=== PATIENT | male | born 1945 | race Hispanic/Latino ===

== ENCOUNTER 2017-05-06 12:00 | Inpatient (IN) | payer MEDICARE, BC ==
[2017-05-06 12:13] VITALS: BMI 29.9
--- NOTE | 2017-05-06 12:15 | ED PDOC ---
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 Patient reports his pain is exacerbated when coughing. Patient denies any fever, chills, nausea, vomiting, diarrhea, abdominal pain, urinary symptoms, hemtouria, hematochezia, chest pain, shortness of breath, cough or any other complaints. Oncologist: Dr. Vargas Time/Duration: Other (3 weeks) Symptom Course: Unchanged Quality: Other Context: Home Past Medical History - Provider Review Nursing Documentation Reviewed: Yes - Infectious Disease Hx of Infectious Diseases: None - Tetanus Immunization Tetanus Immunization: Unknown - Cardiac Hx Hypertension: Yes - Pulmonary Hx Respiratory Disorders: No - Neurological Hx Neurological Disorder: No - HEENT Hx HEENT Disorder: Yes (RX GLASSES) Hx Cataracts: Yes (BILATERAL LENS IMPLANT) - Renal Hx Renal Disorder: No - Endocrine/Metabolic Hx Diabetes Mellitus Type 2: Yes - Hematological/Oncological Hx Blood Transfusions: No Hx Blood Transfusion Reaction: No - Integumentary Hx Dermatological Disorder: No - Musculoskeletal/Rheumatological Hx Falls: No - Gastrointestinal Hx Gastrointestinal Disorders: Yes (colon/stomach ca, reflux) - Genitourinary/Gynecological Hx Reproductive Disorders: No - Psychiatric Hx Emotional Abuse: No Hx Physical Abuse: No Hx Substance Use: No - Surgical History Other/Comment: PORT RIGHT CHEST WALL, PICC IN AND OUT H/O, ASPERA CATH. - Anesthesia Hx Anesthesia Reactions: No Hx Malignant Hyperthermia: No - Suicidal Assessment Feels Threatened In Home Enviroment: No Family/Social History - Physician Review Nursing Documentation Reviewed: Yes Family/Social History: No Known Family HX Smoking Status: Never Smoked Hx Alcohol Use: No Hx Substance Use: No Hx Substance Use Treatment: No Allergies/Home Meds Allergies/Adverse Reactions: Allergies No Known Allergies Allergy (Verified 06/28/15 13:37) Home Medications: Home Meds Medication Instructions Recorded Confirmed Aspirin [Ecotrin] 81 mg PO DAILY 10/10/15 05/06/17 Potassium 20 meq PO DAILY 10/10/15 05/06/17 Ergocalciferol (Vitamin D2) 50,000 units PO MON 11/20/15 05/06/17 [Vitamin D2] Ferrous Gluconate 325 mg PO DAILY 11/20/15 05/06/17 Capecitabine [Capecitabine] 500 mg PO TID 05/06/17 05/06/17 Lisinopril [Zestril] 10 mg PO DAILY 05/06/17 05/06/17 Metformin ER [Glucophage XR] 500 mg PO BID 05/06/17 05/06/17 Spironolactone [Aldactone] 50 mg PO DAILY 05/06/17 05/06/17 Zolpidem [Ambien] 5 mg PO HS 05/06/17 05/06/17 Review of Systems - Physician Review All systems were reviewed & negative as marked: Yes - Review of Systems Constitutional: absent: Fevers, Night Sweats Respiratory: absent: SOB, Cough Cardiovascular: absent: Chest Pain Gastrointestinal: Abdominal Pain (right sided abdominal pain), Other (Abdominal distension). absent: Constipation, Diarrhea, Nausea, Vomiting, Hematochezia Genitourinary Male: absent: Dysuria, Frequency, Hematuria, Urinary Output Changes Physical Exam Vital Signs Reviewed: Yes Vital Signs Temp Pulse Resp BP Pulse Ox 05/06/17 14:58 85 18 171/98 H 98 05/06/17 12:12 98.2 F 77 18 172/101 H 100 Temperature: Afebrile Blood Pressure: Hypertensive Pulse: Regular Respiratory Rate: Normal Appearance: Positive for: Well-Appearing, Non-Toxic, Comfortable Pain Distress: None Mental Status: Positive for: Alert and Oriented X 3 - Systems Exam Head: Present: Atraumatic, Normocephalic Pupils: Present: PERRL Conjunctiva: Present: Normal Mouth: Present: Moist Mucous Membranes Pharnyx: No: ERYTHEMA, EXUDATE, TONSILS ENLARGED Neck: Present: Normal Range of Motion Respiratory/Chest: Present: Clear to Auscultation, Good Air Exchange. No: Respiratory Distress, Accessory Muscle Use Cardiovascular: Present: Regular Rate and Rhythm, Normal S1, S2. No: Murmurs Abdomen: Present: Tenderness (between right upper and lower quadrant), Normal Bowel Sounds, Hernias (reducible ventral hernia), Scars (Old surgical scars noted). No: Distention, Peritoneal Signs, Rebound, Guarding Back: Present: Normal Inspection Upper Extremity: Present: Normal Inspection. No: Cyanosis, Edema Lower Extremity: Present: Normal Inspection. No: Edema Neurological: Present: GCS=15, CN II-XII Intact, Speech Normal Skin: Present: Warm, Dry, Normal Color. No: Rashes Psychiatric: Present: Alert, Oriented x 3, Normal Insight, Normal Concentration Medical Decision Making ED Course and Treatment: 05/06/17 12:14 Impression: A 71 year old male sent in for mild abdominal distension and right sided abdominal pain. Plan: -- Chest, Abdomen and Pelvis CT -- EKG -- Labs -- Urinalysis -- Reassess and disposition Progress Notes: EKG shows NSR at 79 BPM with QTc 463, other intervals normal, normal axis, no ST /T changes. Interpreted by me. 05/06/17 15:54 Patient with noted history of carcinomatosis in the setting of stage IV colon cancer with CT findings as noted below showing worsening malignant ascites and increased size of pulmonary nodules - he will need a peritoneal catheter and further management of his cancer - will need admission to the hospital and interventional involvement. Discussed with Dr. Vargas for admission on his service. CT a/P: FINDINGS: CT CHEST WITH CONTRAST: LUNGS: Multiple lung nodules are seen throughout both lungs. These of increased in size and number since the previous study. MEDIASTINUM: Unremarkable. Normal caliber aorta and pulmonary arterial trunk. No aortic dissection. Normal size heart. LYMPH NODES: Unremarkable. PLEURA: Small bilateral pleural effusions BONES: Unremarkable. OTHER FINDINGS: None. CT ABDOMEN AND PELVIS: LIVER: Unremarkable. No gross lesion or ductal dilatation. GALLBLADDER AND BILE DUCTS: Dense contrast material is seen in the gallbladder consistent with vicarious excretion. PANCREAS: Unremarkable. No gross lesion or ductal dilatation. SPLEEN: Unremarkable. ADRENALS: Unremarkable. No mass. KIDNEYS AND URETERS: There is moderate right-sided hydronephrosis similar to the previous study VASCULATURE: Unremarkable. No aortic aneurysm. BOWEL: There are 2 separate ventral hernias that contain loops of bowel. However there is no associated obstruction. APPENDIX: Normal appendix. PERITONEUM: There is a moderate amount of ascites LYMPH NODES: Unremarkable. No enlarged lymph nodes. BLADDER: Unremarkable. REPRODUCTIVE: Unremarkable. BONES: No acute fracture. OTHER FINDINGS: None. IMPRESSION: Increasing pulmonary nodules. Increasing ascites. No change in right-sided hydronephrosis. No change in appearance of 2 separate ventral hernias. No associated obstruction - Lab Interpretations Lab Results: 05/06/17 12:55 05/06/17 12:55 Lab Results 05/06/17 14:30: Urine Color Yellow, Urine Appearance Sl cloudy, Urine pH 6.0, Ur Specific [place] 1.020, Urine Protein 100 H, Urine Glucose (UA) Negative, Urine Ketones Negative, Urine Blood Trace-lysed H, Urine Nitrate Negative, Urine Bilirubin Small H, Urine Urobilinogen 1.0 H, Ur Leukocyte Esterase Negative, Urine RBC 0 - 2, Urine WBC 0 - 2 05/06/17 14:00: Lactic Acid 1.0 05/06/17 12:55: Sodium 146, Potassium 3.8, Chloride 104, Carbon Dioxide 29, Anion Gap 17, BUN 9, Creatinine 0.9, Est GFR ( Amer) > 60, Est GFR (Non- Af Amer) > 60, Random Glucose 133 H, Calcium 9.4, Total Bilirubin 3.2 H, AST 118 H, ALT 96 H, Alkaline Phosphatase 959 H, Lactate Dehydrogenase 759 H, Total Creatine Kinase 66, Troponin I 0.03 D, Total Protein 7.7, Albumin 3.9, Globulin 3.8, Albumin/Globulin Ratio 1.0 L, Amylase 72, Lipase 65 05/06/17 12:55: PT 13.1 H, INR 1.21 H, APTT 29.9 05/06/17 12:55: WBC 4.8, RBC 4.79, Hgb 15.6, Hct 45.7, MCV 95.4, MCH 32.6, MCHC 34.1, RDW 14.5, Plt Count 217, MPV 11.4 H, Gran % 67.5, Lymph % (Auto) 17.6 L, [place] % (Auto) 11.6 H, Eos % (Auto) 2.5, Baso % (Auto) 0.8, Gran # 3.25, Lymph # 0.9 L, [place] # 0.6, Eos # 0.1, Baso # 0.04 I have reviewed the lab results: Yes - RAD Interpretation Radiology Orders: 05/06/17 12:17 CHEST,ABD,PEL W/IV&PO CONTRAST [CT] Stat - Medication Orders Current Medication Orders: Discontinued Medications Iohexol (Omnipaque 240 (50 Ml)) Confirm Administered Dose 50 ml .ROUTE .STK-MED ONE Stop: 05/06/17 12:31 Last Admin: 05/06/17 12:40 Dose: 50 ml Iohexol (Omnipaque 350 150 Ml) Confirm Administered Dose 150 ml .ROUTE .STK-MED ONE Stop: 05/06/17 14:36 - Scribe Statement The provider has reviewed the documentation as recorded by the Stephan Mukherjee Provider Scribe Attestation: All medical record entries made by the Scribe were at my direction and personally dictated by me. I have reviewed the chart and agree that the record accurately reflects my personal performance of the history, physical exam, medical decision making, and the department course for this patient. I have also personally directed, reviewed, and agree with the discharge instructions and disposition. Disposition/Present on Arrival - Present on Arrival Any Indicators Present on Arrival: No History of DVT/PE: No History of Uncontrolled Diabetes: No Urinary Catheter: No History Surgical Site Infection Following: None - Disposition Have Diagnosis and Disposition been Completed?: Yes Diagnosis: Abdominal pain, Malignant ascites, Peritoneal carcinomatosis Disposition: HOSPITALIZED Disposition Time: 15:50 Patient Plan: Admission Condition: FAIR
[2017-05-06] MEDS ORDERED: Iohexol 240 (50 ml) ONE (12:30)
[2017-05-06 13:16] LABS: BASO # 0.04 K/mm3 (0.0-2.0); BASO % 0.8 % (0.0-3.0); EOS # 0.1 (0.0-0.7); EOS % 2.5 % (1.5-5.0); GRAN # 3.25 (1.4-6.5); GRAN % 67.5 % (50.0-68.0); HEMATOCRIT 45.7 % (42.0-52.0); LYMPH # 0.9 (1.2-3.4); LYMPH % 17.6 % (22.0-35.0); MEAN CELL VOLUME 95.4 fl (80.0-105.0); MEAN CORPUSCULAR HEMOGLOBIN 32.6 pg (25.0-35.0); MEAN CORPUSCULAR HGB CONC 34.1 g/dl (31.0-37.0); MEAN PLATELET VOLUME 11.4 fl (7.0-11.0); MONO # 0.6 (0.1-0.6); MONO % 11.6 % (1.0-6.0); RED CELL DISTRIBUTION WIDTH 14.5 % (11.5-14.5); WHITE BLOOD COUNT 4.8 10^3/ul (4.5-11.0)
[2017-05-06 13:26] LABS: INR 1.21 (0.93-1.08); PARTIAL THROMBOPLASTIN TIME 29.9 Seconds (23.7-30.8)
[2017-05-06 13:29] LABS: ALKALINE PHOSPHATASE 959 U/L (38-133); ALT/SGPT 96 U/L (7-56); AMYLASE 72 U/L (35-125); AST/SGOT 118 U/L (15-59); BILIRUBIN,TOTAL 3.2 mg/dL (0.2-1.3); BLOOD UREA NITROGEN 9 mg/dL (7-21); CALCIUM 9.4 mg/dL (8.4-10.5); CARBON DIOXIDE 29 mmol/L (21-33); CHLORIDE 104 mmol/L (98-107); GFR AFRICAN-AMERICAN > 60; GLUCOSE,RANDOM 133 mg/dL (70-110); LIPASE 65 U/L (23-300); POTASSIUM 3.8 mmol/L (3.6-5.0); SODIUM 146 mmol/L (132-148); TOTAL PROTEIN 7.7 g/dL (5.8-8.3)
[2017-05-06 13:40] LABS: TROPONIN I 0.03 ng/mL
[2017-05-06 14:42] LABS: URINE APPEARANCE SL CLOUDY (CLEAR); URINE BILIRUBIN SMALL (NEGATIVE); URINE BLOOD TRACE-LYSED (NEGATIVE); URINE COLOR YELLOW (YELLOW); URINE GLUCOSE (UA) NEGATIVE (NEGATIVE); URINE KETONE NEGATIVE (NEGATIVE); URINE LEUKOCYTE ESTERASE NEGATIVE Leu/uL (NEGATIVE); URINE PROTEIN 100 mg/dL (<30 mg/dL)
[2017-05-06 14:44] LABS: URINE RBC 0 - 2 /hpf (0-2); URINE WBC 0 - 2 /hpf (0-6)
--- NOTE | 2017-05-06 15:44 | CT ---
PROCEDURE: CT Chest, Abdomen and Pelvis with intravenous contrast HISTORY: metastatic colon ca with abd distention COMPARISON: PET-CT 03/06/2017 TECHNIQUE: IV dose administered: 150 cc of Omni 350 Radiation dose: Total exam DLP = 1186 mGy-cm. This CT exam was performed using one or more of the following dose reduction techniques: Automated exposure control, adjustment of the mA and/or kV according to patient size, and/or use of iterative reconstruction technique. FINDINGS: CT CHEST WITH CONTRAST: LUNGS: Multiple lung nodules are seen throughout both lungs. These of increased in size and number since the previous study. MEDIASTINUM: Unremarkable. Normal caliber aorta and pulmonary arterial trunk. No aortic dissection. Normal size heart. LYMPH NODES: Unremarkable. PLEURA: Small bilateral pleural effusions BONES: Unremarkable. OTHER FINDINGS: None. CT ABDOMEN AND PELVIS: LIVER: Unremarkable. No gross lesion or ductal dilatation. GALLBLADDER AND BILE DUCTS: Dense contrast material is seen in the gallbladder consistent with vicarious excretion. PANCREAS: Unremarkable. No gross lesion or ductal dilatation. SPLEEN: Unremarkable. ADRENALS: Unremarkable. No mass. KIDNEYS AND URETERS: There is moderate right-sided hydronephrosis similar to the previous study VASCULATURE: Unremarkable. No aortic aneurysm. BOWEL: There are 2 separate ventral hernias that contain loops of bowel. However there is no associated obstruction. APPENDIX: Normal appendix. PERITONEUM: There is a moderate amount of ascites LYMPH NODES: Unremarkable. No enlarged lymph nodes. BLADDER: Unremarkable. REPRODUCTIVE: Unremarkable. BONES: No acute fracture. OTHER FINDINGS: None. IMPRESSION: Increasing pulmonary nodules. Increasing ascites. No change in right-sided hydronephrosis. No change in appearance of 2 separate ventral hernias. No associated obstruction
--- NOTE | 2017-05-06 17:38 | CARD ---
APPROVED REPORT EKG Measurement Heart [id number] <Conclusion> Normal sinus rhythm Possible Left atrial enlargement Prolonged QT Abnormal ECG
[2017-05-06] MEDS: Sodium Chloride 0.9% 1,000 ML IV SCH (22:32)
[2017-05-06] MEDS ORDERED: Pneumococcal 23-Valent Vaccine IM ONE (22:41)
[2017-05-06] MEDS ORDERED: Pantoprazole 40 mg EC Tab PO STA (23:45)
--- NOTE | 2017-05-06 23:46 | CP.PCM.PN ---
Subjective - Date & Time of Evaluation Date of Evaluation: 05/06/17 Time of Evaluation: 23:46 - Subjective Subjective: Patient was seen at bed side. This Father , complained of heart burn, mild , not radiating, in epigastric area,no chest pain,no nausea, no palpitation, no sob, no sweating. Also, his BP was 170/100 in right arm and 176/106 in left arm. He had received Zestril 10 mg @ 4:15PM. States that he takes 2, 10 mg Zestril at home daily. He has no other complaints now. ROS:Negative except as mentioned above. This 71 year old white Father was admitted for right sided abdominal pain, abdominal distension. 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 Objective - Vital Signs/Intake and Output Vital Signs (last 24 hours): Temp Pulse Resp BP Pulse Ox 98.2 F 87 18 187/109 H 98 05/06/17 22:22 05/06/17 22:22 05/06/17 22:22 05/06/17 22:22 05/06/17 17:30 - Medications Medications: Current Medications Aspirin (Ecotrin) 81 mg PO DAILY [facility] Ferrous Gluconate (Fergon) 324 mg PO DAILY [facility] Sodium Chloride (Sodium Chloride 0.9%) 1,000 mls @ 60 mls/hr IV .[id number] [facility] Last Admin: 05/06/17 22:32 Dose: 60 mls/hr Lisinopril (Zestril) 10 mg PO DAILY [facility] Magnesium Oxide (Mag-Ox) 400 mg PO DAILY [facility] Metformin HCl (Glucophage) 500 mg PO BID [facility] Pantoprazole Sodium (Protonix Ec Tab) 40 mg PO 0600 [facility] Spironolactone (Aldactone) 50 mg PO DAILY [facility] Zolpidem Tartrate (Ambien) 5 mg PO HS [facility] PRN Reason: Protocol - Labs Labs: PT 13.1 Seconds (9.9-11.8) H 05/06/17 12:55 INR 1.21 (0.93-1.08) H 05/06/17 12:55 APTT 29.9 Seconds (23.7-30.8) 05/06/17 12:55 Most Recent Lab Values WBC 4.8 10^3/ul (4.5-11.0) 05/06/17 12:55 RBC 4.79 10^6/uL (3.5-6.1) 05/06/17 12:55 Hgb 15.6 g/dL (14.0-18.0) 05/06/17 12:55 Hct 45.7 % (42.0-52.0) 05/06/17 12:55 MCV 95.4 fl (80.0-105.0) 05/06/17 12:55 MCH 32.6 pg (25.0-35.0) 05/06/17 12:55 MCHC 34.1 g/dl (31.0-37.0) 05/06/17 12:55 RDW 14.5 % (11.5-14.5) 05/06/17 12:55 Plt Count 217 10^3/uL (120.0-450.0) 05/06/17 12:55 MPV 11.4 fl (7.0-11.0) H 05/06/17 12:55 Gran % 67.5 % (50.0-68.0) 05/06/17 12:55 Lymph % (Auto) 17.6 % (22.0-35.0) L 05/06/17 12:55 [place] % (Auto) 11.6 % (1.0-6.0) H 05/06/17 12:55 Eos % (Auto) 2.5 % (1.5-5.0) 05/06/17 12:55 Baso % (Auto) 0.8 % (0.0-3.0) 05/06/17 12:55 Gran # 3.25 (1.4-6.5) 05/06/17 12:55 Lymph # 0.9 (1.2-3.4) L 05/06/17 12:55 [place] # 0.6 (0.1-0.6) 05/06/17 12:55 Eos # 0.1 (0.0-0.7) 05/06/17 12:55 Baso # 0.04 K/mm3 (0.0-2.0) 05/06/17 12:55 PT 13.1 Seconds (9.9-11.8) H 05/06/17 12:55 INR 1.21 (0.93-1.08) H 05/06/17 12:55 APTT 29.9 Seconds (23.7-30.8) 05/06/17 12:55 Sodium 146 mmol/L (132-148) 05/06/17 12:55 Potassium 3.8 mmol/L (3.6-5.0) 05/06/17 12:55 Chloride 104 mmol/L (98-107) 05/06/17 12:55 Carbon Dioxide 29 mmol/L (21-33) 05/06/17 12:55 Anion Gap 17 (10-20) 05/06/17 12:55 BUN 9 mg/dL (7-21) 05/06/17 12:55 Creatinine 0.9 mg/dL (0.5-1.4) 05/06/17 12:55 Est GFR ( Amer) > 60 05/06/17 12:55 Est GFR (Non-Af Amer) > 60 05/06/17 12:55 Random Glucose 133 mg/dL (70-110) H 05/06/17 12:55 Lactic Acid 1.0 mmol/L (0.7-2.1) 05/06/17 14:00 Calcium 9.4 mg/dL (8.4-10.5) 05/06/17 12:55 Total Bilirubin 3.2 mg/dL (0.2-1.3) H 05/06/17 12:55 AST 118 U/L (15-59) H 05/06/17 12:55 ALT 96 U/L (7-56) H 05/06/17 12:55 Alkaline Phosphatase 959 U/L (38-133) H 05/06/17 12:55 Lactate Dehydrogenase 759 U/L (333-699) H 05/06/17 12:55 Total Creatine Kinase 66 U/L (35-230) 05/06/17 12:55 Troponin I 0.03 ng/mL D 05/06/17 12:55 Total Protein 7.7 g/dL (5.8-8.3) 05/06/17 12:55 Albumin 3.9 g/dL (3.0-4.8) 05/06/17 12:55 Globulin 3.8 gm/dL 05/06/17 12:55 Albumin/Globulin Ratio 1.0 (1.1-1.8) L 05/06/17 12:55 Amylase 72 U/L (35-125) 05/06/17 12:55 Lipase 65 U/L (23-300) 05/06/17 12:55 Urine Color Yellow (YELLOW) 05/06/17 14:30 Urine Appearance Sl cloudy (CLEAR) 05/06/17 14:30 Urine pH 6.0 (4.7-8.0) 05/06/17 14:30 Ur Specific [place] 1.020 (1.005-1.035) 05/06/17 14:30 Urine Protein 100 mg/dL (<30 mg/dL) H 05/06/17 14:30 Urine Glucose (UA) Negative mg/dL (NEGATIVE) 05/06/17 14:30 Urine Ketones Negative mg/dL (NEGATIVE) 05/06/17 14:30 Urine Blood Trace-lysed (NEGATIVE) H 05/06/17 14:30 Urine Nitrate Negative (NEGATIVE) 05/06/17 14:30 Urine Bilirubin Small (NEGATIVE) H 05/06/17 14:30 Urine Urobilinogen 1.0 E.U./dL (<1 E.U./dL) H 05/06/17 14:30 Ur Leukocyte Esterase Negative [place]/uL (NEGATIVE) 05/06/17 14:30 Urine RBC 0 - 2 /hpf (0-2) 05/06/17 14:30 Urine WBC 0 - 2 /hpf (0-6) 05/06/17 14:30 - Constitutional Appears: Well, No Acute Distress - Head Exam Head Exam: ATRAUMATIC, NORMAL INSPECTION, NORMOCEPHALIC - Eye Exam Eye Exam: Normal appearance Pupil Exam: NORMAL ACCOMODATION - ENT Exam ENT Exam: Normal External Ear Exam - Neck Exam Neck Exam: Normal Inspection - Respiratory Exam Respiratory Exam: NORMAL BREATHING PATTERN - Cardiovascular Exam Cardiovascular Exam: absent: JVD - GI/Abdominal Exam GI & Abdominal Exam: absent: Distended - Rectal Exam Rectal Exam: Deferred - Exam Additional comments: Deferred. - Extremities Exam Extremities Exam: Normal Inspection - Back Exam Back Exam: NORMAL INSPECTION - Neurological Exam Neurological Exam: Alert, Awake, Oriented x3 - Psychiatric Exam Psychiatric exam: Normal Affect, Normal Mood - Skin Skin Exam: Normal Color Assessment and Plan - Assessment and Plan (Free Text) Assessment: Heart burn. Elevated blood pressure reading. Abdominal pain. Abdominal distension. HTN. DM II. Obesity. Colon cancer with mets to peritoneum. Plan: Protonix 40 mg PO stat. Zestril 10 mg PO stat. Recheck BP in one hour. Continue present management.
[2017-05-07] MEDS: Pantoprazole 40 mg EC Tab PO SCH (05:52)
[2017-05-07] MEDS ORDERED: FERROUS GLUCONATE 325 MG PO SCH (10:00)
[2017-05-07] MEDS: Magnesium Oxide 400 mg Tab UD PO SCH (10:46)
--- NOTE | 2017-05-07 12:51 | CP.PCM.CON ---
History of Present Illness - History of Present Illness History of Present Illness: Seen and examined at the bedside earlier today. The chart was reviewed. Request for GI consult is for ascites/hernia. HPI: This is a 71-year-old male with a past medical history of stage IV metastatic adenocarcinoma of the colon with carcinomatosis came to the emergency room for complaint of abdominal distention and right-sided abdominal pain for 3 weeks. The patient was sent by his oncologist to the ER for further evaluation. He is currently on chemotherapy and his last treatment was 2 weeks ago. The patient reports that he did have back in 2015 is spare catheter for self drainage of peritoneal fluid. He denies currently any nausea, vomiting, fever, chills. He only experiences abdominal discomfort from his hernia when he coughs. He denies any change in bowel habits, diarrhea or constipation. He moves his bowels regularly and does not notice any melena or bright red blood per rectum. No complaints of any weight loss, or anorexia. On admission he had a CT scan of the chest abdomen and pelvis with oral and IV contrast which revealed increasing lung nodules, right hydronephrosis, 2 ventral hernias that are negative for obstruction, and moderate amount of ascites, with no lymph nodes. Past medical history: Hypertension, diabetes mellitus, stage IV metastatic colon cancer with carcinomatosis, GERD Surgical history: Bilateral cataract surgery, right chest port, previous history of Aspira Catheter Allergies: No known drug allergies Family history: Noncontributory at this time Social history: Denies smoking, EtOH or substance abuse. Medications: Reviewed as per MAR ROS: Systems reviewed with positive findings see HPI Past Patient History - Infectious Disease Hx of Infectious Diseases: None - Tetanus Immunizations Tetanus Immunization: Unknown - Past Social History Smoking Status: Former Smoker - CARDIAC Hx Cardiac Disorders: Yes Hx Hypertension: Yes - PULMONARY Hx Respiratory Disorders: Yes (SMOKED 4 PPD CIGARETTES QUIT 1967) - NEUROLOGICAL Hx Neurological Disorder: No - HEENT Hx HEENT Problems: Yes (RX GLASSES) Hx Cataracts: Yes (BILATERAL LENS IMPLANT) - RENAL Hx Chronic Kidney Disease: No - ENDOCRINE/METABOLIC Hx Endocrine Disorders: Yes Hx Diabetes Mellitus Type 2: Yes - HEMATOLOGICAL/ONCOLOGICAL Hx Blood Disorders: Yes Hx Cancer: Yes (stomach and colon) Hx Chemotherapy: Yes - INTEGUMENTARY Hx Dermatological Problems: Yes (H/O CELLULITIS ABSCESS TO NECK AREA) - MUSCULOSKELETAL/RHEUMATOLOGICAL Hx Musculoskeletal Disorders: No Hx Falls: No - GASTROINTESTINAL Hx Gastrointestinal Disorders: Yes (colon/stomach ca, reflux) Other/Comment: VENTRAL HERNIA X 2 - GENITOURINARY/GYNECOLOGICAL Hx Genitourinary Disorders: No - PSYCHIATRIC Hx Psychophysiologic Disorder: Yes (INSOMNIA) Hx Emotional Abuse: No Hx Physical Abuse: No Hx Substance Use: No Other/Comment: USED TO SMOKE CIGARETTES AND DRANK SOCIALLY.QUIT - SURGICAL HISTORY Hx Surgeries: Yes Other/Comment: PORT RIGHT CHEST WALL, PICC IN AND OUT H/O, ASPERA CATH. - ANESTHESIA Hx Anesthesia Reactions: No Hx Malignant Hyperthermia: No Meds Allergies/Adverse Reactions: Allergies Allergy/AdvReac Type Severity Reaction Status Date / Time No Known Allergies Allergy Verified 05/06/17 20:39 - Medications Medications: Current Medications Aspirin (Ecotrin) 81 mg PO DAILY [facility] Last Admin: 05/07/17 10:46 Dose: Not Given Ferrous Gluconate (Fergon) 324 mg PO DAILY [facility] Last Admin: 05/07/17 10:46 Dose: Not Given Sodium Chloride (Sodium Chloride 0.9%) 1,000 mls @ 60 mls/hr IV .[id number] [facility] Last Admin: 05/06/17 22:32 Dose: 60 mls/hr Lisinopril (Zestril) 20 mg PO DAILY [facility] Magnesium Oxide (Mag-Ox) 400 mg PO DAILY [facility] Last Admin: 05/07/17 10:46 Dose: Not Given Metformin HCl (Glucophage) 500 mg PO BID [facility] Last Admin: 05/07/17 10:46 Dose: Not Given Pantoprazole Sodium (Protonix Ec Tab) 40 mg PO 0600 [facility] Last Admin: 05/07/17 05:52 Dose: 40 mg Spironolactone (Aldactone) 50 mg PO DAILY [facility] Last Admin: 05/07/17 09:02 Dose: 50 mg Zolpidem Tartrate (Ambien) 5 mg PO HS [facility] PRN Reason: Protocol Last Admin: 05/07/17 00:01 Dose: 5 mg Physical Exam - Constitutional Appears: No Acute Distress - Eye Exam Eye Exam: Normal appearance. absent: Scleral icterus (he is) - ENT Exam ENT Exam: Mucous Membranes Moist - Neck Exam Neck exam: Positive for: Normal Inspection - Respiratory Exam Respiratory Exam: Decreased Breath Sounds, NORMAL BREATHING PATTERN. absent: Rales, Wheezes, Respiratory Distress - Cardiovascular Exam Cardiovascular Exam: +S1, +S2 - GI/Abdominal Exam GI & Abdominal Exam: Distended, Hernia (umbilical and ventral, palpable, nontender, very noticeable when patient coughed), Normal Bowel Sounds, Soft. absent: Guarding, Rebound, Tenderness - Extremities Exam Extremities exam: Positive for: pedal pulses present. Negative for: calf tenderness, pedal edema - Neurological Exam Neurological exam: Alert, Oriented x3 - Skin Skin Exam: Dry, Warm Results - Vital Signs Recent Vital Signs: Last Vital Signs Temp 98.2 F 05/07/17 06:00 Pulse 70 05/07/17 11:54 Resp 18 05/07/17 06:00 BP 160/90 H 05/07/17 11:54 Pulse Ox 96 05/07/17 06:00 - Labs Result Diagrams: 05/06/17 12:55 05/06/17 12:55 Assessment & Plan - Assessment and Plan (Free Text) Assessment: Assessment: Stage IV metastatic adenocarcinoma of the colon with carcinomatosis Abdominal ascites likely secondary to the carcinomatosis Elevated liver enzymes, the patient did have recent abdominal ultrasound on 2016, which showed trouble both fatty liver, no mass or biliary dilatation, CBD measured 6 mm, gallbladder wall thickening was noted but was nonspecific and probable gallbladder sludge, no adrián stone Lung nodules with increasing size as seen on CT Right-sided hydronephrosis GERD Hypertension Diabetes mellitus Plan: For paracentesis and severe catheter insertion with IR today Trend LFTs Request hepatitis panel Continue Protonix On Aldactone Continue heart healthy diet as tolerated Monitor electrolytes I&O Urology evaluation as per oncology Thank you for this consult and for allowing us to participate in your patient's care, will make further recommendations based upon clinical course. Seen and discussed with Dr. Georges who is covering for Dr. House
[2017-05-07] MEDS: Insulin Reg-LOW-Coverage SC SCH (21:23)
--- NOTE | 2017-05-08 03:20 | CON ---
DATE: 05/07/2017 CHIEF COMPLAINT: Abdominal distention. HISTORY OF PRESENT ILLNESS: This is a 71-year-old male with a history of stage IV colon carcinoma, who was admitted for normal distension and right-sided abdominal pain for the past few weeks. Patient reports the pain is worsened with coughing, there is nothing specifically that makes the pain better. He reports he is voiding without any difficulties. He denies any dysuria, urinary frequency, urgency, or gross hematuria. He denies any history of stones in the past. He does report a history of malignant ascites, and reports he is scheduled to have some of the fluid removed. He has had recently increasing ascites over the past few weeks. consultation was requested regarding hydronephrosis. PAST MEDICAL HISTORY: Stage IV colon carcinoma with carcinomatosis, ascites. MEDICATIONS: Include Aldactone, Ambien, Ecotrin, Fergon, Glucophage, magnesium oxide, Protonix, sodium chloride IV, and Zestril. ALLERGIES: NO KNOWN DRUG ALLERGIES. FAMILY HISTORY: Noncontributory to his urologic issues. SOCIAL HISTORY: Denies any current smoking or ETOH use. REVIEW OF SYSTEMS: A 12-point review of systems was obtained. Positive for abdominal distension and some right-sided abdominal pain. No chest pain or palpitations. No cough or shortness of breath. No dysuria, urinary frequency, urgency, or gross hematuria. Other systems are reportedly negative. PHYSICAL EXAMINATION: GENERAL: Patient is awake alert, answering questions. He is in no acute distress. He is afebrile. VITAL SIGNS: Temperature of 98.2, pulse of 86, BP 180/108, respirations are 18. NECK: Supple. There is no thyromegaly or adenopathy. CHEST: Reveals normal inspiratory effort. CARDIAC: Positive S1 and S2. ABDOMEN: Soft. There is no tenderness. There is no mass. There is no costovertebral angle tenderness. There does appear to be a positive acidic wave. There is no rebound or guarding. GENITOURINARY: Phallus is normal. Scrotum is normal. Testes bilaterally distended, nontender. No masses. Epididymides are normal. EXTREMITIES: No cyanosis. There was some trace peripheral edema. LABORATORY DATA: Hemoglobin 15.6. GFR greater than 60. Elevated alk phos and LDH. Elevated liver enzymes. On urinalysis, there was small bilirubin, 0-2 rbc's, 0-2 wbc's, and negative nitrates. RADIOLOGY REPORTS: Patient had a CT scan of the chest, abdomen, and pelvis done on admission, which showed multiple lung nodules throughout both lungs, increased in size and number since the previous study. There is small bilateral pleural effusions. Liver was unremarkable. There is moderate right hydronephrosis similar to the previous study. Has positive ascites in the moderate amount, and there are two separate ventral hernias containing loops of bowel. On prior imaging, patient had a bladder ultrasound on April 24, which showed good bladder emptying. He also had an abdominal ultrasound on April 24, which showed no mention of hydronephrosis, but he did have a renal ultrasound in August of 2016, which did show mild hydronephrosis at that time. On 2016 study, there was mild bilateral hydronephrosis. IMPRESSION AND PLAN: This is a 71-year-old male with stage IV metastatic colon cancer. He also has a malignant ascites and increasing lung nodules. Urologically, patient's renal function appears stable with the GFR greater than 60. He has no voiding issues. Prior ultrasound showed no significant postvoid residual. As for the hydronephrosis, no apparent cause was noted on the CT scan. There was no mention of any kidney stones, ureteral stones, or other abnormality. It is possible that hydronephrosis is being caused by direct pressure on the ureter from the ascites; however, this is unlikely. Patient was having some right-sided abdominal pain, possibly there was a stone, which passed. Given patient's significant medical issues, I would wait until the ascites has been drained. We can repeat a renal ultrasound after that and if the hydronephrosis persists, we can consider a cystoscopy retrograde pyelogram, and possible stent placement; however, given patient's progression of colon cancer on chemotherapy, we tried to avoid any invasive procedures, which may not necessarily help him. We can consider a renal scan to rule out any kind of obstruction as the source of his hydronephrosis. On review of prior imaging studies, it appears that the hydronephrosis has coming down in both kidneys. There is unclear what the cause of the hydronephrosis is. I will discuss possible cystoscopy, retrograde, and stent placement with his medical attending, Dr. Waqar Vargas, and make further recommendations after speaking with him. Thank you for allowing me to participate in the care of this patient. We will follow him with you. Faizan Koroma MD
[2017-05-08] MEDS: Pantoprazole 40 mg EC Tab PO SCH (05:28)
[2017-05-08 06:41] LABS: BASO # 0.03 K/mm3 (0.0-2.0); BASO % 0.7 % (0.0-3.0); EOS # 0.2 (0.0-0.7); EOS % 3.6 % (1.5-5.0); GRAN # 2.73 (1.4-6.5); GRAN % 60.6 % (50.0-68.0); HEMATOCRIT 37.6 % (42.0-52.0); LYMPH % 21.8 % (22.0-35.0); MEAN CELL VOLUME 94.5 fl (80.0-105.0); MEAN CORPUSCULAR HEMOGLOBIN 31.2 pg (25.0-35.0); MEAN PLATELET VOLUME 11.2 fl (7.0-11.0); MONO # 0.6 (0.1-0.6); MONO % 13.3 % (1.0-6.0); RED CELL DISTRIBUTION WIDTH 14.4 % (11.5-14.5); WHITE BLOOD COUNT 4.5 10^3/ul (4.5-11.0)
[2017-05-08] MEDS: Sodium Chloride 0.9% 1,000 ML IV SCH (06:53)
[2017-05-08 06:58] LABS: ALB/GLOB RATIO 0.9 (1.1-1.8); ALKALINE PHOSPHATASE 510 U/L (38-133); ALT/SGPT 63 U/L (7-56); AST/SGOT 68 U/L (15-59); BILIRUBIN,TOTAL 2.6 mg/dL (0.2-1.3); BLOOD UREA NITROGEN 10 mg/dL (7-21); CALCIUM 7.8 mg/dL (8.4-10.5); CARBON DIOXIDE 26 mmol/L (21-33); CHLORIDE 107 mmol/L (98-107); GFR AFRICAN-AMERICAN > 60; GLUCOSE,RANDOM 110 mg/dL (70-110); POTASSIUM 3.4 mmol/L (3.6-5.0); SODIUM 140 mmol/L (132-148); TOTAL PROTEIN 5.2 g/dL (5.8-8.3)
[2017-05-08] MEDS: Insulin Reg-LOW-Coverage SC SCH ×4 (07:30→21:24)
--- NOTE | 2017-05-08 08:15 | PN ---
DATE: 05/07/2017 ADDENDUM to Aletha Panda' consult This is an unfortunate 71-year-old male with stage IV colon cancer with multiple lung nodules and recurrent ascites. The patient apparently had large volume paracentesis approximately one year ago. He presents with abdominal distention and recurrent ascites. PLAN: The patient to have large volume paracentesis with Dr. Shawn Merritt as well as placement of a peritoneal catheter. Tutu Georges MD MTDD
[2017-05-08] MEDS: Magnesium Oxide 400 mg Tab UD PO SCH (09:55)
[2017-05-08] MEDS ORDERED: Potassium Chloride 20 mEq ER Tab PO ONE ×2 (10:48→11:23)
--- NOTE | 2017-05-08 10:54 | CP.PCM.PN ---
Subjective - Date & Time of Evaluation Date of Evaluation: 05/08/17 Time of Evaluation: 08:45 - Subjective Subjective: Seen and examined at the bedside this morning, no acute overnight events reported. Patient is tolerating liquid breakfast. Patient is going for severe Today. Denies nausea, vomiting, or abdominal pain. No reports of any overt GI bleed, shortness of breath or chest pain. Objective - Vital Signs/Intake and Output Vital Signs (last 24 hours): Temp Pulse Resp BP Pulse Ox 97.7 F 68 20 150/80 97 05/08/17 08:28 05/08/17 09:55 05/08/17 08:28 05/08/17 09:55 05/08/17 08:28 Intake and Output: 05/08/17 05/08/17 06:59 18:59 Intake Total 2520 Output Total 700 Balance 1820 - Medications Medications: Current Medications Aspirin (Ecotrin) 81 mg PO DAILY [facility] Last Admin: 05/08/17 09:54 Dose: Not Given Clonidine HCl (Catapres) 0.2 mg PO Q6 PRN PRN Reason: Systolic Blood Pressure Ferrous Gluconate (Fergon) 324 mg PO DAILY [facility] Last Admin: 05/08/17 09:54 Dose: 324 mg Sodium Chloride (Sodium Chloride 0.9%) 1,000 mls @ 60 mls/hr IV .[id number] [facility] Last Admin: 05/08/17 06:53 Dose: 60 mls/hr Insulin Human Regular (Humulin R Low) 0 units SC ACHS [facility] PRN Reason: Protocol Last Admin: 05/07/17 21:23 Dose: Not Given Lisinopril (Zestril) 20 mg PO DAILY [facility] Last Admin: 05/08/17 09:55 Dose: 20 mg Magnesium Oxide (Mag-Ox) 400 mg PO DAILY [facility] Last Admin: 05/08/17 09:55 Dose: 400 mg Metformin HCl (Glucophage) 500 mg PO BID [facility] Last Admin: 05/08/17 09:54 Dose: 500 mg Pantoprazole Sodium (Protonix Ec Tab) 40 mg PO 0600 [facility] Last Admin: 05/08/17 05:28 Dose: 40 mg Spironolactone (Aldactone) 50 mg PO DAILY [facility] Last Admin: 05/08/17 09:53 Dose: 50 mg Zolpidem Tartrate (Ambien) 5 mg PO HS [facility] PRN Reason: Protocol Last Admin: 05/07/17 21:22 Dose: 5 mg - Labs Labs: 05/08/17 06:15 05/08/17 06:15 PT 13.1 Seconds (9.9-11.8) H 05/06/17 12:55 INR 1.21 (0.93-1.08) H 05/06/17 12:55 APTT 29.9 Seconds (23.7-30.8) 05/06/17 12:55 - Constitutional Appears: No Acute Distress - Eye Exam Eye Exam: Normal appearance. absent: Scleral icterus - ENT Exam ENT Exam: Mucous Membranes Moist - Respiratory Exam Respiratory Exam: Decreased Breath Sounds, NORMAL BREATHING PATTERN. absent: Respiratory Distress - Cardiovascular Exam Cardiovascular Exam: +S1, +S2 - GI/Abdominal Exam GI & Abdominal Exam: Distended, Soft, Hernia (nontender), Normal Bowel Sounds. absent: Guarding, Tenderness, Rebound - Extremities Exam Extremities Exam: Normal Capillary Refill. absent: Calf Tenderness, Pedal Edema - Neurological Exam Neurological Exam: Alert, Awake, Oriented x3 - Skin Skin Exam: Dry, Warm Assessment and Plan - Assessment and Plan (Free Text) Assessment: Assessment: Stage IV metastatic adenocarcinoma of the colon with carcinomatosis Abdominal ascites likely secondary to the carcinomatosis Elevated liver enzymes, the patient did have recent abdominal ultrasound on 2016, which showed trouble both fatty liver, no mass or biliary dilatation, CBD measured 6 mm, gallbladder wall thickening was noted but was nonspecific and probable gallbladder sludge, no adrián stone Lung nodules with increasing size as seen on CT Right-sided hydronephrosis GERD Hypertension Diabetes mellitus Plan: For paracentesis and aspira catheter insertion with IR today Trend LFTs FU hepatitis panel Continue Protonix Dose of potassium 20 Meq 1 On Aldactone Continue heart healthy diet as tolerated Monitor electrolytes I&O as per oncology Seen and discussed with Dr. Georges who is covering for Dr. House
[2017-05-08] MEDS ORDERED: Lidocaine 2% Inj (20ml) ONE (12:59)
[2017-05-08] MEDS ORDERED: Midazolam 2 MG/2 ML VIAL ONE ×2 (13:55→14:20)
[2017-05-08] MEDS ORDERED: Oxycodone/Acetaminophen 5/325 mg Tab PO PRN (14:51)
[2017-05-08] MEDS ORDERED: Albumin Human 25% (25 gm/100 ml) IV ONE ×2 (20:00→20:15)
--- NOTE | 2017-05-08 20:40 | VASCULAR ---
PROCEDURE: 1. Ultrasound fluoroscopically placed tunneled peritoneal catheter HISTORY: Colon CA. Malignant ascites. Abdominal pain and distension. PHYSICIAN(S): Shawn Merritt MD. TECHNIQUE: The relative risks and indications of the procedure were explained the patient and consent obtained. The patient was placed supine on the arteriography table and preliminary sonography of the abdomen performed. This revealed a moderate amount of ascites. A site for tube placement was selected in the right lower quadrant area prepped and draped in the usual sterile fashion. Conscious sedation monitoring were provided throughout the procedure by a nurse. Under ultrasound guidance, the right peritoneal cavity was punctured and 0.035 glidewire advanced posteriorly and superiorly. Next the peel-away sheath for the peritoneal catheter was placed. Over the guidewire a 15.5 [place] Aspira catheter was advanced posteriorly and superiorly under the diaphragm. The catheter was flushed and secured. A paracentesis was performed. 3500 cc of yellow fluid was aspirated. No labs were sent. FINDINGS: IMPRESSION: 1.Ultrasound fluoroscopically placed tunneled peritoneal catheter. 2. 3500 cc of clear yellow fluid was aspirated.
--- NOTE | 2017-05-09 00:55 | PN ---
DATE OF VISIT: 05/08/2017 Hospital visit on the medical floor for Dr. Vargas. 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 Shawn Merritt with an Aspira catheter left in with the patient denying any pain with recommendations for 1 L of fluid to be removed again on 05/13 with the dressing to be changed every 4 days in the interim as per Dr. Shawn Merritt with the patient possibly to be discharged soon once he is stable. It should be noted that the patient's T-bili today was 2.6, which will be monitored with considerations for further evaluation as per Dr. House once the repeat is known in the morning. It is improved from a 3.2 value 2 days earlier along with elevated LFTs. His potassium was low for which Dr. Mcgowan is monitoring him and also Dr. Young is following him for his right hydronephrosis. 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 OBJECTIVE: PHYSICAL EXAM VITAL SIGNS: Temperature 97.7, pulse 61, respirations 18, blood pressure 144/89, pulse ox 98%. PHYSICAL EXAMINATION: HEENT: Unremarkable. NECK: Supple. HEART: Regular rate. LUNGS: Clear. ABDOMEN: Soft with Aspira catheter noted with dressings dry and intact with his tense ascites significantly improved, he reports. EXTREMITIES: No edema. SKIN: Warm, dry, and clear. NEUROLOGIC: Awake,alert, and oriented x3. LABORATORY DATA: The patient's labs were done. White blood cell count of 4.5, hemoglobin of 12.4 with a hematocrit 37.6, platelet count of 184, 000. Chem metabolic panel shows a potassium of 3.4, calcium of 7.8, T-bili of 2.6, AST of 68, ALT of 63, alk phos of 510, total protein of 5.2. All these values are improved from his admission values except the potassium dropping from 3.8 to 3.4. The patient's albumin is now 2.5, it was 3.9 on admission with the values to be checked again tomorrow in the morning. The patient's hepatitis A, B, C testing, which was negative. His amylase and lipase were within normal range. INR of 1.21. The patient did have a CT scan of the chest, abdomen and pelvis 2 days prior which was read as increasing pulmonary nodules, increasing ascites, no change in right-sided hydronephrosis, no change in appearance of 2 separate ventral hernias, no associated obstruction. ASSESSMENT: For this patient is that of stage IV colon cancer with hernial carcinomatosis with tense ascites, status post Aspira catheter placement with 3.75 L of fluid removed. History of lung nodules, hydronephrosis, diabetes mellitus, and hypertension. The plan for this patient after conversation with Dr. Vargas to continue his present medical regimen, continue consultants' recommendations. We will also add albumin 25 g daily for 3 days to run in over 90 minutes. We will also monitor his total bilirubin with liver enzymes and his electrolytes with his blood sugars also be continued to be monitored with above followup as per Dr. Shawn Merritt's protocol. Prognosis for the patient is guarded. Parminder Julien MD
--- NOTE | 2017-05-09 01:38 | CON ---
DATE: 05/08/2017 The patient admitted by Dr. Parminder Julien. REFERRING MD: Dr. Parminder Julien. REASON FOR CONSULTATION: Evaluation of a patient known to me from followup 2 years ago, who presents with accelerated hypertension. HISTORY OF PRESENT ILLNESS: The patient is a pleasant 71-year-old white male with a history of stage IV colon cancer, metastatic. The patient has malignant ascites. The patient has increasing lung nodules. The patient has a right chest wall port from which he receives chemotherapy on a regular basis by Dr. Vargas and Dr. Julien. The patient was admitted to the hospital for increasing ascites. He is scheduled to have a peritoneal catheter placed, which would allow periodic removal of ascitic fluid. Of note, during the hospitalization, the patient has had sustained elevations of blood pressure with systolics in the 180 to 190 range, diastolics in the 100 to 110 range. For the most part, the patient has been asymptomatic. The patient had been maintained on lisinopril at home. He had received stat doses of clonidine with improvement in his blood pressure control. We are asked to evaluate the patient to help manage his hypertension. The patient is also noted to have a potassium of 3.4. He remains on Aldactone therapy for his ascites. PAST MEDICAL HISTORY: Significant for stage IV metastatic colon cancer with malignant ascites and lung mets. Right hydronephrosis noted on recent CAT scan. This is of uncertain etiology. The patient had been seen by . History of hypertension diagnosed during the last 2 years. The patient is currently being managed on lisinopril with perhaps some added benefit from using Aldactone. History of diabetes mellitus, controlled on oral agents. History of GERD and hyperlipidemia. MEDICATIONS AT HOME: Include that of lisinopril, Lipitor, potassium, capecitabine, Ambien, Aldactone, metformin, mag oxide, vitamin D, Ecotrin, ferrous gluconate and Protonix p.r.n. ALLERGIES: THE PATIENT HAS NO KNOWN ALLERGIES TO MEDICATIONS. CURRENT MEDICATIONS IN HOSPITAL: Include that of Aldactone, Ambien, p.r.n. Catapres, Ecotrin, ferrous gluconate, Glucophage, sliding scale insulin, mag oxide, Protonix, normal saline 60 mL an hour, and lisinopril. SOCIAL HISTORY: The patient was a former smoker, he quit in 1967. The patient uses alcohol occasionally, but none recently. No history of drug use. 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 FAMILY HISTORY: Father of unknown causes. Mother had CHF, colon cancer and aortic abdominal aneurysm. She is . REVIEW OF SYSTEMS: GENERAL: The patient states appetite and weight have been stable. ENT: No hearing or visual problems. PULMONARY: No shortness of breath. No history of COPD, emphysema, bronchitis or asthma. CARDIAC: No history of heart disease. GASTROINTESTINAL: No nausea, no vomiting, no abdominal pain. Positive ascites. No diarrhea, no constipation. GENITOURINARY: No history of chronic kidney disease. Right-sided hydronephrosis as noted above. ENDOCRINE: History of diabetes mellitus, managed with oral agents. MUSCULOSKELETAL: No complaints. NEUROLOGIC: No past history of CVA, TIA, seizures or syncope. HEMATOLOGY AND ONCOLOGY: History of stage IV colon cancer with malignant ascites and lung nodules. PSYCHIATRIC: History is negative. PHYSICAL EXAMINATION: GENERAL: The patient is currently seen on . He is sitting up in bed. He appears to be in no acute distress. VITAL SIGNS: Blood pressure presently 150/80, temperature 97.7, pulse of 68 with a respiratory rate of 20 and oxygen saturation of 97% on room air. HEENT: Shows him to be normocephalic, atraumatic. Conjunctivae are pink. Sclerae nonicteric. Pupils equal, reactive to light and accommodation. Extraocular muscles are intact. Posterior pharynx is normal. NECK: Supple. No neck vein distension. No thyromegaly. No lymphadenopathy. No bruits. CHEST: Clear to auscultation and percussion with slight decreased breath sounds at the bases. He has a port in his right chest wall. CARDIOVASCULAR: Shows a regular rate and rhythm without murmurs, rubs or gallops. ABDOMEN: Soft. Positive ascites. Positive umbilical hernia. No rebound, no guarding, no masses appreciated. No organomegaly appreciated. BACK: No CVAT. No spinal tenderness. EXTREMITIES: Show no cyanosis. No clubbing or edema. Distal lower extremity pulses are 2+ bilaterally. NEUROLOGIC: Shows him to be alert, oriented x3 with no gross focal motor or sensory deficits noted. LABORATORY DATA AND IMAGING: Admitting abdominal, chest and pelvic CT showed increasing pulmonary nodules, increasing ascites. Right-sided hydronephrosis, apparently unchanged from past imaging studies. Admitting EKG showed normal sinus rhythm, possible left atrial enlargement. Labs; CBC, white blood cell count today 4.5, hemoglobin down to 12.4 from 15.6 and platelet count is 184,000. Coags; PT 13.1 with a PTT of 29.9. Chemistries; sodium 140, potassium slightly low at 3.4, chloride 107 with a CO2 of 26, BUN 10 with a creatinine of 0.9. Glucose is 110. Calcium 7.8 with an albumin of 2.5 corrected to normal. Bilirubin is 2.6. AST is 68 with an ALT of 63. Alkaline phosphatase is 510. Amylase and lipase are normal. Urine showed 2+ protein. No white cells, no red blood cells. Microbiology: No specimens were sent. ASSESSMENT: 1. Hypertension, initially uncontrolled during the first 24 hours of admission. The patient had been maintained on lisinopril and apparently increasing doses in an outpatient setting. The patient also uses Aldactone for his ascites. This also helped lower his blood pressure. Agree with the decision to give the patient p.r.n. doses of clonidine. His blood pressure right now is in an acceptable range, systolic blood pressure is 150 with diastolic of 80. We may continue using clonidine on a p.r.n. basis. The patient may continue 20 mg of lisinopril as ordered. If necessary, we could add a low dose of calcium channel jessica therapy, perhaps Norvasc 5 mg a day. We will continue to monitor blood pressure along with you and help make adjustments. 2. Mild hypokalemia. The patient remains on Aldactone. The patient will receive potassium supplements today. He is receiving normal saline, presently potassium free. 3. History of stage IV malignant colon cancer with malignant ascites and pulmonary nodules. The patient is receiving chemotherapy through Dr. Vargas and Dr. Julien. His last chemotherapy was approximately 2 weeks ago. The patient is scheduled for placement of a peritoneal catheter, which would remain in place and allow periodic removal of ascitic fluid. 4. Right hydronephrosis noted. The patient had been seen by Dr. Koroma. At present, no plans for any intervention. His BUN and creatinine remained normal. Dr. Koroma's note reviewed. 5. History of non-insulin dependent diabetes mellitus. Sugar control is acceptable. The patient will remain on oral agents. 6. History of hyperlipidemia. The patient is stable on statin therapy. 7. History of gastroesophageal reflux disease. Currently stable on proton pump inhibition therapy. PLAN: 1. Discussed with the patient and reassured him that his blood pressure control seems to be improving with lisinopril 20 mg a day and perhaps benefit from Aldactone. He is also receiving clonidine on a p.r.n. basis. I will continue this regimen. As noted above, we can add a low dose of a calcium channel jessica. 2. History of NIDDM. The patient will continue on sliding scale insulin. He will continue on metformin. 3. We will continue to monitor accurate I's and O's and daily labs. 4. Continue proton pump inhibition therapy for reflux. 5. Continue magnesium supplements. I will check a magnesium level with the next set of labs. 6. Continue adrenal hypertension followup during hospitalization. Thank you for letting me partake and share in the care of your patient. Thomas Mcgowan MD
--- NOTE | 2017-05-09 02:29 | HP ---
HISTORY OF PRESENT ILLNESS: This is one of the several visits for the 71-year-old male who was seen in the office one week ago and then seen again today before getting admitted to the hospital with progressive abdominal distention and right-sided abdominal pain for the past few weeks. The patient says the pain has worsened with coughing. There is nothing specific that makes the pain better. He is reporting there is voiding without difficulty. Denies any history of dysuria, urinary frequency, urgency, or gross hematuria. He denies any history of urinary stones in the past. The patient has an outpatient CAT scan of the abdomen and pelvis and a recent PET/CT scan all of which were confirmed progressively worsening ascites and also lung nodules bilaterally, which was slightly increased, but not PET avid. The patient was also noted to be getting increasingly jaundiced with a total bilirubin around 2.83 with obviously dark color urine, which was concerning for some sort of obstructive process going on either in the liver or in the common bile duct related to his underlying malignancy. 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 He was then shifted over to maintenance Avastin and Xeloda after he had been on a short stent with Vectibix, which had to be stopped because of exuberant skin reaction and intercurrent skin infection. The patient is also diabetic on metformin and that may have contributed to the skin infection. History of hypertension as well. The patient has been under my care for the last two years with a diagnosis of metastatic carcinoma. Diagnosis is made in 2015. MEDICATIONS: Include Aldactone, Ambien, Ecotrin, Fergon, Glucophage, magnesium oxide, Protonix, and Zestril. ALLERGIES: THE PATIENT HAS NO KNOWN ALLERGIES. SOCIAL HISTORY: The patient has no EtOH abuse and no exposure to drugs or alcohol abuse. REVIEW OF SYSTEMS: A 12 system review of systems was done and this is except for positive abdominal distention and right-sided abdominal pain. The patient denies any other significant issues except of what is mentioned in HPI. No history of cough. No history of shortness of breath, no dysuria, no hematuria, no hematochezia and no melena. PHYSICAL EXAMINATION: GENERAL: The patient is awake, alert, and oriented. He is in no acute distress. VITAL SIGNS: Vital signs are stable. T-max is 98.4, pulse is 86, blood pressure is 180/100, respirations 18 per minute. NECK: Supple. There is no adenopathy. LUNGS: Clear to percussion and auscultation. HEART: Examination of the heart reveals PMI to be in the fifth intercostal space inside the mid clavicular line. S1 and S2 are normal. No gallop or murmur is heard. ABDOMEN: Soft and distended. There is no specific tenderness. No masses are felt, but shifting dullness and fluids waves are elicitable. The patient has ventral hernia related to ascites pushing it further. No rebound, rigidity or guarding is noted. No definite masses are felt. GENITOURINARY: The scrotum and penis are normal. The patient's testes are distended. EXTREMITIES: Reveals no cyanosis, clubbing or edema. RECTAL: Deferred. NEUROLOGIC: Higher functions are normal. No focal deficits are noted. LABORATORY DATA: Lab data reveals hemoglobin of 15.6, GFR greater than 60, alkaline phosphate and LDH are elevated. LFTs are abnormal. Urinalysis small amount of bilirubin with 0-2 RBCs, 0-2 WBCs, and negative nitrites. Total bilirubin is elevated. The patient had a CAT scan of the chest, abdomen, and pelvis, which shows multiple lung nodules throughout both lungs, increase in number and size from the prior study. Small bilateral effusion. Liver is unremarkable. There is moderate right hydronephrosis, has positive ascites with moderate amount, there are two separate ventral hernias containing loops of bowel. The patient's bladder ultrasound on April 24, 2017, shows a good bladder emptying. Also had abdominal ultrasound on April 24, 2017, show no mention of hydronephrosis, but he did have a renal ultrasound in August 2016, showed mild right hydronephrosis at that time. ASSESSMENT NOTES AND PLAN: This is a 71-year-old male with stage IV metastatic colorectal carcinoma on Avastin and Xeloda as an outpatient. He is admitted now with progressive ascites, worsening right upper quadrant pain, and new onset of hyperbilirubinemia probably related to either cholestatic or obstructive causes for the elevation of the bilirubin. ASSESSMENT AND PLAN: The patient is going to be admitted to the hospital, planned to do another paracentesis and may be insertion of a Spiriva catheter so we can tap him as an outpatient. We are going to evaluate the patient for possible urologic evaluation including probable cystoscopy, retrograde pyelogram and possible insertion of a stent and then assess the patient for more chemotherapy may be Vectibix based regimen, may be even a regimen like FOLFIRI, which may be something that we may have to institute at this time. I have discussed in detail my findings with the patient and we are going to proceed accordingly. The patient is going to be started on IV as he is going to be kept on IV n.p.o. through the night for the possible procedure in a.m. Routine post exam instructions have been given to the patient. Consultations with GI and have been obtained. Hung Vargas MD
--- NOTE | 2017-05-09 02:53 | CP.PCM.PN ---
Subjective - Date & Time of Evaluation Date of Evaluation: 05/09/17 Time of Evaluation: 02:53 - Subjective Subjective: Patient was evaluated because nurse told that there is bleeding at site of aspira catheter. She changed dressing, applied pressure , still bleeding. Patient has no acute symptoms now. Is not on any anticoagulant medicine. May have had heparin but not sure from review of record with nurse. Coag profile and platelet count noted. Medical record was reviewed. 71 year old white Father was admitted for right sided abdominal distension , abdominal pain . 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 Objective - Vital Signs/Intake and Output Vital Signs (last 24 hours): Temp Pulse Resp BP Pulse Ox 97.7 F 68 18 146/95 H 98 05/08/17 16:00 05/08/17 21:15 05/08/17 16:00 05/08/17 21:15 05/08/17 16:00 Intake and Output: 05/08/17 05/09/17 18:59 06:59 Intake Total 360 540 Output Total 650 800 Balance -290 -260 - Medications Medications: Current Medications Albumin Human (Albumin Human 25% (25 Gm/100 Ml)) 25 gm IV ONCE ONE Stop: 05/09/20 08:01 Aspirin (Ecotrin) 81 mg PO DAILY [facility] Last Admin: 05/08/17 09:54 Dose: Not Given Clonidine HCl (Catapres) 0.1 mg PO Q4 [facility] Last Admin: 05/08/17 21:15 Dose: 0.1 mg Ferrous Gluconate (Fergon) 324 mg PO DAILY [facility] Last Admin: 05/08/17 09:54 Dose: 324 mg Potassium Chloride 10 meq/ (Sodium Chloride) 1,005 mls @ 60 mls/hr IV .[id number] [facility] Last Admin: 05/08/17 11:30 Dose: 60 mls/hr Insulin Human Regular (Humulin R Low) 0 units SC ACHS [facility] PRN Reason: Protocol Last Admin: 05/08/17 21:24 Dose: Not Given Lisinopril (Zestril) 20 mg PO DAILY [facility] Last Admin: 05/08/17 09:55 Dose: 20 mg Magnesium Oxide (Mag-Ox) 400 mg PO DAILY [facility] Last Admin: 05/08/17 09:55 Dose: 400 mg Metformin HCl (Glucophage) 500 mg PO BID [facility] Last Admin: 05/08/17 17:55 Dose: 500 mg Oxycodone/Acetaminophen (Percocet 5/325 Mg Tab) 1 tab PO Q4H PRN PRN Reason: Pain, moderate (4-7) Stop: 05/11/17 14:52 Pantoprazole Sodium (Protonix Ec Tab) 40 mg PO 0600 [facility] Last Admin: 05/08/17 05:28 Dose: 40 mg Spironolactone (Aldactone) 50 mg PO DAILY [facility] Last Admin: 05/08/17 09:53 Dose: 50 mg Zolpidem Tartrate (Ambien) 5 mg PO HS [facility] PRN Reason: Protocol Last Admin: 05/08/17 21:15 Dose: 5 mg - Labs Labs: 05/08/17 06:15 05/08/17 06:15 PT 13.1 Seconds (9.9-11.8) H 05/06/17 12:55 INR 1.21 (0.93-1.08) H 05/06/17 12:55 APTT 29.9 Seconds (23.7-30.8) 05/06/17 12:55 - Constitutional Appears: Well, No Acute Distress - Head Exam Head Exam: ATRAUMATIC, NORMAL INSPECTION, NORMOCEPHALIC - Eye Exam Eye Exam: Normal appearance - ENT Exam ENT Exam: Normal External Ear Exam - Neck Exam Neck Exam: Normal Inspection - Respiratory Exam Respiratory Exam: NORMAL BREATHING PATTERN - Cardiovascular Exam Cardiovascular Exam: absent: JVD - GI/Abdominal Exam GI & Abdominal Exam: absent: Distended Additional comments: There is collection of blood clot at site of insertion of aspira catheter. Gauzes covering site have been soaked with blood. - Rectal Exam Rectal Exam: Deferred - Exam Additional comments: Deferred. - Extremities Exam Extremities Exam: Normal Inspection - Back Exam Back Exam: NORMAL INSPECTION - Neurological Exam Neurological Exam: Alert, Oriented x3 - Psychiatric Exam Psychiatric exam: Normal Affect, Normal Mood - Skin Skin Exam: Normal Color Assessment and Plan - Assessment and Plan (Free Text) Assessment: Hemorrhage at site of insertion of aspira catheter. Hypertension. CAD. DM II. Hx SC. Colon cancer . Obesity. Plan: Old dressing removed. A new dressing applied with multiple layers of dry gauzes and a pressure dressing applied using strechable foam tape. Will observe. Re evaluation by Dr.Peter Merritt in AM.
[2017-05-09] MEDS: Pantoprazole 40 mg EC Tab PO SCH (05:40)
[2017-05-09 07:12] LABS: ALKALINE PHOSPHATASE 470 U/L (38-126); ALT/SGPT 60 U/L (7-56); AST/SGOT 66 U/L (17-59); BILIRUBIN,TOTAL 2.2 mg/dL (0.2-1.3); BLOOD UREA NITROGEN 11 mg/dL (7-21); CALCIUM 7.7 mg/dL (8.4-10.5); CARBON DIOXIDE 24 mmol/L (21-33); CHLORIDE 110 mmol/L (98-107); GFR AFRICAN-AMERICAN > 60; GLUCOSE,RANDOM 123 mg/dL (70-110); MAGNESIUM 1.5 mg/dL (1.7-2.2); PHOSPHOROUS 2.9 mg/dL (2.5-4.5); POTASSIUM 3.8 mmol/L (3.6-5.0); SODIUM 141 mmol/L (132-148); TOTAL PROTEIN 5.1 g/dL (5.8-8.3)
[2017-05-09 07:37] LABS: HEMATOCRIT 36.3 % (42.0-52.0); MEAN CELL VOLUME 94.8 fl (80.0-105.0); MEAN CORPUSCULAR HEMOGLOBIN 31.1 pg (25.0-35.0); MEAN CORPUSCULAR HGB CONC 32.8 g/dl (31.0-37.0); MEAN PLATELET VOLUME 11.6 fl (7.0-11.0); RED CELL DISTRIBUTION WIDTH 14.5 % (11.5-14.5); WHITE BLOOD COUNT 5.2 10^3/ul (4.5-11.0)
[2017-05-09] MEDS: Insulin Reg-LOW-Coverage SC SCH ×4 (07:43→22:45)
[2017-05-09] MEDS: Magnesium Oxide 400 mg Tab UD PO SCH (10:17)
--- NOTE | 2017-05-09 10:59 | CP.PCM.PN ---
Subjective - Date & Time of Evaluation Date of Evaluation: 05/09/17 Time of Evaluation: 08:35 - Subjective Subjective: Seen and examined at the bedside earlier this morning. The patient had Aspira cath Placed, patient reported some bleeding in the area, the dressing was changed which is now trying intact. The patient denies nausea, vomiting, or abdominal pain. No reports of overt GI bleed. No BM since Friday. Objective - Vital Signs/Intake and Output Vital Signs (last 24 hours): Temp Pulse Resp BP Pulse Ox 98 F 67 18 145/90 95 05/09/17 08:29 05/09/17 10:18 05/09/17 08:29 05/09/17 10:18 05/09/17 08:29 Intake and Output: 05/09/17 05/09/17 06:59 18:59 Intake Total 1620 Output Total 1400 Balance 220 - Medications Medications: Current Medications Albumin Human (Albumin Human 25% (25 Gm/100 Ml)) 25 gm IV ONCE ONE Stop: 05/09/20 08:01 Last Admin: 05/09/17 08:36 Dose: 25 gm Aspirin (Ecotrin) 81 mg PO DAILY [facility] Last Admin: 05/09/17 10:17 Dose: 81 mg Clonidine HCl (Catapres) 0.1 mg PO Q4 [facility] Last Admin: 05/09/17 07:42 Dose: Not Given Ferrous Gluconate (Fergon) 324 mg PO DAILY [facility] Last Admin: 05/09/17 10:18 Dose: 324 mg Potassium Chloride 10 meq/ (Sodium Chloride) 1,005 mls @ 60 mls/hr IV .[id number] [facility] Last Admin: 05/09/17 07:43 Dose: 60 mls/hr Insulin Human Regular (Humulin R Low) 0 units SC ACHS [facility] PRN Reason: Protocol Last Admin: 05/09/17 07:43 Dose: Not Given Lisinopril (Zestril) 20 mg PO DAILY [facility] Last Admin: 05/09/17 10:18 Dose: 20 mg Magnesium Oxide (Mag-Ox) 400 mg PO DAILY [facility] Last Admin: 05/09/17 10:17 Dose: 400 mg Metformin HCl (Glucophage) 500 mg PO BID [facility] Last Admin: 05/09/17 10:18 Dose: 500 mg Oxycodone/Acetaminophen (Percocet 5/325 Mg Tab) 1 tab PO Q4H PRN PRN Reason: Pain, moderate (4-7) Stop: 05/11/17 14:52 Pantoprazole Sodium (Protonix Ec Tab) 40 mg PO 0600 [facility] Last Admin: 05/09/17 05:40 Dose: 40 mg Spironolactone (Aldactone) 50 mg PO DAILY [facility] Last Admin: 05/09/17 10:18 Dose: 50 mg Zolpidem Tartrate (Ambien) 5 mg PO HS [facility] PRN Reason: Protocol Last Admin: 05/08/17 21:15 Dose: 5 mg - Labs Labs: 05/09/17 06:30 05/09/17 06:30 PT 13.1 Seconds (9.9-11.8) H 05/06/17 12:55 INR 1.21 (0.93-1.08) H 05/06/17 12:55 APTT 29.9 Seconds (23.7-30.8) 05/06/17 12:55 - Constitutional Appears: No Acute Distress - Head Exam Head Exam: NORMOCEPHALIC - Eye Exam Eye Exam: Normal appearance. absent: Scleral icterus - ENT Exam ENT Exam: Mucous Membranes Moist - Neck Exam Neck Exam: Normal Inspection - Respiratory Exam Respiratory Exam: Clear to Ausculation Bilateral, NORMAL BREATHING PATTERN. absent: Respiratory Distress - Cardiovascular Exam Cardiovascular Exam: +S1, +S2 - GI/Abdominal Exam GI & Abdominal Exam: Distended, Soft, Hernia, Normal Bowel Sounds. absent: Tenderness Additional comments: Aspira cath in place, dressing dry, area non tender. - Extremities Exam Extremities Exam: Normal Capillary Refill. absent: Calf Tenderness, Pedal Edema - Neurological Exam Neurological Exam: Alert, Awake, Oriented x3 - Skin Skin Exam: Dry, Warm Assessment and Plan - Assessment and Plan (Free Text) Assessment: Assessment: Stage IV metastatic adenocarcinoma of the colon with carcinomatosis Abdominal ascites likely secondary to the carcinomatosis Elevated liver enzymes, the patient did have recent abdominal ultrasound on 2016, which showed trouble both fatty liver, no mass or biliary dilatation, CBD measured 6 mm, gallbladder wall thickening was noted but was nonspecific and probable gallbladder sludge, no adrián stone, H/O CBD stenosis, LFT continue to trend down Lung nodules with increasing size as seen on CT Right-sided hydronephrosis GERD Hypertension Diabetes mellitus Plan: Trend LFTs, continue to improve Continue Protonix On Aldactone Continue heart healthy diet as tolerated Monitor electrolytes I&O give Miralax PO once today as per oncology pending renal US Seen and discussed with Dr. Georges who is covering for Dr. House
[2017-05-09] MEDS ORDERED: Magnesium Sulfate 1 gm in D5W 1 GM/100 ML BAG IVPB ONE (12:04)
[2017-05-09] MEDS: POLYETHYLENE GLYCOL 3350 17 GM/Dose PACKET PO ONE ×2 (12:12→12:17)
--- NOTE | 2017-05-09 13:11 | US ---
PROCEDURE: Ultrasound of the Kidneys HISTORY: hydronephrosis /stent? COMPARISON: Abdomen and pelvis CT with contrast 05/06/2017. TECHNIQUE: Sonogram of the kidneys. FINDINGS: RIGHT KIDNEY: Measures: 11.2 x 6.8 x 5.5 cm. Right kidney appears normal in size and contour. . Dakw-ub-mysqygyf right hydronephrosis identified without perinephric fluid collection. No linear echogenic focus is seen at the right renal pelvis to suggest a proximal ureteral elite stent segment. LEFT KIDNEY: Measures: 11.5 x 5.9 x 6.1 cm. Normal in size, contour and echogenicity. No stone, solid mass lesion or hydronephrosis visualized. OTHER FINDINGS: None. IMPRESSION: Qjmo-fn-ycuatynw right hydronephrosis. None is seen the left. A stent is not identified at right renal pelvis at this time.
[2017-05-09] MEDS ORDERED: Albumin Human 25% (25 gm/100 ml) IV ONE (13:45)
--- NOTE | 2017-05-09 16:09 | PN ---
DATE: 05/09/2017 SUBJECTIVE: The patient is seen in his room at [facility]. He had placement of an Aspira catheter and drainage of ascitic fluid. Urologically, the patient remains stable. He is voiding without difficulty. PHYSICAL EXAMINATION: GENITOURINARY: Phallus is normal. Scrotum is normal. Testes nontender, and no masses. VITAL SIGNS: He is afebrile, temperature of 98, pulse 67, blood pressure 145/90, respirations 18. On followup exam, the patient had renal ultrasound, which showed [id number] right hydronephrosis. There is no perinephric fluid collection. There is no echogenic foci seen in renal pelvis. IMPRESSION AND PLAN: This is a 71-year-old male with stage IV colon cancer progressing on chemotherapy. Urologically, the patient's renal function is normal. He does have a right dlad-yg-yjpshajo hydronephrosis. I review the CT scan with radiology and there does not appear to be any stones, there does not appear to be any pelvic mass or obstructive lesions obvious on CT scan. The plan for now would be to consider a renal scan to see if there is any obstruction. Given, the patient's overall condition and his diagnosis of malignant ascites progressive disease on chemotherapy. I would to try to avoid any invasive procedure such as placing a stent unless absolutely necessary. If the renal scan does show obstruction. I will discuss cystoscopy and stent placement with patient and with Dr. Vargas. The patient is stable at this point if desired the patient can go home and have renal scan done as an outpatient. He can then follow up in my office or we can arrange possible cystoscopy and stent placement as an outpatient. Thank you for allowing me to participate in the care for this patient. We will continue to follow with you. Faizan Koroma MD
--- NOTE | 2017-05-09 16:22 | PN ---
DATE: SUBJECTIVE: The patient is currently seeing entirely comfortable lying in bed. He is asymptomatic from his mod elevation of blood pressure, he is status post placement of a peritoneal catheter. The patient had a repeat abdominal ultrasound, which showed [id number] hydronephrosis on the right side. This is being followed by urology. His creatinine remains 1.0. MEDICATIONS: Medication list reviewed. The patient is currently on albumin, Aldactone, Ambien, p.r.n. clonidine, Ecotrin, Fergon, Glucophage, insulin sliding scale, magnesium oxide, p.r.n. Percocet, IV fluid with potassium, Protonix, and lisinopril. OBJECTIVE: INTAKE/OUTPUT: Intake 1980 and output 250. VITAL SIGNS: Blood pressure is ranging from 145 to 159 with diastolics ranging from 90 to 99, heart rate is 74, temperature is 98 with a respiratory rate of 18. HEENT: Shows him to be normocephalic and atraumatic. Conjunctivae are pink. Sclerae are mildly icteric. NECK: Supple. No neck vein distention. CHEST: Clear to auscultation and percussion. No rales. No rhonchi. No wheezing. CARDIOVASCULAR: Shows a regular rate and rhythm without murmurs, rubs, or gallops. ABDOMEN: Soft. Positive ascites. Positive umbilical hernia. The patient has an indwelling Aspira catheter. EXTREMITIES: Show no cyanosis, clubbing, or edema. Pulses are intact bilaterally. LABORATORY DATA AND IMAGING: CBC; white blood cell count today 5.2, hemoglobin 11.1, and platelet count of 192,000. Chemistry show normal electrolytes. Chloride slightly elevated at 110. BUN 11 with creatinine 1.0, glucose is 123, calcium is 7.7, phosphorous is 2.9, and magnesium is 1.5. Bilirubin is 2.2 with mod elevation of his liver enzymes. Alkaline phosphatase is also elevated at 470. Albumin is low at 2.5. Hepatitis serologies are negative. ASSESSMENT: 1. Hypertension, moderate elevations. The patient will likely be discharged in the next 24 hours. I did not want him to go home on p.r.n. use of clonidine. I will start the patient on calcium-channel jessica Norvasc 5 mg a day in addition to lisinopril 20 mg a day. We try to target a blood pressure of 130-140 systolic with diastolics in the low 80 range. The patient would not need to go home on clonidine. 2. Status post mild hypokalemia. Potassium level is improved at 3.8 up from 3.4 with potassium supplements have noted, magnesium level is borderline low at 1.5, I will start the patient on oral magnesium supplements. The patient may continue using Aldactone, this will also help to keep his potassium level in a normal range. 3. History of stage IV malignant colon cancer with malignant ascites and pulmonary nodules. The patient continues to receive chemotherapy through Dr. Vargas and Dr. Julien. He now has a peritoneal catheter in place, which will allow periodic drainage of his ascitic fluid. 4. Right hydronephrosis. The patient has been seen by urology. Repeat ultrasound shows [id number] hydronephrosis. As per Dr. Koroma's note with a creatinine of 1.0, though likely be no intervention for this over this holiday weekend. There was some thought of doing a renal imaging study to make sure that is not a dilated system, but an obstructed system. 5. History of noninsulin-dependent diabetes mellitus. Sugar control is acceptable. The patient will remain on oral agents. 6. History of hyperlipidemia. The patient is stable on statin therapy. 7. History of gastroesophageal reflux disease. The patient will continue proton pump inhibition therapy. PLAN: 1. I will add Norvasc 5 mg a day to his lisinopril. This will allow discontinuation of clonidine. 2. Continue magnesium supplements in light of his magnesium level of 1.5. 3. From my standpoint, IV fluids may be discontinued. 4. The patient will follow up in the outpatient setting with his oncologist. If there is any concern about blood pressure control, the patient can be sent back to our office. Thomas Mcgowan MD
--- NOTE | 2017-05-09 20:28 | PN ---
DATE OF VISIT: 05/09/2017 This is [facility] visit on the medical floor. For Dr. Vargas. 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 Vargas, admitted for increased abdominal distention, known to suffer from stage IV metastatic colorectal carcinoma. His progressive ascites was relieved by Dr. Shawn Merritt with paracentesis with Aspira catheter placement yesterday with 3.75 liters evacuated. Today, the patient did have an ultrasound of his kidneys as per Dr. Young and Dr. Koroma urologists as there was a consideration for stent placement for his right hydronephrosis with the patient also to be receiving albumin daily for [address] Vargas's recommendation. He is otherwise sitting up in bed with friends at the bedside, in no acute distress. OBJECTIVE: VITAL SIGNS: Temperature 98, pulse 74, respirations 18, blood pressure 145/90, pulse ox 95%. HEENT: Unremarkable. NECK: Supple. HEART: Regular rate. LUNGS: Clear. ABDOMEN: Soft with minimal distention; however, markedly improved from his tense abdomen on admission as per Dr. Vargas. He also has an Aspira catheter appreciated. EXTREMITIES: No edema. SKIN: Warm, dry, and clear. NEUROLOGIC: Awake, alert, and oriented. LABORATORY DATA: The patient's labs were done. White blood cell count of 5.2, hemoglobin 11.9, hematocrit 36.3, platelet count of 192,000 with a chem metabolic panel showing a normal chem metabolic panel with a non-fasting glucose of 126, calcium 7.7, magnesium 1.5, T-bili of 2.2, AST of 66, ALT of 60, and alk phos 470. The ultrasound of the kidneys is as reported above. ASSESSMENT: Stage IV colon cancer with peritoneal carcinomatosis with ascites released, status post Aspira catheter placement with 3.75 L ascitic fluid removed, history of lung nodules, hydronephrosis questionable for stent, stenting as per Dr. Young and Dr. Koroma, diabetes mellitus, hypertension. PLAN: Plan for this patient is to continue his present medical regimen with albumin to be given tomorrow with consideration for stent placement vs transfer or discharge after appropriate measures are taken for his Aspira catheter to be maintained with dressing changes every 4 days and to have 1 liter fluid taken out on 05/13/[address] Shawn Merritt. We will monitor clinically and with labs consideration for discharge planning and discharge tomorrow after his albumin is given should the stent not be recommended at this hospitalization. We will monitor clinically with labs. Parminder Julien MD
[2017-05-10] MEDS: Pantoprazole 40 mg EC Tab PO SCH (06:10)
[2017-05-10 07:13] LABS: HEMATOCRIT 38.1 % (42.0-52.0); MEAN CELL VOLUME 95.3 fl (80.0-105.0); MEAN CORPUSCULAR HEMOGLOBIN 31.3 pg (25.0-35.0); MEAN CORPUSCULAR HGB CONC 32.8 g/dl (31.0-37.0); MEAN PLATELET VOLUME 11.5 fl (7.0-11.0); RED CELL DISTRIBUTION WIDTH 14.5 % (11.5-14.5); WHITE BLOOD COUNT 5.2 10^3/ul (4.5-11.0)
[2017-05-10 07:19] LABS: ALKALINE PHOSPHATASE 562 U/L (38-126); ALT/SGPT 67 U/L (7-56); AST/SGOT 82 U/L (17-59); BILIRUBIN,TOTAL 2.7 mg/dL (0.2-1.3); BLOOD UREA NITROGEN 11 mg/dL (7-21); CALCIUM 7.9 mg/dL (8.4-10.5); CARBON DIOXIDE 25 mmol/L (21-33); CHLORIDE 110 mmol/L (98-107); GFR AFRICAN-AMERICAN > 60; GLUCOSE,RANDOM 114 mg/dL (70-110); MAGNESIUM 1.7 mg/dL (1.7-2.2); PHOSPHOROUS 2.6 mg/dL (2.5-4.5); POTASSIUM 3.7 mmol/L (3.6-5.0); SODIUM 142 mmol/L (132-148); TOTAL PROTEIN 5.4 g/dL (5.8-8.3)
[2017-05-10] MEDS ORDERED: Albumin Human 25% (12.5 gm/50 ml) IV ONE (08:00)
[2017-05-10] MEDS ORDERED: Albumin Human 25% (25 gm/100 ml) IV ONE (08:00)
[2017-05-10 08:51] VITALS: PULSE 71; RESP 19; TEMP 98; O2SAT 100
[2017-05-10] MEDS: Insulin Reg-LOW-Coverage SC SCH ×2 (08:54→13:05)
[2017-05-10] MEDS: Magnesium Oxide 400 mg Tab UD PO SCH (09:46)
--- NOTE | 2017-05-10 12:59 | PN ---
DATE: 05/09/2017 SUBJECTIVE: The patient is currently seen on 3R. 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 He appears to have no difficulty with the placement of the peritoneal catheter in the right lateral lower quadrant area. The patient is possibly slated for discharge later today. He does have [id number] hydronephrosis of the right kidney. He is being followed by Urology, but with his creatinine of 1.0 there will likely be no intervention over this holiday weekend. MEDICATIONS: Medication list reviewed. The patient received albumin as per Dr. Julien, he is on Aldactone, Ambien, p.r.n. clonidine, Ecotrin, Fergon, Glucophage, insulin, magnesium oxide, Percocet, Protonix, and lisinopril. OBJECTIVE: INTAKE/OUTPUT: Intake 2640 and output 950. VITAL SIGNS: Blood pressure has improved dramatically. Blood pressure is presently 130/70 with a pulse of 68, temperature is 98 degrees, and respiratory rate is 20. HEENT: Exam shows him to be normocephalic and atraumatic. Conjunctivae are pink. Sclerae are mildly icteric. NECK: Supple. No neck vein distention. CHEST: Clear to auscultation and percussion. No rales. No rhonchi. No wheezing. CARDIOVASCULAR: Shows a regular rate and rhythm without murmurs, rubs, or gallops. ABDOMEN: Soft. Positive ascites. Positive reducible umbilical hernia. The patient has an indwelling Aspira catheter in the right lower quadrant area, but no evidence for any drainage into the dressing. EXTREMITIES: Show no lower extremity cyanosis, clubbing or edema. Pulses are normal. LABORATORY DATA AND IMAGING: CBC from today; white blood cell count 5.2, hemoglobin 12.5 with a platelet count of 192,000. Chemistries today show sodium of 142, potassium 3.7, chloride 110. CO2 25, BUN 11 with a creatinine of 1.0, glucose is 114, calcium is 7.9 corrects to normal with an albumin of 2.7, phosphorous is 2.6 with magnesium of 1.7. Bilirubin is 2.7 with mild elevation of his AST at 82, ALT of 67, and alkaline phosphatase at 562. ASSESSMENT: 1. Hypertension. Over the last 12 to 24 hours, the patient has had a fall back to his baseline in his blood pressure control. I was going to add Norvasc 5 mg a day to the existing dose of lisinopril; however, with blood pressures in the 130/70 range. The patient will not require a calcium channel jessica at this time. Should he have further elevations in his blood pressure, he can be consulted in the outpatient setting and I will likely add Norvasc 5 mg a day. His p.r.n. clonidine dose should only be used in the hospital. No clonidine should be given to the patient for discharge home. 2. Status post mild hypokalemia. The patient received potassium supplements. He remains on Aldactone. Potassium level today is excellent at 3.7. 3. History of stage IV malignant colon cancer with malignant ascites and pulmonary nodules. The patient will continues to receive chemotherapy through Dr. Vargas and Dr. Julien. He now has a peritoneal catheter in place, which will allow periodic drainage of his ascitic fluid. 4. Right sided hydronephrosis, mild to moderate. Repeat ultrasound confirmed this. Again, it is unclear whether he just has dilated collecting system or an obstructed collecting system. With his creatinine of 1.0 and this being a holiday weekend, no intervention will be done by Urology at this point in time, but he will be followed. 5. History of [id number]-ysqxqpfdo diabetes mellitus. Sugar control is acceptable. He can remain on oral agents on discharge. 6. History of hyperlipidemia, stable on statin therapy. 7. History of gastroesophageal reflux disease, currently stable on proton pump inhibition therapy. PLAN: 1. My initial plan was to add Norvasc 5 mg a day to the lisinopril, however, with blood pressures in 130/70 range which have been consistent over the last 12-18 hours. I will hold Norvasc at this time. 2. In light of his mild hypomagnesemia, patient should continue magnesium supplements in the outpatient setting. He appears to be tolerating oral magnesium without difficulty. 3. As discussed with Dr. Julien and his staff on 3-R from my standpoint, patient may be discharged to home later today. And again, if there is any questions about blood pressure control, once he becomes an outpatient, we could always consult and help manage his hypertension. Thomas Mcgowan MD
[2017-05-10 13:05] VITALS: BP 159/82
--- NOTE | 2017-05-10 18:14 | NM ---
PROCEDURE: Nuclear medicine Renal Scan HISTORY: assess for obstruction COMPARISON: Abdomen and pelvis CT examination with contrast 05/06/2017. TECHNIQUE: 7.5 mCi of technetium DTPA was administered intravenously. Sequential flow images of the kidneys were obtained for 90 secs, 3 secs a frame. Perfusion images were performed over 30 mins, 1 min/frame. Finally, delayed images were obtained 30 mins post tracer injection. FINDINGS: Asymmetric uptake is appreciated at the left greater than right kidneys on dynamic phase imaging. Time to peak activity is delayed in both cases which is abnormal. Time to half maximum activity is normal in the left kidney at 7 minutes. Da Silva right kidney never exhibits a half maximum activity value as a never diminishes to that level. A significant delay in excretion is noted at the right kidney when compared to the left with hydronephrotic morphology appreciated at the right kidney as well. Correlating nuclear findings with this CT noted above, findings are compatible with an obstruction at the distal right ureter and normal excretion on the left. Peak Time (mins): LEFT and RIGHT kidneys: 16.1 and 28.1, respectively. 1/2 Peak Time (mins): LEFT and RIGHT kidneys: 7.0 and n/a , respectively. Differential Perfusion: LEFT and RIGHT kidneys: 71.9 percent and 28.1 percent, respectively. IMPRESSION: 1. Obstructive uropathy right kidney. 2. Normal excretion left kidney. 3. Abnormal perfusion both kidneys. Please see discussion above.
--- NOTE | 2017-05-11 05:09 | DS ---
For Dr. Vargas. 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 The patient has a history of peritoneal carcinomatosis, stage IV colon cancer with ascites that was relieved by Dr. Shawn Merritt, paracentesis 3.75 liters 2 days prior. He has a spiral catheter which will next be tapped for 1000 mL on 05/13/[address] Shawn Merritt's recommendations with dressings to be changed every 4 days. The patient knows the protocol with arrangements to be made with visiting nurses after social services director for this to be carried out. He also had an ultrasound done for his right kidney with possible stent placement as per Dr. Koroma, his urologist for right-sided hydronephrosis with this to be followed up also. The patient is in no acute distress at this point, to be discharged home on his present medical regimen. PHYSICAL EXAMINATION: VITAL SIGNS: Temperature 98, pulse 71, respirations 19, blood pressure 153/88, pulse ox 100%. HEENT: Unremarkable. NECK: Supple. HEART: Regular rate. LUNGS: Clear. ABDOMEN: Soft, faint minimal ascites noted, nontender with spiral catheter. Dressing drain and intact. EXTREMITIES: No edema. SKIN: Warm and dry. NEUROLOGIC: Awake, alert and oriented x3. LABORATORY DATA: White blood cells count of 5.2, hemoglobin 12.5, hematocrit 38.1, platelet count of 192,000. Chem metabolic panel showing a normal chem metabolic panel. Nonfasting glucose 139. Calcium is 7.9. T. bili is 2.7. AST is 82, ALT of 67, alk phos 562, total protein 5.4, otherwise normal. Metabolic panel; hepatitis A, B, C testing was negative earlier in his stay. The patient did have a renal scan yesterday, results are pending. He had a renal ultrasound done yesterday. It was read as [id number] right hydronephrosis, none is seen and left stent is not identified. ASSESSMENT: For this patient is that of stage IV colon cancer with progressive ascites now with spiral catheter, right-sided hydronephrosis, history of lung nodules, diabetes mellitus, hypertension. PLAN: For this patient is conservation with Dr. Vargas and review of Dr. Koroma's note is to discharge the patient home today on his present medications which would be listed. We will also recommend followup in the office with Dr. Vargas approximately 1 week's time. Followup with visiting nurses for evacuation of the 1 liter of fluid on 05/13/2017 with dressing changes every 4 days as per social services director and nursing. We will also recommend that the patient follow up with Dr. Koroma as an outpatient for stent placement as indicated. DISCHARGE MEDICATIONS: The patient's medicines on discharge to include; spironolactone 50 mg daily, Ambien 5 mg p.o. at bedtime, aspirin 81 mg daily, ferrous sulfate 324 once a day, Glucophage 500 p.o. b.i.d., magnesium oxide 400 once a day, Miralax p.r.n., Percocet p.r.n., Protonix 40 mg once a day, Zestril 20 mg once a day. He is to follow heart healthy diet, diabetic diet with followup as above. Parminder Julien MD
[2020-05-09] MEDS ORDERED: Albumin Human 25% (25 gm/100 ml) IV ONE (08:00)
== END 2017-05-10 16:05 | disposition home or self-care (01) | DRG 375 ==
LOC: ED 12:00 → ERH 15:50 → 3RSO 17:13
PROVIDERS: ADMIT Family Medicine; ATTEND Family Medicine
PROC: 0W9G30Z Drainage of Peritoneal Cavity with Drainage Device, Percutaneous Approach (ICD-10-PCS; principal; 2017-05-08)
DX: C78.6 Secondary malignant neoplasm of retroperitoneum and peritoneum (principal); R18.0 Malignant ascites; N13.30 Unspecified hydronephrosis; C19 Malignant neoplasm of rectosigmoid junction; L76.22 Postprocedural hemorrhage of skin and subcutaneous tissue following other procedure; E83.42 Hypomagnesemia; I10 Essential (primary) hypertension; K21.9 Gastro-esophageal reflux disease without esophagitis; E11.9 Type 2 diabetes mellitus without complications; K43.9 Ventral hernia without obstruction or gangrene; R91.8 Other nonspecific abnormal finding of lung field; E78.5 Hyperlipidemia, unspecified; E87.6 Hypokalemia; E66.9 Obesity, unspecified; Z96.1 Presence of intraocular lens; Y83.8 Other surgical procedures as the cause of abnormal reaction of the patient, or of later complication, without mention of misadventure at the time of the procedure; Z68.30 Body mass index [BMI] 30.0-30.9, adult; Z79.84 Long term (current) use of oral hypoglycemic drugs; Z79.82 Long term (current) use of aspirin; Z98.41 Cataract extraction status, right eye; Z98.42 Cataract extraction status, left eye

== ENCOUNTER 2017-06-08 02:03 | Inpatient (IN) | payer MEDICARE, BC ==
[2017-06-08 02:11] VITALS: BMI 28.8
[2017-06-08] MEDS ORDERED: HYDROmorphone 2 mg/ml ISec IVP STA (02:17)
--- NOTE | 2017-06-08 02:29 | ED PDOC ---
Arrival/HPI - General Chief Complaint: Abdominal Pain Time Seen by Provider: 06/08/17 02:07 Historian: Patient - History of Present Illness Narrative History of Present Illness (Text): 06/08/17 02:29 A 71 year old male, whose past medical history includes metastasis stage 4 adenocarcinoma of the colon, on chemotherapy, presents to the emergency department complaining of right lower quadrant abdominal pain, nausea and vomiting that developed tonight. Patient denies any fever, chills, headache, dizziness, diarrhea or any other complaints at this time. Symptom Onset: Sudden Symptom Course: Unchanged Activities at Onset: Rest Context: Home Past Medical History - Provider Review Nursing Documentation Reviewed: Yes - Infectious Disease Hx of Infectious Diseases: None - Tetanus Immunization Tetanus Immunization: Unknown - Cardiac Hx Cardiac Disorders: Yes Hx Hypertension: Yes - Pulmonary Hx Respiratory Disorders: Yes (SMOKED 4 PPD CIGARETTES QUIT 1967) - Neurological Hx Neurological Disorder: No - HEENT Hx HEENT Disorder: Yes (RX GLASSES) Hx Cataracts: Yes (BILATERAL LENS IMPLANT) - Renal Hx Renal Disorder: No - Endocrine/Metabolic Hx Endocrine Disorders: Yes Hx Diabetes Mellitus Type 2: Yes - Hematological/Oncological Hx Blood Disorders: Yes Hx Cancer: Yes (stomach and colon) Hx Chemotherapy: Yes - Integumentary Hx Dermatological Disorder: Yes (H/O CELLULITIS ABSCESS TO NECK AREA) - Musculoskeletal/Rheumatological Hx Musculoskeletal Disorders: No Hx Falls: No - Gastrointestinal Hx Gastrointestinal Disorders: Yes (colon/stomach ca, reflux) Other/Comment: VENTRAL HERNIA X 2 - Genitourinary/Gynecological Hx Genitourinary Disorders: No - Psychiatric Hx Psychophysiologic Disorder: Yes (INSOMNIA) Hx Emotional Abuse: No Hx Physical Abuse: No Hx Substance Use: No Other/Comment: USED TO SMOKE CIGARETTES AND DRANK SOCIALLY.QUIT - Surgical History Other/Comment: PORT RIGHT CHEST WALL, PICC IN AND OUT H/O, ASPERA CATH. - Anesthesia Hx Anesthesia: Yes Hx Anesthesia Reactions: No Hx Malignant Hyperthermia: No - Suicidal Assessment Feels Threatened In Home Enviroment: No Family/Social History - Physician Review Nursing Documentation Reviewed: Yes Family/Social History: No Known Family HX Smoking Status: Former Smoker Hx Alcohol Use: Yes (SOCIALLY) Hx Substance Use: No Hx Substance Use Treatment: No Allergies/Home Meds Allergies/Adverse Reactions: Allergies No Known Allergies Allergy (Verified 06/08/17 02:11) Home Medications: Home Meds Medication Instructions Recorded Confirmed Aspirin [Ecotrin] 81 mg PO DAILY 10/10/15 06/08/17 Ergocalciferol (Vitamin D2) 50,000 units PO MON 11/20/15 06/08/17 [Vitamin D2] Ferrous Gluconate 325 mg PO DAILY 11/20/15 06/08/17 Atorvastatin [Lipitor] 20 mg PO DAILY 05/06/17 06/08/17 Capecitabine 500 mg PO TID 05/06/17 06/08/17 Lisinopril [Zestril] 2 tab PO DAILY 05/06/17 06/08/17 Metformin ER [Glucophage XR] 500 mg PO BID 05/06/17 06/08/17 Potassium Chloride [K-Dur 20 mEq 20 meq PO DAILY 05/06/17 06/08/17 ER Tab] Spironolactone [Aldactone] 50 mg PO DAILY 05/06/17 06/08/17 Zolpidem [Ambien] 5 mg PO HS 05/06/17 06/08/17 Review of Systems - Physician Review All systems were reviewed & negative as marked: Yes - Review of Systems Constitutional: absent: Fevers, Other (chills) Gastrointestinal: Abdominal Pain (RLQ), Nausea, Vomiting. absent: Diarrhea Neurological: absent: Headache, Dizziness Physical Exam Vital Signs Reviewed: Yes Vital Signs Temp Pulse Resp BP Pulse Ox 06/08/17 04:26 76 16 143/86 99 06/08/17 02:16 98.0 F 97 H 18 167/112 H 98 Temperature: Afebrile Blood Pressure: Hypertensive Pulse: Regular Respiratory Rate: Normal Appearance: Positive for: Well-Appearing, Non-Toxic, Comfortable Pain Distress: None Mental Status: Positive for: Alert and Oriented X 3 - Systems Exam Head: Present: Atraumatic, Normocephalic Pupils: Present: PERRL Extroacular Muscles: Present: EOMI Conjunctiva: Present: Normal Mouth: Present: Moist Mucous Membranes Neck: Present: Normal Range of Motion Respiratory/Chest: Present: Clear to Auscultation, Good Air Exchange. No: Respiratory Distress, Accessory Muscle Use Cardiovascular: Present: Regular Rate and Rhythm, Normal S1, S2. No: Murmurs Abdomen: Present: Normal Bowel Sounds. No: Tenderness, Distention, Peritoneal Signs Back: Present: Normal Inspection Upper Extremity: Present: Normal Inspection. No: Cyanosis, Edema Lower Extremity: Present: Normal Inspection. No: Edema Neurological: Present: GCS=15, CN II-XII Intact, Speech Normal Skin: Present: Warm, Dry, Normal Color. No: Rashes Psychiatric: Present: Alert, Oriented x 3, Normal Insight, Normal Concentration Medical Decision Making ED Course and Treatment: 06/08/17 02:27 Impression: A 71 year old male with right lower quadrant abdominal pain, nausea and vomiting. Plan: -- EKG -- CT abd/pelvis -- labs -- Dilaudid, IV fluids, Zofran -- Urinalysis -- Reassess and disposition Prior Visits: Notes and results from previous visits were reviewed. Patient was last seen in the emergency department on 05/06/17 for evaluation of right sided abdominal pain and abdominal distention. Progress Notes: EKG: Ordered, reviewed, and independently interpreted the EKG. Rate : 91 BPM Rhythm : NSR Interpretation : Nonspecific ST segment changes, normal intervals. CT Abdomen and Pelvis Without Intravenous Contrast FINDINGS: Lower thorax: Multiple subcentimeter bilateral pulmonary nodules within the visualized lung bases, findings consistent with patient's known metastatic disease. Hiatal hernia persists. ABDOMEN: Liver: No acute findings Gallbladder and bile ducts: Vicarious excretion of contrast noted, without calcified stones. No intraextrahepatic biliary ductal dilation. Pancreas: Limited evaluation secondary to the lack of intravenous contrast. Spleen: No acute findings. Adrenals: No acute findings. Kidneys and ureters: Persistent right-sided hydroureteronephrosis, unchanged from 05/06/2017. The left kidney and ureter are unremarkable. PELVIS: Bladder: No acute findings. Reproductive: No acute findings. ABDOMEN and PELVIS: Stomach and bowel: No acute findings. Peritoneum: Interval placement of a tunneled drainage catheter, with persistent intraperitoneal ascites. The catheter, originates in the right lower quadrant, and extends cranially to the perihepatic position. Lymph nodes: Extensive mesenteric lymphadenopathy, also unchanged. Vasculature: No aortic aneurysm. Bones: No acute fracture. IMPRESSION: Interval placement of a tunneled drainage catheter within the abdomen, with persistent ascites. Persistent right-sided hydroureteronephrosis. Interval findings, as detailed above. Dictated and Authenticated by: Nyasia Spain MD 06/08/2017 3:05 AM Eastern Time ([place] & [place]) case d/w dr moy accepts case 06/09/17 02:15 - Lab Interpretations Lab Results: 06/08/17 02:15 06/08/17 02:15 Lab Results 06/08/17 02:15: Sodium 141, Potassium 4.5, Chloride 111 H, Carbon Dioxide 21, Anion Gap 14, BUN 21, Creatinine 0.9, Est GFR ( Amer) > 60, Est GFR (Non- Af Amer) > 60, Random Glucose 177 H, Calcium 8.1 L, Total Bilirubin 1.5 H, AST 24, ALT 42, Alkaline Phosphatase 306 H, Lactate Dehydrogenase 523, Total Creatine Kinase 56, Troponin I < 0.01 D, Total Protein 5.9, Albumin 3.1, Globulin 2.8, Albumin/Globulin Ratio 1.1, Amylase 62, Lipase 90 06/08/17 02:15: PT 10.9, INR 1.01, APTT 25.9 06/08/17 02:15: WBC 4.8, RBC 4.06, Hgb 12.6 L, Hct 38.0 L, MCV 93.6, MCH 31.0, MCHC 33.2, RDW 14.1, Plt Count 244, MPV 10.3, Gran % 70.9 H, Lymph % (Auto) 18.0 L, [place] % (Auto) 6.2 H, Eos % (Auto) 4.3, Baso % (Auto) 0.6, Gran # 3.42, Lymph # 0.9 L, Barnwell # 0.3, Eos # 0.2, Baso # 0.03 I have reviewed the lab results: Yes - RAD Interpretation Radiology Orders: 06/08/17 02:11 ABD & PELVIS W/O PO OR IV CONT [CT] Stat - EKG Interpretation Interpreted by ED Physician: Yes Type: 12 lead EKG - Medication Orders Current Medication Orders: Sodium Chloride (Sodium Chloride 0.9%) 1,000 mls @ 80 mls/hr IV .[id number] BERNARDO Last Admin: 06/08/17 15:19 Dose: 80 mls/hr eMAR Start Stop Document 06/08/17 15:19 DC (Rec: 06/08/17 19:20 DC [id number]) Intravenous Solution Start Date 06/08/17 Start Time 19:20 Insulin Human Regular (Humulin R Low) 0 units SC ACHS BERNARDO PRN Reason: Protocol Last Admin: 06/08/17 22:55 Dose: Not Given Non-Admin Reason: Blood Sugar Parameter [facility] Blood Glucose Document 06/08/17 22:55 SD (Rec: 06/08/17 22:55 SD [id number]) Blood Glucose Finger Stick Blood Glucose (70-120) 181 Lisinopril (Zestril) 10 mg PO DAILY ON LICENSE OF [facility] Last Admin: 06/08/17 17:41 Dose: 10 mg Morphine Sulfate (Morphine) 2 mg IVP Q4H PRN PRN Reason: Pain, moderate (4-7) Last Admin: 06/09/17 00:01 Dose: 2 mg MAR Pain Assessment Document 06/09/17 00:01 SD (Rec: 06/09/17 00:02 SD [id number]) Pain Reassessment Is this a pain reassessment? No Sleep Is patient sleeping during reassessment? No Presence of Pain Presence of Pain Yes Pain Scale Used Pain Scale Used Numeric IVP Administration Document 06/09/17 00:01 SD (Rec: 06/09/17 00:02 SD [id number]) Charges for Administration # of IVP Administrations 1 Ondansetron HCl (Zofran Inj) 4 mg IVP Q6H PRN PRN Reason: Nausea/Vomiting Last Admin: 06/08/17 13:05 Dose: 4 mg IVP Administration Document 06/08/17 13:05 DC (Rec: 06/08/17 13:05 DC [id number]) Charges for Administration # of IVP Administrations 1 Pantoprazole Sodium (Protonix Inj) 20 mg IVP DAILY ON LICENSE OF [facility] Last Admin: 06/08/17 17:41 Dose: 20 mg IVP Administration Document 06/08/17 17:41 DC (Rec: 06/08/17 17:41 DC [id number]) Charges for Administration # of IVP Administrations 1 Spironolactone (Aldactone) 50 mg PO DAILY ON LICENSE OF [facility] Last Admin: 06/08/17 17:41 Dose: 50 mg Discontinued Medications Hydromorphone HCl (Dilaudid) 2 mg IVP STAT STA Stop: 06/08/17 02:18 Last Admin: 06/08/17 02:39 Dose: 2 mg MAR Pain Assessment Document 06/08/17 02:39 SC (Rec: 06/08/17 02:39 SC [id number]) Pain Reassessment Is this a pain reassessment? No Sleep Is patient sleeping during reassessment? No Presence of Pain Presence of Pain Yes Pain Scale Used Pain Scale Used Numeric Location Pain Location Body Site Abdomen Description Description Constant Intensity of Pain at present 10 IVP Administration Document 06/08/17 02:39 SC (Rec: 06/08/17 02:39 SC [id number]) Charges for Administration # of IVP Administrations 1 Re-Assess: JACINTA Pain Assessment Document 06/08/17 03:39 SC (Rec: 06/08/17 04:27 SC [id number]) Pain Reassessment Is this a pain reassessment? Yes Sleep Is patient sleeping during reassessment? No Presence of Pain Presence of Pain No Sodium Chloride (Sodium Chloride 0.9%) 1,000 mls @ 100 mls/hr IV .Q10H STA Stop: 06/08/17 13:55 Ondansetron HCl (Zofran Inj) 4 mg IVP STAT STA Stop: 06/08/17 02:18 Last Admin: 06/08/17 02:39 Dose: 4 mg IVP Administration Document 06/08/17 02:39 SC (Rec: 06/08/17 02:39 SC [id number]) Charges for Administration # of IVP Administrations 1 - Scribe Statement The provider has reviewed the documentation as recorded by the Stephan Berrios Provider Scribe Attestation: All medical record entries made by the Scribe were at my direction and personally dictated by me. I have reviewed the chart and agree that the record accurately reflects my personal performance of the history, physical exam, medical decision making, and the department course for this patient. I have also personally directed, reviewed, and agree with the discharge instructions and disposition. Disposition/Present on Arrival - Present on Arrival Any Indicators Present on Arrival: No History of DVT/PE: No History of Uncontrolled Diabetes: No Urinary Catheter: No History of Decub. Ulcer: No History Surgical Site Infection Following: None - Disposition Have Diagnosis and Disposition been Completed?: Yes Diagnosis: Abdominal pain Disposition: HOSPITALIZED Disposition Time: 04:00 Condition: GOOD
[2017-06-08] MEDS: Sodium Chloride 0.9% 1,000 ML IV SCH ×2 (02:39→15:19)
[2017-06-08 02:55] LABS: BASO # 0.03 K/mm3 (0.0-2.0); BASO % 0.6 % (0.0-3.0); EOS # 0.2 (0.0-0.7); EOS % 4.3 % (1.5-5.0); GRAN # 3.42 (1.4-6.5); GRAN % 70.9 % (50.0-68.0); LYMPH # 0.9 (1.2-3.4); MEAN CELL VOLUME 93.6 fl (80.0-105.0); MEAN CORPUSCULAR HGB CONC 33.2 g/dl (31.0-37.0); MEAN PLATELET VOLUME 10.3 fl (7.0-11.0); MONO # 0.3 (0.1-0.6); MONO % 6.2 % (1.0-6.0); RED CELL DISTRIBUTION WIDTH 14.1 % (11.5-14.5); WHITE BLOOD COUNT 4.8 10^3/ul (4.5-11.0)
[2017-06-08 03:01] LABS: INR 1.01 (0.93-1.08); PARTIAL THROMBOPLASTIN TIME 25.9 Seconds (23.7-30.8)
[2017-06-08 03:06] LABS: ALB/GLOB RATIO 1.1 (1.1-1.8); ALKALINE PHOSPHATASE 306 U/L (38-126); ALT/SGPT 42 U/L (7-56); AMYLASE 62 U/L (35-125); AST/SGOT 24 U/L (17-59); BILIRUBIN,TOTAL 1.5 mg/dL (0.2-1.3); BLOOD UREA NITROGEN 21 mg/dL (7-21); CALCIUM 8.1 mg/dL (8.4-10.5); CARBON DIOXIDE 21 mmol/L (21-33); CHLORIDE 111 mmol/L (98-107); GFR AFRICAN-AMERICAN > 60; GLUCOSE,RANDOM 177 mg/dL (70-110); LIPASE 90 U/L (23-300); POTASSIUM 4.5 mmol/L (3.6-5.0); SODIUM 141 mmol/L (132-148); TOTAL PROTEIN 5.9 g/dL (5.8-8.3)
--- NOTE | 2017-06-08 03:06 | CT ---
EXAM: CT Abdomen and Pelvis Without Intravenous Contrast CLINICAL HISTORY: 71 years old, male; Pain; Abdominal pain; Generalized; Additional info: Abd pain. Patient has a HX of gastric and colon cancer. Patient on chemo. TECHNIQUE: Axial computed tomography images of the abdomen and pelvis without intravenous contrast. All CT scans at this facility use one or more dose reduction techniques, viz.: automated exposure control; ma/kV adjustment per patient size (including targeted exams where dose is matched to indication; i.e. head); or iterative reconstruction technique. Coronal and sagittal reformatted images were created and reviewed. COMPARISON: CT - CHEST,ABD,PEL W/IV PO CONTRAST 05/06/2017 2:35:53 PM FINDINGS: Lower thorax: Multiple subcentimeter bilateral pulmonary nodules within the visualized lung bases, findings consistent with patient's known metastatic disease. Hiatal hernia persists. ABDOMEN: Liver: No acute findings Gallbladder and bile ducts: Vicarious excretion of contrast noted, without calcified stones. No intra-extrahepatic biliary ductal dilation. Pancreas: Limited evaluation secondary to the lack of intravenous contrast. Spleen: No acute findings. Adrenals: No acute findings. Kidneys and ureters: Persistent right-sided hydroureteronephrosis, unchanged from 05/06/2017. The left kidney and ureter are unremarkable. PELVIS: Bladder: No acute findings. Reproductive: No acute findings. ABDOMEN and PELVIS: Stomach and bowel: No acute findings. Peritoneum: Interval placement of a tunneled drainage catheter, with persistent intraperitoneal ascites. The catheter, originates in the right lower quadrant, and extends cranially to the perihepatic position. Lymph nodes: Extensive mesenteric lymphadenopathy, also unchanged. Vasculature: No aortic aneurysm. Bones: No acute fracture. IMPRESSION: Interval placement of a tunneled drainage catheter within the abdomen, with persistent ascites. Persistent right-sided hydroureteronephrosis. Interval findings, as detailed above.
[2017-06-08 03:18] LABS: TROPONIN I < 0.01 ng/mL
[2017-06-08] MEDS ORDERED: Sodium Chloride 0.9% 1,000 ML IV STA (03:56)
[2017-06-08 08:19] LABS: PH,URINE 5.5 (4.7-8.0); URINE BILIRUBIN NEGATIVE (NEGATIVE); URINE BLOOD NEGATIVE (NEGATIVE); URINE GLUCOSE (UA) NEGATIVE (NEGATIVE); URINE KETONE NEGATIVE (NEGATIVE); URINE LEUKOCYTE ESTERASE NEGATIVE Leu/uL (NEGATIVE); URINE PROTEIN 100 mg/dL (<30 mg/dL)
[2017-06-08 08:21] LABS: URINE APPEARANCE CLEAR (CLEAR); URINE COLOR YELLOW (YELLOW)
[2017-06-08 08:31] LABS: URINE BACTERIA FEW (NEG); URINE EPITHELIAL CELLS 0 - 2 /hpf (0-5); URINE RBC 0 - 2 /hpf (0-2); URINE WBC 0 - 2 /hpf (0-6)
--- NOTE | 2017-06-08 08:55 | CARD ---
APPROVED REPORT EKG Measurement Heart [id number] <Conclusion> Normal sinus rhythm Possible inferior infarct, age undetermined No change
[2017-06-08] MEDS: Insulin Reg-LOW-Coverage SC SCH ×4 (11:14→22:55)
[2017-06-08] MEDS: Morphine 2 mg/ml ISec IVP PRN (13:05)
--- NOTE | 2017-06-08 23:06 | HP ---
For Dr. Vargas. CHIEF COMPLAINT: Abdominal pain. 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 Vargas for retroperitoneal carcinomatosis with recent treatment and Dr. Vargas's office earlier in the week with the patient developing significant abdominal pain late afternoon yesterday after having breakfast, consisting of toast and juice. The patient now seen resting with a friend at the bedside reporting that he has significant nausea still is a problem. His last bowel movement was one day prior with the patient known to had a spiral catheter placed for removal of his ascites, which was tapped for one liter approximately four days prior to admission. The pain at present is 3-4/10 with no radiation in the mid lower abdomen. With this the patient is otherwise reporting that the analgesics help his pain. 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 ALLERGIES: NO KNOWN ALLERGIES. MEDICATIONS: At this point include Ecotrin, vitamin D, iron tablet, Lipitor, , Zestril, Glucophage, potassium, spironolactone, and Ambien. FAMILY HISTORY AND SOCIAL HISTORY: He is retired police. Nonsmoker, non-ethanolic, otherwise noncontributory. REVIEW OF SYSTEMS: A 12-point review of systems was done with negative findings except for issues in the history of present illness addressed. PHYSICAL EXAMINATION: VITAL SIGNS: Temperature 96, pulse 86, respirations 19, blood pressure 145/82, pulse oximetry 99%. HEENT: Unremarkable. Tongue is moist. Mild icteric tinge to his sclera and skin. NECK: Supple. HEART: Regular rate. LUNGS: Minimal decreased breath sounds at the bases. ABDOMEN: Distended with a positive ascitic fluid wave with a spiral catheter noted. Dressing is dry and intact. SKIN: Mildly icteric. NEUROLOGIC: Awake, alert, and oriented x3. LABORATORY DATA: The patient's labs were done, white blood cell count of 4.8, hemoglobin 12.6, hematocrit 38.0, platelet count of 244,000 with a chem metabolic panel showing a normal chem metabolic panel with a chloride of 111, random glucose of 177, calcium is 8.1, total bilirubin of 1.5 with the alkaline phosphatase of 306. His INR is 1.0 with urine specimen showing 100 mg/dL protein. The patient did have a CT scan of the abdomen and pelvis done late last night early this morning, which was read as interval placement of tunnel drainage catheter within the abdomen with persistent ascites, persistent right-sided hydroureteronephrosis. Interval findings detailed above. The patient did have an EKG done earlier today, which was read as normal sinus rhythm, positive inferior infarct, no change. PLAN: The patient after conversation with Dr. Vargas is to give sips of clear liquids, evaluation by Dr. House, gastrointestinal [facility] consultant. We will give morphine low dose IV for his pain. We will give hydration with normal saline at 80 mL an hour with Zofran as needed for his nausea with insulin sliding scale done along with the patient being n.p.o., expect for his sips of ice chips. We will ask for reconsult with Dr. Shawn Merritt. The patient is to have his labs drawn and be monitored clinically as per Dr. Vargas's recommendations. We will monitor clinically with labs. Parminder Julien MD
[2017-06-09] MEDS: Morphine 2 mg/ml ISec IVP PRN ×3 (00:01→20:27)
[2017-06-09] MEDS: Sodium Chloride 0.9% 1,000 ML IV SCH (04:00)
[2017-06-09 07:15] LABS: BASO # 0.02 K/mm3 (0.0-2.0); BASO % 0.8 % (0.0-3.0); EOS # 0.1 (0.0-0.7); EOS % 3.8 % (1.5-5.0); GRAN # 1.56 (1.4-6.5); HEMATOCRIT 38.9 % (42.0-52.0); LYMPH # 0.4 (1.2-3.4); LYMPH % 17.9 % (22.0-35.0); MEAN CELL VOLUME 94.2 fl (80.0-105.0); MEAN CORPUSCULAR HEMOGLOBIN 30.8 pg (25.0-35.0); MEAN CORPUSCULAR HGB CONC 32.6 g/dl (31.0-37.0); MEAN PLATELET VOLUME 10.4 fl (7.0-11.0); MONO # 0.3 (0.1-0.6); MONO % 12.5 % (1.0-6.0)
[2017-06-09 07:18] LABS: ALB/GLOB RATIO 1.1 (1.1-1.8); ALKALINE PHOSPHATASE 287 U/L (38-126); ALT/SGPT 36 U/L (7-56); AST/SGOT 21 U/L (17-59); BILIRUBIN,TOTAL 1.3 mg/dL (0.2-1.3); BLOOD UREA NITROGEN 18 mg/dL (7-21); CALCIUM 8.1 mg/dL (8.4-10.5); CARBON DIOXIDE 22 mmol/L (21-33); CHLORIDE 112 mmol/L (98-107); GFR AFRICAN-AMERICAN > 60; GLUCOSE,RANDOM 151 mg/dL (70-110); POTASSIUM 4.2 mmol/L (3.6-5.0); SODIUM 144 mmol/L (132-148); TOTAL PROTEIN 5.8 g/dL (5.8-8.3)
[2017-06-09 08:02] LABS: WHITE BLOOD COUNT 2.4 10^3/ul (4.5-11.0)
[2017-06-09] MEDS: Insulin Reg-LOW-Coverage SC SCH ×4 (08:46→22:08)
[2017-06-09] MEDS: Dextrose 5%/0.45% NS 1,000 ML IV SCH (15:59)
[2017-06-09] MEDS: POLYETHYLENE GLYCOL 3350 17 GM/Dose PACKET PO SCH (18:19)
[2017-06-10] MEDS: Dextrose 5%/0.45% NS 1,000 ML IV SCH ×2 (05:18→16:31)
[2017-06-10] MEDS: Morphine 2 mg/ml ISec IVP PRN (06:42)
[2017-06-10 06:52] LABS: HEMATOCRIT 35.7 % (42.0-52.0); MEAN CELL VOLUME 92.7 fl (80.0-105.0); MEAN CORPUSCULAR HEMOGLOBIN 31.2 pg (25.0-35.0); MEAN CORPUSCULAR HGB CONC 33.6 g/dl (31.0-37.0); MEAN PLATELET VOLUME 10.4 fl (7.0-11.0); RED CELL DISTRIBUTION WIDTH 13.8 % (11.5-14.5)
[2017-06-10 07:42] LABS: WHITE BLOOD COUNT 2.5 10^3/ul (4.5-11.0)
[2017-06-10 08:05] LABS: BASO % 0.4 % (0.0-3.0); EOS % 1.6 % (1.5-5.0); GRAN # 1.75 (1.4-6.5); GRAN % 69.7 % (50.0-68.0); LYMPH % 11.6 % (22.0-35.0); MONO % 16.7 % (1.0-6.0)
[2017-06-10 08:06] LABS: BASO # 0.01 K/mm3 (0.0-2.0); LYMPH # 0.3 (1.2-3.4); MONO # 0.4 (0.1-0.6)
[2017-06-10 08:07] LABS: ALKALINE PHOSPHATASE 245 U/L (38-126); ALT/SGPT 32 U/L (7-56); AST/SGOT 18 U/L (17-59); BLOOD UREA NITROGEN 16 mg/dL (7-21); CALCIUM 7.8 mg/dL (8.4-10.5); CARBON DIOXIDE 22 mmol/L (21-33); CHLORIDE 111 mmol/L (98-107); GFR AFRICAN-AMERICAN > 60; GLUCOSE,RANDOM 232 mg/dL (70-110); POTASSIUM 3.7 mmol/L (3.6-5.0); SODIUM 140 mmol/L (132-148); TOTAL PROTEIN 5.2 g/dL (5.8-8.3)
[2017-06-10] MEDS: Insulin Reg-LOW-Coverage SC SCH ×4 (08:38→21:43)
[2017-06-10] MEDS: POLYETHYLENE GLYCOL 3350 17 GM/Dose PACKET PO SCH (10:14)
--- NOTE | 2017-06-10 13:43 | CP.PCM.PN ---
Subjective - Date & Time of Evaluation Date of Evaluation: 06/10/17 Time of Evaluation: 13:40 - Subjective Subjective: Progress note for Dr. Vargas's service Patient seen and examined at bedside this morning. Complained of diarrhea and fatigue. Per nursing, had multiple bowel movements in the morning. Cdiff antigen /toxin negative. Discussed with patient need to drain fluid from aspira catheter and send for gram stain/culture. He denied chest pain, palpitations, SOB. Abdominal pain has improved. Objective - Vital Signs/Intake and Output Vital Signs (last 24 hours): Temp Pulse Resp BP Pulse Ox 97.6 F 107 H 20 143/91 H 98 06/10/17 06:00 06/10/17 10:35 06/10/17 06:00 06/10/17 10:35 06/10/17 06:00 Intake and Output: 06/10/17 06/10/17 06:59 18:59 Intake Total 2420 0 Output Total 400 Balance 2020 0 - Medications Medications: Current Medications Alprazolam (Xanax) 0.25 mg PO Q8 PRN; Protocol PRN Reason: Anxiety Stop: 06/16/17 14:01 Last Admin: 06/09/17 22:59 Dose: 0.25 mg Clonidine HCl (Catapres Tts1 0.1 Mg/24 Hr) 1 patch TD Q7D@1000 [facility] Last Admin: 06/10/17 10:35 Dose: 1 patch Dextrose/Sodium Chloride (Dextrose 5%/0.45% Ns 1000 Ml) 1,000 mls @ 80 mls/hr IV .[id number] [facility] Last Admin: 06/10/17 05:18 Dose: 80 mls/hr Insulin Human Regular (Humulin R Low) 0 units SC ACHS [facility] PRN Reason: Protocol Last Admin: 06/10/17 08:38 Dose: 2 units Lisinopril (Zestril) 20 mg PO DAILY [facility] Morphine Sulfate (Morphine) 2 mg IVP Q4H PRN PRN Reason: Pain, moderate (4-7) Last Admin: 06/10/17 06:42 Dose: 2 mg Ondansetron HCl (Zofran Inj) 4 mg IVP Q6H PRN PRN Reason: Nausea/Vomiting Last Admin: 06/10/17 10:22 Dose: 4 mg Pantoprazole Sodium (Protonix Inj) 20 mg IVP DAILY [facility] Last Admin: 06/10/17 10:28 Dose: 20 mg Polyethylene Glycol (Miralax) 17 gm PO DAILY [facility] Last Admin: 06/10/17 10:14 Dose: Not Given Spironolactone (Aldactone) 50 mg PO DAILY [facility] Last Admin: 06/10/17 10:30 Dose: 50 mg - Labs Labs: 06/10/17 06:42 06/10/17 06:42 PT 10.9 Seconds (9.9-11.8) 06/08/17 02:15 INR 1.01 (0.93-1.08) 06/08/17 02:15 APTT 25.9 Seconds (23.7-30.8) 06/08/17 02:15 - Constitutional Appears: No Acute Distress - Head Exam Head Exam: ATRAUMATIC, NORMAL INSPECTION, NORMOCEPHALIC - Eye Exam Eye Exam: EOMI, PERRL - ENT Exam ENT Exam: Mucous Membranes Moist - Respiratory Exam Respiratory Exam: Clear to Ausculation Bilateral. absent: Rales, Rhonchi, Wheezes - Cardiovascular Exam Cardiovascular Exam: RRR, +S1, +S2. absent: Gallop, Rubs - GI/Abdominal Exam GI & Abdominal Exam: Soft. 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 1. Abdominal pain -Amylase and lipase within normal limits -CT abd/pelvis reviewed; interval appearance of a tunneled drainage catheter within the abdomen with persistent ascites, persistent right-sided hydroureteronephrosis; see full report -Liquid diet as tolerated -2500cc of Ascitic fluid removed yesterday from aspira catheter; 1000cc of fluid to be drained today and sent for gram stain/culture -Cdiff negative -IVF hydration -Evaluation by GI - Dr. House 2. stage IV metastatic adenocarcinoma of the colon -Patient with documented intraabdominal carcinomatosis treated with FOLFIRI and vectibix -PET scan from 03/06/17 revealed no evidence of FDG avid mass or nodules in the chest, abdomen and pelvis; Re-demonstration of multiple solid non FDG avid nodules in the lungs appear slightly larger compared to previous exam. See full report 3. DM type 2 -Fingersticks ACHS -Insulin sliding scale 4. Hypertension -Continue with clonidine, lisinopril and aldactone 5. GI/DVT Prophylaxis -Protonix/heparin SC Patient seen and case discussed with attending, Dr. Vargas
[2017-06-10] MEDS: Meropenem 1g/NS 100mL IVPB 1 GM/100 ML PIGGYBACK IVPB SCH ×3 (14:54→21:45)
--- NOTE | 2017-06-10 15:20 | CON ---
DATE: 06/10/2017 LOCATION: The patient seen in room 366, bed 1. CHIEF COMPLAINT: Weakness and diarrhea of several days. HISTORY OF PRESENT ILLNESS: This is a 71-year-old male with past medical history significant for adenocarcinoma with peritoneal carcinomatosis and colon cancer, diabetes mellitus, coronary artery disease, bilateral lens implants, Port-a-Cath in the past, with no known allergies, admitted to the emergency room with diagnosis of abdominal pain, infectious disease consultation has been requested. REVIEW OF SYSTEMS: Revealed the patient is complaining of diarrhea and abdominal pain. Abdominal pain is reported to be diffuse. The patient was seen by Dr. Tutu Alonzo in the emergency room where the patient had complained of abdominal pain, right lower quadrant, with nausea and vomiting which developed last night. No fevers and chills. No chest pain. No headaches or blurred vision. No shortness of breath or cough. PAST MEDICAL HISTORY: Significant for colon cancer, adenocarcinoma with peritoneal carcinomatosis, diabetes mellitus, coronary artery disease, and has had chemotherapy and high cholesterol and cataract. PAST SURGICAL HISTORY: Significant for a left meniscus repair, Port-a-Cath, bilateral lens implacement. ALLERGIES: THE PATIENT HAS NO KNOWN ALLERGIES. MEDICATIONS AT HOME: Reviewed and include metformin, lisinopril, ergocalciferol, Lipitor, and spironolactone. PHYSICAL EXAMINATION: VITAL SIGNS: On exam, temperature is 98, was down to 96; blood pressure is 160/90; pulse was up to 106; and a respiratory rate of 20. HEENT: Unremarkable. NECK: Supple. LUNGS: Decreased breath sounds. HEART: Normal S1 and S2. ABDOMEN: Tender. No rebound or guarding. No masses. LABORATORY EXAMINATION: Reveals a white count of 2.5, hemoglobin of 12, platelets of 69,000. Coagulation is noted. Chemistries reveal a BUN of 16, creatinine of 0.6, alk phos is 245 and urinalysis is reviewed. Blood cultures from the 1st have no growth. Stool for C. diff, negative toxin and negative antigen. The patient had a CAT scan of the abdomen which revealed interval placement of a tunnel drainage catheter in the abdomen, persistent ascites, persistent right-sided hydronephrosis. ASSESSMENT AND PLAN: A 71-year-old with adenocarcinoma of the colon with peritoneal carcinomatosis, diabetes, coronary artery disease, has a positive catheter in the abdomen. 1. Systemic inflammatory response syndrome, must rule out sepsis secondary to spontaneous bacterial peritonitis. We will treat the patient with meropenem 1 g q. 8 hours. Request for peritoneal fluid, results have been made and fluid will be sent for a cell count and white count, gram stain and culture peritoneal fluid and we will check on the stool cultures and start empiric meropenem therapy. We will check on the blood cultures. We will make further recommendations upon the availability of initial results pending blood culture results those thus far are negative. Niraj Melton MD
--- NOTE | 2017-06-10 15:56 | CP.PCM.PN ---
<Aletha Panda - Last Filed: 06/10/17 15:54> Subjective - Date & Time of Evaluation Date of Evaluation: 06/10/17 Time of Evaluation: 10:35 - Subjective Subjective: Seen and examined at the bedside earlier this am today and the chart was reviewed. No acute overnight events reported. The patient did however have loose BMs this morning. Patient denies nausea, vomiting. Did have some abdominal discomfort and c/o feeling tired. No overt GI bleeding. Objective - Vital Signs/Intake and Output Vital Signs (last 24 hours): Temp Pulse Resp BP Pulse Ox 97.6 F 107 H 20 143/91 H 98 06/10/17 06:00 06/10/17 10:35 06/10/17 06:00 06/10/17 10:35 06/10/17 06:00 Intake and Output: 06/10/17 06/10/17 06:59 18:59 Intake Total 2420 0 Output Total 400 Balance 2020 0 - Medications Medications: Current Medications Alprazolam (Xanax) 0.25 mg PO Q8 PRN; Protocol PRN Reason: Anxiety Stop: 06/16/17 14:01 Last Admin: 06/09/17 22:59 Dose: 0.25 mg Clonidine HCl (Catapres Tts1 0.1 Mg/24 Hr) 1 patch TD Q7D@1000 [facility] Last Admin: 06/10/17 10:35 Dose: 1 patch Heparin Sodium (Porcine) (Heparin) 5,000 units SC Q12 [facility] PRN Reason: Protocol Dextrose/Sodium Chloride (Dextrose 5%/0.45% Ns 1000 Ml) 1,000 mls @ 80 mls/hr IV .[id number] [facility] Last Admin: 06/10/17 05:18 Dose: 80 mls/hr Meropenem 1g/NS 100mL IVPB (Meropenem 1g/Ns 100ml Ivpb) 1 gm in 100 mls @ 100 mls/hr IVPB Q8 [facility] PRN Reason: Protocol Stop: 06/19/17 13:44 Last Admin: 06/10/17 15:00 Dose: 100 mls/hr Insulin Human Regular (Humulin R Low) 0 units SC ACHS [facility] PRN Reason: Protocol Last Admin: 06/10/17 12:30 Dose: 2 units Lisinopril (Zestril) 20 mg PO DAILY [facility] Morphine Sulfate (Morphine) 2 mg IVP Q4H PRN PRN Reason: Pain, moderate (4-7) Last Admin: 06/10/17 06:42 Dose: 2 mg Ondansetron HCl (Zofran Inj) 4 mg IVP Q6H PRN PRN Reason: Nausea/Vomiting Last Admin: 06/10/17 10:22 Dose: 4 mg Pantoprazole Sodium (Protonix Inj) 20 mg IVP DAILY [facility] Last Admin: 06/10/17 10:28 Dose: 20 mg Polyethylene Glycol (Miralax) 17 gm PO DAILY [facility] Last Admin: 06/10/17 10:14 Dose: Not Given Spironolactone (Aldactone) 50 mg PO DAILY [facility] Last Admin: 06/10/17 10:30 Dose: 50 mg - Labs Labs: 06/10/17 06:42 06/10/17 06:42 PT 10.9 Seconds (9.9-11.8) 06/08/17 02:15 INR 1.01 (0.93-1.08) 06/08/17 02:15 APTT 25.9 Seconds (23.7-30.8) 06/08/17 02:15 - Constitutional Appears: No Acute Distress - Head Exam Head Exam: NORMOCEPHALIC - Eye Exam Eye Exam: Normal appearance. absent: Scleral icterus - ENT Exam ENT Exam: Mucous Membranes Moist - Neck Exam Neck Exam: Normal Inspection - Respiratory Exam Respiratory Exam: NORMAL BREATHING PATTERN. absent: Respiratory Distress (I way ) - Cardiovascular Exam Cardiovascular Exam: +S1, +S2 (B) - GI/Abdominal Exam GI & Abdominal Exam: Soft (it is safe place), Tenderness, Normal Bowel Sounds. absent: Distended, Guarding, Rebound - Neurological Exam Neurological Exam: Alert, Awake, Oriented x3 - Skin Skin Exam: Dry, Warm Assessment and Plan - Assessment and Plan (Free Text) Assessment: Assessment: History of stage IV metastatic adenocarcinoma of the colon Recurrent ascites status post aspira catheter, s/p drain 06/09: 2500cc Abdominal pain, patient had CT scan of abdomen and pelvis which shows persistent ascites and right-sided hydroureternephrosis Diarrhea, r/o Cdiff HTN PLAN: stool cdiff hold Miralax on lasix and aldactone monitor electrolytes IV antibiotics continue PPI DVT prophylaxsis Seen and discussed w/ Dr. House. <Kai House V - Last Filed: 06/10/17 22:05> Objective - Vital Signs/Intake and Output Vital Signs (last 24 hours): Temp Pulse Resp BP Pulse Ox 97.6 F 107 H 20 143/91 H 98 06/10/17 06:00 06/10/17 10:35 06/10/17 06:00 06/10/17 10:35 06/10/17 06:00 Intake and Output: 06/10/17 06/11/17 18:59 06:59 Intake Total 0 Balance 0 - Medications Medications: Current Medications Alprazolam (Xanax) 0.25 mg PO Q8 PRN; Protocol PRN Reason: Anxiety Stop: 06/16/17 14:01 Last Admin: 06/09/17 22:59 Dose: 0.25 mg Clonidine HCl (Catapres Tts1 0.1 Mg/24 Hr) 1 patch TD Q7D@1000 [facility] Last Admin: 06/10/17 10:35 Dose: 1 patch Heparin Sodium (Porcine) (Heparin) 5,000 units SC Q12 [facility] PRN Reason: Protocol Last Admin: 06/10/17 21:45 Dose: 5,000 units Dextrose/Sodium Chloride (Dextrose 5%/0.45% Ns 1000 Ml) 1,000 mls @ 80 mls/hr IV .[id number] [facility] Last Admin: 06/10/17 16:31 Dose: 80 mls/hr Meropenem 1g/NS 100mL IVPB (Meropenem 1g/Ns 100ml Ivpb) 1 gm in 100 mls @ 100 mls/hr IVPB Q8 [facility] PRN Reason: Protocol Stop: 06/19/17 13:44 Last Admin: 06/10/17 21:45 Dose: 100 mls/hr Insulin Human Regular (Humulin R Low) 0 units SC ACHS [facility] PRN Reason: Protocol Last Admin: 06/10/17 21:43 Dose: Not Given Lisinopril (Zestril) 20 mg PO DAILY [facility] Morphine Sulfate (Morphine) 2 mg IVP Q4H PRN PRN Reason: Pain, moderate (4-7) Last Admin: 06/10/17 06:42 Dose: 2 mg Ondansetron HCl (Zofran Inj) 4 mg IVP Q6H PRN PRN Reason: Nausea/Vomiting Last Admin: 06/10/17 10:22 Dose: 4 mg Pantoprazole Sodium (Protonix Inj) 20 mg IVP DAILY [facility] Last Admin: 06/10/17 10:28 Dose: 20 mg Polyethylene Glycol (Miralax) 17 gm PO DAILY [facility] Last Admin: 06/10/17 10:14 Dose: Not Given Spironolactone (Aldactone) 50 mg PO DAILY [facility] Last Admin: 06/10/17 10:30 Dose: 50 mg - Labs Labs: 06/10/17 06:42 06/10/17 06:42 PT 10.9 Seconds (9.9-11.8) 06/08/17 02:15 INR 1.01 (0.93-1.08) 06/08/17 02:15 APTT 25.9 Seconds (23.7-30.8) 06/08/17 02:15 Attending/Attestation - Attestation I have personally seen and examined this patient.: Yes I have fully participated in the care of the patient.: Yes I have reviewed all pertinent clinical information, including history, physical exam and plan: Yes Notes (Text): This is an addendum to GI progress report dictated by Aletha Panda APN.The patient was seen and examined earlier. Medical records, lab studies, imagings were reviewed. Last 24 hours events reviewed. Agreed with the above treatment plan as outlined in Aletha Panda APN's notes the with the addition of the following on examination abdomen softly distended tenderness present mainly in the rright lower quadrant area Please better slightly Presently on IV antibiotics for SIRS. Status post a drainage of ascitic fluid patient did have several episodes of loose bowel movements. Stool for C. difficile negative Follow-up the cultures On clear liquid diet to slowly advance the diet to full liquid then to soft diet as patient is tolerating t 06/10/17 22:02
[2017-06-11] MEDS: Meropenem 1g/NS 100mL IVPB 1 GM/100 ML PIGGYBACK IVPB SCH ×3 (06:28→22:07)
[2017-06-11] MEDS: Dextrose 5%/0.45% NS 1,000 ML IV SCH ×2 (06:28→17:00)
[2017-06-11 07:29] LABS: BASO # 0.01 K/mm3 (0.0-2.0); BASO % 0.2 % (0.0-3.0); EOS # 0.1 (0.0-0.7); EOS % 1.9 % (1.5-5.0); GRAN # 2.74 (1.4-6.5); GRAN % 66.6 % (50.0-68.0); HEMATOCRIT 33.3 % (42.0-52.0); LYMPH # 0.6 (1.2-3.4); LYMPH % 15.3 % (22.0-35.0); MEAN CELL VOLUME 92.5 fl (80.0-105.0); MEAN CORPUSCULAR HEMOGLOBIN 31.1 pg (25.0-35.0); MEAN CORPUSCULAR HGB CONC 33.6 g/dl (31.0-37.0); MEAN PLATELET VOLUME 10.2 fl (7.0-11.0); MONO # 0.7 (0.1-0.6); RED CELL DISTRIBUTION WIDTH 13.8 % (11.5-14.5); WHITE BLOOD COUNT 4.1 10^3/ul (4.5-11.0)
[2017-06-11 07:37] LABS: ALKALINE PHOSPHATASE 186 U/L (38-126); ALT/SGPT 29 U/L (7-56); AST/SGOT 14 U/L (17-59); BILIRUBIN,TOTAL 0.7 mg/dL (0.2-1.3); BLOOD UREA NITROGEN 15 mg/dL (7-21); CALCIUM 7.5 mg/dL (8.4-10.5); CARBON DIOXIDE 24 mmol/L (21-33); CHLORIDE 110 mmol/L (98-107); GFR AFRICAN-AMERICAN > 60; GLUCOSE,RANDOM 185 mg/dL (70-110); POTASSIUM 3.2 mmol/L (3.6-5.0); SODIUM 140 mmol/L (132-148); TOTAL PROTEIN 4.6 g/dL (5.8-8.3)
[2017-06-11] MEDS: Insulin Reg-LOW-Coverage SC SCH ×4 (08:05→22:04)
[2017-06-11] MEDS ORDERED: Potassium Chloride 20 mEq ER Tab PO STA (08:58)
--- NOTE | 2017-06-11 09:47 | CP.PCM.PN ---
Subjective - Date & Time of Evaluation Date of Evaluation: 06/11/17 Time of Evaluation: 09:49 - Subjective Subjective: Progress note for Dr. Vargas's service Patient seen and examined at bedside this morning. Reported 4 episodes of loose bowel movements this morning. Cdiff testing had been sent and was negative, however repeat ordered. Likely source of diarrhea is secondary to irinotecan chemotherapy treatment. Denies chest pain, palpitations, SOB. Objective - Vital Signs/Intake and Output Vital Signs (last 24 hours): Temp Pulse Resp BP Pulse Ox 97.7 F 84 18 125/74 96 06/11/17 06:00 06/11/17 09:32 06/11/17 06:00 06/11/17 09:32 06/11/17 06:00 Intake and Output: 06/11/17 06/11/17 06:59 18:59 Intake Total 2280 0 Balance 2280 0 - Medications Medications: Current Medications Alprazolam (Xanax) 0.25 mg PO Q8 PRN; Protocol PRN Reason: Anxiety Stop: 06/16/17 14:01 Last Admin: 06/09/17 22:59 Dose: 0.25 mg Clonidine HCl (Catapres Tts1 0.1 Mg/24 Hr) 1 patch TD Q7D@1000 [facility] Last Admin: 06/10/17 10:35 Dose: 1 patch Heparin Sodium (Porcine) (Heparin) 5,000 units SC Q12 [facility] PRN Reason: Protocol Last Admin: 06/11/17 09:32 Dose: 5,000 units Dextrose/Sodium Chloride (Dextrose 5%/0.45% Ns 1000 Ml) 1,000 mls @ 80 mls/hr IV .[id number] [facility] Last Admin: 06/11/17 06:28 Dose: 80 mls/hr Meropenem 1g/NS 100mL IVPB (Meropenem 1g/Ns 100ml Ivpb) 1 gm in 100 mls @ 100 mls/hr IVPB Q8 [facility] PRN Reason: Protocol Stop: 06/19/17 13:44 Last Admin: 06/11/17 06:28 Dose: 100 mls/hr Potassium Chloride (Potassium Chloride 20 Meq/100 Ml) 20 meq in 100 mls @ 50 mls/hr IVPB Q2H [facility] Stop: 06/11/17 13:44 Insulin Human Regular (Humulin R Low) 0 units SC ACHS [facility] PRN Reason: Protocol Last Admin: 06/11/17 08:05 Dose: 1 units Lisinopril (Zestril) 20 mg PO DAILY [facility] Last Admin: 06/11/17 09:32 Dose: 20 mg Metronidazole (Flagyl) 250 mg PO QID [facility] PRN Reason: Protocol Stop: 06/21/17 10:01 Last Admin: 06/11/17 09:32 Dose: 250 mg Morphine Sulfate (Morphine) 2 mg IVP Q4H PRN PRN Reason: Pain, moderate (4-7) Last Admin: 06/10/17 06:42 Dose: 2 mg Ondansetron HCl (Zofran Inj) 4 mg IVP Q6H PRN PRN Reason: Nausea/Vomiting Last Admin: 06/10/17 10:22 Dose: 4 mg Pantoprazole Sodium (Protonix Inj) 20 mg IVP DAILY [facility] Last Admin: 06/11/17 09:31 Dose: 20 mg Spironolactone (Aldactone) 50 mg PO DAILY [facility] Last Admin: 06/11/17 09:33 Dose: 50 mg - Labs Labs: 06/11/17 06:57 06/11/17 06:57 PT 10.9 Seconds (9.9-11.8) 06/08/17 02:15 INR 1.01 (0.93-1.08) 06/08/17 02:15 APTT 25.9 Seconds (23.7-30.8) 06/08/17 02:15 - Constitutional Appears: No Acute Distress - Head Exam Head Exam: ATRAUMATIC, NORMAL INSPECTION, NORMOCEPHALIC - Eye Exam Eye Exam: EOMI, PERRL - ENT Exam ENT Exam: Mucous Membranes Moist - Respiratory Exam Respiratory Exam: Clear to Ausculation Bilateral. absent: Rales, Rhonchi, Wheezes - Cardiovascular Exam Cardiovascular Exam: +S1, +S2. absent: Gallop, Rubs, Murmur - GI/Abdominal Exam GI & Abdominal Exam: Soft, Tenderness. absent: Distended, Firm, Guarding, Rigid , Rebound - Neurological Exam Neurological Exam: Alert, Awake, Oriented x3 - Psychiatric Exam Psychiatric exam: Normal Affect, Normal Mood - Skin Skin Exam: Dry, Intact, Normal Color, Warm Assessment and Plan - Assessment and Plan (Free Text) Plan: 71yo male with history of stage IV metastatic adenocarcinoma of the colon with recurrent ascites that presented to [facility] c/o abdominal pain associated with nausea and vomiting. 1. Abdominal pain/Diarrhea -Diarrhea is likely secondary to chemotherapy treatment with Irinotecan -Amylase and lipase within normal limits -CT abd/pelvis reviewed; interval appearance of a tunneled drainage catheter within the abdomen with persistent ascites, persistent right-sided hydroureteronephrosis; see full report -Liquid diet to be advanced as tolerated -2500cc of Ascitic fluid removed previously from aspira catheter; 1000cc of fluid drained the following day and sent for gram stain/culture -Gram stain revealed no organisms, culture pending of ascitic fluid -Cdiff negative, however repeat testing pending -IVF hydration -Patient currently being treated empirically with flagyl and meropenem per GI and ID recommendations, respectively -Evaluation by GI - Dr. House 2. stage IV metastatic adenocarcinoma of the colon -Patient with documented intraabdominal carcinomatosis treated with FOLFIRI and vectibix -PET scan from 03/06/17 revealed no evidence of FDG avid mass or nodules in the chest, abdomen and pelvis; Re-demonstration of multiple solid non FDG avid nodules in the lungs appear slightly larger compared to previous exam. See full report -Follows with Dr. Vargas as an outpatient 3. DM type 2 -Fingersticks ACHS -Insulin sliding scale 4. Hypertension -Continue with clonidine, lisinopril and aldactone 5. GI/DVT Prophylaxis -Protonix/heparin SC Patient seen and case discussed with attending, Dr. Vargas
--- NOTE | 2017-06-11 11:18 | CP.PCM.PN ---
<Aletha Panda - Last Filed: 06/11/17 11:13> Subjective - Date & Time of Evaluation Date of Evaluation: 06/11/17 Time of Evaluation: 08:50 - Subjective Subjective: Seen and examined at the bedside earlier today, patient continues to have loose bowel movement. No reports of bleeding. Patient denies nausea, vomiting , abdominal pain is improved. No reports of fever or chills. Tolerating clear liquid. Objective - Vital Signs/Intake and Output Vital Signs (last 24 hours): Temp Pulse Resp BP Pulse Ox 97.7 F 84 18 125/74 96 06/11/17 06:00 06/11/17 09:32 06/11/17 06:00 06/11/17 09:32 06/11/17 06:00 Intake and Output: 06/11/17 06/11/17 06:59 18:59 Intake Total 2280 0 Balance 2280 0 - Medications Medications: Current Medications Alprazolam (Xanax) 0.25 mg PO Q8 PRN; Protocol PRN Reason: Anxiety Stop: 06/16/17 14:01 Last Admin: 06/09/17 22:59 Dose: 0.25 mg Clonidine HCl (Catapres Tts1 0.1 Mg/24 Hr) 1 patch TD Q7D@1000 [facility] Last Admin: 06/10/17 10:35 Dose: 1 patch Heparin Sodium (Porcine) (Heparin) 5,000 units SC Q12 [facility] PRN Reason: Protocol Last Admin: 06/11/17 09:32 Dose: 5,000 units Dextrose/Sodium Chloride (Dextrose 5%/0.45% Ns 1000 Ml) 1,000 mls @ 80 mls/hr IV .[id number] [facility] Last Admin: 06/11/17 06:28 Dose: 80 mls/hr Meropenem 1g/NS 100mL IVPB (Meropenem 1g/Ns 100ml Ivpb) 1 gm in 100 mls @ 100 mls/hr IVPB Q8 [facility] PRN Reason: Protocol Stop: 06/19/17 13:44 Last Admin: 06/11/17 06:28 Dose: 100 mls/hr Potassium Chloride (Potassium Chloride 20 Meq/100 Ml) 20 meq in 100 mls @ 50 mls/hr IVPB Q2H [facility] Stop: 06/11/17 13:44 Insulin Human Regular (Humulin R Low) 0 units SC ACHS [facility] PRN Reason: Protocol Last Admin: 06/11/17 08:05 Dose: 1 units Lisinopril (Zestril) 20 mg PO DAILY [facility] Last Admin: 06/11/17 09:32 Dose: 20 mg Metronidazole (Flagyl) 250 mg PO QID [facility] PRN Reason: Protocol Stop: 06/21/17 10:01 Last Admin: 06/11/17 09:32 Dose: 250 mg Morphine Sulfate (Morphine) 2 mg IVP Q4H PRN PRN Reason: Pain, moderate (4-7) Last Admin: 06/10/17 06:42 Dose: 2 mg Ondansetron HCl (Zofran Inj) 4 mg IVP Q6H PRN PRN Reason: Nausea/Vomiting Last Admin: 06/10/17 10:22 Dose: 4 mg Pantoprazole Sodium (Protonix Inj) 20 mg IVP DAILY [facility] Last Admin: 06/11/17 09:31 Dose: 20 mg Spironolactone (Aldactone) 50 mg PO DAILY [facility] Last Admin: 06/11/17 09:33 Dose: 50 mg - Labs Labs: 06/11/17 06:57 06/11/17 06:57 PT 10.9 Seconds (9.9-11.8) 06/08/17 02:15 INR 1.01 (0.93-1.08) 06/08/17 02:15 APTT 25.9 Seconds (23.7-30.8) 06/08/17 02:15 - Constitutional Appears: No Acute Distress - Eye Exam Eye Exam: Normal appearance. absent: Scleral icterus - ENT Exam ENT Exam: Mucous Membranes Moist - Neck Exam Neck Exam: Normal Inspection - Respiratory Exam Respiratory Exam: NORMAL BREATHING PATTERN. absent: Respiratory Distress - Cardiovascular Exam Cardiovascular Exam: +S1, +S2 - GI/Abdominal Exam GI & Abdominal Exam: Soft, Normal Bowel Sounds. 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 House. <Kai House V - Last Filed: 06/11/17 20:34> Objective - Vital Signs/Intake and Output Vital Signs (last 24 hours): Temp Pulse Resp BP Pulse Ox 98.5 F 82 18 123/74 98 06/11/17 17:03 06/11/17 17:03 06/11/17 17:03 06/11/17 17:03 06/11/17 17:03 Intake and Output: 06/11/17 06/12/17 18:59 06:59 Intake Total 560 Balance 560 - Medications Medications: Current Medications Alprazolam (Xanax) 0.25 mg PO Q8 PRN; Protocol PRN Reason: Anxiety Stop: 06/16/17 14:01 Last Admin: 06/09/17 22:59 Dose: 0.25 mg Cholestyramine Resin (Questran) 2 gm PO BID [facility] Last Admin: 06/11/17 18:07 Dose: 2 gm Clonidine HCl (Catapres Tts1 0.1 Mg/24 Hr) 1 patch TD Q7D@1000 [facility] Last Admin: 06/10/17 10:35 Dose: 1 patch Heparin Sodium (Porcine) (Heparin) 5,000 units SC Q12 [facility] PRN Reason: Protocol Last Admin: 06/11/17 09:32 Dose: 5,000 units Dextrose/Sodium Chloride (Dextrose 5%/0.45% Ns 1000 Ml) 1,000 mls @ 80 mls/hr IV .[id number] [facility] Last Admin: 06/11/17 17:00 Dose: 80 mls/hr Meropenem 1g/NS 100mL IVPB (Meropenem 1g/Ns 100ml Ivpb) 1 gm in 100 mls @ 100 mls/hr IVPB Q8 [facility] PRN Reason: Protocol Stop: 06/19/17 13:44 Last Admin: 06/11/17 13:14 Dose: 100 mls/hr Insulin Human Regular (Humulin R Low) 0 units SC ACHS [facility] PRN Reason: Protocol Last Admin: 06/11/17 16:54 Dose: 1 units Lisinopril (Zestril) 20 mg PO DAILY [facility] Last Admin: 06/11/17 09:32 Dose: 20 mg Loperamide HCl (Imodium) 2 mg PO QID PRN PRN Reason: Diarrhea Last Admin: 06/11/17 17:01 Dose: 2 mg Metronidazole (Flagyl) 250 mg PO QID [facility] PRN Reason: Protocol Stop: 06/21/17 10:01 Last Admin: 06/11/17 17:01 Dose: 250 mg Morphine Sulfate (Morphine) 2 mg IVP Q4H PRN PRN Reason: Pain, moderate (4-7) Last Admin: 06/10/17 06:42 Dose: 2 mg Ondansetron HCl (Zofran Inj) 4 mg IVP Q6H PRN PRN Reason: Nausea/Vomiting Last Admin: 06/10/17 10:22 Dose: 4 mg Pantoprazole Sodium (Protonix Inj) 20 mg IVP DAILY [facility] Last Admin: 06/11/17 09:31 Dose: 20 mg Spironolactone (Aldactone) 50 mg PO DAILY [facility] Last Admin: 06/11/17 09:33 Dose: 50 mg - Labs Labs: 06/11/17 06:57 06/11/17 06:57 PT 10.9 Seconds (9.9-11.8) 06/08/17 02:15 INR 1.01 (0.93-1.08) 06/08/17 02:15 APTT 25.9 Seconds (23.7-30.8) 06/08/17 02:15 Attending/Attestation - Attestation I have personally seen and examined this patient.: Yes I have fully participated in the care of the patient.: Yes I have reviewed all pertinent clinical information, including history, physical exam and plan: Yes Notes (Text): This is an addendum to GI progress report dictated by Aletha Panda APN.The patient was seen and examined earlier. Medical records, lab studies, imagings were reviewed. Last 24 hours events reviewed. Agreed with the above treatment plan as outlined in Aletha Panda APN's notes the with the addition of the following Patient is to comprise of loose bowel movements and one dose of Imodium abdominal discomfort has significantly improved On antibiotics, follow cultures Abdomen tenderness has significantly improved *Low-dose Questran to slow down the diarrhea. Would not continue with for more than 24-48 hours based on the clinical response On empiric Flagyl therapy. Stool for C. difficile sent before was negative Discussed with the patient and also nursing staff would consider advancing her diet diet to low residue soft dietin a.m. 06/11/17 20:32
[2017-06-11] MEDS: Cholestyramine 4 gm/Pkt UD PO SCH (18:07)
--- NOTE | 2017-06-11 22:19 | PN ---
DATE: 06/11/2017 SUBJECTIVE: The patient is in bed, in no acute distress, nontoxic. PHYSICAL EXAMINATION VITAL SIGNS: Temperature is 97, blood pressure is 120/70, respiratory rate 18, heart rate of 82. HEENT: Unremarkable. NECK: Supple. HEART: Normal S1 and S2. LUNGS: Decreased breath sounds. ABDOMEN: Soft and nontender. LABORATORY DATA: Examination reveals a white count of 4.1, hemoglobin of 11. BUN of 15, creatinine of 0.8. Urinalysis is noted. Microbiology reveals the patient's stool for C. diff is negative for antigen, negative for toxin and the ascitic fluid culture is no growth. The blood cultures are no growth. MEDICATIONS: Review of orders reveals the patient to be on p.o. Flagyl, started primarily for rash and the patient is on IV meropenem. ASSESSMENT AND PLAN: This is a 71-year-old male with past medical history for adenocarcinoma with peritoneal carcinomatosis, colon cancer, diabetes mellitus, coronary artery disease, bilateral lens implants, Port-A-Cath in the past. NO KNOWN ALLERGIES. Admitted with abdominal pain. 1. Systemic inflammatory response syndrome. Thus far, no clear etiology is found with negative stool Clostridium difficile. Rules out pseudomembranous colitis. Negative ascitic fluid cultures and unable to find any wbc count from the ascitic fluid. Gram stain is negative, and cultures of ascitic fluid is negative. 2. Negative Clostridium difficile antigen and toxin. This is not from pseudomembranous colitis. 3. Abdominal pain, most likely just from the underlying disease. We will follow with you. Niraj Melton MD
[2017-06-12] MEDS: Meropenem 1g/NS 100mL IVPB 1 GM/100 ML PIGGYBACK IVPB SCH ×3 (06:12→21:24)
[2017-06-12] MEDS: Dextrose 5%/0.45% NS 1,000 ML IV SCH ×2 (06:15→08:34)
[2017-06-12 07:12] LABS: BASO # 0.03 K/mm3 (0.0-2.0); BASO % 0.5 % (0.0-3.0); EOS # 0.1 (0.0-0.7); EOS % 2.4 % (1.5-5.0); GRAN # 3.95 (1.4-6.5); GRAN % 67.7 % (50.0-68.0); HEMATOCRIT 31.5 % (42.0-52.0); LYMPH # 0.9 (1.2-3.4); LYMPH % 14.8 % (22.0-35.0); MEAN CELL VOLUME 91.8 fl (80.0-105.0); MEAN CORPUSCULAR HEMOGLOBIN 30.9 pg (25.0-35.0); MEAN CORPUSCULAR HGB CONC 33.7 g/dl (31.0-37.0); MEAN PLATELET VOLUME 10.3 fl (7.0-11.0); MONO # 0.9 (0.1-0.6); MONO % 14.6 % (1.0-6.0); WHITE BLOOD COUNT 5.8 10^3/ul (4.5-11.0)
[2017-06-12 07:33] LABS: ALB/GLOB RATIO 0.9 (1.1-1.8); ALKALINE PHOSPHATASE 161 U/L (38-126); ALT/SGPT 24 U/L (7-56); AST/SGOT 15 U/L (17-59); BILIRUBIN,TOTAL 0.5 mg/dL (0.2-1.3); BLOOD UREA NITROGEN 15 mg/dL (7-21); CALCIUM 7.5 mg/dL (8.4-10.5); CARBON DIOXIDE 22 mmol/L (21-33); CHLORIDE 112 mmol/L (98-107); GFR AFRICAN-AMERICAN > 60; GLUCOSE,RANDOM 155 mg/dL (70-110); POTASSIUM 3.4 mmol/L (3.6-5.0); SODIUM 138 mmol/L (132-148); TOTAL PROTEIN 4.3 g/dL (5.8-8.3)
[2017-06-12] MEDS: Insulin Reg-LOW-Coverage SC SCH ×4 (08:32→21:25)
[2017-06-12] MEDS ORDERED: Potassium Chloride 20 mEq ER Tab PO ONE (09:32)
[2017-06-12] MEDS: Cholestyramine 4 gm/Pkt UD PO SCH (09:41)
[2017-06-12] MEDS: Lactobacillus Acidophilus 500 MU Cap PO SCH ×2 (11:40→18:05)
--- NOTE | 2017-06-12 13:27 | CP.PCM.PN ---
<Aletha Panda - Last Filed: 06/12/17 13:28> Subjective - Date & Time of Evaluation Date of Evaluation: 06/12/17 Time of Evaluation: 10:15 - Subjective Subjective: S&E at bedside this am, 2 episode of diarrhea, no GI bleeding. Had dose of Immodium and Questran yesterday. Refuse am dose of Questran, no SoB or CP. Objective - Vital Signs/Intake and Output Vital Signs (last 24 hours): Temp Pulse Resp BP Pulse Ox 97.7 F 71 18 120/70 99 06/12/17 07:30 06/12/17 09:54 06/12/17 07:30 06/12/17 09:54 06/12/17 07:30 Intake and Output: 06/12/17 06/12/17 06:59 18:59 Intake Total 360 916 Output Total 2 Balance 358 916 - Medications Medications: Current Medications Alprazolam (Xanax) 0.25 mg PO Q8 PRN; Protocol PRN Reason: Anxiety Stop: 06/16/17 14:01 Last Admin: 06/09/17 22:59 Dose: 0.25 mg Clonidine HCl (Catapres Tts1 0.1 Mg/24 Hr) 1 patch TD Q7D@1000 [facility] Last Admin: 06/10/17 10:35 Dose: 1 patch Heparin Sodium (Porcine) (Heparin) 5,000 units SC Q12 [facility] PRN Reason: Protocol Last Admin: 06/12/17 09:41 Dose: 5,000 units Dextrose/Sodium Chloride (Dextrose 5%/0.45% Ns 1000 Ml) 1,000 mls @ 80 mls/hr IV .[id number] [facility] Last Admin: 06/12/17 08:34 Dose: 80 mls/hr Meropenem 1g/NS 100mL IVPB (Meropenem 1g/Ns 100ml Ivpb) 1 gm in 100 mls @ 100 mls/hr IVPB Q8 [facility] PRN Reason: Protocol Stop: 06/19/17 13:44 Last Admin: 06/12/17 06:12 Dose: 100 mls/hr Potassium Chloride (Potassium Chloride 20 Meq/100 Ml) 20 meq in 100 mls @ 50 mls/hr IVPB Q2H [facility] Stop: 06/12/17 13:29 Last Admin: 06/12/17 11:46 Dose: 50 mls/hr Insulin Human Regular (Humulin R Low) 0 units SC ACHS [facility] PRN Reason: Protocol Last Admin: 06/12/17 11:43 Dose: 2 units Lactobacillus Acidophilus (Bacid Acidophilus) 1 cap PO BID [facility] Last Admin: 06/12/17 11:40 Dose: 1 cap Lisinopril (Zestril) 20 mg PO DAILY [facility] Last Admin: 06/12/17 09:54 Dose: 20 mg Loperamide HCl (Imodium) 2 mg PO QID PRN PRN Reason: Diarrhea Last Admin: 06/11/17 17:01 Dose: 2 mg Metronidazole (Flagyl) 250 mg PO QID [facility] PRN Reason: Protocol Stop: 06/21/17 10:01 Last Admin: 06/12/17 09:42 Dose: 250 mg Ondansetron HCl (Zofran Inj) 4 mg IVP Q6H PRN PRN Reason: Nausea/Vomiting Last Admin: 06/10/17 10:22 Dose: 4 mg Pantoprazole Sodium (Protonix Inj) 20 mg IVP DAILY [facility] Last Admin: 06/12/17 09:45 Dose: 20 mg Spironolactone (Aldactone) 50 mg PO DAILY [facility] Last Admin: 06/12/17 11:40 Dose: 50 mg - Labs Labs: 06/12/17 06:30 06/12/17 06:30 PT 10.9 Seconds (9.9-11.8) 06/08/17 02:15 INR 1.01 (0.93-1.08) 06/08/17 02:15 APTT 25.9 Seconds (23.7-30.8) 06/08/17 02:15 - Constitutional Appears: No Acute Distress - Head Exam Head Exam: NORMOCEPHALIC - Eye Exam Eye Exam: Scleral icterus - ENT Exam ENT Exam: Mucous Membranes Moist - Neck Exam Neck Exam: Normal Inspection - Respiratory Exam Respiratory Exam: NORMAL BREATHING PATTERN. absent: Respiratory Distress - Cardiovascular Exam Cardiovascular Exam: +S1, +S2 - GI/Abdominal Exam GI & Abdominal Exam: Soft, Tenderness, Normal Bowel Sounds. 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 House. <Kai House V - Last Filed: 06/12/17 22:12> Objective - Vital Signs/Intake and Output Vital Signs (last 24 hours): Temp Pulse Resp BP Pulse Ox 97.8 F 84 20 129/77 98 06/12/17 17:48 06/12/17 17:48 06/12/17 17:48 06/12/17 17:48 06/12/17 17:48 Intake and Output: 06/12/17 06/13/17 18:59 06:59 Intake Total 1756 Balance 1756 - Medications Medications: Current Medications Alprazolam (Xanax) 0.25 mg PO Q8 PRN; Protocol PRN Reason: Anxiety Stop: 06/16/17 14:01 Last Admin: 06/09/17 22:59 Dose: 0.25 mg Clonidine HCl (Catapres Tts1 0.1 Mg/24 Hr) 1 patch TD Q7D@1000 [facility] Last Admin: 06/10/17 10:35 Dose: 1 patch Heparin Sodium (Porcine) (Heparin) 5,000 units SC Q12 [facility] PRN Reason: Protocol Last Admin: 06/12/17 21:21 Dose: 5,000 units Dextrose/Sodium Chloride (Dextrose 5%/0.45% Ns 1000 Ml) 1,000 mls @ 80 mls/hr IV .[id number] [facility] Last Admin: 06/12/17 08:34 Dose: 80 mls/hr Meropenem 1g/NS 100mL IVPB (Meropenem 1g/Ns 100ml Ivpb) 1 gm in 100 mls @ 100 mls/hr IVPB Q8 [facility] PRN Reason: Protocol Stop: 06/19/17 13:44 Last Admin: 06/12/17 21:24 Dose: 100 mls/hr Insulin Human Regular (Humulin R Low) 0 units SC ACHS [facility] PRN Reason: Protocol Last Admin: 06/12/17 21:25 Dose: Not Given Lactobacillus Acidophilus (Bacid Acidophilus) 1 cap PO BID [facility] Last Admin: 06/12/17 18:05 Dose: 1 cap Lisinopril (Zestril) 20 mg PO DAILY [facility] Last Admin: 06/12/17 09:54 Dose: 20 mg Loperamide HCl (Imodium) 2 mg PO QID PRN PRN Reason: Diarrhea Last Admin: 06/11/17 17:01 Dose: 2 mg Ondansetron HCl (Zofran Inj) 4 mg IVP Q6H PRN PRN Reason: Nausea/Vomiting Last Admin: 06/10/17 10:22 Dose: 4 mg Pantoprazole Sodium (Protonix Inj) 20 mg IVP DAILY [facility] Last Admin: 06/12/17 09:45 Dose: 20 mg Spironolactone (Aldactone) 50 mg PO DAILY [facility] Last Admin: 06/12/17 11:40 Dose: 50 mg - Labs Labs: 06/12/17 06:30 06/12/17 06:30 PT 10.9 Seconds (9.9-11.8) 06/08/17 02:15 INR 1.01 (0.93-1.08) 06/08/17 02:15 APTT 25.9 Seconds (23.7-30.8) 06/08/17 02:15 Attending/Attestation - Attestation I have personally seen and examined this patient.: Yes I have fully participated in the care of the patient.: Yes I have reviewed all pertinent clinical information, including history, physical exam and plan: Yes Notes (Text): This is an addendum to GI progress report dictated by Alteha Panda APN.The patient was seen and examined earlier. Medical records, lab studies, imagings were reviewed. Last 24 hours events reviewed. Agreed with the above treatment plan as outlined in Aletha Panda APN's notes the with the addition of the following on examination of the rabdomen softly distended significant improvement of right lower quadrant tenderness some improvement of the diarrhea Follow-up culture continue antibiotics as per id Discussed with Dr Vargas 06/12/17 22:10
--- NOTE | 2017-06-12 17:35 | PN ---
DATE: 06/12/2017 SUBJECTIVE: The patient is in bed, in no acute distress. PHYSICAL EXAMINATION: VITAL SIGNS: On exam, temperature is 97, blood pressure is 120/70, respiratory rate of 18. HEENT: Unremarkable. NECK: Supple. LUNGS: Have decreased breath sounds. HEART: Normal S1 and S2. ABDOMEN: Soft. LABORATORY EXAMINATION: Reveals a white count of 5.8, hemoglobin of 10, platelets of 234. Chemistries reveal a BUN of 15, creatinine of 0.9 and urinalysis is noted. Microbiology reveals the patient has a C. diff antigen and toxin and it is reported to be negative. REVIEW OF ORDERS: Reveals the patient is on meropenem. ASSESSMENT AND PLAN: A 71-year-old male with past medical history of adenocarcinoma, peritoneal carcinomatosis, colon cancer, diabetes mellitus and coronary artery disease, bilateral lens implants, Port-A-Cath in the past, NO KNOWN ALLERGIES, admitted with abdominal pain and systemic inflammatory response syndrome, no evidence of any infection. No Clostridium difficile. Negative ascitic cultures and most likely, abdominal pain is from the underlying malignancy. I asked to look into the number of wbc's in the peritoneal fluid and most likely can discontinue the meropenem if the wbc's are normal, if there is no evidence of spontaneous bacterial peritonitis, negative culture. Niraj Melton MD
--- NOTE | 2017-06-12 18:58 | CP.PCM.PN ---
Subjective - Date & Time of Evaluation Date of Evaluation: 06/12/17 Time of Evaluation: 18:55 - Subjective Subjective: Medicine progress note for Dr. Vargas's service Patient seen and examined at bedside this morning. No acute overnight events or new complaints reported. Denies chest pain, palpitations, SOB. Some mild abdominal tenderness that he reports is improving. Denied any episodes of diarrhea this morning. Discussed current workup/plan. Objective - Vital Signs/Intake and Output Vital Signs (last 24 hours): Temp Pulse Resp BP Pulse Ox 97.8 F 84 20 129/77 98 06/12/17 17:48 06/12/17 17:48 06/12/17 17:48 06/12/17 17:48 06/12/17 17:48 Intake and Output: 06/12/17 06/12/17 06:59 18:59 Intake Total 360 1756 Output Total 2 Balance 358 1756 - Medications Medications: Current Medications Alprazolam (Xanax) 0.25 mg PO Q8 PRN; Protocol PRN Reason: Anxiety Stop: 06/16/17 14:01 Last Admin: 06/09/17 22:59 Dose: 0.25 mg Clonidine HCl (Catapres Tts1 0.1 Mg/24 Hr) 1 patch TD Q7D@1000 [facility] Last Admin: 06/10/17 10:35 Dose: 1 patch Heparin Sodium (Porcine) (Heparin) 5,000 units SC Q12 [facility] PRN Reason: Protocol Last Admin: 06/12/17 09:41 Dose: 5,000 units Dextrose/Sodium Chloride (Dextrose 5%/0.45% Ns 1000 Ml) 1,000 mls @ 80 mls/hr IV .[id number] [facility] Last Admin: 06/12/17 08:34 Dose: 80 mls/hr Meropenem 1g/NS 100mL IVPB (Meropenem 1g/Ns 100ml Ivpb) 1 gm in 100 mls @ 100 mls/hr IVPB Q8 [facility] PRN Reason: Protocol Stop: 06/19/17 13:44 Last Admin: 06/12/17 13:21 Dose: 100 mls/hr Insulin Human Regular (Humulin R Low) 0 units SC ACHS [facility] PRN Reason: Protocol Last Admin: 06/12/17 17:46 Dose: Not Given Lactobacillus Acidophilus (Bacid Acidophilus) 1 cap PO BID [facility] Last Admin: 06/12/17 18:05 Dose: 1 cap Lisinopril (Zestril) 20 mg PO DAILY [facility] Last Admin: 06/12/17 09:54 Dose: 20 mg Loperamide HCl (Imodium) 2 mg PO QID PRN PRN Reason: Diarrhea Last Admin: 06/11/17 17:01 Dose: 2 mg Ondansetron HCl (Zofran Inj) 4 mg IVP Q6H PRN PRN Reason: Nausea/Vomiting Last Admin: 06/10/17 10:22 Dose: 4 mg Pantoprazole Sodium (Protonix Inj) 20 mg IVP DAILY [facility] Last Admin: 06/12/17 09:45 Dose: 20 mg Spironolactone (Aldactone) 50 mg PO DAILY [facility] Last Admin: 06/12/17 11:40 Dose: 50 mg - Labs Labs: 06/12/17 06:30 06/12/17 06:30 PT 10.9 Seconds (9.9-11.8) 06/08/17 02:15 INR 1.01 (0.93-1.08) 06/08/17 02:15 APTT 25.9 Seconds (23.7-30.8) 06/08/17 02:15 - Constitutional Appears: No Acute Distress - Head Exam Head Exam: ATRAUMATIC, NORMAL INSPECTION, NORMOCEPHALIC - Eye Exam Eye Exam: EOMI, PERRL - ENT Exam ENT Exam: Mucous Membranes Moist - Neck Exam Neck Exam: Normal Inspection - Respiratory Exam Respiratory Exam: Clear to Ausculation Bilateral. absent: Rales, Rhonchi, Wheezes - Cardiovascular Exam Cardiovascular Exam: +S1, +S2. absent: Gallop, Rubs, Murmur - GI/Abdominal Exam GI & Abdominal Exam: Distended, Soft, Tenderness. absent: Firm, Guarding, Rigid , Rebound - Extremities Exam Extremities Exam: Normal Inspection. absent: Pedal Edema - Neurological Exam Neurological Exam: Alert, Awake, Oriented x3 - Psychiatric Exam Psychiatric exam: Normal Affect, Normal Mood - Skin Skin Exam: Dry, Intact, Normal Color, Warm Assessment and Plan - Assessment and Plan (Free Text) Plan: 71yo male with history of stage IV metastatic adenocarcinoma of the colon with recurrent ascites that presented to [facility] – [place] c/o abdominal pain associated with nausea and vomiting. 1. Abdominal pain/Diarrhea -Diarrhea is likely secondary to chemotherapy treatment with Irinotecan -Amylase and lipase within normal limits -CT abd/pelvis reviewed; interval appearance of a tunneled drainage catheter within the abdomen with persistent ascites, persistent right-sided hydroureteronephrosis; see full report -Liquid diet to be advanced as tolerated -2500cc of Ascitic fluid removed previously from aspira catheter; 1000cc of fluid drained the following day and sent for gram stain/culture -Gram stain revealed no organisms or WBC's, culture of ascitic fluid has thus far been negative; discussed case with ID; may d/c meropenem is ascitic culture is negative and no WBC's noted. -Flagyl discontinued given cdiff negative x2 -Cdiff negative, however repeat testing pending -IVF hydration -Evaluation by GI - Dr. House 2. stage IV metastatic adenocarcinoma of the colon -Patient with documented intraabdominal carcinomatosis treated with FOLFIRI and vectibix -PET scan from 03/06/17 revealed no evidence of FDG avid mass or nodules in the chest, abdomen and pelvis; Re-demonstration of multiple solid non FDG avid nodules in the lungs appear slightly larger compared to previous exam. See full report -Follows with Dr. Vargas as an outpatient 3. DM type 2 -Fingersticks ACHS -Insulin sliding scale 4. Hypertension -Continue with clonidine, lisinopril and aldactone 5. GI/DVT Prophylaxis -Protonix/heparin SC Patient seen and case discussed with attending, Dr. Vargas
[2017-06-13] MEDS: Meropenem 1g/NS 100mL IVPB 1 GM/100 ML PIGGYBACK IVPB SCH (06:37)
[2017-06-13 06:51] LABS: BASO # 0.02 K/mm3 (0.0-2.0); BASO % 0.3 % (0.0-3.0); EOS # 0.1 (0.0-0.7); EOS % 1.7 % (1.5-5.0); GRAN # 4.57 (1.4-6.5); GRAN % 70.1 % (50.0-68.0); LYMPH # 0.9 (1.2-3.4); LYMPH % 13.2 % (22.0-35.0); MEAN CELL VOLUME 92.4 fl (80.0-105.0); MEAN CORPUSCULAR HEMOGLOBIN 30.8 pg (25.0-35.0); MEAN CORPUSCULAR HGB CONC 33.3 g/dl (31.0-37.0); MEAN PLATELET VOLUME 9.8 fl (7.0-11.0); MONO % 14.7 % (1.0-6.0); WHITE BLOOD COUNT 6.5 10^3/ul (4.5-11.0)
[2017-06-13 07:12] LABS: ALKALINE PHOSPHATASE 153 U/L (38-126); ALT/SGPT 30 U/L (7-56); AST/SGOT 17 U/L (17-59); BILIRUBIN,TOTAL 0.5 mg/dL (0.2-1.3); BLOOD UREA NITROGEN 14 mg/dL (7-21); CALCIUM 7.4 mg/dL (8.4-10.5); CARBON DIOXIDE 21 mmol/L (21-33); CHLORIDE 112 mmol/L (98-107); GFR AFRICAN-AMERICAN > 60; GLUCOSE,RANDOM 143 mg/dL (70-110); POTASSIUM 3.6 mmol/L (3.6-5.0); SODIUM 137 mmol/L (132-148); TOTAL PROTEIN 4.3 g/dL (5.8-8.3)
[2017-06-13] MEDS: Insulin Reg-LOW-Coverage SC SCH ×3 (08:52→16:37)
[2017-06-13] MEDS: Lactobacillus Acidophilus 500 MU Cap PO SCH ×2 (09:02→18:12)
[2017-06-13] MEDS: Dextrose 5%/0.45% NS 1,000 ML IV SCH (09:02)
--- NOTE | 2017-06-13 17:51 | CP.PCM.PN ---
Subjective - Date & Time of Evaluation Date of Evaluation: 06/13/17 Time of Evaluation: 10:35 - Subjective Subjective: Comfortable, not in distress, no more abdominal pain, no fevers. Objective - Vital Signs/Intake and Output Vital Signs (last 24 hours): Temp Pulse Resp BP Pulse Ox 98.0 F 81 20 126/80 98 06/13/17 06:00 06/13/17 09:03 06/13/17 06:00 06/13/17 09:03 06/13/17 06:00 Intake and Output: 06/13/17 06/13/17 06:59 18:59 Intake Total 0 923 Balance 0 923 - Medications Medications: Current Medications Alprazolam (Xanax) 0.25 mg PO Q8 PRN; Protocol PRN Reason: Anxiety Stop: 06/16/17 14:01 Last Admin: 06/09/17 22:59 Dose: 0.25 mg Clonidine HCl (Catapres Tts1 0.1 Mg/24 Hr) 1 patch TD Q7D@1000 [facility] [place] Last Admin: 06/10/17 10:35 Dose: 1 patch Heparin Sodium (Porcine) (Heparin) 5,000 units SC Q12 [facility] PRN Reason: Protocol Last Admin: 06/13/17 09:03 Dose: 5,000 units Dextrose/Sodium Chloride (Dextrose 5%/0.45% Ns 1000 Ml) 1,000 mls @ 80 mls/hr IV .[id number] [facility] Last Admin: 06/13/17 09:02 Dose: 80 mls/hr Meropenem 1g/NS 100mL IVPB (Meropenem 1g/Ns 100ml Ivpb) 1 gm in 100 mls @ 100 mls/hr IVPB Q8 [facility] PRN Reason: Protocol Stop: 06/19/17 13:44 Last Admin: 06/13/17 06:37 Dose: 100 mls/hr Insulin Human Regular (Humulin R Low) 0 units SC ACHS [facility] [place] PRN Reason: Protocol Last Admin: 06/13/17 08:52 Dose: 3 units Lactobacillus Acidophilus (Bacid Acidophilus) 1 cap PO BID [facility] Last Admin: 06/13/17 09:02 Dose: 1 cap Lisinopril (Zestril) 20 mg PO DAILY [facility] [place] Last Admin: 06/13/17 09:03 Dose: 20 mg Loperamide HCl (Imodium) 2 mg PO QID PRN PRN Reason: Diarrhea Last Admin: 06/11/17 17:01 Dose: 2 mg Ondansetron HCl (Zofran Inj) 4 mg IVP Q6H PRN PRN Reason: Nausea/Vomiting Last Admin: 06/10/17 10:22 Dose: 4 mg Pantoprazole Sodium (Protonix Inj) 20 mg IVP DAILY [facility] Last Admin: 06/13/17 09:03 Dose: 20 mg Spironolactone (Aldactone) 50 mg PO DAILY [facility] Last Admin: 06/13/17 09:02 Dose: 50 mg - Labs Labs: 06/13/17 06:46 06/13/17 06:46 PT 10.9 Seconds (9.9-11.8) 06/08/17 02:15 INR 1.01 (0.93-1.08) 06/08/17 02:15 APTT 25.9 Seconds (23.7-30.8) 06/08/17 02:15 - Constitutional Appears: Non-toxic, No Acute Distress - Head Exam Head Exam: NORMAL INSPECTION - ENT Exam ENT Exam: Mucous Membranes Moist - Respiratory Exam Respiratory Exam: Decreased Breath Sounds - Cardiovascular Exam Cardiovascular Exam: +S1, +S2 - GI/Abdominal Exam GI & Abdominal Exam: Soft. absent: Tenderness Assessment and Plan - Assessment and Plan (Free Text) Plan: Assessment Systemic Inflammatory Response Syndrome, resolved, R/O spontaneous bacterial peritonitis R/O due to malignancy colon cancer with peritoneal carcinomatosis DM CAD S/P port-a-cath placement bilateral lens implants Plan Follow up ascitic fluid cell counts - more likely there is no SBP, especially since ascitic fluid cx are negative - we can d/c Merrem for now and observe will monitor clinically
[2017-06-14 06:59] LABS: BASO # 0.02 K/mm3 (0.0-2.0); BASO % 0.3 % (0.0-3.0); EOS # 0.1 (0.0-0.7); EOS % 1.1 % (1.5-5.0); GRAN # 4.68 (1.4-6.5); GRAN % 70.7 % (50.0-68.0); HEMATOCRIT 33.8 % (42.0-52.0); LYMPH # 0.6 (1.2-3.4); LYMPH % 8.6 % (22.0-35.0); MEAN CELL VOLUME 91.1 fl (80.0-105.0); MEAN CORPUSCULAR HEMOGLOBIN 30.7 pg (25.0-35.0); MEAN CORPUSCULAR HGB CONC 33.7 g/dl (31.0-37.0); MEAN PLATELET VOLUME 9.9 fl (7.0-11.0); MONO # 1.3 (0.1-0.6); MONO % 19.3 % (1.0-6.0); RED CELL DISTRIBUTION WIDTH 14.1 % (11.5-14.5); WHITE BLOOD COUNT 6.6 10^3/ul (4.5-11.0)
[2017-06-14 07:06] LABS: ALB/GLOB RATIO 0.9 (1.1-1.8); ALKALINE PHOSPHATASE 151 U/L (38-126); ALT/SGPT 28 U/L (7-56); AST/SGOT 15 U/L (17-59); BILIRUBIN,TOTAL 0.6 mg/dL (0.2-1.3); BLOOD UREA NITROGEN 13 mg/dL (7-21); CALCIUM 7.2 mg/dL (8.4-10.5); CARBON DIOXIDE 19 mmol/L (21-33); CHLORIDE 111 mmol/L (98-107); GFR AFRICAN-AMERICAN > 60; GLUCOSE,RANDOM 159 mg/dL (70-110); POTASSIUM 3.6 mmol/L (3.6-5.0); SODIUM 136 mmol/L (132-148); TOTAL PROTEIN 4.4 g/dL (5.8-8.3)
[2017-06-14] MEDS: Insulin Reg-LOW-Coverage SC SCH ×5 (08:12→22:56)
[2017-06-14] MEDS: Lactobacillus Acidophilus 500 MU Cap PO SCH ×2 (09:39→17:05)
[2017-06-14] MEDS ORDERED: Morphine 2 mg/ml ISec IVP PRN (12:19)
[2017-06-14] MEDS: Aluminum Hydrox Gel 320 mg/5 ml Susp(480 ml) PO SCH ×3 (14:21→23:02)
[2017-06-14] MEDS ORDERED: Albumin Human 25% (12.5 gm/50 ml) IV ONE (14:35)
--- NOTE | 2017-06-14 14:39 | CP.PCM.PN ---
Subjective - Date & Time of Evaluation Date of Evaluation: 06/14/17 Time of Evaluation: 11:15 - Subjective Subjective: Comfortable, no fevers, not in distress. Objective - Vital Signs/Intake and Output Vital Signs (last 24 hours): Temp Pulse Resp BP Pulse Ox 98.8 F 89 20 129/85 95 06/13/17 16:44 06/13/17 16:44 06/13/17 16:44 06/13/17 16:44 06/13/17 16:44 Intake and Output: 06/14/17 06/14/17 06:59 18:59 Intake Total 100 Balance 100 - Medications Medications: Current Medications Alprazolam (Xanax) 0.25 mg PO Q8 PRN; Protocol PRN Reason: Anxiety Stop: 06/16/17 14:01 Last Admin: 06/09/17 22:59 Dose: 0.25 mg Clonidine HCl (Catapres Tts1 0.1 Mg/24 Hr) 1 patch TD Q7D@1000 [facility] Last Admin: 06/10/17 10:35 Dose: 1 patch Heparin Sodium (Porcine) (Heparin) 5,000 units SC Q12 [facility] PRN Reason: Protocol Last Admin: 06/13/17 21:40 Dose: 5,000 units Dextrose/Sodium Chloride (Dextrose 5%/0.45% Ns 1000 Ml) 1,000 mls @ 80 mls/hr IV .[id number] [facility] Last Admin: 06/13/17 09:02 Dose: 80 mls/hr Insulin Human Regular (Humulin R Low) 0 units SC ACHS [facility] PRN Reason: Protocol Last Admin: 06/13/17 16:37 Dose: Not Given Lactobacillus Acidophilus (Bacid Acidophilus) 1 cap PO BID [facility] Last Admin: 06/13/17 18:12 Dose: 1 cap Lisinopril (Zestril) 20 mg PO DAILY [facility] Last Admin: 06/13/17 09:03 Dose: 20 mg Loperamide HCl (Imodium) 2 mg PO QID PRN PRN Reason: Diarrhea Last Admin: 06/13/17 15:48 Dose: 2 mg Loperamide HCl (Imodium) 2 mg PO [facility] Metronidazole (Flagyl) 250 mg PO QID [facility] PRN Reason: Protocol Ondansetron HCl (Zofran Inj) 4 mg IVP Q6H PRN PRN Reason: Nausea/Vomiting Last Admin: 06/10/17 10:22 Dose: 4 mg Pantoprazole Sodium (Protonix Inj) 20 mg IVP DAILY [facility] Last Admin: 06/13/17 09:03 Dose: 20 mg Spironolactone (Aldactone) 50 mg PO DAILY [facility] Last Admin: 06/13/17 09:02 Dose: 50 mg - Labs Labs: 06/14/17 06:45 06/14/17 06:45 PT 10.9 Seconds (9.9-11.8) 06/08/17 02:15 INR 1.01 (0.93-1.08) 06/08/17 02:15 APTT 25.9 Seconds (23.7-30.8) 06/08/17 02:15 - Constitutional Appears: Non-toxic, No Acute Distress - Head Exam Head Exam: NORMAL INSPECTION - ENT Exam ENT Exam: Mucous Membranes Moist - Neck Exam Neck Exam: absent: Lymphadenopathy, Meningismus - Respiratory Exam Respiratory Exam: Decreased Breath Sounds - Cardiovascular Exam Cardiovascular Exam: +S1, +S2 - GI/Abdominal Exam GI & Abdominal Exam: Soft. absent: Tenderness Assessment and Plan - Assessment and Plan (Free Text) Plan: Assessment Systemic Inflammatory Response Syndrome, resolved, R/O spontaneous bacterial peritonitis R/O due to malignancy R/O skin / skin structure infection with MSSA of surrounding area of abdominal catheter colon cancer with peritoneal carcinomatosis DM CAD S/P port-a-cath placement bilateral lens implants Plan Follow up ascitic fluid cell counts - more likely there is no SBP, especially since ascitic fluid cx are negative - we can d/c Merrem for now and observe started PO Keflex to complete a 7 day course will continue to monitor clinically
[2017-06-14] MEDS ORDERED: Albumin Human 25% (25 gm/100 ml) IV ONE (14:45)
--- NOTE | 2017-06-14 20:54 | PN ---
DATE: 06/14/2017 SUBJECTIVE: This patient was seen and evaluated earlier today. The patient at the time of examination in the morning denies any abdominal pain. He did have 2 small bowel movements. The plan at that time was initially to continue the soft diet. Subsequently, I got a call from Dr. Vargas. The patient has increased pain. The only concern about this patient, he is on Imodium. The patient did have constipation and right-sided abdominal discomfort, which improved after the bowel movements. With diarrhea, his abdominal pain significantly improved; however, he was afraid of taking anything p.o. because of the diarrhea. So, the decision was taken at that time to restart a small dose of Imodium on a p.r.n. basis to just control the diarrhea. PHYSICAL EXAMINATION: VITAL SIGNS: Temperature 98.4, pulse 90 and blood pressure 140/86. HEENT: Atraumatic. Anicteric. NECK: Supple. HEART: S1 and S2 heard. LUNGS: Bilateral air entry present but slightly reduced in the base. ABDOMEN: Soft. No significant tenderness at the time of examination. EXTREMITIES: No cyanosis or clubbing. LABORATORY DATA: Hemoglobin 11.4, hematocrit 33.8, WBC 6.6 and platelets 267. Chemistry: BUN is 36, creatinine 1.9, albumin 2.3 and alkaline phosphatase 151. ASSESSMENT: This 71-year-old patient admitted with advanced colorectal carcinoma, carcinomatosis initially presented with right upper quadrant pain and right lower quadrant pain, which subsequently improved after the bowel movements. Subsequently, the patient has been complaining of loose bowel movements, afraid of eating p.o. Started on small dose of Imodium. The patient was empirically on meropenem, which has been discontinued. The patient was restarted on p.o. Flagyl, an empiric therapy in dose. The patient has recurrence of some abdominal discomfort after being seen by me. The patient has been evaluated by Dr. Vargas. PLAN: Recommendation plan is to follow a conservative management at the present time. We will be cautious in using Imodium initially. If there is any present and worsening of the symptoms would recommend repeating the CT scan. I did have a detailed discussion with the patient before and also with Dr. Vargas later. We will continue to closely follow up his care and suggest further management based on the clinical course. Kai House MD [facility] # [id number]
[2017-06-14] MEDS: Dextrose 5%/0.45% NS 1,000 ML IV SCH (22:00)
--- NOTE | 2017-06-14 23:49 | PN ---
DATE: 06/14/2017 LOCATION: The patient is in room 365, bed 2. 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 Started recently on chemotherapy with Vectibix and Camptosar and the background history of having diabetes and hypertension. He is admitted to the hospital post chemotherapy about a week later with significant right lower quadrant abdominal pain. Initially constipated, now having loose bowel movements, probably related to combination of factors including the Camptosar-based chemotherapy. Subjectively, the patient tells me that still he felt weak because he has loose bowel movements. He had loose bowel movement early this morning and then later on, early in the morning towards the noon time, he had again three episodes of loose bowel movements. The patient has no appetite and he complains that his belly is more distended. He did have significant abdominal pain, which is in the periumbilical area rather than at the site where the Aspira catheter is. This is of concern to me, whether this could be related to intraabdominal carcinomatosis or involving partial small bowel obstruction. The patient denies any history of nausea, vomiting at this time, but did have frequent loose bowel movements. PHYSICAL EXAMINATION: GENERAL: The patient was examined in bed. VITAL SIGNS: T-max is 98.4, pulse is 89, respirations 20, blood pressure is 128/85, pulse ox is 95% on room air. HEENT: The patient is hardly taking anything by mouth. Head is normocephalic, atraumatic. Conjunctivae pale. Sclerae is anicteric. Pupils are equal and reactive to light and accommodation. Tongue is coated and dry. No oropharyngeal lesions are noted. NECK: Supple. There is no adenopathy. No jugular venous distentions. LUNGS: Clear to percussion and auscultation. HEART: Reveals PMI to be in fifth intercostal space inside the midclavicular line. S1 and S2 were normal. No gallop or murmur is heard. ABDOMEN: Distended. The patient has an Aspira catheter in the right lower quadrant of the abdomen. The patient complains of vague tenderness in the mid epigastric area extending into the periumbilical area where he has a umbilical hernia. No rebound, rigidity or guarding is noted. Pain on a scale of pain 0-10 is at least 8 requiring morphine which had to be renewed this morning. EXTREMITIES: There is no cyanosis, clubbing or edema. NEUROLOGIC: Reveals no focal deficits. GENITOURINARY AND RECTAL: Deferred at this time. LYMPHATICS: There is no evidence of adenopathy in the neck, axilla or groin. MEDICATIONS: Reviewed. He is on Xanax, clonidine patches. He is on heparin 5000 units subcutaneous q. 12 hours. He is on IV fluids of D5 half normal saline at 80 mL an hour. He is on insulin coverage. He is on acidophilus 1 capsule b.i.d., Zestril 20 mg daily. He was on Imodium, which has been discontinued. He is on metronidazole 250 mg q.i.d., Zofran 4 mg IV q. 6h. p.r.n., pantoprazole 20 mg daily, Aldactone 50 mg daily. He has been started on Keflex 250 mg p.o. 3 times a day as well. LABORATORY DATA: Today his white count 6.6, hemoglobin 11.4, hematocrit 33, platelet count 267,000. Sodium is 136, potassium 3.6, chloride is 111, CO2 is 19, BUN is 13, creatinine is 0.9. Blood sugar is 159. ASSESSMENT: The patient with a stage 4 metastatic colon carcinoma with intraabdominal carcinomatosis, Aspira catheter for refractory ascites. Systemic inflammatory response, rule out spontaneous bacterial peritonitis, on IV antibiotics for the same. Rule out skin, skin structure infection with methicillin-sensitive Staphylococcus aureus of the surrounding area of the abdominal catheter. Bilateral lens implants. The patient also has hydronephrosis, which is stable. PLAN: The patient had an ascitic fluid drain again. Plan is to take out at least 2 liters of fluid today. Send the fluid for cultures again. Based on the ascitic fluid contents, there is no evidence of small bowel perforation at this point in time. The patient is on p.o. Keflex to continue seven day course. I spoke to Dr. House in detail. We are going to wait to see how he does with his conservative management. We may have to start him on IV TPN. In the meantime, what we are planning to do is give him *------* to take 3 times a day and in addition to that, give him Glucerna with meals. I will ask Dietary to see him and we will proceed accordingly. Blood work for tri has been requested. Hung Vargas MD
[2017-06-15] MEDS: Pantoprazole 20 mg EC Tab PO SCH (05:53)
[2017-06-15 06:15] LABS: BASO # 0.01 K/mm3 (0.0-2.0); BASO % 0.2 % (0.0-3.0); EOS # 0.1 (0.0-0.7); EOS % 1.2 % (1.5-5.0); GRAN # 2.38 (1.4-6.5); GRAN % 56.1 % (50.0-68.0); HEMATOCRIT 32.5 % (42.0-52.0); LYMPH # 0.6 (1.2-3.4); LYMPH % 14.9 % (22.0-35.0); MEAN CELL VOLUME 90.8 fl (80.0-105.0); MEAN CORPUSCULAR HEMOGLOBIN 30.7 pg (25.0-35.0); MEAN CORPUSCULAR HGB CONC 33.8 g/dl (31.0-37.0); MEAN PLATELET VOLUME 9.6 fl (7.0-11.0); MONO # 1.2 (0.1-0.6); MONO % 27.6 % (1.0-6.0); PLATELET COUNT 243 10^3/uL (120.0-450.0); WHITE BLOOD COUNT 4.2 10^3/ul (4.5-11.0)
[2017-06-15] MEDS: Morphine 4 mg/ml ISec IVP PRN (06:18)
[2017-06-15 06:23] LABS: AMYLASE 60 U/L (35-125); BLOOD UREA NITROGEN 12 mg/dL (7-21); CALCIUM 7.3 mg/dL (8.4-10.5); CARBON DIOXIDE 19 mmol/L (21-33); CHLORIDE 112 mmol/L (98-107); GFR AFRICAN-AMERICAN > 60; GLUCOSE,RANDOM 151 mg/dL (70-110); LIPASE 172 U/L (23-300); MAGNESIUM 1.3 mg/dL (1.7-2.2); POTASSIUM 3.2 mmol/L (3.6-5.0); SODIUM 135 mmol/L (132-148)
[2017-06-15 07:34] LABS: NEUTROPHIL 57 % (50.0-70.0)
[2017-06-15 07:35] LABS: EOSINOPHIL 3 % (0.0-3.0); NUCLEATED RED BLOOD CELL 1 %
[2017-06-15] MEDS: Insulin Reg-LOW-Coverage SC SCH ×4 (07:48→21:40)
[2017-06-15] MEDS ORDERED: Albumin Human 25% (25 gm/100 ml) IV ONE (07:51)
[2017-06-15] MEDS: Aluminum Hydrox Gel 320 mg/5 ml Susp(480 ml) PO SCH ×4 (08:58→21:37)
[2017-06-15] MEDS: Lactobacillus Acidophilus 500 MU Cap PO SCH ×2 (10:19→17:23)
--- NOTE | 2017-06-15 10:44 | RAD ---
HISTORY: Abdominal distension COMPARISON: 06/08/2017 CT abdomen and pelvis FINDINGS: BOWEL: Normal. No obstruction. No free air. BONES: Normal. OTHER FINDINGS: Intraperitoneal catheter again identified right flank. IMPRESSION: No acute findings related to/accounting for the clinical presentation.
[2017-06-15] MEDS ORDERED: Potassium Chloride 20 MEQ in Dextrose 5%/0.45% NS 1,000 ML IV SCH (11:08)
[2017-06-15] MEDS ORDERED: Magnesium Sulfate 1 gm in D5W 1 GM/100 ML BAG IVPB ONE (11:17)
[2017-06-15] MEDS: Fat Emulsion 20% IV 250 ML IV SCH (17:27)
--- NOTE | 2017-06-15 17:38 | CP.PCM.PN ---
Subjective - Date & Time of Evaluation Date of Evaluation: 06/15/17 Time of Evaluation: 10:55 - Subjective Subjective: Comfortable, no abdominal pain, not in distress, no fevers. Objective - Vital Signs/Intake and Output Vital Signs (last 24 hours): Temp Pulse Resp BP Pulse Ox 98.4 F 86 20 133/75 96 06/15/17 08:30 06/15/17 08:30 06/15/17 08:30 06/15/17 08:30 06/15/17 08:30 Intake and Output: 06/15/17 06/15/17 06:59 18:59 Intake Total 0 Output Total 300 Balance -300 - Medications Medications: Current Medications Alprazolam (Xanax) 0.25 mg PO Q8 PRN; Protocol PRN Reason: Anxiety Stop: 06/16/17 14:01 Last Admin: 06/09/17 22:59 Dose: 0.25 mg Aluminum Hydroxide (Aluminum Hydroxide Gel 320mg /5ml Susp (Bulk)) 30 ml PO ACHS [facility] Last Admin: 06/15/17 08:58 Dose: 2 tbs Cephalexin Monohydrate (Keflex) 500 mg PO Q6 [facility] PRN Reason: Protocol Stop: 06/21/17 12:01 Last Admin: 06/15/17 05:52 Dose: 500 mg Clonidine HCl (Catapres Tts1 0.1 Mg/24 Hr) 1 patch TD Q7D@1000 [facility] Last Admin: 06/10/17 10:35 Dose: 1 patch Heparin Sodium (Porcine) (Heparin) 5,000 units SC Q12 [facility] PRN Reason: Protocol Last Admin: 06/14/17 22:40 Dose: 5,000 units Dextrose/Sodium Chloride (Dextrose 5%/0.45% Ns 1000 Ml) 1,000 mls @ 80 mls/hr IV .[id number] [facility] Last Admin: 06/14/17 22:00 Dose: 80 mls/hr Insulin Human Regular (Humulin R Low) 0 units SC ACHS [facility] PRN Reason: Protocol Last Admin: 06/15/17 07:48 Dose: Not Given Lactobacillus Acidophilus (Bacid Acidophilus) 1 cap PO BID [facility] Last Admin: 06/14/17 17:05 Dose: 1 cap Lisinopril (Zestril) 20 mg PO DAILY [facility] Last Admin: 06/14/17 09:38 Dose: 20 mg Metronidazole (Flagyl) 250 mg PO QID [facility] PRN Reason: Protocol Last Admin: 06/14/17 22:41 Dose: 250 mg Morphine Sulfate (Morphine) 2 mg IVP Q4H PRN PRN Reason: Pain, moderate (4-7) Last Admin: 06/15/17 06:18 Dose: 2 mg Ondansetron HCl (Zofran Inj) 4 mg IVP Q6H PRN PRN Reason: Nausea/Vomiting Last Admin: 06/14/17 14:02 Dose: 4 mg Pantoprazole Sodium (Protonix Ec Tab) 20 mg PO 0600 [facility] Last Admin: 06/15/17 05:53 Dose: 20 mg Spironolactone (Aldactone) 50 mg PO DAILY [facility] Last Admin: 06/14/17 09:39 Dose: 50 mg - Labs Labs: 06/15/17 06:00 06/15/17 06:00 PT 10.9 Seconds (9.9-11.8) 06/08/17 02:15 INR 1.01 (0.93-1.08) 06/08/17 02:15 APTT 25.9 Seconds (23.7-30.8) 06/08/17 02:15 - Constitutional Appears: Non-toxic, No Acute Distress - Head Exam Head Exam: NORMAL INSPECTION - ENT Exam ENT Exam: Mucous Membranes Moist - Neck Exam Neck Exam: absent: Meningismus - Respiratory Exam Respiratory Exam: Decreased Breath Sounds - Cardiovascular Exam Cardiovascular Exam: +S1, +S2 - GI/Abdominal Exam GI & Abdominal Exam: Soft. absent: Tenderness Additional comments: abdominal drain in place Assessment and Plan - Assessment and Plan (Free Text) Plan: Assessment Systemic Inflammatory Response Syndrome, resolved, R/O due to malignancy R/O skin / skin structure infection with MSSA of surrounding area of abdominal catheter colon cancer with peritoneal carcinomatosis DM CAD S/P port-a-cath placement bilateral lens implants Plan ascitic fluid cx are negative continue to PO Keflex to complete a 7 day course (day 3 today) has been started empirically on PO Flagyl by GI for LBM will continue to monitor clinically
--- NOTE | 2017-06-15 18:55 | PN ---
DATE: 06/15/2017 SUBJECTIVE: This patient was seen and evaluated earlier today. The patient feels slightly better. Had an episode of loose bowel movements earlier. PHYSICAL EXAMINATION: VITAL SIGNS: Temperature is 98.4, pulse 86, and blood pressure 133/76. HEENT: Atraumatic. Anicteric. NECK: Supple. HEART: S1 and S2 heard. LUNGS: Bilateral air entry present. ABDOMEN: Soft. Mild tenderness on deep palpation on the right side of abdomen. There is no rebound or guarding. EXTREMITIES: No cyanosis or clubbing. NEUROLOGICAL: Alert, oriented, moves all the extremities. LABORATORY DATA: Hemoglobin 11, hematocrit 32.5, WBC 4.2, and platelets 243. Potassium 3.2, BUN 12, and creatinine 0.9. IMPRESSION: This is a 71-year-old patient with metastatic colon cancer with a carcinomatosis admitted with right-sided abdominal pain. The patient was initially constipated. The symptoms improved after the bowel clearance, but the patient also had an empirical and antibiotics, which has been discontinued. The patient's main problem now appears to be the abdominal pain and also the diarrhea. The patient is empirically on p.o. Flagyl. Off the antibiotics. The plan is to slowly advance the diet and continuous close monitoring. If there is any worsening of the abdominal pain, we will consider repeating the CT scan. The idea is to use the Imodium as a cautious use. Part of the symptomatology may be secondary to the chemotherapy. Since this patient has carcinomatosis it could be slightly complicating issue of partial obstruction to be considered. The recommendation is to cautiously advance the diet and use Imodium for significant symptoms of diarrhea with no obstruction. We discussed with Dr. Vargas. Thank you very much for allowing me to participate in the care of the patient. Kai House MD [facility]
--- NOTE | 2017-06-15 23:18 | PN ---
DATE: 06/15/2017 LOCATION: The patient is in room 365, bed 2. 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 He was admitted to the hospital with intractable pain on the right side of his abdomen associated with initial constipation, later on diarrhea, post chemotherapy with Vectibix and Camptosar given about eight days ago. Symptoms could have been related to several coexisting factors including Camptosar-based chemotherapy. The patient tells me that he has no appetite. He does not feel like eating, when he eats he gets a lot of heartburn and more importantly, he has been still having episodic pains in the mid abdomen in the periumbilical area where he has a hernia and little bit of bowel closer to the epigastric area as well. This pain that he is experiencing can be significant at times. The pain was at least up to 8 this morning requiring IV morphine. The patient says he had another episode of loose bowel movement early this morning. The patient is status post drainage of ascitic fluid yesterday for more than 2 liters. The patient is also getting IV albumin yesterday and is getting today as well, one dose of the Amphojel, I told him to take it at least liberally every 8 hours and see how he does. I told him to try Glucerna. The patient is supposed to start on PPN tonight. PHYSICAL EXAMINATION: GENERAL: The patient was examined in bed. VITAL SIGNS: Stable. T-max is 98.4, pulse is 84, respirations 20, blood pressure is 129/84, pulse ox is 95% on room air. HEENT: Head is normocephalic, atraumatic. Tongue is coated and dry. There are no oropharyngeal lesions noted. Examination of the conjunctivae reveals it to be pale. Temporal muscle wasting is noted. NECK: Supple. There is no adenopathy. No jugular venous distention noted. LUNGS: Clear to percussion and auscultation. HEART: Reveals PMI to be in fifth intercostal space inside the midclavicular line. S1 and S2 are normal. No gallop or murmur is heard. ABDOMEN: Mildly distended. The patient has an Aspira catheter in the right lower quadrant of the abdomen. The patient complains of vague tenderness in the mid epigastrium extending into the periumbilical area where he has an umbilical hernia. No rebound, rigidity or guarding is noted. Pain on a scale of 0 to 10 was at least 8 earlier this morning requiring morphine administration. EXTREMITIES: There is no cyanosis, clubbing or edema. NEUROLOGIC: Reveals higher functions to be normal. No focal deficits are noted. LYMPHATICS: There is no evidence of adenopathy in the neck, axilla or groin. MEDICATIONS: Reviewed. He is on Xanax, clonidine patch, heparin 5000 units subcutaneous q. 12 hours. He is on IV fluids of D5 half normal saline at 80 mL an hour. He is on insulin coverage and acidophilus 1 capsule b.i.d., Zestril 20 mg daily. He is on metronidazole 250 mg q.i.d., Zofran 4 mg IV q. 6h. p.r.n., pantoprazole 20 mg daily, Aldactone 50 mg daily, and Keflex 250 mg p.o. t.i.d. for infection around the Aspira catheter site. ASSESSMENT NOTES AND PLAN: The patient with a stage 4 metastatic colorectal carcinoma with intraabdominal carcinomatosis, refractory ascites with Aspira catheter, status post drainage yesterday and removal of more than 2 liters of fluid. Fluid has also been sent again for cultures. The patient also has hydronephrosis, which is stable. PLAN: The patient is starting on partial parenteral nutrition. We are going to continue the Amphojel for now. I told the patient that we may have to repeat his CAT scan if he continues to be symptomatic. We will plan to do a CT enterography if he has intermittent abdominal cramps accompanied by the loose bowel movements. Meanwhile, I told him to try the Glucerna to take it 3 times a day in conjunction to the partial parenteral nutrition. If this was chemo-related side effect, it is going to be day #8, he should start feeling better, as he should come out of the toxicity. Meanwhile, continue aggressive medical management for this time. Routine post exam instructions have been given to the patient. I spoke to Dr. House in great detail as well. Labs for a.m. have been requested. Time spent with the patient is greater than 45 minutes. Hung Vargas MD [facility] # [id number]
[2017-06-16] MEDS: Pantoprazole 20 mg EC Tab PO SCH (06:12)
[2017-06-16 07:13] LABS: BASO # 0.02 K/mm3 (0.0-2.0); BASO % 0.3 % (0.0-3.0); EOS # 0.1 (0.0-0.7); GRAN # 4.52 (1.4-6.5); GRAN % 66.1 % (50.0-68.0); HEMATOCRIT 32.9 % (42.0-52.0); LYMPH # 0.7 (1.2-3.4); LYMPH % 9.6 % (22.0-35.0); MEAN CELL VOLUME 89.9 fl (80.0-105.0); MEAN CORPUSCULAR HEMOGLOBIN 30.9 pg (25.0-35.0); MEAN CORPUSCULAR HGB CONC 34.3 g/dl (31.0-37.0); MEAN PLATELET VOLUME 10.2 fl (7.0-11.0); MONO # 1.6 (0.1-0.6); RED CELL DISTRIBUTION WIDTH 14.1 % (11.5-14.5); WHITE BLOOD COUNT 6.8 10^3/ul (4.5-11.0)
[2017-06-16 07:28] LABS: ALB/GLOB RATIO 1.1 (1.1-1.8); ALKALINE PHOSPHATASE 119 U/L (38-126); ALT/SGPT 25 U/L (7-56); AST/SGOT 13 U/L (17-59); BILIRUBIN,TOTAL 0.4 mg/dL (0.2-1.3); BLOOD UREA NITROGEN 15 mg/dL (7-21); CALCIUM 7.6 mg/dL (8.4-10.5); CARBON DIOXIDE 18 mmol/L (21-33); CHLORIDE 110 mmol/L (98-107); GFR AFRICAN-AMERICAN > 60; GLUCOSE,RANDOM 207 mg/dL (70-110); POTASSIUM 3.4 mmol/L (3.6-5.0); SODIUM 136 mmol/L (132-148); TOTAL PROTEIN 4.5 g/dL (5.8-8.3)
[2017-06-16] MEDS: Aluminum Hydrox Gel 320 mg/5 ml Susp(480 ml) PO SCH ×5 (09:41→22:14)
[2017-06-16] MEDS: Lactobacillus Acidophilus 500 MU Cap PO SCH ×2 (09:41→17:38)
[2017-06-16] MEDS: Insulin Reg-LOW-Coverage SC SCH ×4 (09:42→22:08)
[2017-06-16] MEDS ORDERED: Aluminum Hydrox Gel 320 mg/5 ml Susp(480 ml) PO PRN (11:21)
--- NOTE | 2017-06-16 11:52 | PQF MALNUT ---
This form is a permanent part of the medical record Clarification of your documentation is requested to better reflect the severity of illness and intensity of treatment of your patient. Indicators present Hx Stage 4 adenocarcinoma, diarrhea & loss of appetite. Albumin- 2.3, T-protein- 4.5 06/15 TPN initiated. Dietary noted High risk nutritional level. Please document if malnutrition is being treated, please specify type & severity [] Cachexia (due to severe malnutrition) x[] Albumin < 2.8 [] Decreased Pre-albumin [x] Dietary Consult [] Provider documentation reflects BMI of: []_ []x Low serum proteins [] Documented weight loss [x] Inability to consume adequate caloric intake [x] Anorexic [] Other: [] Location in the medical record that reflects the above clinical findings: [] Dietary consult Treatment Provided: [x] TPN initiated PHYSICIAN'S RESPONSE Based on your medical judgment of the clinical indicators outlined above, are you treating this patient for a known or suspected: Type of Malnutrition Severity [] Mild [] Moderate [] Severe [] Protein calorie [] Mild [] Moderate [] severe [] Other, please indicate: []_ [] If Unable to Determine, please check the box, sign and date. Present On Admission (POA) Indicator: [] Present at the time of admission [] Not present at the time of admission [] Clinically Undetermined In responding to this query, please exercise your independent professional judgment. The fact that a question is asked does not imply that any particular answer is desired or expected. Thank you for your clarification on this documentation. If you have any questions please call:[ ][phone] * Thank you, [ ]Peri Odom RN CDS wheel and axle inspector Malnutrition Malnutrition results from an imbalance between the body's intake of nutrients and the body's use of nutrients to fuel energy expenditure. Malnutrition may be described as mild, moderate or severe. There are variations in clinical indicators, lab values and risk factors with each type and degree. When reviewing the nutritional status of the client, the entire clinical picture should be assessed and taken into consideration rather than a focus on a single laboratory value. Mild Malnutrition: patient's weight is noted at 85-95% of normal body weight; BMI 18-18.9; serum albumin 3.0-3.4; total lymphocyte count [id number]. Moderate Malnutrition: patient's weight is noted at 75-85% of normal body weight ; BMI 16-17.9; serum albumin 2.4-3.0; total lymphocyte count 800-1500. Severe Malnutrition: patient's weight is noted at <75% of normal body weight, BMI <16, serum albumin <2.4, total lymphocyte count <800, abnormally low VLDL/ LDL levels, creatinine <0.6, BUN <8, cholesterol <160. Other clinical indicators include: loss of subq fat, muscle wasting of the extremities, skin lesions, decubitus ulcers, hair loss, lethargy, constipation, decreased pulse/ respiratory rates, relative hypotension, hepatomegaly d/t fat infiltration, poor wound healing.~~~~~~ Risk: poor intake d/t food avoidance or NPO status for >7 days, protracted nutritional losses from malabsorption states, hypermetabolic state such as sepsis, prolonged fever, extensive trauma or muniz, alcohol/drug abuse, advanced age, CKD, trouble chewing or swallowing, some medications, depression/ social isolation, special diets such as low protein Treatment: dietary consultation, protein-calorie dietary supplementation, daily weights, PEG tube, psychiatric consultation, appetite stimulants (Megace). [employer] Principles of Internal Medicine, 17th edition, chapters 9, 72 and 234. The [employer] Nutritional Support Core Curriculum, 2007 MTDD
--- NOTE | 2017-06-16 12:51 | CP.PCM.PN ---
<Aletha Panda - Last Filed: 06/16/17 12:46> Subjective - Date & Time of Evaluation Date of Evaluation: 06/16/17 Time of Evaluation: 10:05 - Subjective Subjective: Seen and examined at the bedside earlier this morning, patient's still has loose stool but it's decreased in amount, tolerating soft low residual diet, no reports of nausea, vomiting or abdominal pain. Objective - Vital Signs/Intake and Output Vital Signs (last 24 hours): Temp Pulse Resp BP Pulse Ox 98.2 F 88 18 137/82 97 06/16/17 07:37 06/16/17 07:37 06/16/17 07:37 06/16/17 07:37 06/16/17 07:37 Intake and Output: 06/16/17 06/16/17 06:59 18:59 Intake Total 120 Output Total 1 Balance 119 - Medications Medications: Current Medications Alprazolam (Xanax) 0.25 mg PO Q8 PRN; Protocol PRN Reason: Anxiety Stop: 06/16/17 14:01 Last Admin: 06/09/17 22:59 Dose: 0.25 mg Aluminum Hydroxide (Aluminum Hydroxide Gel 320mg /5ml Susp (Bulk)) 30 ml PO ACHS [facility] Last Admin: 06/16/17 12:27 Dose: 30 ml Aluminum Hydroxide (Aluminum Hydroxide Gel 320mg /5ml Susp (Bulk)) 30 ml PO Q2H PRN PRN Reason: Indigestion Cephalexin Monohydrate (Keflex) 500 mg PO Q6 [facility] PRN Reason: Protocol Stop: 06/21/17 12:01 Last Admin: 06/16/17 12:28 Dose: 500 mg Clonidine HCl (Catapres Tts1 0.1 Mg/24 Hr) 1 patch TD Q7D@1000 [facility] Last Admin: 06/10/17 10:35 Dose: 1 patch Heparin Sodium (Porcine) (Heparin) 5,000 units SC Q12 [facility] PRN Reason: Protocol Last Admin: 06/16/17 09:42 Dose: 5,000 units Multivitamins/Vitamin C 10 ml/Chromium/Copper/Manganese/Zinc 1 ml/ Amino Acids/ Electrolytes/Dextrose 2,011 mls @ 83 mls/hr IV .Q24H [facility] Stop: 06/18/17 17:59 Last Admin: 06/15/17 17:28 Dose: 83 mls/hr Fat Emulsion Intravenous (Intralipid 20%) 250 mls @ 21 mls/hr IV 1800 [facility] Stop: 06/18/17 17:59 Last Admin: 06/15/17 17:27 Dose: 21 mls/hr Insulin Human Regular (Humulin R Low) 0 units SC ACHS [facility] PRN Reason: Protocol Last Admin: 06/16/17 12:27 Dose: 3 units Lactobacillus Acidophilus (Bacid Acidophilus) 1 cap PO BID [facility] Last Admin: 06/16/17 09:41 Dose: 1 cap Lisinopril (Zestril) 20 mg PO DAILY [facility] Last Admin: 06/16/17 09:43 Dose: 20 mg Metronidazole (Flagyl) 250 mg PO QID [facility] PRN Reason: Protocol Last Admin: 06/16/17 09:41 Dose: 250 mg Morphine Sulfate (Morphine) 2 mg IVP Q4H PRN PRN Reason: Pain, moderate (4-7) Last Admin: 06/15/17 06:18 Dose: 2 mg Ondansetron HCl (Zofran Inj) 4 mg IVP Q6H PRN PRN Reason: Nausea/Vomiting Last Admin: 06/14/17 14:02 Dose: 4 mg Pantoprazole Sodium (Protonix Ec Tab) 20 mg PO 0600 [facility] Last Admin: 06/16/17 06:12 Dose: 20 mg Spironolactone (Aldactone) 50 mg PO DAILY [facility] Last Admin: 06/16/17 09:41 Dose: 50 mg - Labs Labs: 06/16/17 06:40 06/16/17 06:40 PT 10.9 Seconds (9.9-11.8) 06/08/17 02:15 INR 1.01 (0.93-1.08) 06/08/17 02:15 APTT 25.9 Seconds (23.7-30.8) 06/08/17 02:15 - Constitutional Appears: No Acute Distress - Head Exam Head Exam: NORMAL INSPECTION - Eye Exam Eye Exam: Normal appearance. absent: Scleral icterus - ENT Exam ENT Exam: Mucous Membranes Moist - Neck Exam Neck Exam: Normal Inspection - Respiratory Exam Respiratory Exam: NORMAL BREATHING PATTERN. absent: Respiratory Distress - Cardiovascular Exam Cardiovascular Exam: +S1, +S2 - Extremities Exam Extremities Exam: Normal Capillary Refill. 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 at some degree may be more beneficial to him than risking constipation which likely contributied to some of his abdominal discomfort. We would advise to cautiously use the Imodium. Seen and discussed w/ Dr. House. <Kai House V - Last Filed: 06/16/17 18:20> Objective - Vital Signs/Intake and Output Vital Signs (last 24 hours): Temp Pulse Resp BP Pulse Ox 98.2 F 88 18 137/82 97 06/16/17 07:37 06/16/17 07:37 06/16/17 07:37 06/16/17 07:37 06/16/17 07:37 Intake and Output: 06/16/17 06/16/17 06:59 18:59 Intake Total 120 Output Total 1 Balance 119 - Medications Medications: Current Medications Aluminum Hydroxide (Aluminum Hydroxide Gel 320mg /5ml Susp (Bulk)) 30 ml PO ACHS [facility] Last Admin: 06/16/17 16:33 Dose: 30 ml Aluminum Hydroxide (Aluminum Hydroxide Gel 320mg /5ml Susp (Bulk)) 30 ml PO Q2H PRN PRN Reason: Indigestion Cephalexin Monohydrate (Keflex) 500 mg PO Q6 [facility] PRN Reason: Protocol Stop: 06/21/17 12:01 Last Admin: 06/16/17 17:39 Dose: 500 mg Clonidine HCl (Catapres Tts1 0.1 Mg/24 Hr) 1 patch TD Q7D@1000 [facility] Last Admin: 06/10/17 10:35 Dose: 1 patch Heparin Sodium (Porcine) (Heparin) 5,000 units SC Q12 [facility] PRN Reason: Protocol Last Admin: 06/16/17 09:42 Dose: 5,000 units Multivitamins/Vitamin C 10 ml/Chromium/Copper/Manganese/Zinc 1 ml/ Amino Acids/ Electrolytes/Dextrose 2,011 mls @ 83 mls/hr IV .Q24H [facility] Stop: 06/18/17 17:59 Last Admin: 06/16/17 17:39 Dose: 83 mls/hr Fat Emulsion Intravenous (Intralipid 20%) 250 mls @ 21 mls/hr IV 1800 [facility] Stop: 06/18/17 17:59 Last Admin: 06/16/17 17:39 Dose: 21 mls/hr Insulin Human Regular (Humulin R Low) 0 units SC ACHS [facility] PRN Reason: Protocol Last Admin: 06/16/17 18:02 Dose: 3 units Lactobacillus Acidophilus (Bacid Acidophilus) 1 cap PO BID [facility] Last Admin: 06/16/17 17:38 Dose: 1 cap Lisinopril (Zestril) 20 mg PO DAILY [facility] Last Admin: 06/16/17 09:43 Dose: 20 mg Metronidazole (Flagyl) 250 mg PO QID [facility] PRN Reason: Protocol Last Admin: 06/16/17 17:38 Dose: 250 mg Morphine Sulfate (Morphine) 2 mg IVP Q4H PRN PRN Reason: Pain, moderate (4-7) Last Admin: 06/15/17 06:18 Dose: 2 mg Ondansetron HCl (Zofran Inj) 4 mg IVP Q6H PRN PRN Reason: Nausea/Vomiting Last Admin: 06/14/17 14:02 Dose: 4 mg Pantoprazole Sodium (Protonix Ec Tab) 20 mg PO 0600 [facility] Last Admin: 06/16/17 06:12 Dose: 20 mg Spironolactone (Aldactone) 50 mg PO DAILY [facility] Last Admin: 06/16/17 09:41 Dose: 50 mg - Labs Labs: 06/16/17 06:40 06/16/17 06:40 PT 10.9 Seconds (9.9-11.8) 06/08/17 02:15 INR 1.01 (0.93-1.08) 06/08/17 02:15 APTT 25.9 Seconds (23.7-30.8) 06/08/17 02:15 Attending/Attestation - Attestation I have personally seen and examined this patient.: Yes I have fully participated in the care of the patient.: Yes I have reviewed all pertinent clinical information, including history, physical exam and plan: Yes Notes (Text): This is an addendum to GI progress report dictated by Aletha Panda APN.The patient was seen and examined earlier. Medical records, lab studies, imagings were reviewed. Last 24 hours events reviewed. Agreed with the above treatment plan as outlined in Aletha Panda APN's notes the with the addition of the following on examination abdomen was softly distended and no tenderness Low-dose residue soft diet with stool softeners as needed cause issues of antidiarrheal if needed would complete empharic therapy with Flagyl 06/16/17 18:18
--- NOTE | 2017-06-16 15:57 | CP.PCM.PN ---
Subjective - Date & Time of Evaluation Date of Evaluation: 06/16/17 Time of Evaluation: 10:15 - Subjective Subjective: Comfortable, not in distress, afebrile. No abdominal pain. Objective - Vital Signs/Intake and Output Vital Signs (last 24 hours): Temp Pulse Resp BP Pulse Ox 98.2 F 88 18 137/82 97 06/16/17 07:37 06/16/17 07:37 06/16/17 07:37 06/16/17 07:37 06/16/17 07:37 Intake and Output: 06/16/17 06/16/17 06:59 18:59 Intake Total 120 Output Total 1 Balance 119 - Medications Medications: Current Medications Alprazolam (Xanax) 0.25 mg PO Q8 PRN; Protocol PRN Reason: Anxiety Stop: 06/16/17 14:01 Last Admin: 06/09/17 22:59 Dose: 0.25 mg Aluminum Hydroxide (Aluminum Hydroxide Gel 320mg /5ml Susp (Bulk)) 30 ml PO ACHS [facility] Last Admin: 06/15/17 21:37 Dose: 30 ml Cephalexin Monohydrate (Keflex) 500 mg PO Q6 [facility] PRN Reason: Protocol Stop: 06/21/17 12:01 Last Admin: 06/16/17 06:12 Dose: 500 mg Clonidine HCl (Catapres Tts1 0.1 Mg/24 Hr) 1 patch TD Q7D@1000 [facility] Last Admin: 06/10/17 10:35 Dose: 1 patch Heparin Sodium (Porcine) (Heparin) 5,000 units SC Q12 [facility] PRN Reason: Protocol Last Admin: 06/15/17 21:39 Dose: 5,000 units Potassium Chloride 20 meq/ (Dextrose/Sodium Chloride) 1,010 mls @ 80 mls/hr IV .[id number] [facility] Last Admin: 06/15/17 13:12 Dose: 80 mls/hr Multivitamins/Vitamin C 10 ml/Chromium/Copper/Manganese/Zinc 1 ml/ Amino Acids/ Electrolytes/Dextrose 2,011 mls @ 83 mls/hr IV .Q24H [facility] Stop: 06/18/17 17:59 Last Admin: 06/15/17 17:28 Dose: 83 mls/hr Fat Emulsion Intravenous (Intralipid 20%) 250 mls @ 21 mls/hr IV 1800 [facility] Stop: 06/18/17 17:59 Last Admin: 06/15/17 17:27 Dose: 21 mls/hr Potassium Chloride (Potassium Chloride 10 Meq/100 Ml) 10 meq in 100 mls @ 100 mls/hr IVPB Q2H [facility] Stop: 06/16/17 10:59 Insulin Human Regular (Humulin R Low) 0 units SC ACHS [facility] PRN Reason: Protocol Last Admin: 06/15/17 21:40 Dose: 2 units Lactobacillus Acidophilus (Bacid Acidophilus) 1 cap PO BID [facility] Last Admin: 06/15/17 17:23 Dose: 1 cap Lisinopril (Zestril) 20 mg PO DAILY [facility] Last Admin: 06/15/17 10:20 Dose: 20 mg Metronidazole (Flagyl) 250 mg PO QID [facility] PRN Reason: Protocol Last Admin: 06/15/17 21:39 Dose: 250 mg Morphine Sulfate (Morphine) 2 mg IVP Q4H PRN PRN Reason: Pain, moderate (4-7) Last Admin: 06/15/17 06:18 Dose: 2 mg Ondansetron HCl (Zofran Inj) 4 mg IVP Q6H PRN PRN Reason: Nausea/Vomiting Last Admin: 06/14/17 14:02 Dose: 4 mg Pantoprazole Sodium (Protonix Ec Tab) 20 mg PO 0600 [facility] Last Admin: 06/16/17 06:12 Dose: 20 mg Spironolactone (Aldactone) 50 mg PO DAILY [facility] Last Admin: 06/15/17 10:19 Dose: 50 mg - Labs Labs: 06/16/17 06:40 06/16/17 06:40 PT 10.9 Seconds (9.9-11.8) 06/08/17 02:15 INR 1.01 (0.93-1.08) 06/08/17 02:15 APTT 25.9 Seconds (23.7-30.8) 06/08/17 02:15 - Constitutional Appears: Non-toxic, No Acute Distress - Head Exam Head Exam: NORMAL INSPECTION - Neck Exam Neck Exam: absent: Meningismus - Respiratory Exam Respiratory Exam: Decreased Breath Sounds - Cardiovascular Exam Cardiovascular Exam: +S1, +S2 - GI/Abdominal Exam GI & Abdominal Exam: Soft. absent: Tenderness Additional comments: right lower quadrant abdominal drain in place Assessment and Plan - Assessment and Plan (Free Text) Plan: Assessment Systemic Inflammatory Response Syndrome, resolved, R/O due to malignancy R/O skin / skin structure infection with MSSA of surrounding area of abdominal catheter colon cancer with peritoneal carcinomatosis DM CAD S/P port-a-cath placement bilateral lens implants Plan ascitic fluid cx are negative continue to PO Keflex to complete a 7 day course (day 4 today) has been started empirically on PO Flagyl by GI for LBM will continue to monitor clinically
[2017-06-16] MEDS ORDERED: Magnesium Sulfate 1 gm in D5W 1 GM/100 ML BAG IVPB ONE (16:17)
--- NOTE | 2017-06-16 16:27 | CP.PCM.PN ---
Subjective - Date & Time of Evaluation Date of Evaluation: 06/16/17 Time of Evaluation: 16:22 - Subjective Subjective: Medicine progress note for Dr. Vargas's service Patient seen and examined at bedside. No acute overnight events or new complaints reported. Patient reported 3 episodes of diarrhea this morning and 1 episode of diarrhea in the afternoon. Was able to tolerate cereal for breakfast without issue and he reports no abdominal pain. Aspira catheter was drained again today. If no improvement of his symptoms will consider CT enterography. In the meantime, currently conservatively managing his symptoms. He is being seen by GI and ID. Denies cp, palpitations, SOB. Objective - Vital Signs/Intake and Output Vital Signs (last 24 hours): Temp Pulse Resp BP Pulse Ox 98.2 F 88 18 137/82 97 06/16/17 07:37 06/16/17 07:37 06/16/17 07:37 06/16/17 07:37 06/16/17 07:37 Intake and Output: 06/16/17 06/16/17 06:59 18:59 Intake Total 120 Output Total 1 Balance 119 - Medications Medications: Current Medications Aluminum Hydroxide (Aluminum Hydroxide Gel 320mg /5ml Susp (Bulk)) 30 ml PO ACHS [facility] Last Admin: 06/16/17 12:27 Dose: 30 ml Aluminum Hydroxide (Aluminum Hydroxide Gel 320mg /5ml Susp (Bulk)) 30 ml PO Q2H PRN PRN Reason: Indigestion Cephalexin Monohydrate (Keflex) 500 mg PO Q6 [facility] PRN Reason: Protocol Stop: 06/21/17 12:01 Last Admin: 06/16/17 12:28 Dose: 500 mg Clonidine HCl (Catapres Tts1 0.1 Mg/24 Hr) 1 patch TD Q7D@1000 [facility] Last Admin: 06/10/17 10:35 Dose: 1 patch Heparin Sodium (Porcine) (Heparin) 5,000 units SC Q12 [facility] PRN Reason: Protocol Last Admin: 06/16/17 09:42 Dose: 5,000 units Multivitamins/Vitamin C 10 ml/Chromium/Copper/Manganese/Zinc 1 ml/ Amino Acids/ Electrolytes/Dextrose 2,011 mls @ 83 mls/hr IV .Q24H [facility] Stop: 06/18/17 17:59 Last Admin: 06/15/17 17:28 Dose: 83 mls/hr Fat Emulsion Intravenous (Intralipid 20%) 250 mls @ 21 mls/hr IV 1800 [facility] Stop: 06/18/17 17:59 Last Admin: 06/15/17 17:27 Dose: 21 mls/hr Magnesium Sulfate/Dextrose (Magnesium Sulfate 1 Gm/100 Ml D5w) 1 gm in 100 mls @ 100 mls/hr IVPB ONCE ONE Stop: 06/16/17 17:16 Insulin Human Regular (Humulin R Low) 0 units SC ACHS [facility] PRN Reason: Protocol Last Admin: 06/16/17 12:27 Dose: 3 units Lactobacillus Acidophilus (Bacid Acidophilus) 1 cap PO BID [facility] Last Admin: 06/16/17 09:41 Dose: 1 cap Lisinopril (Zestril) 20 mg PO DAILY [facility] Last Admin: 06/16/17 09:43 Dose: 20 mg Metronidazole (Flagyl) 250 mg PO QID [facility] PRN Reason: Protocol Last Admin: 06/16/17 09:41 Dose: 250 mg Morphine Sulfate (Morphine) 2 mg IVP Q4H PRN PRN Reason: Pain, moderate (4-7) Last Admin: 06/15/17 06:18 Dose: 2 mg Ondansetron HCl (Zofran Inj) 4 mg IVP Q6H PRN PRN Reason: Nausea/Vomiting Last Admin: 06/14/17 14:02 Dose: 4 mg Pantoprazole Sodium (Protonix Ec Tab) 20 mg PO 0600 [facility] Last Admin: 06/16/17 06:12 Dose: 20 mg Spironolactone (Aldactone) 50 mg PO DAILY [facility] Last Admin: 06/16/17 09:41 Dose: 50 mg - Labs Labs: 06/16/17 06:40 06/16/17 06:40 PT 10.9 Seconds (9.9-11.8) 06/08/17 02:15 INR 1.01 (0.93-1.08) 06/08/17 02:15 APTT 25.9 Seconds (23.7-30.8) 06/08/17 02:15 - Constitutional Appears: No Acute Distress - Head Exam Head Exam: ATRAUMATIC, NORMAL INSPECTION, NORMOCEPHALIC - Eye Exam Eye Exam: EOMI, PERRL - ENT Exam ENT Exam: Mucous Membranes Moist - Neck Exam Neck Exam: Normal Inspection - Respiratory Exam Respiratory Exam: Clear to Ausculation Bilateral. absent: Rales, Rhonchi, Wheezes - Cardiovascular Exam Cardiovascular Exam: +S1, +S2. absent: Gallop, Rubs, Murmur - GI/Abdominal Exam GI & Abdominal Exam: Soft. absent: Distended, Firm, Guarding, Rigid, Tenderness , Rebound - Extremities Exam Extremities Exam: Normal Inspection. absent: Calf Tenderness, Pedal Edema, Tenderness - Neurological Exam Neurological Exam: Alert, Awake, Oriented x3 - Psychiatric Exam Psychiatric exam: Normal Affect, Normal Mood - Skin Skin Exam: Dry, Intact, Normal Color, Warm Assessment and Plan - Assessment and Plan (Free Text) Plan: 71yo male with history of stage IV metastatic adenocarcinoma of the colon with recurrent ascites s/p aspira catheter placement that presented to [facility] [place] [place] c/o abdominal pain associated with nausea, vomiting and diarrhea. 1. Abdominal pain/Diarrhea -Diarrhea is likely secondary to chemotherapy treatment with Irinotecan -Amylase and lipase within normal limits -CT abd/pelvis reviewed; interval appearance of a tunneled drainage catheter within the abdomen with persistent ascites, persistent right-sided hydroureteronephrosis; see full report -Diet advanced as tolerated -2500cc of Ascitic fluid removed previously from aspira catheter; 1000cc of fluid drained the following day and sent for gram stain/culture -First culture of ascitic fluid was notable for corynebacterium during which time he had been on meropenem per ID recommendations; repeat culture was done which has been negative thus far -Continue with keflex per ID recommendations (today is day #4 out of 7) -Currently on PPN for supplemental nutrition given poor PO intake -Will consider CT enterography is no clinical improvement -Flagyl discontinued given cdiff negative x2 -Cdiff negative, however repeat testing pending -Evaluation by GI - Dr. House 2. stage IV metastatic adenocarcinoma of the colon -Patient with documented intraabdominal carcinomatosis treated with FOLFIRI and vectibix -PET scan from 03/06/17 revealed no evidence of FDG avid mass or nodules in the chest, abdomen and pelvis; Re-demonstration of multiple solid non FDG avid nodules in the lungs appear slightly larger compared to previous exam. See full report -Follows with Dr. Vargas as an outpatient 3. DM type 2 -Fingersticks ACHS -Insulin sliding scale 4. Hypertension -Continue with clonidine, lisinopril and aldactone 5. GI/DVT Prophylaxis -Protonix/heparin SC Patient seen and case discussed with attending, Dr. Vargas
[2017-06-16] MEDS: Fat Emulsion 20% IV 250 ML IV SCH (17:39)
--- NOTE | 2017-06-16 20:28 | CON ---
DATE: 06/16/2017 REASON FOR CONSULTATION: Cachexia, diarrhea, abdominal pain, need for hyperal. 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 The patient was found to be constipated. He was treated with laxatives., which resulted in diarrhea. His abdominal pain improved with the diarrhea, but the patient was having a poor p.o. intake. The patient has a history of retroperitoneal carcinomatosis. He also has a history of recurrent gastritis. Consultation was requested because of hypokalemia, hypomagnesemia, poor p.o. intake, need for hyperalimentation. 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 FAMILY HISTORY: Noncontributory. SOCIAL HISTORY: No smoking, no alcohol use, no IV drug abuse. ALLERGIES: NO KNOWN DRUG ALLERGIES. MEDICATIONS: Aldactone 50 mg daily, acidophilus, Catapres patch #1, Flagyl 250 mg q.i.d., heparin, insulin, Keflex, morphine, Protonix, Zestril 20 mg daily, Zofran 4 mg IV q.6 p.r.n. TPN at 83. REVIEW OF SYSTEMS: Currently, the patient complains of mild abdominal pain. Intermittent diarrhea. He denies any vomiting. He denies any nausea. PHYSICAL EXAMINATION: GENERAL: Elderly male, lying in bed. VITAL SIGNS: Blood pressure 137/82, heart rate 88, respiratory rate 18, temperature 98.2. HEENT: Normocephalic, atraumatic, positive pallor. NECK: Supple, no JVD. LUNGS: Bilateral equal air entry, no rales. CARDIAC: S1 and S2, regular rate and rhythm, no murmur, no rub. ABDOMEN: Distended, soft, positive diffuse tenderness, bowel sounds present. EXTREMITIES: No lower extremity edema. INTAKE AND OUTPUT: 360/300?? LABORATORY DATA: WBC 6.8, hemoglobin 11.3, hematocrit 33, platelets 260. Sodium 136, potassium 3.4, chloride 110, CO2 18, BUN 15, creatinine 0.9, glucose 207, calcium 7.6, AST 30, ALT 25, albumin 2.3, corrected calcium is 8.7. Urinalysis: Yellow clear, pH 5.5, specific gravity greater than 1.030, protein 100, leukocyte esterase negative. CT of the abdomen and pelvis from 06/08/2017, right hydronephrosis unchanged from 05/06/2017. Left kidney and ureter unremarkable. ASSESSMENT. 1. Hypokalemia. 2. Hypomagnesemia. 3. Malnutrition. 4. Hypoalbuminemia. 5. Stage IV adenocarcinoma of the omentum. 5. Recurrent ascites. 6. Hypertension. 7. Non-insulin dependent diabetes mellitus. 8. Coronary artery disease. PLAN: 1. Continue hyperal, we will change electrolyte formulation in the hyperal. 2. Agree with the potassium riders. 3. Check magnesium. 4. Replace magnesium . 5. GI followup. Thank you for the courtesy of this consultation. We will follow this patient closely with you. Gemini Leung MD
[2017-06-17] MEDS: Pantoprazole 20 mg EC Tab PO SCH (06:26)
[2017-06-17 06:46] LABS: BASO # 0.04 K/mm3 (0.0-2.0); BASO % 0.4 % (0.0-3.0); EOS # 0.1 (0.0-0.7); EOS % 1.2 % (1.5-5.0); GRAN # 6.51 (1.4-6.5); GRAN % 66.6 % (50.0-68.0); HEMATOCRIT 32.9 % (42.0-52.0); LYMPH # 1.3 (1.2-3.4); LYMPH % 12.9 % (22.0-35.0); MEAN CELL VOLUME 89.6 fl (80.0-105.0); MEAN CORPUSCULAR HEMOGLOBIN 30.8 pg (25.0-35.0); MEAN CORPUSCULAR HGB CONC 34.3 g/dl (31.0-37.0); MEAN PLATELET VOLUME 9.7 fl (7.0-11.0); MONO # 1.9 (0.1-0.6); MONO % 18.9 % (1.0-6.0); RED CELL DISTRIBUTION WIDTH 14.3 % (11.5-14.5); WHITE BLOOD COUNT 9.8 10^3/ul (4.5-11.0)
[2017-06-17 07:06] LABS: ALKALINE PHOSPHATASE 105 U/L (38-126); ALT/SGPT 19 U/L (7-56); AST/SGOT 10 U/L (17-59); BILIRUBIN,TOTAL 0.4 mg/dL (0.2-1.3); BLOOD UREA NITROGEN 25 mg/dL (7-21); CALCIUM 7.7 mg/dL (8.4-10.5); CARBON DIOXIDE 19 mmol/L (21-33); CHLORIDE 109 mmol/L (98-107); GFR AFRICAN-AMERICAN > 60; GLUCOSE,RANDOM 285 mg/dL (70-110); MAGNESIUM 1.7 mg/dL (1.7-2.2); PHOSPHOROUS 2.7 mg/dL (2.5-4.5); POTASSIUM 3.8 mmol/L (3.6-5.0); SODIUM 135 mmol/L (132-148); TOTAL PROTEIN 4.3 g/dL (5.8-8.3)
[2017-06-17] MEDS: Aluminum Hydrox Gel 320 mg/5 ml Susp(480 ml) PO SCH ×3 (08:02→17:00)
[2017-06-17 08:30] VITALS: TEMP 98.6
[2017-06-17] MEDS: Insulin Reg-LOW-Coverage SC SCH ×3 (08:39→17:00)
[2017-06-17] MEDS: Lactobacillus Acidophilus 500 MU Cap PO SCH ×2 (11:01→17:44)
--- NOTE | 2017-06-17 12:55 | CP.PCM.PN ---
<Aletha Panda - Last Filed: 06/17/17 12:54> Subjective - Date & Time of Evaluation Date of Evaluation: 06/17/17 Time of Evaluation: 09:55 - Subjective Subjective: seen and examined at the bedside earlier today, the chart was reviewed. No acute overnight events reported. Patient had ascitic fluid drained from catheter yesterday. Denies nausea, vomiting, or abdominal pain. He had 2 loose BMs last night, none yet this morning. Tolerating oral intake this morning Objective - Vital Signs/Intake and Output Vital Signs (last 24 hours): Temp Pulse Resp BP Pulse Ox 98.6 F 79 18 135/83 96 06/17/17 08:29 06/17/17 11:02 06/17/17 08:29 06/17/17 11:02 06/17/17 08:29 Intake and Output: 06/17/17 06/17/17 06:59 18:59 Intake Total 120 Balance 120 - Medications Medications: Current Medications Aluminum Hydroxide (Aluminum Hydroxide Gel 320mg /5ml Susp (Bulk)) 30 ml PO ACHS [facility] Last Admin: 06/17/17 12:46 Dose: Not Given Aluminum Hydroxide (Aluminum Hydroxide Gel 320mg /5ml Susp (Bulk)) 30 ml PO Q2H PRN PRN Reason: Indigestion Cephalexin Monohydrate (Keflex) 500 mg PO Q6 [facility] PRN Reason: Protocol Stop: 06/21/17 12:01 Last Admin: 06/17/17 12:47 Dose: Not Given Clonidine HCl (Catapres Tts1 0.1 Mg/24 Hr) 1 patch TD Q7D@1000 [facility] Last Admin: 06/17/17 11:02 Dose: 1 patch Heparin Sodium (Porcine) (Heparin) 5,000 units SC Q12 [facility] PRN Reason: Protocol Last Admin: 06/17/17 11:03 Dose: 5,000 units Fat Emulsion Intravenous (Intralipid 20%) 250 mls @ 21 mls/hr IV 1800 [facility] Stop: 06/18/17 17:59 Last Admin: 06/16/17 17:39 Dose: 21 mls/hr Chromium/Copper/Manganese/Zinc 1 ml/ Multivitamins/Vitamin C 10 ml/ Amino Acids 2,011 mls @ 83 mls/hr IV .Q24H [facility] Fat Emulsion Intravenous (Intralipid 20%) 250 mls @ 21 mls/hr IV 1800 [facility] Insulin Human Regular (Humulin R Low) 0 units SC ACHS [facility] PRN Reason: Protocol Last Admin: 06/17/17 12:00 Dose: 4 units Lactobacillus Acidophilus (Bacid Acidophilus) 1 cap PO BID [facility] Last Admin: 06/17/17 11:01 Dose: 1 cap Lisinopril (Zestril) 20 mg PO DAILY [facility] Last Admin: 06/17/17 11:01 Dose: 20 mg Metronidazole (Flagyl) 250 mg PO QID [facility] PRN Reason: Protocol Last Admin: 06/17/17 11:01 Dose: 250 mg Morphine Sulfate (Morphine) 2 mg IVP Q4H PRN PRN Reason: Pain, moderate (4-7) Last Admin: 06/15/17 06:18 Dose: 2 mg Ondansetron HCl (Zofran Inj) 4 mg IVP Q6H PRN PRN Reason: Nausea/Vomiting Last Admin: 06/14/17 14:02 Dose: 4 mg Pantoprazole Sodium (Protonix Ec Tab) 20 mg PO 0600 [facility] Last Admin: 06/17/17 06:26 Dose: 20 mg Spironolactone (Aldactone) 50 mg PO DAILY [facility] Last Admin: 06/17/17 11:02 Dose: 50 mg - Labs Labs: 06/17/17 06:20 06/17/17 06:20 PT 10.9 Seconds (9.9-11.8) 06/08/17 02:15 INR 1.01 (0.93-1.08) 06/08/17 02:15 APTT 25.9 Seconds (23.7-30.8) 06/08/17 02:15 - Constitutional Appears: No Acute Distress - Head Exam Head Exam: NORMOCEPHALIC - Eye Exam Eye Exam: Normal appearance. absent: Scleral icterus - ENT Exam ENT Exam: Mucous Membranes Moist - Neck Exam Neck Exam: Normal Inspection - Respiratory Exam Respiratory Exam: NORMAL BREATHING PATTERN. absent: Respiratory Distress - Cardiovascular Exam Cardiovascular Exam: +S1, +S2 - GI/Abdominal Exam GI & Abdominal Exam: Soft, Normal Bowel Sounds. absent: Guarding, Tenderness, Rebound Additional comments: right quaderant catheter in place, dressing dry and intact. No erythema noted at insertion site. 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 Seen and discussed w/ Dr. House. <Kai House V - Last Filed: 06/17/17 23:49> Objective - Vital Signs/Intake and Output Vital Signs (last 24 hours): Temp Pulse Resp BP Pulse Ox 98.6 F 99 H 19 126/79 97 06/17/17 16:00 06/17/17 16:00 06/17/17 16:00 06/17/17 16:00 06/17/17 16:00 - Labs Labs: 06/17/17 06:20 06/17/17 06:20 PT 10.9 Seconds (9.9-11.8) 06/08/17 02:15 INR 1.01 (0.93-1.08) 06/08/17 02:15 APTT 25.9 Seconds (23.7-30.8) 06/08/17 02:15 Attending/Attestation - Attestation I have personally seen and examined this patient.: Yes I have fully participated in the care of the patient.: Yes I have reviewed all pertinent clinical information, including history, physical exam and plan: Yes Notes (Text): This is an addendum to GI progress report dictated by Aletha Panda APN.The patient was seen and examined earlier. Medical records, lab studies, imagings were reviewed. Last 24 hours events reviewed. Agreed with the above treatment plan as outlined in Aletha Panda APN's notes the with the addition of the following Patient still complains of intermittent episodes of abdominal discomfort and bloating. Patient is being transferred to TCU Discussed with Dr. Vargas at length would request CT of the abdomen and pelvis with by mouth contrast to further evaluate the right lower quadrant pain 06/17/17 23:48
[2017-06-17 16:53] VITALS: BP 126/79; PULSE 99; RESP 19; O2SAT 97
[2017-06-17] MEDS ORDERED: AMINO IV SCH (18:00)
[2017-06-17] MEDS ORDERED: [UNRECOGNIZED DRUG - OTHER] IV SCH (18:00)
[2017-06-17] MEDS ORDERED: TRACE ELEMENTS IV SCH (18:00)
[2017-06-17] MEDS ORDERED: Fat Emulsion 20% IV 250 ML IV SCH (18:00)
[2017-06-17] MEDS ORDERED: DEXT IV SCH (18:00)
[2017-06-17] MEDS ORDERED: MULTIVITAMIN IV SCH (18:00)
[2017-06-17] MEDS: Morphine 4 mg/ml ISec IVP PRN (18:15)
--- NOTE | 2017-06-17 18:51 | PN ---
DATE OF SERVICE: 06/17/2017 SUBJECTIVE: The patient was seen early this morning. No fever and no chills. OBJECTIVE: VITAL SIGNS: On exam, temperature is 98, blood pressure is 135/80, respiratory rate of 18, heart rate of 75. HEENT: Unremarkable. NECK: Supple. LUNGS: Decreased breath sounds. HEART: Normal S1 and S2. ABDOMEN: Soft. LABORATORY DATA: Examination reveals the white count is 9.8, hemoglobin 11, and platelets of 262. Chemistries are noted, BUN of 25, creatinine of 1.2. LFTs are noted to be normal. Urinalysis is reviewed. There are coarse granular casts but trace, 100 protein. Microbiology reveals Staph aureus from the rectum and sensitivity of Staph aureus is pansensitive staph and there are Corynebacterium species. Review of orders reveals the patient to be on p.o. Flagyl, p.o. Keflex. ASSESSMENT AND PLAN: This is a 71-year-old male with SIRS, systemic inflammatory response syndrome, which is resolved, rule out due to secondary to malignancies versus skin structure infection with methicillin-sensitive Staphylococcus aureus, surrounding area of the abdominal catheter, colon cancer, peritoneal carcinomatosis, diabetic, coronary artery disease, with bilateral lens implants, status post Port-A-Cath placement, on p.o. therapy and today is day #5 of the Keflex, would complete 7 days, and the patient also on p.o. Flagyl by Gastroenterology. Niraj Melton MD
--- NOTE | 2017-06-18 11:41 | PQF GENQUE ---
06/18/17 Dr. Vargas, ID consult states "rule out sepsis secondary to spontaneous bacterial peritonitis." Please indicate whether these diagnoses were ruled out, ruled in, undetermined. Thank you. Clarification of your documentation is requested to better reflect the severity of illness and intensity of treatment of your patient. Indicators present [] Specify: [] [] Specify: [] [] Specify: [] [] Specify: [] Location in the medical record that reflects the above clinical findings: [] Treatment Provided: [] PHYSICIAN'S RESPONSE Based on your medical judgment of the clinical indicators outlined above please clarify the following: [] Practitioner response [] If unable to determine, please check the box, sign and date. Present On Admission (POA) Indicator: [] Present at the time of admission [] Not present at the time of admission [] Clinically Undetermined In responding to this query, please exercise your independent professional judgment. The fact that a question is asked does not imply that any particular answer is desired or expected. Thank you for your clarification on this documentation. If you have any questions please call:[ ] * Thank you, [ ] rolls mill operator ODELL
--- NOTE | 2017-06-18 11:45 | PQF GENQUE ---
06/18/17 Dr. Vargas, ID physician, on progress notes of 06/16 and 06/17, states "rule out skin, skin structure infection of surrounding area of abdominal catheter." Was skin infection due to catheter ruled in, ruled out, undetermined? Thank you. Clarification of your documentation is requested to better reflect the severity of illness and intensity of treatment of your patient. Indicators present [] Specify: [] [] Specify: [] [] Specify: [] [] Specify: [] Location in the medical record that reflects the above clinical findings: [] Treatment Provided: [] PHYSICIAN'S RESPONSE Based on your medical judgment of the clinical indicators outlined above please clarify the following: [] Practitioner response [] If unable to determine, please check the box, sign and date. Present On Admission (POA) Indicator: [] Present at the time of admission [] Not present at the time of admission [] Clinically Undetermined In responding to this query, please exercise your independent professional judgment. The fact that a question is asked does not imply that any particular answer is desired or expected. Thank you for your clarification on this documentation. If you have any questions please call:[ ] * Thank you, [ ] water sander ODELL
--- NOTE | 2017-06-18 14:14 | PN ---
DATE: 06/17/2017 SUBJECTIVE: The patient is seen lying in bed. He is awake, he is alert. He complains of intermittent diarrhea. He complains of abdominal pain. PHYSICAL EXAMINATION GENERAL: Thinly built elderly male lying in bed. VITAL SIGNS: Blood pressure 126/79, heart rate 79, respiratory rate 18, temperature 98.6. HEENT: Normocephalic, atraumatic. NECK: Supple, no JVD. LUNGS: Bilateral equal entry, rales. CARDIAC: S1 and S2, regular rate and rhythm, no murmur, no rub. ABDOMEN: Soft, nondistended, positive tenderness, bowel sounds present. EXTREMITIES: No lower extremity edema. INTAKE AND OUTPUT: Not charted. LABORATORY DATA: WBC 9.8, hemoglobin 11.3, hematocrit 33, platelets 262. Sodium 135, potassium 3.8, chloride 109, CO2 is 19, BUN 25, creatinine 1.2, glucose 285, calcium 7.7, phosphorus 2.7, magnesium 1.7, AST 10, ALT 19, albumin 2.2. MEDICATIONS: Aldactone 50 daily, acidophilus, Catapres patch #1, TPN at 83, Flagyl 250 q.i.d., heparin, insulin, Keflex 500 q. 6, morphine, Protonix, Zestril 20 daily, Zofran. ASSESSMENT: 1. Severe malnutrition. 2. 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 3. History of hypertension. 4. History of non-insulin dependent diabetes mellitus. 5. Persistent diarrhea. PLAN 1. Continue hyperal. 2. Monitor electrolytes. 3. Advance oral diet when able. 4. Monitor fingerstick. 5. Blood pressure well controlled at this time. Gemini Leung MD
== END 2017-06-17 19:16 | DRG 374 ==
LOC: ED 02:03 → ERH 03:55 → 3RNO 05:10 → OBSVTOIN 06-09 13:14 → 3RNO 06-10 18:06 → 3RSO 06-16 22:01
PROVIDERS: ADMIT Family Medicine; ATTEND Family Medicine
PROC: 3E0336Z Introduction of Nutritional Substance into Peripheral Vein, Percutaneous Approach (ICD-10-PCS; principal; 2017-06-16)
DX: C78.6 Secondary malignant neoplasm of retroperitoneum and peritoneum (principal); E43 Unspecified severe protein-calorie malnutrition; R18.8 Other ascites; R65.10 Systemic inflammatory response syndrome (SIRS) of non-infectious origin without acute organ dysfunction; N13.30 Unspecified hydronephrosis; R64 Cachexia; C19 Malignant neoplasm of rectosigmoid junction; K22.10 Ulcer of esophagus without bleeding; E83.42 Hypomagnesemia; I10 Essential (primary) hypertension; K21.9 Gastro-esophageal reflux disease without esophagitis; E11.9 Type 2 diabetes mellitus without complications; E78.00 Pure hypercholesterolemia, unspecified; E87.6 Hypokalemia; I25.10 Atherosclerotic heart disease of native coronary artery without angina pectoris; I25.2 Old myocardial infarction; K59.00 Constipation, unspecified; Z79.82 Long term (current) use of aspirin; Z79.899 Other long term (current) drug therapy; Z85.028 Personal history of other malignant neoplasm of stomach; Z85.038 Personal history of other malignant neoplasm of large intestine; Z87.19 Personal history of other diseases of the digestive system; Z87.891 Personal history of nicotine dependence; Z96.1 Presence of intraocular lens; Z92.21 Personal history of antineoplastic chemotherapy; G47.00 Insomnia, unspecified; R40.2412 Glasgow coma scale score 13-15, at arrival to emergency department; K44.9 Diaphragmatic hernia without obstruction or gangrene; E88.09 Other disorders of plasma-protein metabolism, not elsewhere classified; R19.7 Diarrhea, unspecified; T45.1X5A Adverse effect of antineoplastic and immunosuppressive drugs, initial encounter

== ENCOUNTER 2017-06-17 19:16 | Inpatient (IN) | payer OTHER, BC ==
[~2017-06-17 19:16] MED LIST: AMINO IV SCH; DEXT IV SCH; Fat Emulsion 20% IV 250 ML IV SCH; MULTIVITAMIN IV SCH; TRACE ELEMENTS IV SCH; [UNRECOGNIZED DRUG - OTHER] IV SCH
[2017-06-17 20:17] VITALS: BMI 28.7
[2017-06-17] MEDS: Morphine 2 mg/ml ISec IVP PRN (22:06)
[2017-06-17] MEDS: Insulin Reg-LOW-Coverage SC SCH (22:26)
[2017-06-17] MEDS: Aluminum Hydrox Gel 320 mg/5 ml Susp(480 ml) PO SCH (22:30)
[2017-06-18] MEDS ORDERED: Pneumococcal 23-Valent Vaccine IM ONE (00:05)
[2017-06-18] MEDS: Pantoprazole 20 mg EC Tab PO SCH (05:42)
[2017-06-18] MEDS: Insulin Reg-LOW-Coverage SC SCH ×4 (07:02→22:59)
[2017-06-18 07:22] LABS: BASO # 0.04 K/mm3 (0.0-2.0); BASO % 0.5 % (0.0-3.0); EOS # 0.1 (0.0-0.7); EOS % 1.1 % (1.5-5.0); GRAN # 5.49 (1.4-6.5); GRAN % 65.3 % (50.0-68.0); HEMATOCRIT 32.8 % (42.0-52.0); LYMPH # 1.1 (1.2-3.4); LYMPH % 12.8 % (22.0-35.0); MEAN CELL VOLUME 90.4 fl (80.0-105.0); MEAN CORPUSCULAR HEMOGLOBIN 30.6 pg (25.0-35.0); MEAN CORPUSCULAR HGB CONC 33.8 g/dl (31.0-37.0); MEAN PLATELET VOLUME 9.9 fl (7.0-11.0); MONO # 1.7 (0.1-0.6); MONO % 20.3 % (1.0-6.0); PLATELET COUNT 265 10^3/uL (120.0-450.0); RED CELL DISTRIBUTION WIDTH 14.4 % (11.5-14.5); WHITE BLOOD COUNT 8.4 10^3/ul (4.5-11.0)
[2017-06-18] MEDS: Aluminum Hydrox Gel 320 mg/5 ml Susp(480 ml) PO SCH ×4 (07:50→21:23)
[2017-06-18 08:01] LABS: BILIRUBIN,TOTAL 0.4 mg/dL (0.2-1.3); CALCIUM 7.7 mg/dL (8.4-10.5); POTASSIUM 4.1 mmol/L (3.6-5.0); TOTAL PROTEIN 4.4 g/dL (5.8-8.3)
[2017-06-18 08:38] LABS: BAND 8 % (0-2); NEUTROPHIL 60 % (50.0-70.0)
[2017-06-18 08:39] LABS: ANISOCYTOSIS SLIGHT; EOSINOPHIL 2 % (0.0-3.0); HYPOCHROMIA SLIGHT; PLATELET ESTIMATE NORMAL (NORMAL)
[2017-06-18] MEDS: Lactobacillus Acidophilus 500 MU Cap PO SCH ×2 (10:42→17:50)
--- NOTE | 2017-06-18 11:00 | CP.PCM.HP ---
<Helio Cookwin - Last Filed: 06/18/17 21:29> History of Present Illness - History of Present Illness History of Present Illness: cc: abdominal pain HPI: Patient is a 71yo male with past medical history of stave IV metastatic adenocarcinoma of the colon, recurrent ascites s/p aspira catheter placement, DM type 2, hypertension, MO, malnutrition that originally presented to Dr. Vargas's office more than a week prior c/o epigastric abdominal pain associated with nausea, vomiting and diarrhea. He reported lack of appetite and approximately 3-4/10 non-radiating abdominal pain. He was recommended to come to the ER for further evaluation. Upon arrival, an extensive GI and ID workup was done. Cdiff studies were sent and found to be negative. His diarrhea was attributed to his chemotherapy treatment with irinotecan. Ascitic fluid was drained and sent for culture. He was started on antibiotics per ID recommendations and his diet was advanced as tolerated. He was also given PPN for nutritional supplementation. He was subsequently transferred to the transitional care unit for physical strengthening due to deconditioning and nutritional support. 12point ROS as per HPI above, otherwise negative PMHx: as stated above PSHx: aspira catheter placement Allergies: NKDA Social Hx: denies alcohol, tobacco and illicit drug use Family hx: Reviewed and non-contributory Present on Admission - Present on Admission Any Indicators Present on Admission: No Past Patient History - Infectious Disease Hx of Infectious Diseases: None - Tetanus Immunizations Tetanus Immunization: Unknown - Past Social History Smoking Status: Former Smoker - CARDIAC Hx Cardiac Disorders: Yes Hx Hypertension: Yes - PULMONARY Hx Respiratory Disorders: Yes (SMOKED 4 PPD CIGARETTES QUIT 1967) - NEUROLOGICAL Hx Neurological Disorder: No - HEENT Hx HEENT Problems: Yes (RX GLASSES) Hx Cataracts: Yes (BILATERAL LENS IMPLANT) - RENAL Hx Chronic Kidney Disease: No - ENDOCRINE/METABOLIC Hx Diabetes Mellitus Type 2: Yes - HEMATOLOGICAL/ONCOLOGICAL Hx Blood Disorders: Yes Hx Cancer: Yes (stomach and colon) Hx Chemotherapy: Yes - INTEGUMENTARY Hx Dermatological Problems: Yes (H/O CELLULITIS ABSCESS TO NECK AREA) - MUSCULOSKELETAL/RHEUMATOLOGICAL Hx Falls: No - GASTROINTESTINAL Hx Gastrointestinal Disorders: Yes (COLON CA STAGE 4,PERITONEAL CA-FOLFOX, GASTRITIS,MALNUTRITION,GERD) - GENITOURINARY/GYNECOLOGICAL Hx Genitourinary Disorders: No Hx Reproductive Disorders: No - PSYCHIATRIC Hx Psychophysiologic Disorder: Yes (INSOMNIA) Hx Emotional Abuse: No Hx Physical Abuse: No Hx Substance Use: No Other/Comment: USED TO SMOKE CIGARETTES AND DRANK SOCIALLY.QUIT - SURGICAL HISTORY Other/Comment: PORT RIGHT CHEST WALL, PICC IN AND OUT H/O, ASPERA CATH. - ANESTHESIA Hx Anesthesia: Yes Hx Anesthesia Reactions: No Hx Malignant Hyperthermia: No Meds Allergies/Adverse Reactions: Allergies Allergy/AdvReac Type Severity Reaction Status Date / Time No Known Allergies Allergy Verified 06/17/17 23:09 Physical Exam - Constitutional Appears: Non-toxic, No Acute Distress - Head Exam Head Exam: ATRAUMATIC, NORMAL INSPECTION, NORMOCEPHALIC - Eye Exam Eye Exam: EOMI, PERRL - ENT Exam ENT Exam: Mucous Membranes Moist - Neck Exam Neck exam: Positive for: Normal Inspection - Respiratory Exam Respiratory Exam: Clear to Auscultation Bilateral. absent: Rales, Rhonchi, Wheezes - Cardiovascular Exam Cardiovascular Exam: RRR, +S1, +S2. absent: Clicks, Gallop, Rubs - GI/Abdominal Exam GI & Abdominal Exam: Soft. absent: Distended, Firm, Guarding, Rebound, Tenderness - Neurological Exam Neurological exam: Alert, CN II-XII Intact, Oriented x3 - Psychiatric Exam Psychiatric exam: Normal Affect, Normal Mood - Skin Skin Exam: Dry, Intact, Normal Color, Warm Results - Vital Signs Recent Vital Signs: Last Vital Signs Temp 98.1 F 06/18/17 06:00 Pulse 90 06/18/17 10:43 Resp 18 06/18/17 06:00 BP 104/67 06/18/17 10:43 Pulse Ox 98 06/18/17 06:00 - Labs Result Diagrams: 06/18/17 06:50 06/18/17 06:50 Labs: Laboratory Results - last 24 hr 06/18/17 06/18/17 06:50 06:50 WBC 8.4 RBC 3.63 Hgb 11.1 L Hct 32.8 L MCV 90.4 MCH 30.6 MCHC 33.8 RDW 14.4 Plt Count 265 MPV 9.9 Gran % 65.3 Lymph % (Auto) 12.8 L [place] % (Auto) 20.3 H Eos % (Auto) 1.1 L Baso % (Auto) 0.5 Gran # 5.49 Lymph # 1.1 L [place] # 1.7 H Eos # 0.1 Baso # 0.04 Neutrophils % (Manual) 60 Band Neutrophils % 8 H Lymphocytes % (Manual) 20 L Monocytes % (Manual) 10 H Eosinophils % (Manual) 2 Platelet Evaluation Normal Hypochromasia Slight Anisocytosis (manual) Slight Sodium 132 Potassium 4.1 Chloride 107 Carbon Dioxide 17 L Anion Gap 12 BUN 36 H Creatinine 1.8 H Est GFR ( Amer) 45 Est GFR (Non-Af Amer) 37 Random Glucose 360 H* D Calcium 7.7 L Total Bilirubin 0.4 AST 9 L ALT 16 Alkaline Phosphatase 104 Total Protein 4.4 L Albumin 2.2 L Globulin 2.2 Albumin/Globulin Ratio 1.0 L Assessment & Plan - Assessment and Plan (Free Text) Plan: 71yo male with history of stage IV metastatic adenocarcinoma of the colon with recurrent ascites s/p aspira catheter placement that presented to [facility] c/o abdominal pain associated with nausea, vomiting and diarrhea. 1. Abdominal pain/Diarrhea -Diarrhea is likely secondary to chemotherapy treatment with Irinotecan -Amylase and lipase within normal limits -CT abd/pelvis reviewed; interval appearance of a tunneled drainage catheter within the abdomen with persistent ascites, persistent right-sided hydroureteronephrosis; see full report -Diet advanced as tolerated -2500cc of Ascitic fluid removed previously from aspira catheter; 1000cc of fluid drained the following day and sent for gram stain/culture -First culture of ascitic fluid was notable for corynebacterium during which time he had been on meropenem per ID recommendations; repeat culture was done which has been negative thus far -Continue with keflex per ID recommendations -Currently on PPN for supplemental nutrition given poor PO intake -Cdiff negative -Evaluation by GI - Dr. House 2. stage IV metastatic adenocarcinoma of the colon -Patient with documented intraabdominal carcinomatosis treated with FOLFIRI and vectibix -PET scan from 03/06/17 revealed no evidence of FDG avid mass or nodules in the chest, abdomen and pelvis; Re-demonstration of multiple solid non FDG avid nodules in the lungs appear slightly larger compared to previous exam. See full report -Follows with Dr. Vargas as an outpatient 3. DM type 2 -Fingersticks ACHS -Insulin sliding scale 4. Hypertension -Continue with clonidine, lisinopril and aldactone 5. GI/DVT Prophylaxis -Protonix/heparin SC Patient seen and case discussed with attending, Dr. Vargas - Date & Time Date: 06/18/17 Time: 11:13 <Hung Vargas - Last Filed: 06/21/17 13:42> Results - Vital Signs Recent Vital Signs: Last Vital Signs Temp 98.2 F 06/21/17 10:56 Pulse 107 H 06/21/17 10:56 Resp 20 06/21/17 10:56 BP 105/68 06/21/17 10:56 Pulse Ox 97 06/21/17 10:56 - Labs Result Diagrams: 06/21/17 05:30 06/21/17 05:30 Labs: Laboratory Results - last 24 hr 06/20/17 06/20/17 06/21/17 17:13 21:47 05:30 WBC 7.7 D RBC 3.41 L Hgb 10.6 L Hct 30.9 L MCV 90.6 MCH 31.1 MCHC 34.3 RDW 14.9 H Plt Count 302 MPV 10.3 Gran % 62.6 Lymph % (Auto) 12.8 L [place] % (Auto) 22.7 H Eos % (Auto) 1.4 L Baso % (Auto) 0.5 Gran # 4.80 Lymph # 1.0 L [place] # 1.7 H Eos # 0.1 Baso # 0.04 Sodium Potassium Chloride Carbon Dioxide Anion Gap BUN Creatinine Est GFR ( Amer) Est GFR (Non-Af Amer) POC Glucose (mg/dL) 288 H 95 Random Glucose Calcium Total Bilirubin AST ALT Alkaline Phosphatase Total Protein Albumin Globulin Albumin/Globulin Ratio 06/21/17 05:30 WBC RBC Hgb Hct MCV MCH MCHC RDW Plt Count MPV Gran % Lymph % (Auto) [place] % (Auto) Eos % (Auto) Baso % (Auto) Gran # Lymph # [place] # Eos # Baso # Sodium 133 Potassium 4.7 Chloride 108 H Carbon Dioxide 14 L Anion Gap 16 BUN 68 H Creatinine 3.2 H Est GFR ( Amer) 23 Est GFR (Non-Af Amer) 19 POC Glucose (mg/dL) Random Glucose 296 H Calcium 7.6 L Total Bilirubin 0.5 AST 13 L ALT 23 Alkaline Phosphatase 156 H D Total Protein 4.8 L Albumin 2.3 L Globulin 2.5 Albumin/Globulin Ratio 0.9 L Attending/Attestation - Attestation I have personally seen and examined this patient.: Yes I have fully participated in the care of the patient.: Yes I have reviewed all pertinent clinical information: Yes
--- NOTE | 2017-06-18 13:33 | CP.PCM.PN ---
<Aletha Panda - Last Filed: 06/18/17 13:33> Subjective - Date & Time of Evaluation Date of Evaluation: 06/18/17 Time of Evaluation: 10:20 - Subjective Subjective: Seen and examined at the bedside earlier today, the patient reports of feeling weak and tired today, he does not want to go for a CT scan today. He denies abdominal pain, no nausea or vomiting. No reports of any diarrhea. Ascitic fluid was just drained this morning from peritoneal catheter of 2000 cc. Objective - Vital Signs/Intake and Output Vital Signs (last 24 hours): Temp Pulse Resp BP Pulse Ox 98.1 F 90 18 104/67 98 06/18/17 06:00 06/18/17 10:43 06/18/17 06:00 06/18/17 10:43 06/18/17 06:00 - Medications Medications: Current Medications Aluminum Hydroxide (Aluminum Hydroxide Gel 320mg /5ml Susp (Bulk)) 30 ml PO ACHS [facility] Last Admin: 06/18/17 12:08 Dose: Not Given Cephalexin Monohydrate (Keflex) 500 mg PO Q6 [facility] PRN Reason: Protocol Stop: 06/21/17 18:00 Last Admin: 06/18/17 12:07 Dose: 500 mg Clonidine HCl (Catapres Tts1 0.1 Mg/24 Hr) 1 patch TD Q7D@1000 [facility] Heparin Sodium (Porcine) (Heparin) 5,000 units SC Q12 [facility] PRN Reason: Protocol Last Admin: 06/18/17 10:43 Dose: 5,000 units Chromium/Copper/Manganese/Zinc 1 ml/ Multivitamins/Vitamin C 10 ml/ Amino Acids 2,011 mls @ 83 mls/hr IV .Q24H [facility] Stop: 06/18/17 17:59 Last Admin: 06/17/17 22:24 Dose: 83 mls/hr Insulin Human Regular (Humulin R Low) 0 units SC ACHS [facility] PRN Reason: Protocol Last Admin: 06/18/17 12:08 Dose: 5 units Lactobacillus Acidophilus (Bacid Acidophilus) 1 cap PO BID [facility] Last Admin: 06/18/17 10:42 Dose: 1 cap Lisinopril (Zestril) 20 mg PO DAILY [facility] Last Admin: 06/18/17 10:43 Dose: 20 mg Metronidazole (Flagyl) 250 mg PO Q6 [facility] PRN Reason: Protocol Last Admin: 06/18/17 12:07 Dose: 250 mg Morphine Sulfate (Morphine) 2 mg IVP Q4H PRN PRN Reason: Pain, moderate (4-7) Last Admin: 06/17/17 22:06 Dose: 2 mg Pantoprazole Sodium (Protonix Ec Tab) 20 mg PO 0600 [facility] Last Admin: 06/18/17 05:42 Dose: 20 mg Spironolactone (Aldactone) 50 mg PO DAILY [facility] Last Admin: 06/18/17 10:42 Dose: 50 mg - Labs Labs: 06/18/17 06:50 06/18/17 06:50 - Constitutional Appears: No Acute Distress - Head Exam Head Exam: NORMOCEPHALIC - Eye Exam Eye Exam: Normal appearance - ENT Exam ENT Exam: Mucous Membranes Moist - Neck Exam Neck Exam: Normal Inspection - Respiratory Exam Respiratory Exam: NORMAL BREATHING PATTERN. absent: Respiratory Distress - Cardiovascular Exam Cardiovascular Exam: +S1, +S2 - GI/Abdominal Exam GI & Abdominal Exam: Distended, Soft, Normal Bowel Sounds. 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 pending CT scan of abdomen and pelvis, patient refusing today, we will attempt for tomorrow. Seen and discussed w/ Dr. House. <Kai House V - Last Filed: 06/18/17 21:27> Objective - Vital Signs/Intake and Output Vital Signs (last 24 hours): Temp Pulse Resp BP Pulse Ox 98.4 F 93 H 18 124/74 98 06/18/17 17:31 06/18/17 17:31 06/18/17 17:31 06/18/17 17:31 06/18/17 17:31 Intake and Output: 06/18/17 06/19/17 18:59 06:59 Intake Total 360 Output Total 200 Balance 160 - Medications Medications: Current Medications Aluminum Hydroxide (Aluminum Hydroxide Gel 320mg /5ml Susp (Bulk)) 30 ml PO ACHS [facility] Last Admin: 06/18/17 17:30 Dose: Not Given Cephalexin Monohydrate (Keflex) 500 mg PO Q6 [facility] PRN Reason: Protocol Stop: 06/21/17 18:00 Last Admin: 06/18/17 17:51 Dose: 500 mg Clonidine HCl (Catapres Tts1 0.1 Mg/24 Hr) 1 patch TD Q7D@1000 [facility] Heparin Sodium (Porcine) (Heparin) 5,000 units SC Q12 [facility] PRN Reason: Protocol Last Admin: 06/18/17 10:43 Dose: 5,000 units Albumin Human (Albumin Human 25% (25 Gm/100 Ml)) 100 mls @ 1 mls/min IVPB MON [facility] Stop: 06/23/17 13:39 Albumin Human (Albumin Human 25% (25 Gm/100 Ml)) 100 mls @ 60 mls/hr IV FRI ONE Stop: 06/27/17 11:39 Insulin Human Regular (Humulin R Low) 0 units SC ACHS [facility] PRN Reason: Protocol Last Admin: 06/18/17 17:30 Dose: 4 units Lactobacillus Acidophilus (Bacid Acidophilus) 1 cap PO BID [facility] Last Admin: 06/18/17 17:50 Dose: 1 cap Lisinopril (Zestril) 20 mg PO DAILY [facility] Last Admin: 06/18/17 10:43 Dose: 20 mg Metronidazole (Flagyl) 250 mg PO Q6 [facility] PRN Reason: Protocol Last Admin: 06/18/17 17:50 Dose: 250 mg Morphine Sulfate (Morphine) 2 mg IVP Q4H PRN PRN Reason: Pain, moderate (4-7) Last Admin: 06/17/17 22:06 Dose: 2 mg Pantoprazole Sodium (Protonix Ec Tab) 20 mg PO 0600 [facility] Last Admin: 06/18/17 05:42 Dose: 20 mg Spironolactone (Aldactone) 50 mg PO DAILY [facility] Last Admin: 06/18/17 10:42 Dose: 50 mg - Labs Labs: 06/18/17 06:50 06/18/17 06:50 Attending/Attestation - Attestation I have personally seen and examined this patient.: Yes I have fully participated in the care of the patient.: Yes I have reviewed all pertinent clinical information, including history, physical exam and plan: Yes Notes (Text): This is an addendum to GI progress report dictated by Aletha Panda APN.The patient was seen and examined earlier. Medical records, lab studies, imagings were reviewed. Last 24 hours events reviewed. Agreed with the above treatment plan as outlined in Aletha Panda APN's notes the with the addition of the following Abdomen soft status post drainage of nearly 2 L of ascitic fluid he states abdominal discomfort is significantly improved. His by mouth intake still remains poor. Patient is finally now agreeable for repeat CT to by mouth contrast. Follow up on that 06/18/17 21:26
--- NOTE | 2017-06-18 21:13 | CON ---
DATE: 06/18/2017 The patient was seen early this morning in 314. CHIEF COMPLAINT: Weakness times several days. HISTORY OF PRESENT ILLNESS: This is a 71-year-old male with adenocarcinoma of colon with peritoneal carcinomatosis, diabetes mellitus, coronary artery disease, bilateral lens implants, and history of Port-A-Cath, who was admitted to the acute care, had workup done. The patient now transferred to transitional care for physical therapy. REVIEW OF SYSTEMS: Reveals no fevers, no chills, no nausea. His abdominal pain is on and off, and no headaches or blurred vision. PAST MEDICAL HISTORY: Significant for the advanced colon cancer with peritoneal carcinomatosis, diabetes mellitus, and coronary artery disease. PAST SURGICAL HISTORY: Bilateral lens implants and Port-A-Cath. ALLERGIES: THE PATIENT HAS NO KNOWN ALLERGIES. MEDICATIONS: Reviewed. PHYSICAL EXAMINATION: VITAL SIGNS: The patient is in bed with a temperature of 98, blood pressure is 118/70, respiratory rate of 18, heart rate of 100. HEENT: Examination of HEENT is unremarkable. NECK: Supple. LUNGS: Have decreased breath sounds. HEART: Normal S1, S2. ABDOMEN: Soft, nontender. No rebound or guarding. LABORATORY EXAMINATION: Reveals a white count of 8.4, hemoglobin of 11, platelets of 265. BUN of 36, creatinine of 1.8 and glucose is 360. Urinalysis is noted. Microbiology reveals the ascitic fluid is positive for Corynebacterium. The rectal fluid is positive for staph, and on the ascitic fluid, no organism was seen on the Gram stain. ASSESSMENT AND PLAN: A 71-year-old male with systemic inflammatory response syndrome, most likely secondary to malignancy with methicillin-sensitive Staphylococcus aureus from area of the catheter and peritoneal carcinomatosis and a colon cancer, diabetic, coronary artery disease, bilateral lens implants, status post Port-A-Cath placement, on p.o. Keflex day #6 of 7 days. Overall prognosis is quite poor for this patient. Review of orders reveals the patient to be on p.o. Flagyl and p.o. Keflex. We will follow with you. Niraj Melton MD [facility] # [id number]
--- NOTE | 2017-06-18 23:14 | CP.PCM.PN ---
Subjective - Date & Time of Evaluation Date of Evaluation: 06/18/17 Time of Evaluation: 23:13 - Subjective Subjective: Patient was seen at bed side for nausea/vomiting. On morphine, last dose 24 hours ago On IVantibiotics. Has no other complaints. Medical record was reviewed. This 71 year old male was admitted epigastric pain, nausea, vomiting, diarrhoea. Has PMH of stage IV metastatic cancer of colon, HTN,DM II, aspira catheter placement, ID. Objective - Vital Signs/Intake and Output Vital Signs (last 24 hours): Temp Pulse Resp BP Pulse Ox 98.4 F 93 H 18 124/74 98 06/18/17 17:31 06/18/17 17:31 06/18/17 17:31 06/18/17 17:31 06/18/17 17:31 Intake and Output: 06/18/17 06/19/17 18:59 06:59 Intake Total 360 60 Output Total 200 Balance 160 60 - Medications Medications: Current Medications Aluminum Hydroxide (Aluminum Hydroxide Gel 320mg /5ml Susp (Bulk)) 30 ml PO ACHS [facility] Last Admin: 06/18/17 21:23 Dose: Not Given Cephalexin Monohydrate (Keflex) 500 mg PO Q6 [facility] PRN Reason: Protocol Stop: 06/21/17 18:00 Last Admin: 06/18/17 23:00 Dose: 500 mg Clonidine HCl (Catapres Tts1 0.1 Mg/24 Hr) 1 patch TD Q7D@1000 [facility] Heparin Sodium (Porcine) (Heparin) 5,000 units SC Q12 [facility] PRN Reason: Protocol Last Admin: 06/18/17 21:25 Dose: 5,000 units Albumin Human (Albumin Human 25% (25 Gm/100 Ml)) 100 mls @ 1 mls/min IVPB MON [facility] Stop: 06/23/17 13:39 Albumin Human (Albumin Human 25% (25 Gm/100 Ml)) 100 mls @ 60 mls/hr IV FRI ONE Stop: 06/27/17 11:39 Insulin Human Regular (Humulin R Low) 0 units SC ACHS [facility] PRN Reason: Protocol Last Admin: 06/18/17 22:59 Dose: 2 units Lactobacillus Acidophilus (Bacid Acidophilus) 1 cap PO BID [facility] Last Admin: 06/18/17 17:50 Dose: 1 cap Lisinopril (Zestril) 20 mg PO DAILY [facility] Last Admin: 06/18/17 10:43 Dose: 20 mg Metronidazole (Flagyl) 250 mg PO Q6 [facility] PRN Reason: Protocol Last Admin: 06/18/17 23:00 Dose: 250 mg Morphine Sulfate (Morphine) 2 mg IVP Q4H [facility]N PRN Reason: Pain, moderate (4-7) Last Admin: 06/17/17 22:06 Dose: 2 mg Pantoprazole Sodium (Protonix Ec Tab) 20 mg PO 0600 [facility] Last Admin: 06/18/17 05:42 Dose: 20 mg Spironolactone (Aldactone) 50 mg PO DAILY [facility] Last Admin: 06/18/17 10:42 Dose: 50 mg - Labs Labs: 06/18/17 06:50 06/18/17 06:50 Most Recent Lab Values WBC 8.4 10^3/ul (4.5-11.0) 06/18/17 06:50 RBC 3.63 10^6/uL (3.5-6.1) 06/18/17 06:50 Hgb 11.1 g/dL (14.0-18.0) L 06/18/17 06:50 Hct 32.8 % (42.0-52.0) L 06/18/17 06:50 MCV 90.4 fl (80.0-105.0) 06/18/17 06:50 MCH 30.6 pg (25.0-35.0) 06/18/17 06:50 MCHC 33.8 g/dl (31.0-37.0) 06/18/17 06:50 RDW 14.4 % (11.5-14.5) 06/18/17 06:50 Plt Count 265 10^3/uL (120.0-450.0) 06/18/17 06:50 MPV 9.9 fl (7.0-11.0) 06/18/17 06:50 Gran % 65.3 % (50.0-68.0) 06/18/17 06:50 Lymph % (Auto) 12.8 % (22.0-35.0) L 06/18/17 06:50 Freeborn % (Auto) 20.3 % (1.0-6.0) H 06/18/17 06:50 Eos % (Auto) 1.1 % (1.5-5.0) L 06/18/17 06:50 Baso % (Auto) 0.5 % (0.0-3.0) 06/18/17 06:50 Gran # 5.49 (1.4-6.5) 06/18/17 06:50 Lymph # 1.1 (1.2-3.4) L 06/18/17 06:50 Freeborn # 1.7 (0.1-0.6) H 06/18/17 06:50 Eos # 0.1 (0.0-0.7) 06/18/17 06:50 Baso # 0.04 K/mm3 (0.0-2.0) 06/18/17 06:50 Neutrophils % (Manual) 60 % (50.0-70.0) 06/18/17 06:50 Band Neutrophils % 8 % (0-2) H 06/18/17 06:50 Lymphocytes % (Manual) 20 % (22.0-35.0) L 06/18/17 06:50 Monocytes % (Manual) 10 % (1.0-6.0) H 06/18/17 06:50 Eosinophils % (Manual) 2 % (0.0-3.0) 06/18/17 06:50 Platelet Evaluation Normal (NORMAL) 06/18/17 06:50 Hypochromasia Slight 06/18/17 06:50 Anisocytosis (manual) Slight 06/18/17 06:50 Sodium 132 mmol/L (132-148) 06/18/17 06:50 Potassium 4.1 mmol/L (3.6-5.0) 06/18/17 06:50 Chloride 107 mmol/L (98-107) 06/18/17 06:50 Carbon Dioxide 17 mmol/L (21-33) L 06/18/17 06:50 Anion Gap 12 (10-20) 06/18/17 06:50 BUN 36 mg/dL (7-21) H 06/18/17 06:50 Creatinine 1.8 mg/dL (0.8-1.5) H 06/18/17 06:50 Est GFR ( Amer) 45 06/18/17 06:50 Est GFR (Non-Af Amer) 37 06/18/17 06:50 POC Glucose (mg/dL) 356 mg/dL (65-110) H 06/18/17 11:03 Random Glucose 360 mg/dL (70-110) H* D 06/18/17 06:50 Calcium 7.7 mg/dL (8.4-10.5) L 06/18/17 06:50 Total Bilirubin 0.4 mg/dL (0.2-1.3) 06/18/17 06:50 AST 9 U/L (17-59) L 06/18/17 06:50 ALT 16 U/L (7-56) 06/18/17 06:50 Alkaline Phosphatase 104 U/L (38-126) 06/18/17 06:50 Total Protein 4.4 g/dL (5.8-8.3) L 06/18/17 06:50 Albumin 2.2 g/dL (3.0-4.8) L 06/18/17 06:50 Globulin 2.2 gm/dL 06/18/17 06:50 Albumin/Globulin Ratio 1.0 (1.1-1.8) L 06/18/17 06:50 - Constitutional Appears: Well, No Acute Distress - Head Exam Head Exam: NORMAL INSPECTION - Eye Exam Additional comments: ASleep. - ENT Exam ENT Exam: Normal External Ear Exam - Neck Exam Neck Exam: Normal Inspection - Respiratory Exam Respiratory Exam: NORMAL BREATHING PATTERN - Cardiovascular Exam Cardiovascular Exam: absent: JVD - GI/Abdominal Exam GI & Abdominal Exam: absent: Distended - Rectal Exam Rectal Exam: Deferred - Exam Additional comments: Deferred. - Extremities Exam Extremities Exam: Normal Inspection - Back Exam Back Exam: NORMAL INSPECTION - Neurological Exam Additional comments: Asleep. - Psychiatric Exam Additional comments: Asleep. - Skin Skin Exam: Normal Color Assessment and Plan - Assessment and Plan (Free Text) Assessment: Nausea/vomitng 2* to pain medication. Stage IV metastatic carcinoma of colon. HTN. ID Hx. Malnutrition. Anemia. Renal insufficiency. Hyperglycemia. Plan: Zofran 4 mg IV stat. Continue present management.
[2017-06-19] MEDS: Pantoprazole 20 mg EC Tab PO SCH (06:07)
[2017-06-19 06:36] LABS: BASO # 0.04 K/mm3 (0.0-2.0); BASO % 0.5 % (0.0-3.0); EOS # 0.1 (0.0-0.7); EOS % 1.3 % (1.5-5.0); GRAN # 5.79 (1.4-6.5); HEMATOCRIT 31.9 % (42.0-52.0); LYMPH # 1.1 (1.2-3.4); LYMPH % 12.8 % (22.0-35.0); MEAN CELL VOLUME 89.6 fl (80.0-105.0); MEAN CORPUSCULAR HEMOGLOBIN 30.6 pg (25.0-35.0); MEAN CORPUSCULAR HGB CONC 34.2 g/dl (31.0-37.0); MEAN PLATELET VOLUME 10.4 fl (7.0-11.0); MONO # 1.7 (0.1-0.6); MONO % 19.4 % (1.0-6.0); RED CELL DISTRIBUTION WIDTH 14.5 % (11.5-14.5); WHITE BLOOD COUNT 8.8 10^3/ul (4.5-11.0)
[2017-06-19] MEDS: Insulin Reg-LOW-Coverage SC SCH ×4 (06:46→22:39)
[2017-06-19 07:02] LABS: BILIRUBIN,TOTAL 0.5 mg/dL (0.2-1.3); CALCIUM 8.1 mg/dL (8.4-10.5); POTASSIUM 4.5 mmol/L (3.6-5.0); TOTAL PROTEIN 4.5 g/dL (5.8-8.3)
[2017-06-19] MEDS: Aluminum Hydrox Gel 320 mg/5 ml Susp(480 ml) PO SCH ×4 (08:34→21:31)
[2017-06-19] MEDS ORDERED: Sodium Chloride 0.9% 1,000 ML IV SCH (09:30)
[2017-06-19] MEDS: Lactobacillus Acidophilus 500 MU Cap PO SCH ×2 (10:10→17:33)
--- NOTE | 2017-06-19 11:13 | CP.PCM.PN ---
<Jalen Cook - Last Filed: 06/19/17 11:09> Subjective - Date & Time of Evaluation Date of Evaluation: 06/19/17 Time of Evaluation: 11:09 - Subjective Subjective: Progress note for Dr. Vargas's service Patient seen and examined at bedside this morning. He experienced some nausea overnight which he attributes to the oral contrast for the CT abd/pelvis. Reported being unable to tolerate the contrast. Otherwise, denies any new issues or complaints. No reports of diarrhea this morning. Denies cp, palpitations, SOB. Objective - Vital Signs/Intake and Output Vital Signs (last 24 hours): Temp Pulse Resp BP Pulse Ox 98.4 F 84 20 116/88 98 06/18/17 23:17 06/18/17 23:17 06/18/17 23:17 06/18/17 23:17 06/18/17 23:17 Intake and Output: 06/19/17 06/19/17 06:59 18:59 Intake Total 60 Balance 60 - Medications Medications: Current Medications Aluminum Hydroxide (Aluminum Hydroxide Gel 320mg /5ml Susp (Bulk)) 30 ml PO ACHS [facility] Last Admin: 06/19/17 08:34 Dose: Not Given Cephalexin Monohydrate (Keflex) 500 mg PO Q6 [facility] PRN Reason: Protocol Stop: 06/21/17 18:00 Last Admin: 06/19/17 05:28 Dose: Not Given Clonidine HCl (Catapres Tts1 0.1 Mg/24 Hr) 1 patch TD Q7D@1000 [facility] Heparin Sodium (Porcine) (Heparin) 5,000 units SC Q12 [facility] PRN Reason: Protocol Last Admin: 06/19/17 10:10 Dose: 5,000 units Albumin Human (Albumin Human 25% (25 Gm/100 Ml)) 100 mls @ 1 mls/min IVPB MON [facility] Stop: 06/23/17 13:39 Albumin Human (Albumin Human 25% (25 Gm/100 Ml)) 100 mls @ 60 mls/hr IV FRI ONE Stop: 06/27/17 11:39 Sodium Chloride (Sodium Chloride 0.9%) 1,000 mls @ 100 mls/hr IV .Q10H [facility] Last Admin: 06/19/17 09:59 Dose: 100 mls/hr Insulin Human Regular (Humulin R Low) 0 units SC ACHS [facility] PRN Reason: Protocol Last Admin: 06/19/17 06:46 Dose: 2 units Lactobacillus Acidophilus (Bacid Acidophilus) 1 cap PO BID [facility] Last Admin: 06/19/17 10:10 Dose: 1 cap Lisinopril (Zestril) 20 mg PO DAILY [facility] Last Admin: 06/18/17 10:43 Dose: 20 mg Morphine Sulfate (Morphine) 2 mg IVP Q4H PRN PRN Reason: Pain, moderate (4-7) Last Admin: 06/17/17 22:06 Dose: 2 mg Ondansetron HCl (Zofran Inj) 4 mg IVP Q6H PRN PRN Reason: Nausea/Vomiting Pantoprazole Sodium (Protonix Ec Tab) 20 mg PO 0600 [facility] Last Admin: 06/19/17 06:07 Dose: 20 mg Spironolactone (Aldactone) 50 mg PO DAILY [facility] Last Admin: 06/19/17 10:07 Dose: Not Given - Labs Labs: 06/19/17 06:00 06/19/17 06:00 - Constitutional Appears: No Acute Distress - Head Exam Head Exam: ATRAUMATIC, NORMAL INSPECTION, NORMOCEPHALIC - Eye Exam Eye Exam: EOMI, PERRL - ENT Exam ENT Exam: Mucous Membranes Moist - Respiratory Exam Respiratory Exam: Clear to Ausculation Bilateral. absent: Rales, Rhonchi, Wheezes - Cardiovascular Exam Cardiovascular Exam: RRR, +S1, +S2. absent: Gallop, Rubs, Murmur - GI/Abdominal Exam GI & Abdominal Exam: Soft. absent: Distended, Firm, Guarding, Rigid, Tenderness , Rebound - Extremities Exam Extremities Exam: Normal Inspection. absent: Pedal Edema - Neurological Exam Neurological Exam: Alert, Awake, Oriented x3 - Psychiatric Exam Psychiatric exam: Normal Affect, Normal Mood - Skin Skin Exam: Dry, Intact, Normal Color, Warm Assessment and Plan - Assessment and Plan (Free Text) Plan: 71yo male with history of stage IV metastatic adenocarcinoma of the colon with recurrent ascites s/p aspira catheter placement that presented to [facility] c/o abdominal pain associated with nausea, vomiting and diarrhea. 1. Abdominal pain/Diarrhea -Diarrhea is likely secondary to chemotherapy treatment with Irinotecan -CT abd/pelvis reviewed; interval appearance of a tunneled drainage catheter within the abdomen with persistent ascites, persistent right-sided hydroureteronephrosis; see full report -Repeat CT abd/pelvis ordered; he is unable to tolerate PO contrast thus will proceed with dry scan -Diet advanced as tolerated -2500cc of Ascitic fluid removed previously from aspira catheter; 1000cc of fluid drained the following day and sent for gram stain/culture -First culture of ascitic fluid was notable for corynebacterium during which time he had been on meropenem per ID recommendations; repeat culture was done which has been negative thus far -Continue with keflex per ID recommendations -PPN for supplemental nutrition given poor PO intake as per nephrology recommendations -Cdiff negative -Evaluation by GI - Dr. House 2. stage IV metastatic adenocarcinoma of the colon -Patient with documented intraabdominal carcinomatosis treated with FOLFIRI and vectibix -PET scan from 03/06/17 revealed no evidence of FDG avid mass or nodules in the chest, abdomen and pelvis; Re-demonstration of multiple solid non FDG avid nodules in the lungs appear slightly larger compared to previous exam. See full report -Follows with Dr. Vargas as an outpatient 3. Acute kidney injury -Patient with history of right sided hydronephrosis now with rising creatinine over the last 2 days -Urinalysis, urine creatinine/urea/sodium pending -Renal US pending -Bladder scan pending -Urology consulted - Dr. Young -Nephrology following - Dr. Leung 4. DM type 2 -Fingersticks ACHS -Insulin sliding scale 5. Hypertension -Continue with clonidine, lisinopril and aldactone 6. GI/DVT Prophylaxis -Protonix/heparin SC Patient seen and case discussed with attending, Dr. Vargas <Hung Vargas P - Last Filed: 06/21/17 13:43> Objective - Vital Signs/Intake and Output Vital Signs (last 24 hours): Temp Pulse Resp BP Pulse Ox 98.2 F 107 H 20 105/68 97 06/21/17 10:56 06/21/17 10:56 06/21/17 10:56 06/21/17 10:56 06/21/17 10:56 - Medications Medications: Current Medications Aluminum Hydroxide (Aluminum Hydroxide Gel 320mg /5ml Susp (Bulk)) 30 ml PO ACHS [facility] Last Admin: 06/21/17 12:04 Dose: Not Given Clonidine HCl (Catapres Tts1 0.1 Mg/24 Hr) 1 patch TD Q7D@1000 [facility] Heparin Sodium (Porcine) (Heparin) 5,000 units SC Q12 [facility] PRN Reason: Protocol Last Admin: 06/19/17 10:10 Dose: 5,000 units Albumin Human (Albumin Human 25% (25 Gm/100 Ml)) 100 mls @ 1 mls/min IVPB MON [facility] Stop: 06/23/17 13:39 Albumin Human (Albumin Human 25% (25 Gm/100 Ml)) 100 mls @ 60 mls/hr IV FRI ONE Stop: 06/27/17 11:39 Chromium/Copper/Manganese/Zinc 1 ml/ Multivitamins/Vitamin C 10 ml/ Insulin Human Regular 15 units/ Amino Acids 2,011.15 mls @ 83 mls/hr IV .Q24H [facility] Last Admin: 06/21/17 02:15 Dose: 83 mls/hr Insulin Human Regular (Humulin R Med) 0 units SC ACHS [facility] PRN Reason: Protocol Last Admin: 06/21/17 12:04 Dose: 5 units Lactobacillus Acidophilus (Bacid Acidophilus) 1 cap PO BID [facility] Last Admin: 06/21/17 09:48 Dose: 1 cap Lisinopril (Zestril) 20 mg PO DAILY [facility] Last Admin: 06/18/17 10:43 Dose: 20 mg Morphine Sulfate (Morphine) 2 mg IVP Q4H PRN PRN Reason: Pain, moderate (4-7) Last Admin: 06/20/17 04:39 Dose: 2 mg Ondansetron HCl (Zofran Inj) 4 mg IVP Q6H PRN PRN Reason: Nausea/Vomiting Last Admin: 06/19/17 23:37 Dose: 4 mg Pantoprazole Sodium (Protonix Ec Tab) 20 mg PO 0600 [facility] Last Admin: 06/21/17 05:43 Dose: 20 mg Spironolactone (Aldactone) 50 mg PO DAILY [facility] Last Admin: 06/21/17 09:48 Dose: 50 mg - Labs Labs: 06/21/17 05:30 06/21/17 05:30 Attending/Attestation - Attestation I have personally seen and examined this patient.: Yes I have fully participated in the care of the patient.: Yes I have reviewed all pertinent clinical information, including history, physical exam and plan: Yes
--- NOTE | 2017-06-19 12:47 | CP.PCM.PN ---
<Aletha Panda - Last Filed: 06/19/17 12:45> Subjective - Date & Time of Evaluation Date of Evaluation: 06/19/17 Time of Evaluation: 10:35 - Subjective Subjective: Seen and examined at the bedside earlier today, the patient was refusing CT scan with oral contrast. The patient did have episode of vomiting last night, right now the patient still remains with poor appetite, he denies nausea and abdominal pain. No report of diarrhea. No reports of overt GI bleed. Objective - Vital Signs/Intake and Output Vital Signs (last 24 hours): Temp Pulse Resp BP Pulse Ox 98.4 F 84 20 116/88 98 06/18/17 23:17 06/18/17 23:17 06/18/17 23:17 06/18/17 23:17 06/18/17 23:17 Intake and Output: 06/19/17 06/19/17 06:59 18:59 Intake Total 60 Balance 60 - Medications Medications: Current Medications Aluminum Hydroxide (Aluminum Hydroxide Gel 320mg /5ml Susp (Bulk)) 30 ml PO ACHS [facility] Last Admin: 06/19/17 08:34 Dose: Not Given Cephalexin Monohydrate (Keflex) 500 mg PO Q6 [facility] PRN Reason: Protocol Stop: 06/21/17 18:00 Last Admin: 06/19/17 05:28 Dose: Not Given Clonidine HCl (Catapres Tts1 0.1 Mg/24 Hr) 1 patch TD Q7D@1000 [facility] Heparin Sodium (Porcine) (Heparin) 5,000 units SC Q12 [facility] PRN Reason: Protocol Last Admin: 06/19/17 10:10 Dose: 5,000 units Albumin Human (Albumin Human 25% (25 Gm/100 Ml)) 100 mls @ 1 mls/min IVPB MON [facility] Stop: 06/23/17 13:39 Albumin Human (Albumin Human 25% (25 Gm/100 Ml)) 100 mls @ 60 mls/hr IV FRI ONE Stop: 06/27/17 11:39 Sodium Chloride (Sodium Chloride 0.9%) 1,000 mls @ 100 mls/hr IV .Q10H [facility] Last Admin: 06/19/17 09:59 Dose: 100 mls/hr Insulin Human Regular (Humulin R Low) 0 units SC ACHS [facility] PRN Reason: Protocol Last Admin: 06/19/17 06:46 Dose: 2 units Lactobacillus Acidophilus (Bacid Acidophilus) 1 cap PO BID [facility] Last Admin: 06/19/17 10:10 Dose: 1 cap Lisinopril (Zestril) 20 mg PO DAILY [facility] Last Admin: 06/18/17 10:43 Dose: 20 mg Morphine Sulfate (Morphine) 2 mg IVP Q4H PRN PRN Reason: Pain, moderate (4-7) Last Admin: 06/17/17 22:06 Dose: 2 mg Ondansetron HCl (Zofran Inj) 4 mg IVP Q6H PRN PRN Reason: Nausea/Vomiting Pantoprazole Sodium (Protonix Ec Tab) 20 mg PO 0600 [facility] Last Admin: 06/19/17 06:07 Dose: 20 mg Spironolactone (Aldactone) 50 mg PO DAILY [facility] Last Admin: 06/19/17 10:07 Dose: Not Given - Labs Labs: 06/19/17 06:00 06/19/17 06:00 - Constitutional Appears: No Acute Distress - Head Exam Head Exam: NORMOCEPHALIC - Eye Exam Eye Exam: Normal appearance. absent: Scleral icterus - ENT Exam ENT Exam: Mucous Membranes Moist - Neck Exam Neck Exam: Normal Inspection - Respiratory Exam Respiratory Exam: NORMAL BREATHING PATTERN. absent: Respiratory Distress - Cardiovascular Exam Cardiovascular Exam: +S1, +S2 - GI/Abdominal Exam GI & Abdominal Exam: Soft, Normal Bowel Sounds. absent: Guarding, Tenderness, Rebound - Neurological Exam Neurological Exam: Alert, Awake, Oriented x3 - Skin Skin Exam: Dry, Warm Assessment and Plan - Assessment and Plan (Free Text) Assessment: Assessment: History of stage IV metastatic adenocarcinoma of the colon with carcinomatosis Recurrent ascites status post aspira catheter, s/p drain Abdominal pain, patient had CT scan of abdomen and pelvis which shows persistent ascites and right-sided hydroureternephrosis h/O Constipation Diarrhea, maybe chemo induced, Cdiff negative x2 HTN PLAN: OFF flagyl now on PPN w/ lipids on aldactone monitor electrolytes on Po Keflex continue PPI DVT prophylaxsis diet as tolerated. pending CT scan of abdomen and pelvis,changed to no oral contrast Seen and discussed w/ Dr. House. <Kai House V - Last Filed: 06/19/17 22:59> Objective - Vital Signs/Intake and Output Vital Signs (last 24 hours): Temp Pulse Resp BP Pulse Ox 98 F 79 18 93/57 L 94 L 06/19/17 16:00 06/19/17 16:00 06/19/17 16:00 06/19/17 16:00 06/19/17 16:00 Intake and Output: 06/19/17 06/20/17 18:59 06:59 Intake Total 60 Output Total 200 Balance -140 - Medications Medications: Current Medications Aluminum Hydroxide (Aluminum Hydroxide Gel 320mg /5ml Susp (Bulk)) 30 ml PO ACHS [facility] Last Admin: 06/19/17 21:31 Dose: Not Given Cephalexin Monohydrate (Keflex) 500 mg PO Q6 [facility] PRN Reason: Protocol Stop: 06/21/17 18:00 Last Admin: 06/19/17 17:34 Dose: 500 mg Clonidine HCl (Catapres Tts1 0.1 Mg/24 Hr) 1 patch TD Q7D@1000 [facility] Heparin Sodium (Porcine) (Heparin) 5,000 units SC Q12 [facility] PRN Reason: Protocol Last Admin: 06/19/17 10:10 Dose: 5,000 units Albumin Human (Albumin Human 25% (25 Gm/100 Ml)) 100 mls @ 1 mls/min IVPB MON [facility] Stop: 06/23/17 13:39 Albumin Human (Albumin Human 25% (25 Gm/100 Ml)) 100 mls @ 60 mls/hr IV FRI ONE Stop: 06/27/17 11:39 Chromium/Copper/Manganese/Zinc 1 ml/ Multivitamins/Vitamin C 10 ml/ Insulin Human Regular 15 units/ Amino Acids 2,011.15 mls @ 83 mls/hr IV .Q24H [facility] Last Admin: 06/19/17 18:01 Dose: 83 mls/hr Insulin Human Regular (Humulin R Low) 0 units SC ACHS [facility] PRN Reason: Protocol Last Admin: 06/19/17 22:39 Dose: Not Given Lactobacillus Acidophilus (Bacid Acidophilus) 1 cap PO BID [facility] Last Admin: 06/19/17 17:33 Dose: 1 cap Lisinopril (Zestril) 20 mg PO DAILY [facility] Last Admin: 06/18/17 10:43 Dose: 20 mg Morphine Sulfate (Morphine) 2 mg IVP Q4H PRN PRN Reason: Pain, moderate (4-7) Last Admin: 06/17/17 22:06 Dose: 2 mg Ondansetron HCl (Zofran Inj) 4 mg IVP Q6H PRN PRN Reason: Nausea/Vomiting Pantoprazole Sodium (Protonix Ec Tab) 20 mg PO 0600 [facility] Last Admin: 06/19/17 06:07 Dose: 20 mg Spironolactone (Aldactone) 50 mg PO DAILY [facility] Last Admin: 06/19/17 10:07 Dose: Not Given - Labs Labs: 06/19/17 06:00 06/19/17 06:00 Attending/Attestation - Attestation I have personally seen and examined this patient.: Yes I have fully participated in the care of the patient.: Yes I have reviewed all pertinent clinical information, including history, physical exam and plan: Yes Notes (Text): This is an addendum to GI progress report dictated by Aletha Panda APN.The patient was seen and examined earlier. Medical records, lab studies, imagings were reviewed. Last 24 hours events reviewed. Agreed with the above treatment plan as outlined in lAetha Panda APN's notes the with the addition of the following aPenicillin she's leak by mouth intake remains poor Abdominal pain better Creatinine has jumped up to 2.5 metastatic colon carcinoma with a paracentesis carcinomatosis right hydronephrosis Acute kidney injury close renal follow up 06/19/17 22:57
--- NOTE | 2017-06-19 13:24 | CON ---
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 Diarrhea. Poor appetite. Severe malnutrition. The patient was initially admitted with abdominal pain. He was found to be constipated. He was given treatment for constipation, but started having diarrhea. Patient stopped eating because of concern about the diarrhea. The patient has a very poor appetite. His albumin is 3.2. 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 FAMILY HISTORY: Noncontributory. SOCIAL HISTORY: No smoking, no alcohol use, no IV drug abuse. ALLERGIES: NO KNOWN DRUG ALLERGIES. MEDICATIONS: List reviewed. REVIEW OF SYSTEMS: All systems are reviewed, pertinent positives as mentioned in the history of presenting illness, rest unremarkable. PHYSICAL EXAMINATION: GENERAL: Elderly male lying in bed, very apathetic. VITAL SIGNS: Blood pressure 124/74, heart rate 93, respiratory rate 18, temperature 98.4. HEENT: Normocephalic, atraumatic, positive pallor. NECK: Supple, no JVD. LUNGS: Bilateral equal air entry, bilateral equal expansion, no rales. CARDIAC: S1 and S2, regular rate and rhythm, no murmur, no rub. ABDOMEN: Distended, soft, tenderness in the upper quadrants, bowel sounds present. EXTREMITIES: No lower extremity edema. LABORATORY DATA: WBC 8.4, hemoglobin 11.1, hematocrit 33, platelets 265. Sodium 132, potassium 4.1, chloride 107, CO2 of 17, BUN 36, creatinine 1.8, glucose 360, calcium 7.7, AST 9, ALT 16, albumin 2.2. ASSESSMENT: 1. Severe malnutrition. 2. Stage IV metastatic colon cancer. 3. Vmn-opiooly-olggehhlx diabetes mellitus. 4. Hypertension. 5. Hypoalbuminemia. 6. LEATHA PLAN: 1. We will add insulin to the hyperal since sugar is high. 2. Pain management. 3. Push p.o. intake. 4. Acute kidney injury, patient has R hydronephroureter, needs urology f/u Thank you for the courtesy of this consultation. We will follow this patient with you. Gemini Leung MD [facility] # [id number] ODELL
--- NOTE | 2017-06-19 14:20 | PN ---
DATE: SUBJECTIVE: The patient is in bed, in no acute distress, and nontoxic. PHYSICAL EXAMINATION VITAL SIGNS: Temperature is 98, blood pressure 116/80, respiratory rate of 20, heart rate of 84. HEENT: Unremarkable. NECK: Supple. LUNGS: Decreased breath sounds. HEART: Normal S1 and S2. ABDOMEN: Soft and nontender. LABORATORY DATA: Revealed a white count of 8.8, hemoglobin of 10, platelets of 299, BUN of 51, and creatinine of 2.5. ASSESSMENT AND PLAN: A 71-year-old male with systemic inflammatory response syndrome secondary to malignancy with methicillin-resistant Staphylococcus aureus and catheter, peritoneal carcinomatosis, colon cancer, diabetes, coronary artery disease, bilateral lens implant, and on Keflex today #7 status post Port-A-Cath placement. We will Continue Keflex after today's last dose. Overall prognosis poor. Niraj Melton MD
[2017-06-19] MEDS: [UNRECOGNIZED DRUG - NUTRITION] IV SCH (18:01)
--- NOTE | 2017-06-19 18:50 | US ---
PROCEDURE: Ultrasound of the Kidneys HISTORY: LEATHA; hydronephrosis COMPARISON: 05/09/2017 renal ultrasound. June 19, 2017. CT abdomen and pelvis.. TECHNIQUE: Sonogram of the kidneys. FINDINGS: RIGHT KIDNEY: Measures: 6.8 x 11.6 cm. Normal in size, contour and echogenicity. Stable mild hydronephrosis. LEFT KIDNEY: Measures: 6 x 12.1 cm. Normal in size, contour and echogenicity. No stone, solid mass lesion or hydronephrosis visualized. OTHER FINDINGS: None. IMPRESSION: Unilateral and stable right hydronephrosis.
--- NOTE | 2017-06-19 20:29 | PN ---
DATE: 06/19/2017 SUBJECTIVE: The patient is seen lying in bed. He is awake, he is alert. He denies any pain. He denies any shortness of breath. Denies any urinary complaints. PHYSICAL EXAMINATION GENERAL: Elderly male lying in bed. VITAL SIGNS: Blood pressure 93/57, heart rate 79, respiratory rate 18, temperature 98. HEENT: Normocephalic, atraumatic. NECK: Supple, no JVD. LUNGS: Bilateral equal air entry, rales. CARDIAC: S1 and S2, regular rate and rhythm, no murmur, no rub. ABDOMEN: Obese, distended, positive tenderness, bowel sounds present. EXTREMITIES: No lower extremity edema. Intake and output not charted. LABORATORY DATA: WBC 8.8, hemoglobin 10.9, hematocrit 32, platelets 299. Sodium 134, potassium 4.5, chloride 110, CO2 16, BUN 51, creatinine 2.5, glucose 196, calcium 8.1, AST 10 and ALT 17, albumin 2.2. CURRENT MEDICATIONS: Aldactone 50 mg daily, Catapres #1 patch, acidophilus, insulin not given, Keflex, morphine, Protonix, normal saline at 100, Zestril 20 on hold, and Zofran. ASSESSMENT/PLAN: 1. Acute kidney injury, worsening renal function. 2. Stage IV colon cancer with intraperitoneal metastases. 3. History of right hydronephrosis. 4. Severe malnutrition. 5. Non-insulin dependent diabetes mellitus. 6. Hypertension. PLAN 1. Agree with holding CHRISTINE inhibitor. 2. Followup renal ultrasound. 3. Restart hyperal. 4. Monitor fingersticks. 5. Needs urology reevaluation Gemini Leung MD
[2017-06-20] MEDS: Morphine 2 mg/ml ISec IVP PRN (04:39)
[2017-06-20] MEDS: Pantoprazole 20 mg EC Tab PO SCH (05:02)
[2017-06-20 06:18] LABS: BASO # 0.05 K/mm3 (0.0-2.0); BASO % 0.8 % (0.0-3.0); EOS # 0.1 (0.0-0.7); EOS % 1.4 % (1.5-5.0); GRAN # 3.84 (1.4-6.5); HEMATOCRIT 28.9 % (42.0-52.0); LYMPH # 1.1 (1.2-3.4); LYMPH % 16.7 % (22.0-35.0); MEAN CELL VOLUME 90.9 fl (80.0-105.0); MEAN CORPUSCULAR HEMOGLOBIN 31.1 pg (25.0-35.0); MEAN CORPUSCULAR HGB CONC 34.3 g/dl (31.0-37.0); MEAN PLATELET VOLUME 10.3 fl (7.0-11.0); MONO # 1.4 (0.1-0.6); MONO % 21.1 % (1.0-6.0); RED CELL DISTRIBUTION WIDTH 14.7 % (11.5-14.5); WHITE BLOOD COUNT 6.4 10^3/ul (4.5-11.0)
[2017-06-20 06:30] LABS: ALB/GLOB RATIO 0.9 (1.1-1.8); BILIRUBIN,TOTAL 0.6 mg/dL (0.2-1.3); CALCIUM 7.9 mg/dL (8.4-10.5); POTASSIUM 4.5 mmol/L (3.6-5.0); TOTAL PROTEIN 4.3 g/dL (5.8-8.3)
[2017-06-20] MEDS: Insulin Reg-LOW-Coverage SC SCH (07:34)
[2017-06-20] MEDS: Aluminum Hydrox Gel 320 mg/5 ml Susp(480 ml) PO SCH ×4 (07:40→21:19)
--- NOTE | 2017-06-20 11:15 | PN ---
DATE: 06/20/2017 SUBJECTIVE: The patient is in bed and was seen earlier this morning. OBJECTIVE: VITAL SIGNS: On exam, temperature is 98, blood pressure is 112/70 and respiratory rate of 16. EXAMINATION OF HEENT: Unremarkable. NECK: Supple. LUNGS: Have decreased breath sounds. HEART EXAM: Normal S1 and S2. ABDOMEN EXAMINATION: Soft and nontender. LABORATORY EXAMINATION: Reveals a white count of 6.4, hemoglobin of 9 and platelets of 270. Chemistries reveal a BUN of 60 and creatinine of 3.1. Urinalysis is noted. Microbiology is noted. ASSESSMENT AND PLAN: A 71-year-old male with systemic inflammatory response syndrome secondary to malignancy with methicillin-resistant Staphylococcus aureus in the catheter tip rather, peritoneal carcinomatosis, colon cancer, diabetes, coronary artery disease, bilateral lens implants, has completed a Keflex therapy. We will discontinue the Keflex. Overall prognosis is poor. The patient has possible cysto today. We will follow with you. Niraj Melton MD
[2017-06-20] MEDS: Lactobacillus Acidophilus 500 MU Cap PO SCH ×2 (11:17→17:09)
[2017-06-20] MEDS: Insulin Reg-MEDIUM-Coverage SC SCH ×3 (11:30→21:50)
[2017-06-20] MEDS ORDERED: Sodium Chloride 0.9% 1,000 ML IV SCH (16:15)
--- NOTE | 2017-06-20 17:50 | CP.PCM.PN ---
<Jalen Cook - Last Filed: 06/20/17 17:47> Subjective - Date & Time of Evaluation Date of Evaluation: 06/20/17 Time of Evaluation: 09:00 - Subjective Subjective: Progress note for Dr. Vargas's service Patient seen and examined at bedside this morning. No acute overnight events or new complaints reported. He underwent stent placement by urology (Dr. Young) today due to worsening renal function thought to be secondary to right-sided hydronephrosis. Denies chest pain, palpitations, SOB, abdominal pain, nausea, vomiting. Objective - Vital Signs/Intake and Output Vital Signs (last 24 hours): Temp Pulse Resp BP Pulse Ox 97.8 F 77 14 119/72 98 06/20/17 17:13 06/20/17 17:13 06/20/17 17:13 06/20/17 17:13 06/20/17 17:13 Intake and Output: 06/20/17 06/20/17 06:59 18:59 Intake Total 60 Output Total 200 Balance -140 - Medications Medications: Current Medications Aluminum Hydroxide (Aluminum Hydroxide Gel 320mg /5ml Susp (Bulk)) 30 ml PO ACHS [facility] Last Admin: 06/20/17 17:09 Dose: Not Given Clonidine HCl (Catapres Tts1 0.1 Mg/24 Hr) 1 patch TD Q7D@1000 [facility] Heparin Sodium (Porcine) (Heparin) 5,000 units SC Q12 [facility] PRN Reason: Protocol Last Admin: 06/19/17 10:10 Dose: 5,000 units Albumin Human (Albumin Human 25% (25 Gm/100 Ml)) 100 mls @ 1 mls/min IVPB MON [facility] Stop: 06/23/17 13:39 Albumin Human (Albumin Human 25% (25 Gm/100 Ml)) 100 mls @ 60 mls/hr IV FRI ONE Stop: 06/27/17 11:39 Chromium/Copper/Manganese/Zinc 1 ml/ Multivitamins/Vitamin C 10 ml/ Insulin Human Regular 15 units/ Amino Acids 2,011.15 mls @ 83 mls/hr IV .Q24H [facility] Last Admin: 06/19/17 18:01 Dose: 83 mls/hr Sodium Chloride (Sodium Chloride 0.9%) 1,000 mls @ 60 mls/hr IV .[id number] [facility] PRN Reason: Protocol Last Admin: 06/20/17 16:20 Dose: 60 mls/hr Insulin Human Regular (Humulin R Med) 0 units SC ACHS [facility] PRN Reason: Protocol Last Admin: 06/20/17 17:20 Dose: 5 units Lactobacillus Acidophilus (Bacid Acidophilus) 1 cap PO BID [facility] Last Admin: 06/20/17 17:09 Dose: 1 cap Lisinopril (Zestril) 20 mg PO DAILY [facility] Last Admin: 06/18/17 10:43 Dose: 20 mg Morphine Sulfate (Morphine) 2 mg IVP Q4H PRN PRN Reason: Pain, moderate (4-7) Last Admin: 06/20/17 04:39 Dose: 2 mg Ondansetron HCl (Zofran Inj) 4 mg IVP Q6H PRN PRN Reason: Nausea/Vomiting Last Admin: 06/19/17 23:37 Dose: 4 mg Pantoprazole Sodium (Protonix Ec Tab) 20 mg PO 0600 [facility] Last Admin: 06/20/17 05:02 Dose: Not Given Spironolactone (Aldactone) 50 mg PO DAILY [facility] Last Admin: 06/20/17 11:17 Dose: Not Given - Labs Labs: 06/20/17 06:00 06/20/17 06:00 - Constitutional Appears: No Acute Distress - Head Exam Head Exam: ATRAUMATIC, NORMAL INSPECTION, NORMOCEPHALIC - Eye Exam Eye Exam: EOMI Pupil Exam: PERRL - Respiratory Exam Respiratory Exam: absent: Rales, Rhonchi, Wheezes - Cardiovascular Exam Cardiovascular Exam: RRR, +S1, +S2. absent: Clicks, Gallop, JVD, Rubs - GI/Abdominal Exam GI & Abdominal Exam: Soft. absent: Distended, Firm, Guarding, Tenderness, Rebound - Extremities Exam Extremities Exam: Normal Inspection. absent: Pedal Edema - Neurological Exam Neurological Exam: Alert, Awake, Oriented x3 Assessment and Plan - Assessment and Plan (Free Text) Plan: 71yo male with history of stage IV metastatic adenocarcinoma of the colon with recurrent ascites s/p aspira catheter placement that presented to [facility] c/o abdominal pain associated with nausea, vomiting and diarrhea. 1. Abdominal pain/Diarrhea -Diarrhea is likely secondary to chemotherapy treatment with Irinotecan -CT abd/pelvis reviewed; interval appearance of a tunneled drainage catheter within the abdomen with persistent ascites, persistent right-sided hydroureteronephrosis; see full report -Repeat CT abd/pelvis ordered; he is unable to tolerate PO contrast thus will proceed with dry scan -Diet advanced as tolerated -2500cc of Ascitic fluid removed previously from aspira catheter; 1000cc of fluid drained the following day and sent for gram stain/culture -First culture of ascitic fluid was notable for corynebacterium during which time he had been on meropenem per ID recommendations; repeat culture was done which has been negative thus far -Continue with keflex per ID recommendations -PPN for supplemental nutrition given poor PO intake as per nephrology recommendations -Cdiff negative -Evaluation by GI - Dr. House 2. stage IV metastatic adenocarcinoma of the colon -Patient with documented intraabdominal carcinomatosis treated with FOLFIRI and vectibix -PET scan from 03/06/17 revealed no evidence of FDG avid mass or nodules in the chest, abdomen and pelvis; Re-demonstration of multiple solid non FDG avid nodules in the lungs appear slightly larger compared to previous exam. See full report -Follows with Dr. Vargas as an outpatient 3. Acute kidney injury -Patient with history of right sided hydronephrosis now with rising creatinine over the last 2 days -Renal US revealed stable right-sided hydronephrosis -Bladder scan revealed no post-void residual volume -Urology consulted and patient was taken for stent placement this morning -Nephrology following - Dr. Leung 4. DM type 2 -Fingersticks ACHS -Insulin sliding scale 5. Hypertension -Continue with clonidine, lisinopril and aldactone 6. GI/DVT Prophylaxis -Protonix/heparin SC Patient seen and case discussed with attending, Dr. Vargas <Hung Vargas P - Last Filed: 06/21/17 13:44> Objective - Vital Signs/Intake and Output Vital Signs (last 24 hours): Temp Pulse Resp BP Pulse Ox 98.2 F 107 H 20 105/68 97 06/21/17 10:56 06/21/17 10:56 06/21/17 10:56 06/21/17 10:56 06/21/17 10:56 - Medications Medications: Current Medications Aluminum Hydroxide (Aluminum Hydroxide Gel 320mg /5ml Susp (Bulk)) 30 ml PO ACHS [facility] Last Admin: 06/21/17 12:04 Dose: Not Given Clonidine HCl (Catapres Tts1 0.1 Mg/24 Hr) 1 patch TD Q7D@1000 [facility] Heparin Sodium (Porcine) (Heparin) 5,000 units SC Q12 [facility] PRN Reason: Protocol Last Admin: 06/19/17 10:10 Dose: 5,000 units Albumin Human (Albumin Human 25% (25 Gm/100 Ml)) 100 mls @ 1 mls/min IVPB MON [facility] Stop: 06/23/17 13:39 Albumin Human (Albumin Human 25% (25 Gm/100 Ml)) 100 mls @ 60 mls/hr IV FRI ONE Stop: 06/27/17 11:39 Chromium/Copper/Manganese/Zinc 1 ml/ Multivitamins/Vitamin C 10 ml/ Insulin Human Regular 15 units/ Amino Acids 2,011.15 mls @ 83 mls/hr IV .Q24H [facility] Last Admin: 06/21/17 02:15 Dose: 83 mls/hr Insulin Human Regular (Humulin R Med) 0 units SC ACHS [facility] PRN Reason: Protocol Last Admin: 06/21/17 12:04 Dose: 5 units Lactobacillus Acidophilus (Bacid Acidophilus) 1 cap PO BID [facility] Last Admin: 06/21/17 09:48 Dose: 1 cap Lisinopril (Zestril) 20 mg PO DAILY [facility] Last Admin: 06/18/17 10:43 Dose: 20 mg Morphine Sulfate (Morphine) 2 mg IVP Q4H PRN PRN Reason: Pain, moderate (4-7) Last Admin: 06/20/17 04:39 Dose: 2 mg Ondansetron HCl (Zofran Inj) 4 mg IVP Q6H PRN PRN Reason: Nausea/Vomiting Last Admin: 06/19/17 23:37 Dose: 4 mg Pantoprazole Sodium (Protonix Ec Tab) 20 mg PO 0600 [facility] Last Admin: 06/21/17 05:43 Dose: 20 mg Spironolactone (Aldactone) 50 mg PO DAILY [facility] Last Admin: 06/21/17 09:48 Dose: 50 mg - Labs Labs: 06/21/17 05:30 06/21/17 05:30 Attending/Attestation - Attestation I have personally seen and examined this patient.: Yes I have fully participated in the care of the patient.: Yes I have reviewed all pertinent clinical information, including history, physical exam and plan: Yes
--- NOTE | 2017-06-20 18:31 | PN ---
DATE: 06/20/2017 SUBJECTIVE: The patient is seen lying in bed. He is on his way to cystoscopy. He denies any pain. He denies any shortness of breath. PHYSICAL EXAMINATION: GENERAL: Elderly male lying in bed. VITAL SIGNS: Blood pressure 95/60, heart rate 79, respiratory rate 18, temperature 98. HEENT: Normocephalic, atraumatic. NECK: Supple, no JVD. LUNGS: Bilateral equal air entry. CARDIAC: S1 and S2, regular rate and rhythm, no murmur, no rub. ABDOMEN: Obese, distended, soft, bowel sounds present. EXTREMITIES: No lower extremity edema. INTAKE AND OUTPUT: 60/200. LABORATORY DATA: WBC 6.4, hemoglobin 9.9, hematocrit 28.9, platelets 270. Sodium 133, potassium 4.5, chloride 111, CO2 of 16, BUN 60, creatinine 3.1, glucose 302, calcium 7.9, AST 12, ALT 31, albumin 2.1. ASSESSMENT: 1. Acute kidney injury, history of right hydronephrosis. 2. Anion gap metabolic acidosis. 3. Stage IV adenocarcinoma of the omentum. 4. Intraperitoneal carcinomatosis. 5. Nausea. PLAN: 1. Monitor urine output after cystoscopy. 2. Follow daily labs. 3. Continue hyperalimentation. 4. Close follow up. Gemini Leung MD
[2017-06-21] MEDS: [UNRECOGNIZED DRUG - NUTRITION] IV SCH ×2 (02:15→18:36)
[2017-06-21] MEDS: Pantoprazole 20 mg EC Tab PO SCH (05:43)
[2017-06-21 06:19] LABS: BASO # 0.04 K/mm3 (0.0-2.0); BASO % 0.5 % (0.0-3.0); EOS # 0.1 (0.0-0.7); EOS % 1.4 % (1.5-5.0); GRAN # 4.8 (1.4-6.5); GRAN % 62.6 % (50.0-68.0); HEMATOCRIT 30.9 % (42.0-52.0); LYMPH % 12.8 % (22.0-35.0); MEAN CELL VOLUME 90.6 fl (80.0-105.0); MEAN CORPUSCULAR HEMOGLOBIN 31.1 pg (25.0-35.0); MEAN CORPUSCULAR HGB CONC 34.3 g/dl (31.0-37.0); MEAN PLATELET VOLUME 10.3 fl (7.0-11.0); MONO # 1.7 (0.1-0.6); MONO % 22.7 % (1.0-6.0); RED CELL DISTRIBUTION WIDTH 14.9 % (11.5-14.5); WHITE BLOOD COUNT 7.7 10^3/ul (4.5-11.0)
[2017-06-21 06:25] LABS: ALB/GLOB RATIO 0.9 (1.1-1.8); BILIRUBIN,TOTAL 0.5 mg/dL (0.2-1.3); CALCIUM 7.6 mg/dL (8.4-10.5); POTASSIUM 4.7 mmol/L (3.6-5.0); TOTAL PROTEIN 4.8 g/dL (5.8-8.3)
[2017-06-21] MEDS: Insulin Reg-MEDIUM-Coverage SC SCH ×4 (06:51→22:39)
[2017-06-21] MEDS: Aluminum Hydrox Gel 320 mg/5 ml Susp(480 ml) PO SCH ×4 (08:09→21:20)
[2017-06-21] MEDS: Lactobacillus Acidophilus 500 MU Cap PO SCH ×2 (09:48→18:36)
--- NOTE | 2017-06-21 14:39 | PN ---
DATE: 06/21/2017 SUBJECTIVE: The patient is in bed, in no acute distress, nontoxic. PHYSICAL EXAMINATION VITAL SIGNS: Temperature is 97, blood pressure is 119/70, respiratory rate of 18, and a heart rate of 77. HEENT: Unremarkable. NECK: Supple. LUNGS: Have decreased breath sounds. HEART: Exam has normal S1 and S2. ABDOMEN: Examination is soft and nontender. LABORATORY EXAMINATION: Reveals a white count of 7.7, hemoglobin of 10, and platelets of 302. BUN of 68 and creatinine of 3.2. Urinalysis is noted and microbiology is noted. ASSESSMENT AND PLAN: A 71-year-old male with systemic inflammatory response syndrome secondary to malignancy with methicillin-resistant Staphylococcus aureus in culture, peritoneal carcinomatosis, colon cancer, diabetes, coronary artery disease, bilateral lens implants, has completed the Keflex therapy. Currently, the patient is off of antibiotics, afebrile, and overall prognosis is poor. Dr. Jalen Cook's note is reviewed and the patient had underwent a stent placement by Dr. Young, insertion of a pigtail stent that was done yesterday. We will follow with you. Niraj Melton MD
--- NOTE | 2017-06-21 19:25 | PN ---
DATE: 06/21/2017 SUBJECTIVE: This patient was seen and evaluated earlier today. The patient was feeling much comfortable. No diarrhea. Denies abdominal pain, also has significantly improved. PHYSICAL EXAMINATION: VITAL SIGNS: Temperature 98.3, pulse 91, blood pressure 128/76, respiration 20, and O2 saturation 99%. HEENT: Atraumatic. Anicteric. NECK: Supple. HEART: S1 and S2 heard. LUNGS: Bilateral air entry present. ABDOMEN: Soft. Softly distended. There is no significant tenderness now. EXTREMITIES: Mild edema present. NEUROLOGICAL: Alert, oriented, moves all the extremities. LABORATORY DATA: Hemoglobin 10.6, hematocrit 30.9, WBC 6.7, and platelets 302. Chemistry: Creatinine is still elevated at 3.2, BUN 68, and alkaline phosphatase is 159. IMPRESSION: This is a 71-year-old patient with metastatic colon cancer with carcinomatosis, admitted with right-sided abdominal pain. The patient had fecal impaction. The constipation improved with the loose bowel movements. Subsequently, the patient did develop more diarrhea, which is now slowly subsiding. The patient also has acute kidney injury, right hydronephrosis status post stent placement. Renal function still remains elevated. Significant improvement in abdominal pain and also diarrhea, slowly diet has been advanced. We will give the stool softeners on a p.r.n. basis to avoid constipation; since the patient has significant diarrhea before, we will hold off at the present time. We will continue to closely follow up his care and suggest further management based on the clinical course. Kai House MD
[2017-06-22] MEDS: [UNRECOGNIZED DRUG - NUTRITION] IV SCH (04:59)
[2017-06-22] MEDS: Pantoprazole 20 mg EC Tab PO SCH (05:21)
[2017-06-22 06:10] LABS: BASO # 0.03 K/mm3 (0.0-2.0); BASO % 0.3 % (0.0-3.0); EOS # 0.1 (0.0-0.7); EOS % 1.5 % (1.5-5.0); GRAN # 5.75 (1.4-6.5); GRAN % 66.8 % (50.0-68.0); HEMATOCRIT 33.8 % (42.0-52.0); LYMPH # 0.8 (1.2-3.4); LYMPH % 9.8 % (22.0-35.0); MEAN CELL VOLUME 90.4 fl (80.0-105.0); MEAN CORPUSCULAR HGB CONC 34.3 g/dl (31.0-37.0); MEAN PLATELET VOLUME 10.4 fl (7.0-11.0); MONO # 1.9 (0.1-0.6); MONO % 21.6 % (1.0-6.0); PLATELET COUNT 320 10^3/uL (120.0-450.0); WHITE BLOOD COUNT 8.6 10^3/ul (4.5-11.0)
[2017-06-22 06:30] LABS: ALB/GLOB RATIO 0.9 (1.1-1.8); BILIRUBIN,TOTAL 0.6 mg/dL (0.2-1.3); CALCIUM 8.3 mg/dL (8.4-10.5); POTASSIUM 4.9 mmol/L (3.6-5.0); TOTAL PROTEIN 5.2 g/dL (5.8-8.3)
[2017-06-22 06:48] LABS: NEUTROPHIL 49 % (50.0-70.0)
[2017-06-22 06:50] LABS: BAND 11 % (0-2); BASOPHIL 2 % (0.0-1.0); EOSINOPHIL 3 % (0.0-3.0); PLATELET ESTIMATE NORMAL (NORMAL)
[2017-06-22] MEDS: Insulin Reg-MEDIUM-Coverage SC SCH ×4 (07:02→22:34)
[2017-06-22] MEDS: Aluminum Hydrox Gel 320 mg/5 ml Susp(480 ml) PO SCH ×3 (08:16→18:20)
[2017-06-22] MEDS: Lactobacillus Acidophilus 500 MU Cap PO SCH (10:40)
--- NOTE | 2017-06-22 11:57 | PN ---
DATE: 06/22/2017 SUBJECTIVE: The patient is in bed, in no acute distress, and nontoxic. PHYSICAL EXAMINATION: VITAL SIGNS: On exam, the patient's temperature is 98, blood pressure is 140/70, respiratory rate of 18, and heart rate of 91. HEENT: Examination of HEENT is unremarkable. NECK: Supple. LUNGS: Decreased breath sounds. HEART: Normal S1 and S2. GASTROINTESTINAL: Abdominal examination is soft and nontender. LABORATORY DATA: Examination reveals a white count is 8.6, hemoglobin of 11, and platelets of 320. The patient does have 11% bandemia. Chemistries reveals the patient has a BUN of 70 and creatinine of 2.3. Urinalysis is noted and microbiology is reviewed. MEDICATIONS: Review of orders reveals the patient to have no antibiotics. ASSESSMENT AND PLAN: This is a 71-year-old male with systemic inflammatory response syndrome secondary to malignancy with a methicillin-resistant Staphylococcus aureus from a culture and also with peritoneal carcinomatosis, colon cancer, diabetes, coronary artery disease, bilateral lens implants, completed therapy with Keflex and currently off of antibiotics. The patient does have systemic inflammatory response syndrome with tachycardia and 11% bandemia however, clinically the patient does not appear to be any different and metastatic colon cancer with carcinomatosis and persistent pain and fecal impaction. We will continue to follow closely, he is at risk for developing nosocomial infections. Overall prognosis poor. Niraj Melton MD
[2017-06-22] MEDS ORDERED: [UNRECOGNIZED DRUG - NUTRITION] IV SCH ×2 (12:38→12:45)
--- NOTE | 2017-06-22 13:34 | RAD ---
HISTORY: nausea/vomiting COMPARISON: Comparison made with CT scan and plain film radiographs of the abdomen pelvis dated 06/19/2017 and 06/14/2017 respectively. FINDINGS: BOWEL: Multiple distended air-filled loops of small bowel. Air is also seen within the large bowel however most of the large bowel appears collapsed. Findings could represent small-bowel obstruction given the presence of a ventral wall hernia which contains a loop of small bowel seen and described on prior CT scan. . . BONES: Normal. OTHER FINDINGS: In situ right ureteral stent. None. Re- demonstrated is intraperitoneal catheter along the right lateral abdominal wall IMPRESSION: Questionable small-bowel obstruction as due to a ventral wall hernia which contains a loop of small bowel as detailed above. In situ right ureteral stent. All tech ureteral stent
--- NOTE | 2017-06-22 14:55 | PN ---
DATE: 06/21/2017 SUBJECTIVE: The patient is seen lying in bed. He is awake, he is alert. He denies any pain. He denies any shortness of breath. He is not eating. Appetite is poor. PHYSICAL EXAMINATION: GENERAL EXAMINATION: Elderly male, lying in bed. VITAL SIGNS: Blood pressure 105/68, heart rate 107, respiratory rate 20 and temperature 98.2. HEENT: Normocephalic and atraumatic. NECK: Supple. No JVD. LUNGS: Bilateral equal air entry. No rales. CARDIAC: S1 and S2. Regular rate and rhythm. No murmur. No rub. ABDOMEN: Distended, soft. Positive tenderness, diffuse. Bowel sounds present. EXTREMITIES: No lower extremity edema. INTAKE AND OUTPUT: Not charted. LABORATORY DATA: WBC 7.7, hemoglobin 10.6, hematocrit 30.9 and platelets 302. Sodium 133, potassium 4.7, chloride 108, CO2 of 14, BUN 68, creatinine 3.2, glucose 296, calcium 7.9, AST 13, ALT 23, albumin 2.3. MEDICATIONS: List reviewed. ASSESSMENT: 1. Acute kidney injury. 2. Status post cystoscopy and stent placement in the right kidney. 3. 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 4. Acb-yrhqofg-rlygiyynx diabetes mellitus. 5. Hypertension. 6. Malnutrition. PLAN: 1. Continue hyperalimentation. 2. Monitor labs closely. 3. Increase insulin and hyperalimentation. Gemini Leung MD
[2017-06-22] MEDS: Sodium Chloride 0.9% 1,000 ML IV SCH (17:48)
[2017-06-22] MEDS: [UNRECOGNIZED DRUG - NUTRITION] IV SCH (18:12)
--- NOTE | 2017-06-22 18:56 | CP.PCM.CON ---
History of Present Illness - History of Present Illness History of Present Illness: General Surgery- Dr. Alaniz 71M PMHx of stage IV metastatic adenocarcinoma of the colon, intraperitoneal carcinomatosis, recurrent ascities, malnutrition c/o epigastric abdominal pain associated with nausea, vomiting and diarrhea for more than one week duration. He reported lack of appetite and approximately 3-4/10 non-radiating abdominal pain. he [place] [facility] [place] and [place] workup. diarrhea was attributed to his chemotherapy treatment with irinotecan. He was started on antibiotics per ID recommendations and his diet was advanced as tolerated. He was also given PPN for nutritional supplementation. He was subsequently transferred to the transitional care unit for physical strengthening due to deconditioning and nutritional support. Surgery was consulted due to continued abdominal pain for possible small bowel obstruction seen on imaging. Pt currently c/o continued crampy abdominal pain with last reported BM 2 days ago. Pt currently passing flatus. Ventral hernia was reduced upon encounter. Denies: F/C CP/SOB numbness/tingling in extremities, GARDUNO, Double vision, vomiting PMHx: stage IV adenocarcinoma of the colon, intraperitoneal carcinomatosis, ascities, PR, DM II, HTN, currently undergoing chemotherapy PSHx: aspira catheter placement, ex-lap w/ biopsies in 2014, I&D of neck and scalp abscess, ureteral pigtail stent, Aspira catheter placement Allergies: NKDA Social Hx: denies alcohol, tobacco and illicit drug use Review of Systems - Review of Systems All systems: reviewed and no additional remarkable complaints except - Constitutional Constitutional: As Per HPI Past Patient History - Infectious Disease Hx of Infectious Diseases: None - Tetanus Immunizations Tetanus Immunization: Unknown - Past Social History Smoking Status: Former Smoker - CARDIAC Hx Cardiac Disorders: Yes Hx Hypertension: Yes - PULMONARY Hx Respiratory Disorders: Yes (SMOKED 4 PPD CIGARETTES QUIT 1967) - NEUROLOGICAL Hx Paralysis: No - HEENT Hx HEENT Problems: Yes (RX GLASSES) Hx Cataracts: Yes (BILATERAL LENS IMPLANT) - RENAL Hx Chronic Kidney Disease: No - ENDOCRINE/METABOLIC Hx Diabetes Mellitus Type 2: Yes - HEMATOLOGICAL/ONCOLOGICAL Hx Blood Transfusions: No Hx Blood Transfusion Reaction: No - INTEGUMENTARY Hx Dermatological Problems: Yes (H/O CELLULITIS ABSCESS TO NECK AREA) - MUSCULOSKELETAL/RHEUMATOLOGICAL Hx Musculoskeletal Disorders: No - GASTROINTESTINAL Hx Gastrointestinal Disorders: Yes (COLON CA STAGE 4,PERITONEAL CA-FOLFOX, GASTRITIS,MALNUTRITION,GERD) - GENITOURINARY/GYNECOLOGICAL Hx Genitourinary Disorders: No Hx Reproductive Disorders: No - PSYCHIATRIC Hx Substance Use: No - SURGICAL HISTORY Hx Surgeries: Yes (L MENISCUS REPAIR) - ANESTHESIA Hx Anesthesia Reactions: No Hx Malignant Hyperthermia: No Meds Allergies/Adverse Reactions: Allergies Allergy/AdvReac Type Severity Reaction Status Date / Time No Known Allergies Allergy Verified 06/17/17 23:09 - Medications Medications: Current Medications Clonidine HCl (Catapres Tts1 0.1 Mg/24 Hr) 1 patch TD Q7D@1000 [facility] Famotidine (Pepcid) 20 mg IVP DAILY [facility] Heparin Sodium (Porcine) (Heparin) 5,000 units SC Q12 [facility] PRN Reason: Protocol Last Admin: 06/19/17 10:10 Dose: 5,000 units Albumin Human (Albumin Human 25% (25 Gm/100 Ml)) 100 mls @ 1 mls/min IVPB MON [facility] Stop: 06/23/17 13:39 Albumin Human (Albumin Human 25% (25 Gm/100 Ml)) 100 mls @ 60 mls/hr IV FRI ONE Stop: 06/27/17 11:39 Chromium/Copper/Manganese/Zinc 1 ml/ Multivitamins/Vitamin C 10 ml/ Insulin Human Regular 25 units/ Amino Acids 2,011.25 mls @ 83 mls/hr IV .Q24H [facility] Last Admin: 06/22/17 18:12 Dose: 83 mls/hr Sodium Chloride (Sodium Chloride 0.9%) 1,000 mls @ 100 mls/hr IV .Q10H [facility] Last Admin: 06/22/17 17:48 Dose: 100 mls/hr Insulin Human Regular (Humulin R Med) 0 units SC ACHS [facility] PRN Reason: Protocol Last Admin: 06/22/17 17:46 Dose: 7 units Ondansetron HCl (Zofran Inj) 4 mg IVP Q6H PRN PRN Reason: Nausea/Vomiting Last Admin: 06/22/17 08:13 Dose: 4 mg Physical Exam - Constitutional Appears: Non-toxic, No Acute Distress - Head Exam Head Exam: ATRAUMATIC - Eye Exam Eye Exam: EOMI. absent: Scleral icterus - ENT Exam ENT Exam: Mucous Membranes Dry - Respiratory Exam Respiratory Exam: NORMAL BREATHING PATTERN. absent: Accessory Muscle Use, Respiratory Distress - Cardiovascular Exam Cardiovascular Exam: Tachycardia, +S1, +S2 - GI/Abdominal Exam GI & Abdominal Exam: Distended, Guarding, Hernia, Soft. absent: Firm, Rigid Additional comments: Voluntary guarding Ventral hernia w/ reducible contents. no sign of incarceration or strangulation - Back Exam Back exam: absent: CVA tenderness (L), CVA tenderness (R) - Neurological Exam Neurological exam: Alert, Oriented x3 - Skin Skin Exam: Dry Results - Vital Signs Recent Vital Signs: Last Vital Signs Temp 98.3 F 06/22/17 06:00 Pulse 90 06/22/17 06:00 Resp 20 06/22/17 06:00 BP 146/78 06/22/17 06:00 Pulse Ox 97 06/22/17 06:00 - Labs Result Diagrams: 06/22/17 05:45 06/22/17 05:45 Labs: Laboratory Results - last 24 hr 06/21/17 06/21/17 06/21/17 06:12 11:14 16:29 WBC RBC Hgb Hct MCV MCH MCHC RDW Plt Count MPV Gran % Lymph % (Auto) Piatt % (Auto) Eos % (Auto) Baso % (Auto) Gran # Lymph # Piatt # Eos # Baso # Neutrophils % (Manual) Band Neutrophils % Lymphocytes % (Manual) Monocytes % (Manual) Eosinophils % (Manual) Basophils % (Manual) Platelet Evaluation Sodium Potassium Chloride Carbon Dioxide Anion Gap BUN Creatinine Est GFR ( Amer) Est GFR (Non-Af Amer) POC Glucose (mg/dL) 380 H 285 H 248 H Random Glucose Calcium Total Bilirubin AST ALT Alkaline Phosphatase Total Protein Albumin Globulin Albumin/Globulin Ratio 06/21/17 06/22/17 06/22/17 22:16 04:45 05:45 WBC 8.6 RBC 3.74 Hgb 11.6 L Hct 33.8 L MCV 90.4 MCH 31.0 MCHC 34.3 RDW 15.0 H Plt Count 320 MPV 10.4 Gran % 66.8 Lymph % (Auto) 9.8 L Piatt % (Auto) 21.6 H Eos % (Auto) 1.5 Baso % (Auto) 0.3 Gran # 5.75 Lymph # 0.8 L Piatt # 1.9 H Eos # 0.1 Baso # 0.03 Neutrophils % (Manual) 49 L Band Neutrophils % 11 H* Lymphocytes % (Manual) 12 L Monocytes % (Manual) 23 H Eosinophils % (Manual) 3 Basophils % (Manual) 2 H Platelet Evaluation Normal Sodium Potassium Chloride Carbon Dioxide Anion Gap BUN Creatinine Est GFR ( Amer) Est GFR (Non-Af Amer) POC Glucose (mg/dL) 331 H 388 H Random Glucose Calcium Total Bilirubin AST ALT Alkaline Phosphatase Total Protein Albumin Globulin Albumin/Globulin Ratio 06/22/17 06/22/17 06/22/17 05:45 12:10 16:45 WBC RBC Hgb Hct MCV MCH MCHC RDW Plt Count MPV Gran % Lymph % (Auto) Piatt % (Auto) Eos % (Auto) Baso % (Auto) Gran # Lymph # Piatt # Eos # Baso # Neutrophils % (Manual) Band Neutrophils % Lymphocytes % (Manual) Monocytes % (Manual) Eosinophils % (Manual) Basophils % (Manual) Platelet Evaluation Sodium 134 Potassium 4.9 Chloride 107 Carbon Dioxide 17 L Anion Gap 15 BUN 70 H Creatinine 2.3 H Est GFR ( Amer) 34 Est GFR (Non-Af Amer) 28 POC Glucose (mg/dL) 486 H* 344 H Random Glucose 353 H* Calcium 8.3 L Total Bilirubin 0.6 AST 50 ALT 31 Alkaline Phosphatase 396 H D Total Protein 5.2 L Albumin 2.5 L Globulin 2.7 Albumin/Globulin Ratio 0.9 L Assessment & Plan - Assessment and Plan (Free Text) Assessment: 71M pmhx Stage IV metastatic colon cancer, intraperitoneal carcinomatosis; possible Small bowel obstruction Dilated Loops of small bowel on AXR Ventral Hernia with defect, bowel contents easily reducible Plan: - NPO for now - suppository to help with bowel function - monitor in TCU over night, if pt vomits, plan to transfer to med-surg for NGT and repeat CT - c/w IVF - medical management per primary team - GI recs appreciated - monitor drain outputs - further recs per Dr. Katty Stroud PGY1
--- NOTE | 2017-06-22 22:06 | CP.PCM.PN ---
Subjective - Date & Time of Evaluation Date of Evaluation: 06/21/17 Time of Evaluation: 18:00 - Subjective Subjective: No acute events 12 ROs negative Pain denies Objective - Vital Signs/Intake and Output Vital Signs (last 24 hours): Temp Pulse Resp BP Pulse Ox 98.3 F 90 20 146/78 97 06/22/17 06:00 06/22/17 06:00 06/22/17 06:00 06/22/17 06:00 06/22/17 06:00 Intake and Output: 06/22/17 06/23/17 18:59 06:59 Intake Total 60 Output Total 250 Balance -190 - Medications Medications: Current Medications Bisacodyl (Dulcolax) 10 mg RC ONCE PRN PRN Reason: Constipation Clonidine HCl (Catapres Tts1 0.1 Mg/24 Hr) 1 patch TD Q7D@1000 [facility] Famotidine (Pepcid) 20 mg IVP DAILY [facility] Heparin Sodium (Porcine) (Heparin) 5,000 units SC Q12 [facility] PRN Reason: Protocol Last Admin: 06/19/17 10:10 Dose: 5,000 units Albumin Human (Albumin Human 25% (25 Gm/100 Ml)) 100 mls @ 1 mls/min IVPB MON [facility] Stop: 06/23/17 13:39 Albumin Human (Albumin Human 25% (25 Gm/100 Ml)) 100 mls @ 60 mls/hr IV [facility] ONE Stop: 06/27/17 11:39 Chromium/Copper/Manganese/Zinc 1 ml/ Multivitamins/Vitamin C 10 ml/ Insulin Human Regular 25 units/ Amino Acids 2,011.25 mls @ 83 mls/hr IV .Q24H [facility] Last Admin: 06/22/17 18:12 Dose: 83 mls/hr Sodium Chloride (Sodium Chloride 0.9%) 1,000 mls @ 100 mls/hr IV .Q10H [facility] Last Admin: 06/22/17 17:48 Dose: 100 mls/hr Insulin Human Regular (Humulin R Med) 0 units SC ACHS [facility] PRN Reason: Protocol Last Admin: 06/22/17 17:46 Dose: 7 units Ondansetron HCl (Zofran Inj) 4 mg IVP Q6H PRN PRN Reason: Nausea/Vomiting Last Admin: 06/22/17 08:13 Dose: 4 mg - Labs Labs: 06/22/17 05:45 06/22/17 05:45 - Constitutional Appears: Well - Respiratory Exam Respiratory Exam: Clear to Ausculation Bilateral, NORMAL BREATHING PATTERN - Cardiovascular Exam Cardiovascular Exam: REGULAR RHYTHM, +S1, +S2. absent: Murmur - GI/Abdominal Exam GI & Abdominal Exam: Distended, Soft, Normal Bowel Sounds Additional comments: reducible ventral hernia present - Extremities Exam Extremities Exam: Full ROM, Normal Capillary Refill, Normal Inspection. absent : Joint Swelling, Pedal Edema Assessment and Plan - Assessment and Plan (Free Text) Plan: 71yo male with history of stage IV metastatic adenocarcinoma of the colon with recurrent ascites s/p aspira catheter placement that presented to [facility] [place] c/o abdominal pain associated with nausea, vomiting and diarrhea. 1. Abdominal pain/Diarrhea -Diarrhea is likely secondary to chemotherapy treatment with Irinotecan -CT abd/pelvis reviewed; interval appearance of a tunneled drainage catheter within the abdomen with persistent ascites, persistent right-sided hydroureteronephrosis; see full report -Repeat CT abd/pelvis ordered; he is unable to tolerate PO contrast thus will proceed with dry scan -Diet advanced as tolerated -2500cc of Ascitic fluid removed previously from aspira catheter; 1000cc of fluid drained the following day and sent for gram stain/culture -First culture of ascitic fluid was notable for corynebacterium during which time he had been on meropenem per ID recommendations; repeat culture was done which has been negative thus far -Continue with keflex per ID recommendations -PPN for supplemental nutrition given poor PO intake as per nephrology recommendations -Cdiff negative -Evaluation by GI - Dr. House 2. stage IV metastatic adenocarcinoma of the colon -Patient with documented intraabdominal carcinomatosis treated with FOLFIRI and vectibix -PET scan from 03/06/17 revealed no evidence of FDG avid mass or nodules in the chest, abdomen and pelvis; Re-demonstration of multiple solid non FDG avid nodules in the lungs appear slightly larger compared to previous exam. See full report -Follows with Dr. Vargas as an outpatient 3. Acute kidney injury -Patient with history of right sided hydronephrosis now with rising creatinine over the last 2 days -Renal US revealed stable right-sided hydronephrosis -Bladder scan revealed no post-void residual volume -Urology consulted and patient was taken for stent placement this morning -Nephrology following - Dr. Leung 4. DM type 2 -Fingersticks ACHS -Insulin sliding scale 5. Hypertension -Continue with clonidine, lisinopril and aldactone 6. GI/DVT Prophylaxis -Protonix/heparin SC
--- NOTE | 2017-06-22 22:18 | CP.PCM.PN ---
Subjective - Date & Time of Evaluation Date of Evaluation: 06/22/17 Time of Evaluation: 15:00 - Subjective Subjective: Patient noted to have some billious emesis this AM. Patient made NPO and obtained abdominal plain film. He feels better after stopping PO intake. No repeat bouts of emesis. Passing flatus; denies abdominal pain ROS: 12 ROS otherwise negative pain: denies Objective - Vital Signs/Intake and Output Vital Signs (last 24 hours): Temp Pulse Resp BP Pulse Ox 98.3 F 90 20 146/78 97 06/22/17 06:00 06/22/17 06:00 06/22/17 06:00 06/22/17 06:00 06/22/17 06:00 Intake and Output: 06/22/17 06/23/17 18:59 06:59 Intake Total 60 Output Total 250 Balance -190 - Medications Medications: Current Medications Bisacodyl (Dulcolax) 10 mg RC ONCE PRN PRN Reason: Constipation Clonidine HCl (Catapres Tts1 0.1 Mg/24 Hr) 1 patch TD Q7D@1000 [facility] Famotidine (Pepcid) 20 mg IVP DAILY [facility] Heparin Sodium (Porcine) (Heparin) 5,000 units SC Q12 [facility] PRN Reason: Protocol Last Admin: 06/19/17 10:10 Dose: 5,000 units Albumin Human (Albumin Human 25% (25 Gm/100 Ml)) 100 mls @ 1 mls/min IVPB MON [facility] Stop: 06/23/17 13:39 Albumin Human (Albumin Human 25% (25 Gm/100 Ml)) 100 mls @ 60 mls/hr IV FRI ONE Stop: 06/27/17 11:39 Chromium/Copper/Manganese/Zinc 1 ml/ Multivitamins/Vitamin C 10 ml/ Insulin Human Regular 25 units/ Amino Acids 2,011.25 mls @ 83 mls/hr IV .Q24H [facility] Last Admin: 06/22/17 18:12 Dose: 83 mls/hr Sodium Chloride (Sodium Chloride 0.9%) 1,000 mls @ 100 mls/hr IV .Q10H [facility] Last Admin: 06/22/17 17:48 Dose: 100 mls/hr Insulin Human Regular (Humulin R Med) 0 units SC ACHS [facility] PRN Reason: Protocol Last Admin: 10/15/17 17:46 Dose: 7 units Ondansetron HCl (Zofran Inj) 4 mg IVP Q6H PRN PRN Reason: Nausea/Vomiting Last Admin: 06/22/17 08:13 Dose: 4 mg - Labs Labs: 06/22/17 05:45 06/22/17 05:45 - Constitutional Appears: Non-toxic - Respiratory Exam Respiratory Exam: Clear to Ausculation Bilateral, NORMAL BREATHING PATTERN - Cardiovascular Exam Cardiovascular Exam: REGULAR RHYTHM, +S1, +S2. absent: Murmur - GI/Abdominal Exam GI & Abdominal Exam: Tenderness, Hypoactive Bowel Sounds. absent: Guarding, Rigid, Diminished Bowel Sounds Additional comments: reducible ventral hernia present Assessment and Plan - Assessment and Plan (Free Text) Plan: 71yo male with history of stage IV metastatic adenocarcinoma of the colon with recurrent ascites s/p aspira catheter placement that presented to [facility] c/o abdominal pain associated with nausea, vomiting and diarrhea. Patient noted to have billious emesis today and abdominal XR c/w partial bowel obstruction with loops of bowel in ventral hernia. Surgery and GI consulted. Patient made NPO and all PO medications were stopped for now. IV fluids added to TPN for now. For now will medically management partial SBO. IF persistent will need to consider potential surgical intervetnion for ventral hernia repair. Ventral hernia for now is reducible and no signs of incarceration. 1. Partial SBO -NPO -continue TPN; add NS 100cc/hr for 1 L iter -optimize electrolytes for K>4 and mg> 2 -appreciate on going GI/surgery recommendations -repeat abdominal X-ray in the AM and consider CT with contrast -if vomiting worsens will need NG tube. 2. stage IV metastatic adenocarcinoma of the colon -Patient with documented intraabdominal carcinomatosis treated with FOLFIRI and vectibix -PET scan from 03/06/17 revealed no evidence of FDG avid mass or nodules in the chest, abdomen and pelvis; Re-demonstration of multiple solid non FDG avid nodules in the lungs appear slightly larger compared to previous exam. See full report -Follows with Dr. Vargas as an outpatient 3. Acute kidney injury -Patient with history of right sided hydronephrosis now with rising creatinine over the last 2 days -Renal US revealed stable right-sided hydronephrosis -Bladder scan revealed no post-void residual volume -Urology consulted and patient was taken for stent placement this morning -Nephrology following - Dr. Leung 4. DM type 2 -Fingersticks ACHS -Insulin sliding scale 5. Hypertension -Continue with clonidine, lisinopril and aldactone 6. GI/DVT Prophylaxis -Protonix/heparin SC
--- NOTE | 2017-06-23 00:43 | PN ---
DATE: 06/22/2017 SUBJECTIVE: This patient was seen and evaluated earlier. The patient was discussed with Dr. Pio Vargas. The patient had an episode of vomiting earlier. He had an abdominal x-ray done, which showed dilated loops of the small bowel. The concern is about small bowel obstruction. PHYSICAL EXAMINATION: VITAL SIGNS: Temperature is 98.3, pulse 90, blood pressure 146/78. HEENT: Atraumatic. Anicteric. NECK: Supple. HEART: S1 and S2 heard. LUNGS: Bilateral air entry present, slightly reduced at the base. ABDOMEN: Softly distended. There is a large ventral hernia present, it is reduced. No bowel loops noticed. It was a big defect with no hernia, it is a reducible hernia. EXTREMITIES: No cyanosis, no clubbing. NEUROLOGIC: Alert, oriented. LABORATORY DATA: Hemoglobin 11.6, hematocrit 33.8, WBC is 8.6, and platelets 320. BUN is 70, creatinine is 2.7. The patient's glucose is still high, 486 to 344. Alkaline phosphatase is elevated 296. IMPRESSION: This 71-year-old patient with metastatic colon cancer with carcinomatosis, admitted with right-sided abdominal pain. The patient had fecal impaction. The constipation improved, then subsequently the patient had a loose bowel movement. The patient was also on empiric antibiotic coverage, which was discontinued now. The patient has been doing well. He developed worsening of the renal function with acute kidney injury, has right hydronephrosis, status post stent placement. The patient had an episode of vomiting. An abdominal x-ray showed multiple loops of small bowel. The patient did have a CAT scan on 06/19/2017, which was reviewed. The patient had a loop of the bowel in the hernial sac with a large amount of dilated loops. The patient's physical examination showed he has a completely reduced hernia with a large defect. Most likely, cause for his intermittent vomiting could be also multiple factors, it could be due to gastroparesis and also intermittent obstruction due to the hernia. The loops of the bowel in the hernia are to be considered. I did discuss with the resident program specialist also. RECOMMENDATIONS: 1. We will keep the patient n.p.o. 2. Continue the partial parenteral nutrition. 3. Close followup of the hemoglobin, close followup of the renal function. The patient has acute kidney injury, status post ureteric stent placement for hydronephrosis. Renal followup. 4. The patient has a large reducible ventral hernia present. The patient's most likely cause could be due to intermittent hernia with intermittent loops of bowel seen in the hernial sac. We will keep the patient n.p.o. If the patient had further episodes of vomiting, we will consider a CT scan with oral contrast after the nasogastric tube placement. In that case, the patient may be transferred to the medical/surgical unit for further management. At the present time, the patient appears to be comfortable. No further episodes of vomiting. We will continue to observe the patient and repeat an abdominal x-ray in the a.m. Thank you very much for allowing us to participate in the care of the patient. Kai House MD
[2017-06-23] MEDS: Sodium Chloride 0.9% 1,000 ML IV SCH (04:55)
[2017-06-23] MEDS: Insulin Reg-MEDIUM-Coverage SC SCH ×3 (06:55→23:33)
[2017-06-23 07:49] LABS: BASO # 0.05 K/mm3 (0.0-2.0); BASO % 0.6 % (0.0-3.0); EOS # 0.3 (0.0-0.7); EOS % 2.9 % (1.5-5.0); GRAN # 6.17 (1.4-6.5); GRAN % 69.8 % (50.0-68.0); HEMATOCRIT 31.7 % (42.0-52.0); LYMPH # 0.9 (1.2-3.4); LYMPH % 10.2 % (22.0-35.0); MEAN CELL VOLUME 91.4 fl (80.0-105.0); MEAN CORPUSCULAR HEMOGLOBIN 30.5 pg (25.0-35.0); MEAN CORPUSCULAR HGB CONC 33.4 g/dl (31.0-37.0); MEAN PLATELET VOLUME 10.1 fl (7.0-11.0); MONO # 1.5 (0.1-0.6); MONO % 16.5 % (1.0-6.0); RED CELL DISTRIBUTION WIDTH 15.1 % (11.5-14.5); WHITE BLOOD COUNT 8.8 10^3/ul (4.5-11.0)
[2017-06-23 08:03] LABS: ALB/GLOB RATIO 0.9 (1.1-1.8); BILIRUBIN,TOTAL 0.9 mg/dL (0.2-1.3); CALCIUM 8.4 mg/dL (8.4-10.5); POTASSIUM 4.9 mmol/L (3.6-5.0)
--- NOTE | 2017-06-23 10:25 | PN ---
DATE: 06/22/2017 SUBJECTIVE: The patient is seen lying in bed. He is awake, he is alert. He denies any pain. Denies any shortness of breath. He is not eating at all. He has a very poor appetite. PHYSICAL EXAMINATION GENERAL: Elderly male, lying in bed. VITAL SIGNS: Blood pressure 146/78, heart rate 90, respiratory rate 20, temperature 98.3. HEENT: Normocephalic, atraumatic. NECK: Supple, no JVD. LUNGS: Bilateral equal air entry, no rales. CARDIAC: S1 and S2, regular rate and rhythm, no murmur, no rub. ABDOMEN: Distended, soft, tenderness in the upper quadrants. Bowel sounds present. EXTREMITIES: No lower extremity edema. Intake and output 120/425. LABORATORY DATA: WBC 8.6, hemoglobin 11.6, hematocrit 33.4, platelets 320. Sodium 134, potassium 4.9, chloride 107, CO2 17, BUN 70, creatinine 2.3, glucose 353, calcium 8.3, total protein 5.2, albumin 3.5, corrected calcium is 9.3. ASSESSMENT: 1. Acute kidney injury, resolving slowly. 2. Right hydronephrosis status post stent placement. 3. Metastatic adenocarcinoma of the omentum. 4. Intraperitoneal mets. 5. Malnutrition. PLAN: 1. Continue hyperalimentation. 2. Monitor electrolytes and urine output. 3. Monitor creatinine. 4. Increase insulin and the hyperal. Gemini Leung MD
--- NOTE | 2017-06-23 11:10 | CP.PCM.PN ---
<Aletha Panda - Last Filed: 06/23/17 11:09> Subjective - Date & Time of Evaluation Date of Evaluation: 06/23/17 Time of Evaluation: 10:25 - Subjective Subjective: S&E at bedside, chart reviewed. NPO, denies N/V, last BM per nursing Friday, patient reports passing gas. Denies abdominal pain. No acute overnight events reported. Objective - Vital Signs/Intake and Output Vital Signs (last 24 hours): Temp Pulse Resp BP Pulse Ox 97.9 F 81 16 148/87 98 06/23/17 06:00 06/23/17 06:00 06/23/17 06:00 06/23/17 06:00 06/23/17 06:00 Intake and Output: 06/23/17 06/23/17 06:59 18:59 Intake Total 60 Output Total 250 Balance -190 - Medications Medications: Current Medications Bisacodyl (Dulcolax) 10 mg RC ONCE PRN PRN Reason: Constipation Clonidine HCl (Catapres Tts1 0.1 Mg/24 Hr) 1 patch TD Q7D@1000 [facility] Famotidine (Pepcid) 20 mg IVP DAILY [facility] Last Admin: 06/23/17 10:47 Dose: 20 mg Heparin Sodium (Porcine) (Heparin) 5,000 units SC Q12 [facility] PRN Reason: Protocol Last Admin: 06/19/17 10:10 Dose: 5,000 units Albumin Human (Albumin Human 25% (25 Gm/100 Ml)) 100 mls @ 1 mls/min IVPB MON [facility] Stop: 06/23/17 13:39 Albumin Human (Albumin Human 25% (25 Gm/100 Ml)) 100 mls @ 60 mls/hr IV [facility] ONE Stop: 06/27/17 11:39 Chromium/Copper/Manganese/Zinc 1 ml/ Multivitamins/Vitamin C 10 ml/ Insulin Human Regular 25 units/ Amino Acids 2,011.25 mls @ 83 mls/hr IV .Q24H [facility] Last Admin: 06/22/17 18:12 Dose: 83 mls/hr Insulin Human Regular (Humulin R Med) 0 units SC ACHS [facility] PRN Reason: Protocol Last Admin: 06/23/17 06:55 Dose: 8 units Ondansetron HCl (Zofran Inj) 4 mg IVP Q6H PRN PRN Reason: Nausea/Vomiting Last Admin: 06/22/17 08:13 Dose: 4 mg - Labs Labs: 06/23/17 07:30 06/23/17 07:30 - Constitutional Appears: No Acute Distress - Head Exam Head Exam: NORMOCEPHALIC - Eye Exam Eye Exam: Normal appearance. absent: Scleral icterus - ENT Exam ENT Exam: Mucous Membranes Moist - Neck Exam Neck Exam: Normal Inspection - Respiratory Exam Respiratory Exam: NORMAL BREATHING PATTERN. absent: Respiratory Distress - Cardiovascular Exam Cardiovascular Exam: +S1, +S2 - GI/Abdominal Exam GI & Abdominal Exam: Soft, Hernia (ventral hernia, nontender), Hypoactive Bowel Sounds, Normal Bowel Sounds. absent: Distended, Guarding, Tenderness, Rebound - Extremities Exam Extremities Exam: Pedal Edema (mild). 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 NPO Surgical team following place NGT if patient vomit discuss plan w/ nursing staff Seen and discussed w/ Dr. House. <Kai House V - Last Filed: 06/23/17 18:55> Objective - Vital Signs/Intake and Output Vital Signs (last 24 hours): Temp Pulse Resp BP Pulse Ox 98.5 F 83 18 159/77 H 98 06/23/17 16:00 06/23/17 16:00 06/23/17 16:00 06/23/17 16:00 06/23/17 16:00 Intake and Output: 06/23/17 06/23/17 06:59 18:59 Intake Total 60 Output Total 250 Balance -190 - Medications Medications: Current Medications Bisacodyl (Dulcolax) 10 mg RC ONCE PRN PRN Reason: Constipation Clonidine HCl (Catapres Tts1 0.1 Mg/24 Hr) 1 patch TD Q7D@1000 [facility] Famotidine (Pepcid) 20 mg IVP DAILY [facility] Last Admin: 06/23/17 10:47 Dose: 20 mg Heparin Sodium (Porcine) (Heparin) 5,000 units SC Q12 [facility] PRN Reason: Protocol Last Admin: 06/19/17 10:10 Dose: 5,000 units Albumin Human (Albumin Human 25% (25 Gm/100 Ml)) 100 mls @ 60 mls/hr IV [facility] ONE Stop: 06/27/17 11:39 Chromium/Copper/Manganese/Zinc 1 ml/ Multivitamins/Vitamin C 10 ml/ Insulin Human Regular 25 units/ Amino Acids 2,011.25 mls @ 83 mls/hr IV .Q24H [facility] Last Admin: 06/23/17 18:21 Dose: 83 mls/hr Insulin Human Regular (Humulin R Med) 0 units SC ACHS [facility] PRN Reason: Protocol Last Admin: 06/23/17 12:50 Dose: 8 units Ondansetron HCl (Zofran Inj) 4 mg IVP Q6H PRN PRN Reason: Nausea/Vomiting Last Admin: 06/22/17 08:13 Dose: 4 mg - Labs Labs: 06/23/17 07:30 06/23/17 07:30 Attending/Attestation - Attestation I have personally seen and examined this patient.: Yes I have fully participated in the care of the patient.: Yes I have reviewed all pertinent clinical information, including history, physical exam and plan: Yes Notes (Text): This is an addendum to GI progress report dictated by Aletha Panda APN.The patient was seen and examined earlier. Medical records, lab studies, imagings were reviewed. Last 24 hours events reviewed. Agreed with the above treatment plan as outlined in Aletha Panda APN's notes the with the addition of the following Patient feeling slightly better no further episodes of vomiting Patient did have bowel movement today. No bleeding per rectum Abdomen soft hernia completely reduced Repeat abdominal x-ray reviewed and still has some dilated loops Will start on clear liquids in a.m. Patient refused by mouth contrast CT 06/23/17 18:54
--- NOTE | 2017-06-23 11:53 | CP.PCM.PN ---
Subjective - Date & Time of Evaluation Date of Evaluation: 06/23/17 Time of Evaluation: 11:47 - Subjective Subjective: General Surgery - Dr. Alaniz Pt S&E. DANIAL. Pt complains of persistent abdominal distension and discomfort. He states the pain has been steady in nature. Peritoneal catheter in place which pt. states is periodically used for drainage of ascites. Pt denies any N /V for last 24hours. He also denies any F/C, SOb/Cp. He is passing flatus, last BM was 2 days ago. Objective - Vital Signs/Intake and Output Vital Signs (last 24 hours): Temp Pulse Resp BP Pulse Ox 97.9 F 81 16 148/87 98 06/23/17 06:00 06/23/17 06:00 06/23/17 06:00 06/23/17 06:00 06/23/17 06:00 Intake and Output: 06/23/17 06/23/17 06:59 18:59 Intake Total 60 Output Total 250 Balance -190 - Medications Medications: Current Medications Bisacodyl (Dulcolax) 10 mg RC ONCE PRN PRN Reason: Constipation Clonidine HCl (Catapres Tts1 0.1 Mg/24 Hr) 1 patch TD Q7D@1000 [facility] Famotidine (Pepcid) 20 mg IVP DAILY [facility] Last Admin: 06/23/17 10:47 Dose: 20 mg Heparin Sodium (Porcine) (Heparin) 5,000 units SC Q12 [facility] PRN Reason: Protocol Last Admin: 06/19/17 10:10 Dose: 5,000 units Albumin Human (Albumin Human 25% (25 Gm/100 Ml)) 100 mls @ 1 mls/min IVPB MON [facility] Stop: 06/23/17 13:39 Albumin Human (Albumin Human 25% (25 Gm/100 Ml)) 100 mls @ 60 mls/hr IV [facility] ONE Stop: 06/27/17 11:39 Chromium/Copper/Manganese/Zinc 1 ml/ Multivitamins/Vitamin C 10 ml/ Insulin Human Regular 25 units/ Amino Acids 2,011.25 mls @ 83 mls/hr IV .Q24H [facility] Last Admin: 06/22/17 18:12 Dose: 83 mls/hr Insulin Human Regular (Humulin R Med) 0 units SC ACHS [facility] PRN Reason: Protocol Last Admin: 06/23/17 06:55 Dose: 8 units Ondansetron HCl (Zofran Inj) 4 mg IVP Q6H PRN PRN Reason: Nausea/Vomiting Last Admin: 06/22/17 08:13 Dose: 4 mg - Labs Labs: 06/23/17 07:30 06/23/17 07:30 - Constitutional Appears: No Acute Distress - Head Exam Head Exam: ATRAUMATIC, NORMAL INSPECTION, NORMOCEPHALIC - Respiratory Exam Respiratory Exam: NORMAL BREATHING PATTERN. absent: Respiratory Distress - GI/Abdominal Exam GI & Abdominal Exam: Distended, Soft, Tenderness (mildly ttp diffusely), Hernia (easily reducible ventral defects). absent: Firm, Guarding, Rigid, Rebound - Neurological Exam Neurological Exam: Alert, Oriented x3 - Psychiatric Exam Psychiatric exam: Normal Affect, Normal Mood - Skin Skin Exam: Dry, Intact, Normal Color Assessment and Plan - Assessment and Plan (Free Text) Assessment: 71M w/ stage IV colon CA and peritoneal carcinomatosis, surgery consulted for poss. SBO -Continue diet as tolerated -Continue care as per medical and GI teams -Drainage of ascites PRN -No plans for surgical intervention -If vomiting reoccurs will place NGT -Monitor for bowel function DW Dr Katty Burrows PGY3
--- NOTE | 2017-06-23 13:07 | RAD ---
HISTORY: FU sbo COMPARISON: No prior. FINDINGS: BOWEL: Multiple dilated loops of small bowel are seen measuring up to 4.8 cm in diameter. This is similar to the previous exam BONES: Normal. OTHER FINDINGS: Right-sided ureteral stent. Drainage catheter along the right pericolic gutter extending over the liver IMPRESSION: Multiple dilated loops of small bowel are seen measuring up to 4.8 cm in diameter. This is similar to the previous exam
[2017-06-23] MEDS: [UNRECOGNIZED DRUG - NUTRITION] IV SCH (18:21)
[2017-06-24] MEDS: Insulin Reg-MEDIUM-Coverage SC SCH ×4 (06:35→21:57)
[2017-06-24 07:18] LABS: BASO # 0.07 K/mm3 (0.0-2.0); BASO % 0.8 % (0.0-3.0); EOS # 0.3 (0.0-0.7); EOS % 2.8 % (1.5-5.0); GRAN # 6.27 (1.4-6.5); GRAN % 69.7 % (50.0-68.0); HEMATOCRIT 33.2 % (42.0-52.0); LYMPH % 11.1 % (22.0-35.0); MEAN CELL VOLUME 91.2 fl (80.0-105.0); MEAN PLATELET VOLUME 9.8 fl (7.0-11.0); MONO # 1.4 (0.1-0.6); MONO % 15.6 % (1.0-6.0); RED CELL DISTRIBUTION WIDTH 14.9 % (11.5-14.5)
[2017-06-24 07:25] LABS: ALB/GLOB RATIO 0.9 (1.1-1.8); ALKALINE PHOSPHATASE 803 U/L (38-126); ALT/SGPT 73 U/L (7-56); AST/SGOT 68 U/L (17-59); BILIRUBIN,TOTAL 1.3 mg/dL (0.2-1.3); BLOOD UREA NITROGEN 51 mg/dL (7-21); CALCIUM 8.7 mg/dL (8.4-10.5); CARBON DIOXIDE 22 mmol/L (21-33); CHLORIDE 110 mmol/L (95-110); GFR AFRICAN-AMERICAN > 60; POTASSIUM 5.1 mmol/L (3.6-5.0); SODIUM 140 mmol/L (132-148); TOTAL PROTEIN 5.6 g/dL (5.8-8.3)
[2017-06-24 07:38] LABS: GLUCOSE,RANDOM 398 mg/dL (70-110)
--- NOTE | 2017-06-24 09:27 | PN ---
DATE: 06/23/2017 SUBJECTIVE: The patient is seen lying in bed. He is awake. He is alert. He denies any pain. Denies any shortness of breath. PHYSICAL EXAMINATION GENERAL: Elderly male lying in bed. VITAL SIGNS: Blood pressure 139/84, heart rate 90, respiratory rate 20, temperature 97.8. HEENT: Normocephalic, atraumatic. NECK: Supple, no JVD. LUNGS: Bilateral equal air entry, no rales. CARDIAC: S1 and S2, regular rate and rhythm, no murmur, no rub. ABDOMEN: Distended, soft, positive tenderness, bowel sounds present. EXTREMITIES: No lower extremity edema. LABORATORY DATA: WBC 8.8, hemoglobin 10.6, hematocrit 32, platelets 311. Sodium 138, potassium 4.9, chloride 110, CO2 21, BUN 63, creatinine 1.6, glucose 371, calcium 8.4, albumin 2.4. X-ray of the abdomen; multiple dilated bile loops of small bowel measuring up to 4.8 cm. CURRENT MEDICATIONS: Clonidine patch, Pepcid, heparin subcutaneous, albumin, hyperal, insulin, Zofran. ASSESSMENT: 1. Severe malnutrition. 2.? Small bowel obstruction. 3. Metastatic colon cancer with intraperitoneal carcinomatosis. 4. [id number] diabetes mellitus. 5. Hypertension. PLAN: 1. Continue hyperal. 2. Increase insulin and hyperal. 3. Followup surgical recommendations. 4. Resolving acute kidney injury. Gemini Leung MD
[2017-06-24] MEDS ORDERED: Morphine 2 mg/ml ISec IVP STA (12:14)
--- NOTE | 2017-06-24 12:46 | CP.PCM.PN ---
Subjective - Date & Time of Evaluation Date of Evaluation: 06/24/17 Time of Evaluation: 11:45 - Subjective Subjective: Comfortably resting in bed, not in distress, afebrile. Objective - Vital Signs/Intake and Output Vital Signs (last 24 hours): Temp Pulse Resp BP Pulse Ox 98.5 F 83 18 159/77 H 98 06/23/17 16:00 06/23/17 16:00 06/23/17 16:00 06/23/17 16:00 06/23/17 16:00 - Medications Medications: Current Medications Bisacodyl (Dulcolax) 10 mg RC ONCE PRN PRN Reason: Constipation Clonidine HCl (Catapres Tts1 0.1 Mg/24 Hr) 1 patch TD Q7D@1000 [facility] Famotidine (Pepcid) 20 mg IVP DAILY [facility] Last Admin: 06/23/17 10:47 Dose: 20 mg Heparin Sodium (Porcine) (Heparin) 5,000 units SC Q12 [facility] PRN Reason: Protocol Last Admin: 06/19/17 10:10 Dose: 5,000 units Albumin Human (Albumin Human 25% (25 Gm/100 Ml)) 100 mls @ 60 mls/hr IV [facility] ONE Stop: 06/27/17 11:39 Chromium/Copper/Manganese/Zinc 1 ml/ Multivitamins/Vitamin C 10 ml/ Insulin Human Regular 25 units/ Amino Acids 2,011.25 mls @ 83 mls/hr IV .Q24H [facility] Last Admin: 06/23/17 18:21 Dose: 83 mls/hr Insulin Human Regular (Humulin R Med) 0 units SC ACHS [facility] PRN Reason: Protocol Last Admin: 06/24/17 06:35 Dose: 8 units Ondansetron HCl (Zofran Inj) 4 mg IVP Q6H PRN PRN Reason: Nausea/Vomiting Last Admin: 06/22/17 08:13 Dose: 4 mg - Labs Labs: 06/24/17 07:12 06/24/17 07:12 - Constitutional Appears: Non-toxic - Head Exam Head Exam: NORMAL INSPECTION - Respiratory Exam Respiratory Exam: Decreased Breath Sounds - Cardiovascular Exam Cardiovascular Exam: +S1, +S2 - GI/Abdominal Exam GI & Abdominal Exam: Soft. absent: Tenderness Assessment and Plan - Assessment and Plan (Free Text) Plan: Assessment S/P Systemic Inflammatory Response Syndrome, R/O due to malignancy acute small bowel obstruction increased Alk phos probably related to colon cancer R/O skin / skin structure infection with MSSA of surrounding area of abdominal catheter - S/P treatment with antibiotics colon cancer with peritoneal carcinomatosis DM CAD S/P port-a-cath placement bilateral lens implants Plan will continue to monitor the patient off antibiotics since he is at risk for hospital-acquired infections Surgery and GI following small bowel obstruction
--- NOTE | 2017-06-24 13:20 | CP.PCM.PN ---
<Lacy,Kovil V - Last Filed: 06/24/17 20:09> Objective - Vital Signs/Intake and Output Vital Signs (last 24 hours): Temp Pulse Resp BP Pulse Ox 98.5 F 105 H 15 128/77 97 06/24/17 17:05 06/24/17 17:05 06/24/17 17:05 06/24/17 17:05 06/24/17 10:00 - Medications Medications: Current Medications Bisacodyl (Dulcolax) 10 mg RC ONCE PRN PRN Reason: Constipation Clonidine HCl (Catapres Tts1 0.1 Mg/24 Hr) 1 patch TD Q7D@1000 [facility] Last Admin: 06/24/17 09:37 Dose: 1 patch Famotidine (Pepcid) 20 mg IVP DAILY [facility] Last Admin: 06/24/17 09:51 Dose: 20 mg Heparin Sodium (Porcine) (Heparin) 5,000 units SC Q12 [facility] PRN Reason: Protocol Last Admin: 06/19/17 10:10 Dose: 5,000 units Albumin Human (Albumin Human 25% (25 Gm/100 Ml)) 100 mls @ 60 mls/hr IV FRI ONE Stop: 06/27/17 11:39 Chromium/Copper/Manganese/Zinc 1 ml/ Multivitamins/Vitamin C 10 ml/ Insulin Human Regular 25 units/ Amino Acids 2,011.25 mls @ 83 mls/hr IV .Q24H [facility] Last Admin: 06/24/17 19:02 Dose: 83 mls/hr Insulin Human Regular (Humulin R Med) 0 units SC ACHS [facility] PRN Reason: Protocol Last Admin: 06/24/17 17:57 Dose: 5 units Ondansetron HCl (Zofran Inj) 4 mg IVP Q6H PRN PRN Reason: Nausea/Vomiting Last Admin: 06/24/17 09:38 Dose: 4 mg - Labs Labs: 06/24/17 07:12 06/24/17 07:12 Attending/Attestation - Attestation I have personally seen and examined this patient.: Yes I have fully participated in the care of the patient.: Yes I have reviewed all pertinent clinical information, including history, physical exam and plan: Yes Notes (Text): This is an addendum to GI progress report dictated by Aletha Panda APN.The patient was seen and examined earlier. Medical records, lab studies, imagings were reviewed. Last 24 hours events reviewed. Agreed with the above treatment plan as outlined in Aletha Panda APN's notes the with the addition of the following Patient's was at bedside at the time of examination Abdomen soft introduced ventral hernia No further episodes of vomiting Patient did have bowel movements today did receive one suppository Discussed with the patient at length will start the patient on clear liquid diet with close monitoring. Will slowly advance the diet as he tolerates 06/24/17 20:09 <Aletha Panda - Last Filed: 06/25/17 11:52> Subjective - Date & Time of Evaluation Date of Evaluation: 06/24/17 Time of Evaluation: 10:25 - Subjective Subjective: Seen and examined at the bedside this morning, the patient denies nausea or vomiting. No reports of bowel movement. Passing flatus. He does report abdominal discomfort. He had fluid chain from abdominal catheter yesterday at over 2 L. Report of fever or chills. Currently nothing by mouth on PPN. The patient appears weak and tired but easily arousable. Objective - Vital Signs/Intake and Output Vital Signs (last 24 hours): Temp Pulse Resp BP Pulse Ox 98.5 F 99 H 18 160/90 H 98 06/23/17 16:00 06/24/17 09:37 06/23/17 16:00 06/24/17 09:37 06/23/17 16:00 - Medications Medications: Current Medications Bisacodyl (Dulcolax) 10 mg RC ONCE PRN PRN Reason: Constipation Clonidine HCl (Catapres Tts1 0.1 Mg/24 Hr) 1 patch TD Q7D@1000 [facility] Last Admin: 06/24/17 09:37 Dose: 1 patch Famotidine (Pepcid) 20 mg IVP DAILY [facility] Last Admin: 06/24/17 09:51 Dose: 20 mg Heparin Sodium (Porcine) (Heparin) 5,000 units SC Q12 [facility] PRN Reason: Protocol Last Admin: 06/19/17 10:10 Dose: 5,000 units Albumin Human (Albumin Human 25% (25 Gm/100 Ml)) 100 mls @ 60 mls/hr IV [facility]RI ONE Stop: 06/27/17 11:39 Chromium/Copper/Manganese/Zinc 1 ml/ Multivitamins/Vitamin C 10 ml/ Insulin Human Regular 25 units/ Amino Acids 2,011.25 mls @ 83 mls/hr IV .Q24H [facility] Last Admin: 06/23/17 18:21 Dose: 83 mls/hr Insulin Human Regular (Humulin R Med) 0 units SC ACHS [facility] PRN Reason: Protocol Last Admin: 06/24/17 06:35 Dose: 8 units Ondansetron HCl (Zofran Inj) 4 mg IVP Q6H PRN PRN Reason: Nausea/Vomiting Last Admin: 06/24/17 09:38 Dose: 4 mg - Labs Labs: 06/24/17 07:12 06/24/17 07:12 - Constitutional Appears: No Acute Distress - Head Exam Head Exam: NORMOCEPHALIC - Eye Exam Eye Exam: Normal appearance. absent: Scleral icterus - ENT Exam ENT Exam: Mucous Membranes Dry - Neck Exam Neck Exam: Normal Inspection - Respiratory Exam Respiratory Exam: NORMAL BREATHING PATTERN. absent: Respiratory Distress - Cardiovascular Exam Cardiovascular Exam: +S1, +S2 - GI/Abdominal Exam GI & Abdominal Exam: Soft, Tenderness Additional comments: diffuse, Aspira catheter in place, no drain on dressing, insertion site dry and intact. - Extremities Exam Extremities Exam: Normal Capillary Refill. 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 House.
[2017-06-24 14:18] VITALS: O2SAT 97
--- NOTE | 2017-06-24 15:00 | CP.PCM.PN ---
Subjective - Date & Time of Evaluation Date of Evaluation: 06/24/17 Time of Evaluation: 14:58 - Subjective Subjective: Surgery Pt s&e. NAEON. Denies F/C/N/V/D/CP/SOB. Reports flatus. Objective - Vital Signs/Intake and Output Vital Signs (last 24 hours): Temp Pulse Resp BP Pulse Ox 97.5 F L 91 H 20 152/93 H 97 06/24/17 10:00 06/24/17 10:00 06/24/17 10:00 06/24/17 10:00 06/24/17 10:00 - Medications Medications: Current Medications Bisacodyl (Dulcolax) 10 mg RC ONCE PRN PRN Reason: Constipation Clonidine HCl (Catapres Tts1 0.1 Mg/24 Hr) 1 patch TD Q7D@1000 [facility] Last Admin: 06/24/17 09:37 Dose: 1 patch Famotidine (Pepcid) 20 mg IVP DAILY [facility] Last Admin: 06/24/17 09:51 Dose: 20 mg Heparin Sodium (Porcine) (Heparin) 5,000 units SC Q12 [facility] PRN Reason: Protocol Last Admin: 06/19/17 10:10 Dose: 5,000 units Albumin Human (Albumin Human 25% (25 Gm/100 Ml)) 100 mls @ 60 mls/hr IV FRI ONE Stop: 06/27/17 11:39 Chromium/Copper/Manganese/Zinc 1 ml/ Multivitamins/Vitamin C 10 ml/ Insulin Human Regular 25 units/ Amino Acids 2,011.25 mls @ 83 mls/hr IV .Q24H [facility] Last Admin: 06/23/17 18:21 Dose: 83 mls/hr Insulin Human Regular (Humulin R Med) 0 units SC ACHS [facility] PRN Reason: Protocol Last Admin: 06/24/17 12:45 Dose: 8 units Ondansetron HCl (Zofran Inj) 4 mg IVP Q6H PRN PRN Reason: Nausea/Vomiting Last Admin: 06/24/17 09:38 Dose: 4 mg - Labs Labs: 06/24/17 07:12 06/24/17 07:12 - Constitutional Appears: Non-toxic - Head Exam Head Exam: ATRAUMATIC, NORMAL INSPECTION, NORMOCEPHALIC - Eye Exam Eye Exam: EOMI, Normal appearance, PERRL Pupil Exam: NORMAL ACCOMODATION, PERRL - ENT Exam ENT Exam: Mucous Membranes Moist, Normal Exam - Neck Exam Neck Exam: Full ROM, Normal Inspection. absent: Lymphadenopathy - Respiratory Exam Respiratory Exam: Clear to Ausculation Bilateral, NORMAL BREATHING PATTERN - Cardiovascular Exam Cardiovascular Exam: REGULAR RHYTHM, +S1, +S2. absent: Murmur - GI/Abdominal Exam GI & Abdominal Exam: Distended, Soft, Normal Bowel Sounds. absent: Firm, Guarding, Rigid, Tenderness Additional comments: Drain in place. - Extremities Exam Extremities Exam: Full ROM - Back Exam Back Exam: NORMAL INSPECTION - Neurological Exam Neurological Exam: Alert, Awake, CN II-XII Intact, Oriented x3 - Psychiatric Exam Psychiatric exam: Normal Affect, Normal Mood - Skin Skin Exam: Dry, Intact, Normal Color, Warm Assessment and Plan - Assessment and Plan (Free Text) Assessment: 71M w/ stage IV colon CA and peritoneal carcinomatosis, surgery consulted for poss. SBO -Continue diet as tolerated -Continue care as per medical and GI teams -Drainage of ascites PRN -No plans for surgical intervention -If vomiting reoccurs will place NGT -Monitor for bowel function -Please reconsult as needed. YADIRA Alaniz
--- NOTE | 2017-06-24 17:51 | PN ---
DATE: SUBJECTIVE: The patient is currently seen in the TCU, lying comfortable in bed. He is not complaining of any abdominal pain, nausea, or vomiting today. MEDICATIONS: Medication list reviewed. The patient is currently on albumin infusions, hyperalimentation with insulin, Dulcolax, sliding scale insulin, Pepcid, and Zofran p.r.n. OBJECTIVE VITAL SIGNS: Blood pressure 152/93, temperature 97.5, respiratory rate is 20 with a pulse of 91. HEENT: Shows him to be normocephalic, atraumatic. Conjunctivae are pink. Sclera are nonicteric. NECK: Supple. No neck vein distention. CHEST: Clear to auscultation and percussion. No rales. No rhonchi. No wheezing. Positive port in the right upper chest wall. CARDIOVASCULAR: Shows regular rate and rhythm without murmurs, rubs or gallops. ABDOMEN: Soft. Positive ascites, reducible umbilical hernia. The patient has an indwelling Aspira catheter, right lower quadrant. EXTREMITIES: Show no lower extremity cyanosis, clubbing, or edema. Lower extremity pulses are intact bilaterally. LABORATORY DATA AND IMAGING: CBC: White blood cell count 9.0, hemoglobin 11.3, platelet count is 310,000. Chemistry shows sodium 140, potassium 5.1, chloride 110, pCO2 of 22, BUN 51 with a creatinine of 1.1. Glucose is 398. Calcium 8.7. Liver enzymes remain mildly elevated, AST 68, ALT 73, bilirubin is 1.3, alkaline phosphatase is elevated today at 103. Albumin is 2.7. ASSESSMENT: 1. Prerenal azotemia with improvement on a daily basis in his renal parameters. BUN is down from 70 to 51. His baseline BUN is less than 20. Creatinine is down from 3.2 to 1.1, baseline creatinine is less than 1.0. With continued IV fluid hydration from hyperalimentation, the patient's BUN and creatinine should continue to fall further and approach baseline levels. 2. Hypertension. The patient's blood pressure remains borderline controlled on clonidine patch. 3. History of stage IV malignant colon cancer with malignant ascites, pulmonary nodules, and intraperitoneal carcinomatosis. The patient has recurrent ascites. He has an indwelling Aspira catheter, which was used for intermittent drainage. Abdominal x-ray done on 06/23/2017 shows multiple dilated loops of small bowel unchanged from previous examination. 4. History of right-sided hydronephrosis. Renal ultrasound done on 06/19/2017 shows stable mild hydronephrosis of the right-sided. 5. History of non-insulin dependent diabetes mellitus. Sugar control has been difficult as the patient remains on hyperalimentation. He has insulin in the hyperalimentation along with sliding scale insulin. Nevertheless, his sugars are in the upper 300 range. 6. History of hyperlipidemia. 7. History of gastroesophageal reflux disease, currently asymptomatic on IV Pepcid. PLAN 1. The patient's oral intake is poor. For right now, we will continue hyperalimentation. 2. Agree with increased insulin and hyperalimentation along with sliding scale insulin. 3. Periodic drainage of his ascitic fluid using his Aspira catheter. 4. Continue to monitor labs on a daily basis until his BUN and creatinine continue to improve and fall to baseline levels. 5. Continued Oncology followup for his metastatic colon cancer with intraperitoneal carcinomatosis, malignant ascites, and pulmonary nodules. Thomas Mcgowan MD
[2017-06-24] MEDS: [UNRECOGNIZED DRUG - NUTRITION] IV SCH (19:02)
[2017-06-24] MEDS ORDERED: Morphine 2 mg/ml ISec IVP PRN (21:05)
--- NOTE | 2017-06-25 03:41 | PN ---
DATE: 06/24/2017 LOCATION: The patient is in TCU, 314, bed 1. SUBJECTIVE: The patient is currently seen in the TCU. The patient is comfortable in the bed, but earlier today she had lot of abdominal pain requiring morphine sulfate 2 mg given IV, seems to have helped him, as at the time of exam his pain has completely resolved. The patient denies any history of nausea or vomiting. He is able to keep sips of liquid down today of all the . MEDICATIONS: The patient's medication lists were reviewed. Currently on albumin infusion. Hyperal with insulin, Dulcolax, sliding insulin, Pepcid, and Zofran p.r.n. along with morphine for pain. PHYSICAL EXAMINATION: GENERAL: The patient is examined in bed. VITAL SIGNS: Blood pressure is 152/93, T-max is 97.4, respirations 20 with a pulse of 90. HEENT: Head is normocephalic and atraumatic. Conjunctivae pale. Sclerae anicteric. Pupils are equally reactive to light and accommodation. Exam of the oropharynx reveals no oropharyngeal lesion. Tongue is moist. The patient has poor dentition. No ulcerations are noted. NECK: Supple. There is no adenopathy. No jugular venous distention noted. LUNGS: Clear to percussion and auscultation without any adventitious sounds. CARDIOVASCULAR: Reveals PMI to be in fifth intercostal space inside the midclavicular line. S1 and S2 are normal. No gallop or murmur is heard. ABDOMEN: Soft. Positive ascites. The patient has reduced umbilical hernia. He has an indwelling Aspira catheter, which is being drained twice a week with at least 1000 mL each time. EXTREMITIES: Shows cyanosis, clubbing, or edema. Lower extremity pulses are felt equally bilaterally. LABORATORY DATA: Reveals a white count of 9, hemoglobin 11, platelet count 310,000. Chemistry reveal a sodium of 140, potassium 5.1, chloride 110, CO2 of 22, BUN 51 with a creatinine of 1.1, this is already trending and improving. Glucose is 398 with calcium of 8.7. LFTs are mildly elevated with AST of 68, ALT of 73, and bilirubin of 1.3. Alkaline phosphatase is 103. Albumin is 2.7. ASSESSMENT NOTES AND PLAN: The patient has stage IV metastatic colorectal carcinoma with documented right hydronephrosis, status post stenting, intraabdominal peritoneal carcinomatosis, intermittent abdominal pain secondary to carcinomatosis, has an Aspira catheter on the right side of the abdomen, which is being used for draining at least twice a week the ascitic fluid. The patient is on IV alimentation at this time. His BUN and creatinine status post placement of the stent are gradually trending down to its prior normal levels. Hypertension is being controlled with clonidine patches. The patient's diabetes mellitus being controlled by insulin. History of gastroesophageal reflux disease, currently asymptomatic on IV Pepcid. The patient is clinically still poor, unable to keep any liquids down and not getting any oral caloric intake for which he is being on Hyperal for now. The patient's insulin has been increased to control the sugar and we will continue periodic drainage of his ascitic fluid. Continue to monitor labs on a daily basis and we will plan on treating the patient in the near future with more systemic chemotherapy to the control the ascites and the growth of his tumor. We are just waiting to see if his appetite would fruit or nut picker on its own, so that we can taper on the TPN as well. Routine post exam instructions have been given to the patient. Told the patient that I would speak to the nurses. I will speak to his friend, Neyda and make accordingly plans for when the patient should tapered off the TPN and be eligible for discharge. Hung Vargas MD
[2017-06-25 06:01] LABS: HEMATOCRIT 35.1 % (42.0-52.0); MEAN CELL VOLUME 93.4 fl (80.0-105.0); MEAN CORPUSCULAR HEMOGLOBIN 31.1 pg (25.0-35.0); MEAN CORPUSCULAR HGB CONC 33.3 g/dl (31.0-37.0); MEAN PLATELET VOLUME 10.5 fl (7.0-11.0); RED CELL DISTRIBUTION WIDTH 15.5 % (11.5-14.5); WHITE BLOOD COUNT 9.1 10^3/ul (4.5-11.0)
[2017-06-25 06:10] LABS: ALB/GLOB RATIO 0.9 (1.1-1.8); ALKALINE PHOSPHATASE 962 U/L (38-126); ALT/SGPT 74 U/L (7-56); AST/SGOT 79 U/L (17-59); BILIRUBIN,TOTAL 1.3 mg/dL (0.2-1.3); BLOOD UREA NITROGEN 48 mg/dL (7-21); CALCIUM 8.8 mg/dL (8.4-10.5); CARBON DIOXIDE 25 mmol/L (21-33); CHLORIDE 110 mmol/L (95-110); GFR AFRICAN-AMERICAN > 60; MAGNESIUM 1.5 mg/dL (1.7-2.2); PHOSPHOROUS 3.2 mg/dL (2.5-4.5); POTASSIUM 5.5 mmol/L (3.6-5.0); SODIUM 141 mmol/L (132-148); TOTAL PROTEIN 5.7 g/dL (5.8-8.3)
[2017-06-25] MEDS: Insulin Reg-MEDIUM-Coverage SC SCH ×4 (06:36→22:46)
[2017-06-25 06:40] LABS: GLUCOSE,RANDOM 463 mg/dL (70-110)
[2017-06-25] MEDS ORDERED: Insulin Regular 1 UNITS/0.01 ML ML SC STA (06:54)
--- NOTE | 2017-06-25 11:55 | CP.PCM.PN ---
<Aletha Panda - Last Filed: 06/25/17 11:55> Subjective - Date & Time of Evaluation Date of Evaluation: 06/25/17 Time of Evaluation: 09:50 - Subjective Subjective: Seen and examined at the bedside earlier today, the patient attempted sips of water last night and vomited yellow fluid, no hematemesis he is reported to have liquid BM, no reports of bleeding, patient does report some nausea and abdominal discomfort, denies shortness of breath or chest pain. He is easily arousable but appears weak. Objective - Vital Signs/Intake and Output Vital Signs (last 24 hours): Temp Pulse Resp BP Pulse Ox 98.5 F 105 H 15 128/77 97 06/24/17 17:05 06/24/17 17:05 06/24/17 17:05 06/24/17 17:05 06/24/17 10:00 - Medications Medications: Current Medications Bisacodyl (Dulcolax) 10 mg RC ONCE PRN PRN Reason: Constipation Clonidine HCl (Catapres Tts1 0.1 Mg/24 Hr) 1 patch TD Q7D@1000 [facility] Last Admin: 06/24/17 09:37 Dose: 1 patch Famotidine (Pepcid) 20 mg IVP DAILY [facility] Last Admin: 06/24/17 09:51 Dose: 20 mg Heparin Sodium (Porcine) (Heparin) 5,000 units SC Q12 [facility] PRN Reason: Protocol Last Admin: 06/19/17 10:10 Dose: 5,000 units Albumin Human (Albumin Human 25% (25 Gm/100 Ml)) 100 mls @ 60 mls/hr IV [facility] ONE Stop: 06/27/17 11:39 Chromium/Copper/Manganese/Zinc 1 ml/ Multivitamins/Vitamin C 10 ml/ Insulin Human Regular 25 units/ Amino Acids 2,011.25 mls @ 83 mls/hr IV .Q24H [facility] Last Admin: 06/24/17 19:02 Dose: 83 mls/hr Insulin Human Regular (Humulin R Med) 0 units SC ACHS [facility] PRN Reason: Protocol Last Admin: 06/25/17 06:36 Dose: 10 units Morphine Sulfate (Morphine) 2 mg IVP Q6H PRN; Protocol PRN Reason: moderate pain Ondansetron HCl (Zofran Inj) 4 mg IVP Q6H PRN PRN Reason: Nausea/Vomiting Last Admin: 06/25/17 06:12 Dose: 4 mg - Labs Labs: 06/25/17 05:30 06/25/17 05:30 - Constitutional Appears: Cachectic - Eye Exam Eye Exam: absent: Scleral icterus - ENT Exam ENT Exam: Mucous Membranes Dry - Respiratory Exam Respiratory Exam: NORMAL BREATHING PATTERN - Cardiovascular Exam Cardiovascular Exam: +S1, +S2 - GI/Abdominal Exam GI & Abdominal Exam: Distended, Soft, Tenderness, Hernia, Normal Bowel Sounds. absent: Guarding, Rebound Additional comments: diffuse tenderness, us. Catheter present, insertion site dry and intact - Extremities Exam Extremities Exam: Normal Capillary Refill. absent: Calf Tenderness, Pedal Edema - Neurological Exam Neurological Exam: Awake, Oriented x3 - Skin Skin Exam: Dry, Warm Assessment and Plan - Assessment and Plan (Free Text) Assessment: Assessment: Small Bowel Obstruction History of stage IV metastatic adenocarcinoma of the colon with carcinomatosis Hyperkalemia Recurrent ascites status post aspira catheter, s/p drain Abdominal pain, patient had CT scan of abdomen and pelvis which shows persistent ascites and right-sided hydroureternephrosis h/O Constipation HTN PLAN: on PPN monitor electrolytes continue PPI DVT prophylaxsis start clear liquid Surgical team following place NGT if patient vomit renal FU Seen and discussed w/ Dr. House. <Kai House V - Last Filed: 06/25/17 18:37> Objective - Vital Signs/Intake and Output Vital Signs (last 24 hours): Temp Pulse Resp BP Pulse Ox 98.7 F 107 H 18 127/82 97 06/25/17 17:32 06/25/17 17:32 06/25/17 17:32 06/25/17 17:32 06/25/17 17:32 - Medications Medications: Current Medications Bisacodyl (Dulcolax) 10 mg RC ONCE PRN PRN Reason: Constipation Clonidine HCl (Catapres Tts1 0.1 Mg/24 Hr) 1 patch TD Q7D@1000 [facility] Last Admin: 06/24/17 09:37 Dose: 1 patch Famotidine (Pepcid) 20 mg IVP DAILY [facility] Last Admin: 06/25/17 12:01 Dose: 20 mg Heparin Sodium (Porcine) (Heparin) 5,000 units SC Q12 [facility] PRN Reason: Protocol Last Admin: 06/19/17 10:10 Dose: 5,000 units Albumin Human (Albumin Human 25% (25 Gm/100 Ml)) 100 mls @ 60 mls/hr IV [facility] ONE Stop: 06/27/17 11:39 Chromium/Copper/Manganese/Zinc 1 ml/ Multivitamins/Vitamin C 10 ml/ Insulin Human Regular 30 units/ Amino Acids 2,011.3 mls @ 83 mls/hr IV .Q24H [facility] Stop: 06/28/17 17:59 Last Admin: 06/25/17 18:18 Dose: 83 mls/hr Insulin Human Regular (Humulin R Med) 0 units SC ACHS [facility] PRN Reason: Protocol Last Admin: 06/25/17 17:43 Dose: 8 units Morphine Sulfate (Morphine) 2 mg IVP Q6H PRN; Protocol PRN Reason: moderate pain Last Admin: 06/25/17 13:20 Dose: 2 mg Ondansetron HCl (Zofran Inj) 4 mg IVP Q6H PRN PRN Reason: Nausea/Vomiting Last Admin: 06/25/17 06:12 Dose: 4 mg - Labs Labs: 06/25/17 05:30 06/25/17 05:30 Attending/Attestation - Attestation I have personally seen and examined this patient.: Yes I have fully participated in the care of the patient.: Yes I have reviewed all pertinent clinical information, including history, physical exam and plan: Yes Notes (Text): This is an addendum to GI progress report dictated by Aletha Panda APN.The patient was seen and examined earlier. Medical records, lab studies, imagings were reviewed. Last 24 hours events reviewed. Agreed with the above treatment plan as outlined in Aletha Panda APN's notes the with the addition of the following Patient on clear liquid diet vomited once last night Abdomen still remains distended tenderness on deep palpation Bowel movements 2 We will repeat an abdominal x-ray again in a.m. if it shows still persistent dilation of the small bowel may need a NG tube and oral contrast via NG tube 06/25/17 18:35
[2017-06-25 17:32] VITALS: RESP 18
[2017-06-25] MEDS ORDERED: [UNRECOGNIZED DRUG - NUTRITION] IV SCH (18:00)
--- NOTE | 2017-06-26 05:12 | PN ---
DATE: LOCATION: The patient is in [facility], room 314, bed 1. SUBJECTIVE: The patient is seen and examined at the bedside earlier today. The patient had been attempting to have sips of water last night and early this morning, vomited yellow fluid, mostly gastric content without any evidence of hemoptysis. The patient did have several episodes of liquid bowel movements. No reports of bleeding. Intermittent nausea and abdominal discomfort present. No appetite at all. Denies shortness of breath. He is arousable, but weak. The patient requires narcotics or pain medicines, though may be once or twice a day. PHYSICAL EXAMINATION: GENERAL: Reveals the patient to be awake, alert, and cachectic. The patient is examined in bed, appears weak. Temporal muscle wasting is noted. VITAL SIGNS: From today revealed T-max of 98.5, pulse of 105, respirations 15, blood pressure is 128/77, and pulse ox is 97% on room air. HEENT: The patient's conjunctivae are pale. Sclerae icteric. Exam of the oropharynx reveals no oropharyngeal lesion. Tongue is coated. No ulcerations are noted. NECK: Supple. There is no adenopathy. LUNGS: Reveal decreased breath sounds at both bases. CARDIOVASCULAR: Reveals PMI to be in the fifth intercostal space inside the midclavicular line. S1 and S2 are normal. No gallop or murmur is heard. ABDOMEN: Soft and distended. Tenderness at the site of the hernia is noted. Normal bowel sounds are noted. There is no rebound, rigidity, or guarding. Ascites is noted. The patient is status post tap x1 early part of this week on Friday. The patient has an Aspira catheter on the right side. The insertion site is dry and intact. The patient has tenderness at the catheter site. EXTREMITIES: Reveals no cyanosis, clubbing, or edema. NEUROLOGICAL: Reveals the patient is to be awake, alert, and oriented x3. No acute distress. SKIN: Reveals the skin to be dry. No skin lesions are noted. LABORATORY DATA: Lab data from today reviewed. White count 9.9, hemoglobin 11.7, hematocrit 35, and platelet count 327. Sodium is 141, K is 5.5, chloride is 110, CO2 of 25, BUN of 48, and creatinine 1.2. Blood sugar is 462. The patient did get additional insulin earlier today. ASSESSMENT NOTES AND PLAN: The patient has clinically small bowel obstruction, but is not apparent on the x-ray. History of stage IV metastatic carcinoma of the colon with intraperitoneal carcinomatosis, ascites intractable, status post insertion of Aspira catheter with repeated drainage at least twice a week to alleviate the discomfort. In view of the abdominal pain, the patient had a CAT scan done of the abdomen and pelvis, which shows persistent ascites. The patient is status post insertion of a catheter and stent into the right kidney. After the stent placement, his kidney functions have been trending to improve. A long discussion with Dr. House is to what to do for the patient since he is still having symptoms and the patient is running out of time as far as TRCU stay is concerned. One of the recommendation, if the patient is still symptomatic by a.m., we will have him transferred to the emergency room, try to get a CAT scan with oral contrast after insertion of the nasogastric tube and then take pictures of CAT scan of the abdomen to see if there is any hang up of the dye in the small bowel that may causing some of these symptoms as it is not clearly apparent on the regular testing. We will see how things proceed over the next 12 hours before making a decision along those directions. The patient may then need to be admitted to the acute side and further decision will be made pending what we see on the findings of the CAT scan. The patient will continue PPI in the meantime. They will need probably insertion of nasogastric tube by tomorrow morning if his symptoms persist. Routine post-exam instructions have been given to the patient. We will speak to Neyda, his healthcare proxy and explain to her what our plans currently are. Labs for a.m. have been requested. Hung Vargas MD
[2017-06-26] MEDS: Insulin Reg-MEDIUM-Coverage SC SCH ×2 (06:46→11:45)
[2017-06-26 07:52] LABS: HEMATOCRIT 33.2 % (42.0-52.0); MEAN CORPUSCULAR HEMOGLOBIN 30.5 pg (25.0-35.0); MEAN CORPUSCULAR HGB CONC 32.8 g/dl (31.0-37.0); MEAN PLATELET VOLUME 10.4 fl (7.0-11.0); RED CELL DISTRIBUTION WIDTH 15.2 % (11.5-14.5); WHITE BLOOD COUNT 10.4 10^3/ul (4.5-11.0)
[2017-06-26 08:25] LABS: ALB/GLOB RATIO 0.8 (1.1-1.8); ALKALINE PHOSPHATASE 740 U/L (38-126); ALT/SGPT 59 U/L (7-56); AST/SGOT 34 U/L (17-59); BILIRUBIN,TOTAL 0.7 mg/dL (0.2-1.3); BLOOD UREA NITROGEN 53 mg/dL (7-21); CALCIUM 8.7 mg/dL (8.4-10.5); CARBON DIOXIDE 24 mmol/L (21-33); CHLORIDE 111 mmol/L (98-107); GFR AFRICAN-AMERICAN > 60; POTASSIUM 4.3 mmol/L (3.6-5.0); SODIUM 144 mmol/L (132-148); TOTAL PROTEIN 5.3 g/dL (5.8-8.3)
[2017-06-26 08:32] LABS: GLUCOSE,RANDOM 334 mg/dL (70-110)
--- NOTE | 2017-06-26 10:23 | CP.PCM.PN ---
Subjective - Date & Time of Evaluation Date of Evaluation: 06/26/17 Time of Evaluation: 10:23 Objective - Vital Signs/Intake and Output Vital Signs (last 24 hours): Temp Pulse Resp BP Pulse Ox 98.7 F 107 H 18 127/82 97 06/25/17 17:32 06/25/17 17:32 06/25/17 17:32 06/25/17 17:32 06/25/17 17:32 Intake and Output: 06/26/17 06/26/17 06:59 18:59 Intake Total 60 Output Total 250 Balance -190 - Medications Medications: Current Medications Bisacodyl (Dulcolax) 10 mg RC ONCE PRN PRN Reason: Constipation Clonidine HCl (Catapres Tts1 0.1 Mg/24 Hr) 1 patch TD Q7D@1000 [facility] Last Admin: 06/24/17 09:37 Dose: 1 patch Famotidine (Pepcid) 20 mg IVP DAILY [facility] Last Admin: 06/25/17 12:01 Dose: 20 mg Heparin Sodium (Porcine) (Heparin) 5,000 units SC Q12 [facility] PRN Reason: Protocol Last Admin: 06/19/17 10:10 Dose: 5,000 units Albumin Human (Albumin Human 25% (25 Gm/100 Ml)) 100 mls @ 60 mls/hr IV FRI ONE Stop: 06/27/17 11:39 Chromium/Copper/Manganese/Zinc 1 ml/ Multivitamins/Vitamin C 10 ml/ Insulin Human Regular 30 units/ Amino Acids 2,011.3 mls @ 83 mls/hr IV .Q24H [facility] Stop: 06/28/17 17:59 Last Admin: 06/25/17 18:18 Dose: 83 mls/hr Insulin Human Regular (Humulin R Med) 0 units SC ACHS [facility] PRN Reason: Protocol Last Admin: 06/26/17 06:46 Dose: 8 units Morphine Sulfate (Morphine) 2 mg IVP Q6H PRN; Protocol PRN Reason: moderate pain Last Admin: 06/25/17 13:20 Dose: 2 mg Ondansetron HCl (Zofran Inj) 4 mg IVP Q6H PRN PRN Reason: Nausea/Vomiting Last Admin: 06/25/17 06:12 Dose: 4 mg - Labs Labs: 06/26/17 07:45 06/26/17 07:00 Assessment and Plan - Assessment and Plan (Free Text) Plan: 71yo male with history of stage IV metastatic adenocarcinoma of the colon with recurrent ascites s/p aspira catheter placement that presented to [facility] c/o abdominal pain associated with nausea, vomiting and diarrhea. 1. Partial SBO -NPO -continue TPN; add NS 100cc/hr for 1 L iter -optimize electrolytes for K>4 and mg> 2 -appreciate on going GI/surgery recommendations -Abdominal Xray consistent with partial SBO -repeat abdominal X-ray in the AM and consider CT with contrast -May require NG tube placement, surgery on board and aware -Ventral hernia reducible with no signs of incarceration 2. stage IV metastatic adenocarcinoma of the colon -Patient with documented intraabdominal carcinomatosis treated with FOLFIRI and vectibix -PET scan from 03/06/17 revealed no evidence of FDG avid mass or nodules in the chest, abdomen and pelvis; Re-demonstration of multiple solid non FDG avid nodules in the lungs appear slightly larger compared to previous exam. See full report -Follows with Dr. Vargas as an outpatient 3. Acute kidney injury -Patient with history of right sided hydronephrosis now with rising creatinine over the last 2 days -Renal US revealed stable right-sided hydronephrosis -Bladder scan revealed no post-void residual volume -Urology consulted and patient was taken for stent placement this morning -Nephrology following - Dr. Leung 4. DM type 2 -Fingersticks ACHS -Insulin sliding scale 5. Hypertension -Continue with clonidine, lisinopril and aldactone 6. GI/DVT Prophylaxis -Protonix/heparin SC Patient seen and case discussed with attending, Dr. Vargas
[2017-06-26 12:18] VITALS: BP 151/91; PULSE 95; TEMP 97.6
--- NOTE | 2017-06-26 12:42 | CP.PCM.DIS ---
Provider - Provider Date of Admission: 06/17/17 19:16 Attending physician: Parminder Julien MD Consults: Surgery - Dr. Ruby Urology - Dr. Hannah BRANCH - Dr. House Nephrology - Dr. Xochitl LANDON - Dr. Merritt Time Spent in preparation of Discharge (in minutes): 40 Hospital Course - Lab Results Lab Results: Most Recent Lab Values WBC 10.4 10^3/ul (4.5-11.0) 06/26/17 07:45 RBC 3.57 10^6/uL (3.5-6.1) 06/26/17 07:45 Hgb 10.9 g/dL (14.0-18.0) L 06/26/17 07:45 Hct 33.2 % (42.0-52.0) L 06/26/17 07:45 MCV 93.0 fl (80.0-105.0) 06/26/17 07:45 MCH 30.5 pg (25.0-35.0) 06/26/17 07:45 MCHC 32.8 g/dl (31.0-37.0) 06/26/17 07:45 RDW 15.2 % (11.5-14.5) H 06/26/17 07:45 Plt Count 306 10^3/uL (120.0-450.0) 06/26/17 07:45 MPV 10.4 fl (7.0-11.0) 06/26/17 07:45 Gran % 69.7 % (50.0-68.0) H 06/24/17 07:12 Lymph % (Auto) 11.1 % (22.0-35.0) L 06/24/17 07:12 [place] % (Auto) 15.6 % (1.0-6.0) H 06/24/17 07:12 Eos % (Auto) 2.8 % (1.5-5.0) 06/24/17 07:12 Baso % (Auto) 0.8 % (0.0-3.0) 06/24/17 07:12 Gran # 6.27 (1.4-6.5) 06/24/17 07:12 Lymph # 1.0 (1.2-3.4) L 06/24/17 07:12 [place] # 1.4 (0.1-0.6) H 06/24/17 07:12 Eos # 0.3 (0.0-0.7) 06/24/17 07:12 Baso # 0.07 K/mm3 (0.0-2.0) 06/24/17 07:12 Neutrophils % (Manual) 49 % (50.0-70.0) L 06/22/17 05:45 Band Neutrophils % 11 % (0-2) H* 06/22/17 05:45 Lymphocytes % (Manual) 12 % (22.0-35.0) L 06/22/17 05:45 Monocytes % (Manual) 23 % (1.0-6.0) H 06/22/17 05:45 Eosinophils % (Manual) 3 % (0.0-3.0) 06/22/17 05:45 Basophils % (Manual) 2 % (0.0-1.0) H 06/22/17 05:45 Platelet Evaluation Normal (NORMAL) 06/22/17 05:45 Hypochromasia Slight 06/18/17 06:50 Anisocytosis (manual) Slight 06/18/17 06:50 Sodium 144 mmol/L (132-148) 06/26/17 07:00 Potassium 4.3 mmol/L (3.6-5.0) 06/26/17 07:00 Chloride 111 mmol/L (98-107) H 06/26/17 07:00 Carbon Dioxide 24 mmol/L (21-33) 06/26/17 07:00 Anion Gap 13 (10-20) 06/26/17 07:00 BUN 53 mg/dL (7-21) H 06/26/17 07:00 Creatinine 1.2 mg/dL (0.8-1.5) 06/26/17 07:00 Est GFR ( Amer) > 60 06/26/17 07:00 Est GFR (Non-Af Amer) 60 06/26/17 07:00 POC Glucose (mg/dL) 363 mg/dL (65-110) H 06/26/17 04:47 Random Glucose 334 mg/dL (70-110) H* 06/26/17 07:00 Calcium 8.7 mg/dL (8.4-10.5) 06/26/17 07:00 Phosphorus 3.2 mg/dL (2.5-4.5) 06/25/17 05:30 Magnesium 1.5 mg/dL (1.7-2.2) L 06/25/17 05:30 Total Bilirubin 0.7 mg/dL (0.2-1.3) 06/26/17 07:00 AST 34 U/L (17-59) 06/26/17 07:00 ALT 59 U/L (7-56) H 06/26/17 07:00 Alkaline Phosphatase 740 U/L (38-126) H D 06/26/17 07:00 Total Protein 5.3 g/dL (5.8-8.3) L 06/26/17 07:00 Albumin 2.4 g/dL (3.0-4.8) L 06/26/17 07:00 Globulin 2.9 gm/dL 06/26/17 07:00 Albumin/Globulin Ratio 0.8 (1.1-1.8) L 06/26/17 07:00 Ur Random Sodium 14 meq/L 06/19/17 22:07 - Hospital Course Hospital Course: Patient is a 71yo male with past medical history of stave IV metastatic adenocarcinoma of the colon, recurrent ascites s/p aspira catheter placement, DM type 2, hypertension, IA, malnutrition that originally presented to Dr. Vargas's office more than a week prior to presentation to [facility] [place] c/o epigastric abdominal pain associated with nausea, vomiting and diarrhea. He reported lack of appetite and approximately 3-4/10 non-radiating abdominal pain. He was recommended to come to the ER for further evaluation. Upon arrival, an extensive GI and ID workup was done. Cdiff studies were sent and found to be negative. His diarrhea was attributed to his chemotherapy treatment with irinotecan. Ascitic fluid was drained and sent for culture. He was started on antibiotics per ID recommendations and his diet was advanced as tolerated. He was also given PPN for nutritional supplementation. He was subsequently transferred to the transitional care unit for physical strengthening due to deconditioning and nutritional support. During the course of his stay in the transitional care unit, patient had continued abdominal pain with lack of appetite and poor oral intake. An abdominal xray revealed partial small bowel obstruction. GI recommended CT abd/pelvis with oral contrast however patient was unable to tolerate PO intake. Patient was subsequently sent to the emergency room for NG tube placement, CT abdomen/pelvis with contrast and readmission to the hospital for further evaluation. During the course of his stay in the TCU, the following workup/results were obtained: 1. Partial SBO -NPO -continue PPN -monitored and replete electrolytes as indicated -GI and surgery consulted -Abdominal xray revealed partial SBO 2. stage IV metastatic adenocarcinoma of the colon -Patient with documented intraabdominal carcinomatosis treated with FOLFIRI and vectibix -PET scan from 03/06/17 revealed no evidence of FDG avid mass or nodules in the chest, abdomen and pelvis; Re-demonstration of multiple solid non FDG avid nodules in the lungs appear slightly larger compared to previous exam. See full report -Follows with Dr. Vargas as an outpatient 3. Acute kidney injury, resolving -Patient with history of right sided hydronephrosis -Renal US revealed stable right-sided hydronephrosis -Bladder scan revealed no post-void residual volume -Urology consulted and patient was taken for stent placement this morning -Nephrology following - Dr. Leung 4. DM type 2 -Fingersticks ACHS -Insulin sliding scale 5. Hypertension -Continue with clonidine, lisinopril and aldactone 6. GI/DVT Prophylaxis -Protonix/heparin SC Patient was seen and case discussed with attending, Dr. Vargas Discharge Exam - Head Exam Head Exam: ATRAUMATIC, NORMOCEPHALIC - Eye Exam Eye Exam: EOMI, PERRL - Respiratory Exam Respiratory Exam: absent: Rales, Rhonchi, Wheezes - Cardiovascular Exam Cardiovascular Exam: RRR, +S1, +S2. absent: Gallop, Rubs - GI/Abdominal Exam GI & Abdominal Exam: Hernia, Soft, Tenderness. absent: Distended, Firm, Guarding, Rebound - Extremities Exam Extremities exam: normal inspection - Neurological Exam Neurological exam: Alert, Oriented x3 - Psychiatric Exam Psychiatric exam: Normal Affect, Normal Mood - Skin Skin Exam: Dry, Intact, Normal Color, Warm Discharge Plan - Follow Up Plan Condition: GOOD Disposition: HOME/ ROUTINE
--- NOTE | 2017-06-26 15:31 | CP.PCM.PN ---
<Aletha Panda - Last Filed: 06/26/17 15:28> Subjective - Date & Time of Evaluation Date of Evaluation: 06/26/17 Time of Evaluation: 10:40 - Subjective Subjective: S&E at bedside in TCU, ambulating back to bed with walker and assistance from bathroom, had BM, no reports of overt GI bleed. Tolerated juice and some ice water. No N/V, abdominal pain is better but still present, mostly near hernia. Did no take any liquids last night. Feel slightly better today. Objective - Vital Signs/Intake and Output Vital Signs (last 24 hours): Temp Pulse Resp BP Pulse Ox 97.6 F 95 H 18 151/91 H 97 06/26/17 12:13 06/26/17 12:13 06/26/17 12:13 06/26/17 12:13 06/26/17 12:13 Intake and Output: 06/26/17 06/26/17 06:59 18:59 Intake Total 60 Output Total 250 Balance -190 - Medications Medications: Current Medications Chromium/Copper/Manganese/Zinc 1 ml/ Multivitamins/Vitamin C 10 ml/ Insulin Human Regular 30 units/ Amino Acids 2,011.3 mls @ 83 mls/hr IV .Q24H BERNARDO Stop: 06/27/17 17:59 - Labs Labs: 06/26/17 07:45 06/26/17 07:00 - Constitutional Appears: No Acute Distress - Head Exam Head Exam: NORMOCEPHALIC - Eye Exam Eye Exam: Normal appearance. absent: Scleral icterus - ENT Exam ENT Exam: Mucous Membranes Moist - Neck Exam Neck Exam: Normal Inspection - Respiratory Exam Respiratory Exam: NORMAL BREATHING PATTERN. absent: Respiratory Distress - Cardiovascular Exam Cardiovascular Exam: +S1, +S2 - GI/Abdominal Exam GI & Abdominal Exam: Soft, Tenderness (around hernia, no rebound or guarding.). 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 Discuss w/ patient and resident at bedside. Seen and discussed w/ Dr. House. <Kai House V - Last Filed: 06/26/17 20:59> Objective - Vital Signs/Intake and Output Vital Signs (last 24 hours): Temp Pulse Resp BP Pulse Ox 97.6 F 95 H 18 151/91 H 97 06/26/17 12:13 06/26/17 12:13 06/26/17 12:13 06/26/17 12:13 06/26/17 12:13 - Medications Medications: Current Medications Chromium/Copper/Manganese/Zinc 1 ml/ Multivitamins/Vitamin C 10 ml/ Insulin Human Regular 30 units/ Amino Acids 2,011.3 mls @ 83 mls/hr IV .Q24H BERNARDO Stop: 06/27/17 17:59 - Labs Labs: 06/26/17 07:45 06/26/17 07:00 Attending/Attestation - Attestation I have personally seen and examined this patient.: Yes I have fully participated in the care of the patient.: Yes I have reviewed all pertinent clinical information, including history, physical exam and plan: Yes Notes (Text): This is an addendum to GI progress report dictated by Aletha Panda APN.The patient was seen and examined earlier. Medical records, lab studies, imagings were reviewed. Last 24 hours events reviewed. Agreed with the above treatment plan as outlined in Aletha Panda APN's notes the with the addition of the following Patient still has only minimal by mouth intake at the time of examination in the morning and abdomen softly distended and she has tenderness I did discuss with the Dr. Vargas earlier. The plan is to place an NG tube decompression and then do oral contrast CT of abdomen and pelvis to further evaluate the level of obstruction. There is a concern is metastatic carcinoma with possible carcinomatosis and ventral hernia. Ventral hernia now appears to be reduced. Patient still has some difficulty in keeping even liquids down 06/26/17 20:57
[2017-06-26] MEDS ORDERED: [UNRECOGNIZED DRUG - NUTRITION] IV SCH (18:00)
--- NOTE | 2017-06-26 18:43 | PN ---
DATE: 06/25/2017 SUBJECTIVE: The patient is seen lying in bed. He reports he had very bad night. He had nausea, vomiting, diarrhea, abdominal pain. PHYSICAL EXAMINATION: GENERAL: Elderly male lying in bed. VITAL SIGNS: Blood pressure 138/88, heart rate 98, respiratory rate 20, temperature 98.4. HEENT: Normocephalic, atraumatic. NECK: Supple, no JVD. LUNGS: Bilateral equal air entry, no rales. CARDIAC: S1 and S2. Regular rate and rhythm, no murmur, no rub. ABDOMEN: Obese, distended, soft, positive tenderness, bowel sounds present. EXTREMITIES: No lower extremity edema. INTAKE AND OUTPUT: Not charted. LABORATORY DATA: WBC 9, hemoglobin 11.7, hematocrit 35, platelets 327. Sodium 141, potassium 5.5, chloride 110, CO2 of 25, BUN 48, creatinine 1.2, glucose 463, calcium 8.8, phosphorus 3.2, magnesium 1.5, AST 79, ALT 74, albumin 2.7. CURRENT MEDICATIONS: Hyperal, Catapres patch, Dulcolax, heparin, insulin, morphine, Pepcid, Zofran. ASSESSMENT AND PLAN: 1. Hyperkalemia, no need for treatment since the patient is having diarrhea. 2. Malnutrition. 3. 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 4. Hypertension. 5. [id number]-pyvdlokrs diabetes mellitus, severe hyperglycemia right now because of hyperal. 5. Intractable pain. 6. Nausea and vomiting. PLAN: 1. Continue hyperal. 2. Monitor potassium. 3. Continue pain management. 4. GI followup. 5. Oncology followup. Gemini Leung MD
== END 2017-06-26 12:50 | disposition short-term general hospital (02) | DRG 945 ==
LOC: TRCU 19:16
PROVIDERS: ADMIT Family Medicine; ATTEND Family Medicine
PROC: 3E0336Z Introduction of Nutritional Substance into Peripheral Vein, Percutaneous Approach (ICD-10-PCS; 2017-06-17)
PROC: F07Z9ZZ Gait Training/Functional Ambulation Treatment (ICD-10-PCS; principal; 2017-06-18)
PROC: F08Z4ZZ Home Management Treatment (ICD-10-PCS; 2017-06-20)
DX: R53.1 Weakness (principal); E43 Unspecified severe protein-calorie malnutrition; N17.9 Acute kidney failure, unspecified; R18.0 Malignant ascites; E87.2 Acidosis; R65.10 Systemic inflammatory response syndrome (SIRS) of non-infectious origin without acute organ dysfunction; C78.6 Secondary malignant neoplasm of retroperitoneum and peritoneum; E11.65 Type 2 diabetes mellitus with hyperglycemia; K56.600 Partial intestinal obstruction, unspecified as to cause; N13.30 Unspecified hydronephrosis; C19 Malignant neoplasm of rectosigmoid junction; I10 Essential (primary) hypertension; I25.10 Atherosclerotic heart disease of native coronary artery without angina pectoris; D64.9 Anemia, unspecified; K56.41 Fecal impaction; E78.5 Hyperlipidemia, unspecified; K21.9 Gastro-esophageal reflux disease without esophagitis; E87.5 Hyperkalemia; K43.9 Ventral hernia without obstruction or gangrene; Z79.84 Long term (current) use of oral hypoglycemic drugs; I25.2 Old myocardial infarction; Z96.1 Presence of intraocular lens; Z87.891 Personal history of nicotine dependence

== ENCOUNTER 2017-06-20 09:05 | Day surgery (SDC) | payer MEDICARE, BC ==
[2017-06-20] MEDS ORDERED: cefTRIAXone 1 gm 1 GM/100 ML BAG IVPB STA (09:20)
[2017-06-20 09:24] VITALS: BMI 28.6
[2017-06-20] MEDS ORDERED: Lactated Ringer's 1,000 ML IV SCH (10:45)
--- NOTE | 2017-06-20 11:08 | RAD ---
PROCEDURE: Retrograde pyelogram HISTORY: STENT PLACEMENT COMPARISON: TECHNIQUE: Fluoroscopy was provided in the operating room. 24.6 seconds of fluoro time were used. Nine images submitted FINDINGS: The study shows placement of a right ureteral stent IMPRESSION: As above
[2017-06-20 11:18] VITALS: RESP 18; TEMP 97.7
[2017-06-20 11:36] VITALS: BP 111/60; PULSE 81; O2SAT 98
--- NOTE | 2017-06-20 15:43 | CON ---
DATE: 06/20/2017 GENITOURINARY CONSULTATION CHIEF COMPLAINT: Metastatic colon cancer with right hydronephrosis. HISTORY OF PRESENT ILLNESS: I received a call from his oncologist asking me to see him. He is 71-year-old male with metastatic stage IV adenocarcinoma of the colon, ascites, intraperitoneal carcinomatosis. They noticed worsening with right hydronephrosis and worsening of his kidney function. His creatinine was in the mid 2's. I was asked to see him to see if a stent could be placed. ALLERGIES: HE HAS NO ALLERGIES. PAST MEDICAL HISTORY: He is receiving chemotherapy for his carcinoma. SOCIAL HISTORY: He is a former smoker. He has a history of hypertension. FAMILY HISTORY: Noncontributory. He also has type 2 diabetes. REVIEW OF SYMPTOMS: No symptoms are referable to the head, eyes, ears, nose, or throat. He has generalized weakness. No cardiac or respiratory symptoms. No nausea or vomiting. No dermatologic symptoms. PHYSICAL EXAMINATION: VITAL SIGNS: Shows him to be afebrile, pulse 82, blood pressure 126/70, respirations 20. NEUROLOGIC: Well oriented x3. SKIN: Shows mild pallor. No purpura. BACK: He has no CVA pain. ABDOMEN: No rebound or guarding. No suprapubic tenderness. LUNGS: Clear. HEART: Normal sinus rhythm. LABORATORY WORK: Shows white count 6000, hemoglobin 9.9. His creatinine is 3.1. It was as low as 0.6 six months ago. IMPRESSION I reviewed his CAT scan, he has hydroureteronephrosis down to the pelvic inlet, I will see if I can place a pigtail stent to bypass the obstruction. Naman Young MD
--- NOTE | 2017-06-20 20:18 | OP ---
PROCEDURE DATE: 06/20/2017 PREOPERATIVE DIAGNOSES: Metastatic colon cancer with right hydronephrosis due to intraperitoneal carcinomatosis. POSTOPERATIVE DIAGNOSES: Metastatic colon cancer with right hydronephrosis due to intraperitoneal carcinomatosis. PROCEDURE: Cystoscopy, retrograde insertion of right Pigtail stent. SURGEON: Naman Young MD TYPE OF ANESTHESIA: LMA. DESCRIPTION OF PROCEDURE: After adequate LMA anesthesia was given, the patient was placed lithotomy, prepped and draped in the usual manner. A 22-Spanish cystourethroscope was introduced under direct vision. The anterior urethra was normal. Prostatic urethra showed mild BPH. Bladder showed no tumors, foreign bodies, or stones. Orifices were normal in appearance and location. Clear efflux from the left, no efflux from the right. An occlusion to catheter was placed at the opening of the right ureteral orifice. Contrast was inserted and went up to just the inside the true pelvic brim. I could not see any contrast go above this area. I then took an open-ended catheter with a 0.35 Glidewire and the Glidewire went up the right ureter through the area of the obstruction up to the kidney. I then could slide the open-ended catheter over the Glidewire, removed the Glidewire and replaced it with a 0.35 sensor wire, then removed the open-ended catheter. Over the 0.35 sensor wire, a 6-Spanish 28-cm Pigtail stent was placed and properly placed. The Glidewire was removed. The stent coiled nicely in the right renal pelvis and the bladder. The bladder was drained. The cystoscope was removed. The patient was awakened and brought to the recovery room in good condition. Naman Young MD
== END 2017-06-20 12:10 ==
LOC: OR 09:05 → SDS 09:05
PROVIDERS: ATTEND Urology
DX: C78.6 Secondary malignant neoplasm of retroperitoneum and peritoneum (principal); N13.39 Other hydronephrosis; C18.9 Malignant neoplasm of colon, unspecified; I10 Essential (primary) hypertension; Z87.891 Personal history of nicotine dependence
CPT/HCPCS: 52332; 74420; 87086; C1758; C1769; C2625; J0696; J7120 ×2

== ENCOUNTER 2017-06-26 13:02 | Inpatient (IN) | payer MEDICARE, BC ==
[2017-06-26 13:33] VITALS: BMI 28.8
[2017-06-26] MEDS ORDERED: Iohexol 240 (50 ml) ONE (14:08)
--- NOTE | 2017-06-26 14:37 | ED PDOC ---
Arrival/HPI - General Chief Complaint: Abdominal Pain Time Seen by Provider: 06/26/17 13:36 Historian: Patient - History of Present Illness Narrative History of Present Illness (Text): 06/26/17 14:00 A 71 year old male, whose past medical history includes SIRS, peritoneal carcinomatous (stomach & coolon), Umbilical hernia, malignant ascites, is brought into the emergency department from TCU, because the patient was needs a contrast CT and was unable to do so, therefore the patient was sent in for a contrast PO. The patient was recently admitted for partial small bowel obstruction. The patient admits to having occasional belly pain. He denies any dysuria, bloody urine, bloody stools, fever, cough, or any other complaints at this time. Time/Duration: Prior to Arrival Symptom Onset: Other Activities at Onset: Light Context: Other (TCU ) Past Medical History - Provider Review Nursing Documentation Reviewed: Yes - Infectious Disease Hx of Infectious Diseases: None - Tetanus Immunization Tetanus Immunization: Unknown - Cardiac Hx Cardiac Disorders: Yes Hx Hypertension: Yes - Pulmonary Hx Respiratory Disorders: Yes (SMOKED 4 PPD CIGARETTES QUIT 1968) - Neurological Hx Paralysis: No - HEENT Hx HEENT Disorder: Yes (RX GLASSES) Hx Cataracts: Yes (BILATERAL LENS IMPLANT) - Renal Hx Renal Disorder: No - Endocrine/Metabolic Hx Diabetes Mellitus Type 2: Yes - Integumentary Hx Dermatological Disorder: Yes (H/O CELLULITIS ABSCESS TO NECK AREA) - Musculoskeletal/Rheumatological Hx Musculoskeletal Disorders: No - Gastrointestinal Hx Gastrointestinal Disorders: Yes (COLON CA STAGE 4,PERITONEAL CA-FOLFOX, GASTRITIS,MALNUTRITION,GERD) Other/Comment: Colon CA mets Liver. Esophageal ulcers - Genitourinary/Gynecological Hx Genitourinary Disorders: No Hx Reproductive Disorders: No - Psychiatric Hx Emotional Abuse: No Hx Physical Abuse: No Hx Substance Use: No - Surgical History Other/Comment: PORT RIGHT CHEST WALL, PICC IN AND OUT H/O, ASPERA CATH. - Anesthesia Hx Anesthesia Reactions: No Hx Malignant Hyperthermia: No - Suicidal Assessment Feels Threatened In Home Enviroment: No Family/Social History - Physician Review Nursing Documentation Reviewed: Yes Family/Social History: Unknown Family HX Smoking Status: Former Smoker Hx Alcohol Use: Yes (SOCIALLY) Hx Substance Use: No Hx Substance Use Treatment: No Allergies/Home Meds Allergies/Adverse Reactions: Allergies No Known Allergies Allergy (Verified 06/26/17 13:08) Home Medications: Home Meds Medication Instructions Recorded Confirmed Unobtainable 06/26/17 06/26/17 Review of Systems - Review of Systems Respiratory: absent: Cough Cardiovascular: absent: Chest Pain Gastrointestinal: Abdominal Pain. absent: Stool Changes, Constipation, Diarrhea , Vomiting, Hematochezia, Hematemesis Genitourinary Male: absent: Dysuria, Hematuria Physical Exam Vital Signs Reviewed: Yes Vital Signs Temp Pulse Resp BP Pulse Ox 06/26/17 17:32 98.2 F 99 H 20 135/77 96 06/26/17 15:00 80 16 129/87 98 06/26/17 13:19 97.8 F 98 H 17 142/82 100 Temperature: Afebrile Blood Pressure: Normal Pulse: Tachycardic Respiratory Rate: Normal Appearance: Positive for: Well-Appearing, Non-Toxic, Comfortable Pain Distress: None Mental Status: Positive for: Alert and Oriented X 3 - Systems Exam Head: Present: Atraumatic, Normocephalic Pupils: Present: PERRL Extroacular Muscles: Present: EOMI Conjunctiva: Present: Normal Mouth: Present: Moist Mucous Membranes Neck: Present: Normal Range of Motion Respiratory/Chest: Present: Clear to Auscultation, Good Air Exchange. No: Respiratory Distress, Accessory Muscle Use Cardiovascular: Present: Regular Rate and Rhythm, Normal S1, S2. No: Murmurs Abdomen: Present: Tenderness (diffuse tenderness), Distention, Other ( umibilical hernia; drainage tube to right lower abdomen; clean, dry, no warmth, no pus, no redness. ) Back: Present: Normal Inspection Upper Extremity: Present: Normal Inspection. No: Cyanosis, Edema Lower Extremity: Present: Normal Inspection. No: Edema Neurological: Present: GCS=15, CN II-XII Intact, Speech Normal Skin: Present: Warm, Dry, Normal Color. No: Rashes Psychiatric: Present: Alert, Oriented x 3, Normal Insight, Normal Concentration Medical Decision Making ED Course and Treatment: 06/26/17 14:46 Impression: A 71 year old male in need of CT with contrast PO. Differential Diagnosis included but are not limited to: Bowel obstruction vs. abdominal mass Plan: -- ABD & Pelvis CT -- Labs -- Toradol -- Reassess and disposition Progress Notes: 06/26/17 18:50 Dr. Burrows, surgical aide, came to evaluate patient for an NGT. They were unable to place NGT because patient was in too much pain. He refused further attempts. Dr. House, , was called who made me aware that they were encouraging and NGT but if the patient did not want it further then to just let him drink PO. Patient drank most of the contrast and just returned from CT. Still comforable and in no acute distress. 06/26/17 18:[address] Alfred to f/u CT, reevaluate and disposition. Discuss case with Dr. Vargas and Dr. House. - Lab Interpretations Lab Results: 06/26/17 14:45 06/26/17 14:45 Lab Results 06/26/17 14:45: Blood Type B POSITIVE, Antibody Screen Negative, BBK History Checked Patient has bt 06/26/17 14:45: Sodium 146, Potassium 3.5 L, Chloride 110 H, Carbon Dioxide 26, Anion Gap 14, BUN 51 H, Creatinine 1.2, Est GFR ( Amer) > 60, Est GFR ( Non-Af Amer) 60, Random Glucose 230 H, Calcium 9.0, Total Bilirubin 0.6, AST 34 , ALT 57 H, Alkaline Phosphatase 799 H, Total Protein 6.3, Albumin 2.9 L, Globulin 3.4, Albumin/Globulin Ratio 0.9 L, Lipase 346 H 06/26/17 14:45: PT 12.5, INR 1.14 H, APTT 32.8 06/26/17 14:45: WBC 11.5 H, RBC 3.70, Hgb 11.6 L, Hct 34.5 L, MCV 93.2, MCH 31.4 , MCHC 33.6, RDW 15.3 H, Plt Count 307, MPV 10.4, Gran % 75.8 H, Lymph % (Auto) 9.7 L, [place] % (Auto) 11.0 H, Eos % (Auto) 3.1, Baso % (Auto) 0.4, Gran # 8.71 H , Lymph # 1.1 L, [place] # 1.3 H, Eos # 0.4, Baso # 0.05 I have reviewed the lab results: Yes - RAD Interpretation Radiology Orders: 06/26/17 14:01 ABD & PELVIS PO CONTRAST ONLY [CT] Stat - Medication Orders Current Medication Orders: Sodium Chloride (Sodium Chloride 0.9%) 1,000 mls @ 100 mls/hr IV .Q10H [facility] Last Admin: 06/26/17 16:25 Dose: 100 mls/hr eMAR Start Stop Document 06/26/17 16:25 SZA (Rec: 06/26/17 16:26 [email or web address] [id number]) Intravenous Solution Start Date 06/26/17 Start Time 16:26 Discontinued Medications Potassium Chloride (Potassium Chloride 20 Meq/100 Ml) 20 meq in 100 mls @ 50 mls/hr IVPB ONCE ONE Stop: 06/26/17 17:37 Last Admin: 06/26/17 16:20 Dose: 50 mls/hr eMAR Start Stop Document 06/26/17 16:20 SZA (Rec: 06/26/17 16:25 SZA [id number]) Intravenous Solution Start Date 06/26/17 Start Time 16:20 End Date 06/26/17 End time 18:20 Total Infusion Time 120 Ketorolac Tromethamine (Toradol) 15 mg IVP STAT STA Stop: 06/26/17 14:32 Last Admin: 06/26/17 15:02 Dose: 15 mg MAR Pain Assessment Document 06/26/17 15:02 MB (Rec: 06/26/17 15:03 [id number]) Pain Reassessment Is this a pain reassessment? No Sleep Is patient sleeping during reassessment? No Presence of Pain Presence of Pain Yes Pain Scale Used Pain Scale Used Numeric Location Pain Location Body Site Abdomen Description Description Constant Intensity of Pain at present 5 Acceptable Level of Pain 0 Pain Behavior Facial Grimacing Aggravating Factors ADL's Alleviating Factors/Management Medication Techniques Alleviating Factors Medication IVP Administration Document 06/26/17 15:02 MB (Rec: 06/26/17 15:03 [id number]) Charges for Administration # of IVP Administrations 1 - Scribe Statement The provider has reviewed the documentation as recorded by the Scribe Genevieve Bernard Provider Scribe Attestation: All medical record entries made by the Scribe were at my direction and personally dictated by me. I have reviewed the chart and agree that the record accurately reflects my personal performance of the history, physical exam, medical decision making, and the department course for this patient. I have also personally directed, reviewed, and agree with the discharge instructions and disposition. Disposition/Present on Arrival - Present on Arrival Any Indicators Present on Arrival: No History of DVT/PE: No History of Uncontrolled Diabetes: No Urinary Catheter: No History of Decub. Ulcer: No History Surgical Site Infection Following: None - Disposition Have Diagnosis and Disposition been Completed?: No Diagnosis: Abdominal pain Disposition Time: 18:55 Patient Problems: Current Active Problems Problem Status Onset Abdominal pain Acute Condition: FAIR Forms: [employer] (Mongolian)
[2017-06-26 15:10] LABS: BASO # 0.05 K/mm3 (0.0-2.0); BASO % 0.4 % (0.0-3.0); EOS # 0.4 (0.0-0.7); EOS % 3.1 % (1.5-5.0); GRAN # 8.71 (1.4-6.5); GRAN % 75.8 % (50.0-68.0); HEMATOCRIT 34.5 % (42.0-52.0); LYMPH # 1.1 (1.2-3.4); LYMPH % 9.7 % (22.0-35.0); MEAN CELL VOLUME 93.2 fl (80.0-105.0); MEAN CORPUSCULAR HEMOGLOBIN 31.4 pg (25.0-35.0); MEAN CORPUSCULAR HGB CONC 33.6 g/dl (31.0-37.0); MEAN PLATELET VOLUME 10.4 fl (7.0-11.0); MONO # 1.3 (0.1-0.6); RED CELL DISTRIBUTION WIDTH 15.3 % (11.5-14.5); WHITE BLOOD COUNT 11.5 10^3/ul (4.5-11.0)
[2017-06-26 15:19] LABS: ALB/GLOB RATIO 0.9 (1.1-1.8); ALKALINE PHOSPHATASE 799 U/L (38-126); ALT/SGPT 57 U/L (7-56); AST/SGOT 34 U/L (17-59); BILIRUBIN,TOTAL 0.6 mg/dL (0.2-1.3); BLOOD UREA NITROGEN 51 mg/dL (7-21); CARBON DIOXIDE 26 mmol/L (21-33); CHLORIDE 110 mmol/L (98-107); GFR AFRICAN-AMERICAN > 60; GLUCOSE,RANDOM 230 mg/dL (70-110); LIPASE 346 U/L (23-300); POTASSIUM 3.5 mmol/L (3.6-5.0); SODIUM 146 mmol/L (132-148); TOTAL PROTEIN 6.3 g/dL (5.8-8.3)
[2017-06-26 16:00] LABS: INR 1.14 (0.93-1.08); PARTIAL THROMBOPLASTIN TIME 32.8 Seconds (25.1-36.5)
[2017-06-26] MEDS ORDERED: Sodium Chloride 0.9% 1,000 ML IV SCH (16:15)
--- NOTE | 2017-06-26 17:01 | CP.PCM.CON ---
History of Present Illness - History of Present Illness History of Present Illness: Surgery Consult Note for Dr. Alaniz. Consult for Small Bowel Obstruction History of Present Illness: Patient is a 71 year old Male with small bowel obstruction and intractable nausea and vomiting. Patient presented initially with abdominal pain, nausea, vomiting, diarrhea and was admitted for extensive workup. Symptoms were attributed to recent chemotherapy treatment. After stabilization patient was transferred to transitional care for rehabilitation. His symptoms resolved briefly before he began to have more nausea and non- bloody vomiting. He is also having loose stool. Review of Systems: Denies any headache, fevers, chills or nightsweats, chest pain or shortness of breath. Past Medical History: adenocarcinoma colon, intraperitoneal carcinomatosis, ascites, type 2 diabetes mellitus, HTN, NE Past Surgical History: Exploratory laparotomy 2014, ureteral stent, aspira catheter, neck/scalp abscess incision and drainage. Allergies: NKDA Past Patient History - Infectious Disease Hx of Infectious Diseases: None - Tetanus Immunizations Tetanus Immunization: Unknown - Past Social History Smoking Status: Former Smoker - CARDIAC Hx Cardiac Disorders: Yes Hx Hypertension: Yes - PULMONARY Hx Respiratory Disorders: Yes (SMOKED 4 PPD CIGARETTES QUIT 1967) - NEUROLOGICAL Hx Paralysis: No - HEENT Hx HEENT Problems: Yes (RX GLASSES) Hx Cataracts: Yes (BILATERAL LENS IMPLANT) - RENAL Hx Chronic Kidney Disease: No - ENDOCRINE/METABOLIC Hx Diabetes Mellitus Type 2: Yes - INTEGUMENTARY Hx Dermatological Problems: Yes (H/O CELLULITIS ABSCESS TO NECK AREA) - MUSCULOSKELETAL/RHEUMATOLOGICAL Hx Musculoskeletal Disorders: No - GASTROINTESTINAL Hx Gastrointestinal Disorders: Yes (COLON CA STAGE 4,PERITONEAL CA-FOLFOX, GASTRITIS,MALNUTRITION,GERD) Other/Comment: Colon CA mets Liver. Esophageal ulcers - GENITOURINARY/GYNECOLOGICAL Hx Genitourinary Disorders: No Hx Reproductive Disorders: No - PSYCHIATRIC Hx Emotional Abuse: No Hx Physical Abuse: No Hx Substance Use: No - SURGICAL HISTORY Other/Comment: PORT RIGHT CHEST WALL, PICC IN AND OUT H/O, ASPERA CATH. - ANESTHESIA Hx Anesthesia Reactions: No Hx Malignant Hyperthermia: No Meds Allergies/Adverse Reactions: Allergies Allergy/AdvReac Type Severity Reaction Status Date / Time No Known Allergies Allergy Verified 06/26/17 13:08 - Medications Medications: Current Medications Potassium Chloride (Potassium Chloride 20 Meq/100 Ml) 20 meq in 100 mls @ 50 mls/hr IVPB ONCE ONE Stop: 06/26/17 17:37 Last Admin: 06/26/17 16:20 Dose: 50 mls/hr Sodium Chloride (Sodium Chloride 0.9%) 1,000 mls @ 100 mls/hr IV .Q10H BERNARDO Last Admin: 06/26/17 16:25 Dose: 100 mls/hr Physical Exam - Constitutional Appears: Non-toxic, Older Than Stated Age - Head Exam Head Exam: ATRAUMATIC, NORMOCEPHALIC - Eye Exam Eye Exam: EOMI - Respiratory Exam Respiratory Exam: absent: Accessory Muscle Use, Respiratory Distress - Cardiovascular Exam Cardiovascular Exam: REGULAR RHYTHM. absent: Tachycardia - GI/Abdominal Exam GI & Abdominal Exam: Distended, Soft, Tenderness. absent: Guarding, Rebound - Extremities Exam Extremities exam: Negative for: calf tenderness - Neurological Exam Neurological exam: Alert, Oriented x3 - Psychiatric Exam Psychiatric exam: Normal Affect, Normal Mood - Skin Skin Exam: Dry, Intact, Normal Color, Warm Results - Vital Signs Recent Vital Signs: Last Vital Signs Temp 97.8 F 06/26/17 13:19 Pulse 98 H 06/26/17 13:19 Resp 17 06/26/17 13:19 BP 142/82 06/26/17 13:19 Pulse Ox 100 06/26/17 13:19 - Labs Result Diagrams: 06/27/17 06:52 06/27/17 06:52 Labs: Laboratory Results - last 24 hr 06/26/17 06/26/17 06/26/17 14:45 14:45 14:45 WBC 11.5 H RBC 3.70 Hgb 11.6 L Hct 34.5 L MCV 93.2 MCH 31.4 MCHC 33.6 RDW 15.3 H Plt Count 307 MPV 10.4 Gran % 75.8 H Lymph % (Auto) 9.7 L Jackson % (Auto) 11.0 H Eos % (Auto) 3.1 Baso % (Auto) 0.4 Gran # 8.71 H Lymph # 1.1 L Jackson # 1.3 H Eos # 0.4 Baso # 0.05 PT 12.5 INR 1.14 H APTT 32.8 Sodium 146 Potassium 3.5 L Chloride 110 H Carbon Dioxide 26 Anion Gap 14 BUN 51 H Creatinine 1.2 Est GFR ( Amer) > 60 Est GFR (Non-Af Amer) 60 Random Glucose 230 H Calcium 9.0 Total Bilirubin 0.6 AST 34 ALT 57 H Alkaline Phosphatase 799 H Total Protein 6.3 Albumin 2.9 L Globulin 3.4 Albumin/Globulin Ratio 0.9 L Lipase 346 H Blood Type Antibody Screen BBK History Checked 06/26/17 14:45 WBC RBC Hgb Hct MCV MCH MCHC RDW Plt Count MPV Gran % Lymph % (Auto) Jackson % (Auto) Eos % (Auto) Baso % (Auto) Gran # Lymph # Jackson # Eos # Baso # PT INR APTT Sodium Potassium Chloride Carbon Dioxide Anion Gap BUN Creatinine Est GFR ( Amer) Est GFR (Non-Af Amer) Random Glucose Calcium Total Bilirubin AST ALT Alkaline Phosphatase Total Protein Albumin Globulin Albumin/Globulin Ratio Lipase Blood Type B POSITIVE Antibody Screen Negative BBK History Checked Patient has bt Assessment & Plan - Assessment and Plan (Free Text) Assessment: 71M with nausea and intractable vomiting. Plan: -CT: ascites -NPO -NGT if vomits -Monitor bowel function -Drain ascites PRN Discuss with Dr. Alaniz
--- NOTE | 2017-06-26 20:34 | CT ---
EXAM: CT Abdomen and Pelvis With Intravenous Contrast EXAM DATE/TIME: 06/26/2017 2:01 PM CLINICAL HISTORY: The patient age is 71 years old and is male; Signs and symptoms; Constipation; Additional info: R/O obstruction Facility exam id and description: Ct abdpels abd pelvis po contrast only TECHNIQUE: Axial computed tomography images of the abdomen and pelvis with intravenous contrast. All CT scans at this facility use one or more dose reduction techniques, viz.: automated exposure control; ma/kV adjustment per patient size (including targeted exams where dose is matched to indication; i.e. head); or iterative reconstruction technique. Coronal and sagittal reformatted images were created and reviewed. CONTRAST: 50 mL of OMNI 240 administered intravenously. COMPARISON: CT - ABD PELVIS W/O PO OR IV CONT 2017-06-19 12:33 FINDINGS: Lower thorax: There is significant wall thickening of the distal esophagus, which may be inflammatory, although additional pathology cannot be excluded. Multiple pulmonary nodules are again identified within the visualized lungs. One of the larger nodules is seen within the left lower lobe on series 4 image 4 measuring 1.1 cm. Malignant nodules cannot be excluded. ABDOMEN: Liver: No mass. Gallbladder and bile ducts: The gallbladder is hyperdense, consistent with vicarious excretion of contrast. Pancreas: There is atrophy of the body and head of the pancreas. Spleen: No splenomegaly. Adrenals: No mass. Kidneys and ureters: A right ureteral stent is identified, new compared to the prior study. There is interval resolution of the hydronephrosis on the right side. Contiguous with the midpole right kidney and adjacent bowel, there is a 3.8 x 3.5 cm mass. Stomach and bowel: Dilated small and large bowel loops are identified, consistent with ileus. The distal ileum is normal in caliber, and partial small bowel obstruction is also considered. There is a ventral abdominal hernia containing bowel measuring 9.8 cm in diameter. This has increased in size. There is wall thickening of the stomach with adjacent fluid. This is consistent with incomplete distention or gastritis. Fluid distends the rectum. Appendix: Not visualized. PELVIS: Bladder: No mass. Reproductive: Unremarkable as visualized. ABDOMEN and PELVIS: Intraperitoneal space: There is moderate abdominal and pelvic ascites. This has mildly progressed. Varices are identified within the upper abdomen, as well as esophageal varices. Bones/joints: Mild degenerative changes are identified within the thoracolumbar spine. There is grade I anterolisthesis of L5 on S1. Vasculature: No abdominal aortic aneurysm. Lymph nodes: There is prominence of the mesenteric vasculature with multiple mildly enlarged mesenteric lymph nodes. Mildly enlarged retroperitoneal lymph nodes are also identified. A left periaortic lymph node measures 1.6 x 1.0 cm, without significant progression in size. Small intrapelvic lymph nodes are identified, without significant intrapelvic lymphadenopathy. Tubes, lines and devices: An intraperitoneal catheter is again identified, with the tip lateral to the hepatic dome. This is stable in position. IMPRESSION: 1. Dilated small and large bowel loops are identified, consistent with ileus. The distal ileum is normal in caliber, and partial small bowel obstruction is also considered. There is a mild decrease in small bowel distention compared to the prior study. 2. There is significant wall thickening of the distal esophagus, which may be inflammatory, although additional pathology cannot be excluded. 3. Varices are identified within the upper abdomen, as well as esophageal varices. 4. A right ureteral stent is identified, new compared to the prior study. There is interval resolution of the hydronephrosis on the right side. 5. Contiguous with the midpole right kidney and adjacent bowel, there is a 3.8 x 3.5 cm mass. Correlation with ultrasonography is recommended. 6. There is a ventral abdominal hernia containing bowel measuring 9.8 cm in diameter. This has increased in size. 7. There is prominence of the mesenteric vasculature with multiple mildly enlarged mesenteric lymph nodes. Mildly enlarged retroperitoneal lymph nodes are also identified. A left periaortic lymph node measures 1.6 x 1.0 cm, without significant progression in size. 8. Multiple pulmonary nodules are again identified within the visualized lungs. One of the larger nodules is seen within the left lower lobe on series 4 image 4 measuring 1.1 cm. Malignant nodules cannot be excluded. PET/CT is recommended. 9. Additional CT findings described above.
--- NOTE | 2017-06-26 20:41 | ED PDOC ---
Physical Exam Vital Signs Temp Pulse Resp BP Pulse Ox 06/26/17 17:32 98.2 F 99 H 20 135/77 96 06/26/17 15:00 80 16 129/87 98 06/26/17 13:19 97.8 F 98 H 17 142/82 100 Temperature: Afebrile Blood Pressure: Normal Pulse: Regular Respiratory Rate: Normal Appearance: Positive for: Non-Toxic, Comfortable Pain Distress: None Mental Status: Positive for: Alert and Oriented X 3 - Systems Exam Head: Present: Atraumatic, Normocephalic Pupils: Present: PERRL Extroacular Muscles: Present: EOMI Neurological: Present: GCS=15, CN II-XII Intact Psychiatric: Present: Alert, Oriented x 3 Medical Decision Making ED Course and Treatment: 06/26/17 19:00 Signed out from as pending CT and reevaluation. 06/26/17 20:40 CT shows 1. Dilated small and large bowel loops are identified, consistent with ileus. The distal ileum is normal in caliber, and partial small bowel obstruction is also considered. There is a mild decrease in small bowel distention compared to the prior study. 2. There is significant wall thickening of the distal esophagus, which may be inflammatory, although additional pathology cannot be excluded. 3. Varices are identified within the upper abdomen, as well as esophageal varices. 4. A right ureteral stent is identified, new compared to the prior study. There is interval resolution of the hydronephrosis on the right side. 5. Contiguous with the midpole right kidney and adjacent bowel, there is a 3.8 x 3.5 cm mass. Correlation with ultrasonography is recommended. 6. There is a ventral abdominal hernia containing bowel measuring 9.8 cm in diameter. This has increased in size. 7. There is prominence of the mesenteric vasculature with multiple mildly enlarged mesenteric lymph nodes. Mildly enlarged retroperitoneal lymph nodes are also identified. A left periaortic lymph node measures 1.6 x 1.0 cm, without significant progression in size. 8. Multiple pulmonary nodules are again identified within the visualized lungs. One of the larger nodules is seen within the left lower lobe on series 4 image 4 measuring 1.1 cm. Malignant nodules cannot be excluded. PET/CT is recommended. 9. Additional CT findings described above Paged Dr. Vargas 06/26/17 20:51 06/26/17 21:[address] Vargas and requesting admission to med/sx. Requesting consult to Dr. Lueng, nephro, Dr. Melton, ID, , surgery and Dr. House, GI. Spoke to Dr. House who agrees with admission. Requesting NS at 60cc/hr and they will write TPN orders. senior resident care director paged 06/26/17 21:41 senior resident care director aware. - Lab Interpretations Lab Results: 06/26/17 14:45 06/26/17 14:45 Lab Results 06/26/17 14:45: Blood Type B POSITIVE, Antibody Screen Negative, BBK History Checked Patient has bt 06/26/17 14:45: Sodium 146, Potassium 3.5 L, Chloride 110 H, Carbon Dioxide 26, Anion Gap 14, BUN 51 H, Creatinine 1.2, Est GFR ( Amer) > 60, Est GFR ( Non-Af Amer) 60, Random Glucose 230 H, Calcium 9.0, Total Bilirubin 0.6, AST 34 , ALT 57 H, Alkaline Phosphatase 799 H, Total Protein 6.3, Albumin 2.9 L, Globulin 3.4, Albumin/Globulin Ratio 0.9 L, Lipase 346 H 06/26/17 14:45: PT 12.5, INR 1.14 H, APTT 32.8 06/26/17 14:45: WBC 11.5 H, RBC 3.70, Hgb 11.6 L, Hct 34.5 L, MCV 93.2, MCH 31.4 , MCHC 33.6, RDW 15.3 H, Plt Count 307, MPV 10.4, Gran % 75.8 H, Lymph % (Auto) 9.7 L, Marin % (Auto) 11.0 H, Eos % (Auto) 3.1, Baso % (Auto) 0.4, Gran # 8.71 H , Lymph # 1.1 L, Marin # 1.3 H, Eos # 0.4, Baso # 0.05 - RAD Interpretation Radiology Orders: 06/26/17 14:01 ABD & PELVIS PO CONTRAST ONLY [CT] Stat - Medication Orders Current Medication Orders: Famotidine (Pepcid) 20 mg IVP DAILY BERNARDO Sodium Chloride (Sodium Chloride 0.9%) 2,000 mls @ 60 mls/hr IV .Q24H BERNARDO Lactated Ringer's (Lactated Ringer's) 1,000 mls @ 100 mls/hr IV .Q10H BERNARDO Ketorolac Tromethamine (Toradol) 15 mg IVP Q4 PRN PRN Reason: Pain, moderate (4-7) Discontinued Medications Potassium Chloride (Potassium Chloride 20 Meq/100 Ml) 20 meq in 100 mls @ 50 mls/hr IVPB ONCE ONE Stop: 06/26/17 17:37 Last Admin: 06/26/17 16:20 Dose: 50 mls/hr eMAR Start Stop Document 06/26/17 16:20 SZA (Rec: 06/26/17 16:25 SZA [id number]) Intravenous Solution Start Date 06/26/17 Start Time 16:20 End Date 06/26/17 End time 18:20 Total Infusion Time 120 Sodium Chloride (Sodium Chloride 0.9%) 1,000 mls @ 100 mls/hr IV .Q10H BERNARDO Last Admin: 06/26/17 16:25 Dose: 100 mls/hr eMAR Start Stop Document 06/26/17 16:25 SZA (Rec: 06/26/17 16:26 SZA [id number]) Intravenous Solution Start Date 06/26/17 Start Time 16:26 Ketorolac Tromethamine (Toradol) 15 mg IVP STAT STA Stop: 06/26/17 14:32 Last Admin: 06/26/17 15:02 Dose: 15 mg MAR Pain Assessment Document 06/26/17 15:02 MB (Rec: 06/26/17 15:03 [id number] Pain Reassessment Is this a pain reassessment? No Sleep Is patient sleeping during reassessment? No Presence of Pain Presence of Pain Yes Pain Scale Used Pain Scale Used Numeric Location Pain Location Body Site Abdomen Description Description Constant Intensity of Pain at present 5 Acceptable Level of Pain 0 Pain Behavior Facial Grimacing Aggravating Factors ADL's Alleviating Factors/Management Medication Techniques Alleviating Factors Medication IVP Administration Document 06/26/17 15:02 MB (Rec: 06/26/17 15:03 [id number] Charges for Administration # of IVP Administrations 1 Disposition/Present on Arrival - Present on Arrival Any Indicators Present on Arrival: No History of DVT/PE: No History of Uncontrolled Diabetes: No Urinary Catheter: No History of Decub. Ulcer: No History Surgical Site Infection Following: None - Disposition Have Diagnosis and Disposition been Completed?: Yes Diagnosis: Abdominal pain Disposition: HOSPITALIZED Disposition Time: 21:11 Patient Plan: Admission Patient Problems: Current Active Problems Problem Status Onset Abdominal pain Acute Condition: FAIR
[2017-06-26] MEDS ORDERED: Sodium Chloride 0.9% 2,000 ML IV SCH (21:15)
[2017-06-26] MEDS ORDERED: Lactated Ringer's 1,000 ML IV SCH (21:30)
[2017-06-27] MEDS: Piperacillin/Tazobact 3.375 gm 100 ML IVPB SCH ×3 (05:09→17:47)
[2017-06-27 07:05] LABS: BASO # 0.09 K/mm3 (0.0-2.0); BASO % 0.9 % (0.0-3.0); EOS # 0.8 (0.0-0.7); EOS % 7.8 % (1.5-5.0); GRAN # 7.01 (1.4-6.5); GRAN % 68.7 % (50.0-68.0); HEMATOCRIT 31.2 % (42.0-52.0); LYMPH # 1.3 (1.2-3.4); LYMPH % 12.8 % (22.0-35.0); MEAN CELL VOLUME 92.9 fl (80.0-105.0); MEAN CORPUSCULAR HEMOGLOBIN 30.7 pg (25.0-35.0); MEAN PLATELET VOLUME 10.2 fl (7.0-11.0); MONO % 9.8 % (1.0-6.0); RED CELL DISTRIBUTION WIDTH 15.5 % (11.5-14.5); WHITE BLOOD COUNT 10.2 10^3/ul (4.5-11.0)
[2017-06-27 07:14] LABS: ALB/GLOB RATIO 0.8 (1.1-1.8); ALKALINE PHOSPHATASE 576 U/L (38-126); ALT/SGPT 44 U/L (7-56); AST/SGOT 26 U/L (17-59); BILIRUBIN,TOTAL 0.6 mg/dL (0.2-1.3); BLOOD UREA NITROGEN 45 mg/dL (7-21); CALCIUM 7.9 mg/dL (8.4-10.5); CARBON DIOXIDE 23 mmol/L (21-33); CHLORIDE 111 mmol/L (98-107); GFR AFRICAN-AMERICAN > 60; GLUCOSE,RANDOM 210 mg/dL (70-110); POTASSIUM 3.5 mmol/L (3.6-5.0); SODIUM 143 mmol/L (132-148); TOTAL PROTEIN 5.3 g/dL (5.8-8.3)
--- NOTE | 2017-06-27 08:27 | CP.PCM.PN ---
Subjective - Date & Time of Evaluation Date of Evaluation: 06/27/17 Time of Evaluation: 07:05 - Subjective Subjective: General Surgery Note for Dr. Alaniz Patient seen and examined at bedside. No acute event overnight. Patient complaining of abdominal pain. He is very uncomfortable. Denies fever/chills, chest pain, SOB, nausea/vomiting. Patient passing flatus but no bowel movement. Objective - Vital Signs/Intake and Output Vital Signs (last 24 hours): Temp Pulse Resp BP Pulse Ox 98.2 F 86 18 131/73 97 06/26/17 17:32 06/26/17 22:00 06/26/17 23:02 06/26/17 22:00 06/26/17 22:00 Intake and Output: 06/27/17 06/27/17 06:59 18:59 Intake Total 1000 0 Balance 1000 0 - Medications Medications: Current Medications Famotidine (Pepcid) 20 mg IVP DAILY BERNARDO Sodium Chloride (Sodium Chloride 0.9%) 2,000 mls @ 60 mls/hr IV .Q24H BERNARDO Lactated Ringer's (Lactated Ringer's) 1,000 mls @ 100 mls/hr IV .Q10H BERNARDO Piperacillin Sod/Tazobactam Sod (Zosyn 3.375 In Ns 100ml) 100 mls @ 200 mls/hr IVPB Q6 BERNARDO PRN Reason: Protocol Stop: 07/04/17 00:01 Last Admin: 06/27/17 05:09 Dose: 200 mls/hr Ketorolac Tromethamine (Toradol) 15 mg IVP Q4 PRN PRN Reason: Pain, moderate (4-7) - Labs Labs: 06/27/17 06:52 06/27/17 06:52 PT 12.5 SECONDS (9.4-12.5) 06/26/17 14:45 INR 1.14 (0.93-1.08) H 06/26/17 14:45 APTT 32.8 Seconds (25.1-36.5) 06/26/17 14:45 - Constitutional Appears: Other (uncomfortable) - Head Exam Head Exam: ATRAUMATIC, NORMOCEPHALIC - Eye Exam Eye Exam: Normal appearance - ENT Exam ENT Exam: Mucous Membranes Moist - Respiratory Exam Respiratory Exam: NORMAL BREATHING PATTERN - Cardiovascular Exam Cardiovascular Exam: REGULAR RHYTHM - GI/Abdominal Exam GI & Abdominal Exam: Distended, Guarding (voluntary guarding on palpation), Soft , Tenderness. absent: Firm, Rigid - Neurological Exam Neurological Exam: Alert, Awake - Psychiatric Exam Psychiatric exam: Anxious - Skin Skin Exam: Dry, Normal Color, Warm Assessment and Plan - Assessment and Plan (Free Text) Plan: 71 M with abdominal pain and suspected partial obstruction -ABXR today -Analgesics/Anti-emetics PRN -Management as per Primary -DW Dr. Katty Helton PGY1
[2017-06-27 09:04] LABS: MAGNESIUM 1.3 mg/dL (1.7-2.2); PHOSPHOROUS 3.5 mg/dL (2.5-4.5)
--- NOTE | 2017-06-27 10:05 | CP.PCM.HP ---
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 Vargas's office more than a week prior to presentation to [facility] [place] c/o epigastric abdominal pain associated with nausea, vomiting and diarrhea. He reported lack of appetite and approximately 3-4/10 non-radiating abdominal pain. He was recommended to come to the ER for further evaluation. Upon arrival, an extensive GI and ID workup was done. Cdiff studies were sent and found to be negative. His diarrhea was attributed to his chemotherapy treatment with irinotecan. Ascitic fluid was drained and sent for culture. He was started on antibiotics per ID recommendations and his diet was advanced as tolerated. He was also given PPN for nutritional supplementation. He was subsequently transferred to the transitional care unit for physical therapy. During the course of his stay in the transitional care unit, patient had continued abdominal pain with lack of appetite and poor oral intake. An abdominal xray revealed partial small bowel obstruction. GI recommended CT abd/pelvis with oral contrast however patient was unable to tolerate PO intake. Patient was subsequently sent to the emergency room for NG tube placement, CT abdomen/ pelvis with contrast and readmission to the hospital for further evaluation. Presently he denies chest pain, palpitations, SOB, focal weakness, numbness, tingling. 12point ROS as per HPI above, otherwise negative PMHx: as stated above PSHx: aspira catheter placement Allergies: NKDA Social Hx: denies alcohol, tobacco and illicit drug use Family hx: Reviewed and non-contributory Present on Admission - Present on Admission Any Indicators Present on Admission: No Past Patient History - Infectious Disease Hx of Infectious Diseases: None - Tetanus Immunizations Tetanus Immunization: Unknown - Past Social History Smoking Status: Former Smoker - CARDIAC Hx Cardiac Disorders: Yes Hx Hypercholesterolemia: Yes Hx Hypertension: Yes - PULMONARY Hx Respiratory Disorders: No - NEUROLOGICAL Hx Neurological Disorder: No - HEENT Hx HEENT Problems: Yes Hx Cataracts: Yes - RENAL Hx Chronic Kidney Disease: Yes (right ureteral stent) Hx Renal Failure: Yes (right kidney hydronephrosis) - ENDOCRINE/METABOLIC Hx Endocrine Disorders: Yes Hx Diabetes Mellitus Type 2: Yes - HEMATOLOGICAL/ONCOLOGICAL Hx Blood Disorders: Yes 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) Hx Chemotherapy: Yes (fulfox) - INTEGUMENTARY Hx Dermatological Problems: No - MUSCULOSKELETAL/RHEUMATOLOGICAL Hx Falls: No - GASTROINTESTINAL Hx Gastrointestinal Disorders: Yes Hx Gall Bladder Disease: Yes Hx Gastroesophageal Reflux: Yes - GENITOURINARY/GYNECOLOGICAL Hx Genitourinary Disorders: No - PSYCHIATRIC Hx Psychophysiologic Disorder: No - SURGICAL HISTORY Hx Surgeries: Yes (aspira cath, ureterl stent, port placement) - ANESTHESIA Hx Anesthesia Reactions: No Hx Malignant Hyperthermia: No Meds Allergies/Adverse Reactions: Allergies Allergy/AdvReac Type Severity Reaction Status Date / Time No Known Allergies Allergy Verified 06/26/17 13:08 Physical Exam - Constitutional Appears: Cachectic, Chronically Ill - Head Exam Head Exam: ATRAUMATIC, NORMAL INSPECTION, NORMOCEPHALIC - Eye Exam Eye Exam: EOMI, PERRL - ENT Exam ENT Exam: Mucous Membranes Moist - Respiratory Exam Respiratory Exam: absent: Rales, Rhonchi, Wheezes - Cardiovascular Exam Cardiovascular Exam: +S1, +S2. absent: Gallop, JVD, Rubs, Systolic Murmur - GI/Abdominal Exam GI & Abdominal Exam: Hernia, Soft, Tenderness. absent: Distended, Firm, Guarding, Rigid - Neurological Exam Neurological exam: Alert, Oriented x3 - Psychiatric Exam Psychiatric exam: Normal Affect, Normal Mood - Skin Skin Exam: Dry, Intact, Normal Color, Warm Results - Vital Signs Recent Vital Signs: Last Vital Signs Temp 98.0 F 06/27/17 06:00 Pulse 100 H 06/27/17 06:00 Resp 18 06/27/17 06:00 BP 165/93 H 06/27/17 06:00 Pulse Ox 97 06/27/17 06:00 - Labs Result Diagrams: 06/27/17 06:52 06/27/17 06:52 Labs: Laboratory Results - last 24 hr 06/27/17 06/27/17 06/27/17 06:52 06:52 07:50 WBC 10.2 RBC 3.36 L Hgb 10.3 L Hct 31.2 L MCV 92.9 MCH 30.7 MCHC 33.0 RDW 15.5 H Plt Count 273 MPV 10.2 Gran % 68.7 H Lymph % (Auto) 12.8 L [place] % (Auto) 9.8 H Eos % (Auto) 7.8 H Baso % (Auto) 0.9 Gran # 7.01 H Lymph # 1.3 Swain # 1.0 H Eos # 0.8 H Baso # 0.09 Sodium 143 Potassium 3.5 L Chloride 111 H Carbon Dioxide 23 Anion Gap 13 BUN 45 H Creatinine 1.0 Est GFR ( Amer) > 60 Est GFR (Non-Af Amer) > 60 POC Glucose (mg/dL) 205 H Random Glucose 210 H Calcium 7.9 L Phosphorus Magnesium Total Bilirubin 0.6 AST 26 ALT 44 Alkaline Phosphatase 576 H D Total Protein 5.3 L Albumin 2.3 L Globulin 2.9 Albumin/Globulin Ratio 0.8 L 06/27/17 08:49 WBC RBC Hgb Hct MCV MCH MCHC RDW Plt Count MPV Gran % Lymph % (Auto) Swain % (Auto) Eos % (Auto) Baso % (Auto) Gran # Lymph # Swain # Eos # Baso # Sodium Potassium Chloride Carbon Dioxide Anion Gap BUN Creatinine Est GFR ( Amer) Est GFR (Non-Af Amer) POC Glucose (mg/dL) Random Glucose Calcium Phosphorus 3.5 Magnesium 1.3 L Total Bilirubin AST ALT Alkaline Phosphatase Total Protein Albumin Globulin Albumin/Globulin Ratio Assessment & Plan - Assessment and Plan (Free Text) Plan: 71yo male with history of stage IV metastatic adenocarcinoma of the colon with recurrent ascites s/p aspira catheter placement that presented to [facility] [place] c/o abdominal pain associated with nausea, vomiting and diarrhea 1. Partial SBO -Bowel obstruction likely secondary to intraabdominal carcinomatosis -NPO -continue TPN -monitored and replete electrolytes as indicated -GI and surgery consulted; will discuss further plan -Abdominal xray revealed slight improvement in degree of bowel obstruction 2. stage IV metastatic adenocarcinoma of the colon -Patient with documented intraabdominal carcinomatosis treated with FOLFIRI and vectibix -PET scan from 03/06/17 revealed no evidence of FDG avid mass or nodules in the chest, abdomen and pelvis; Re-demonstration of multiple solid non FDG avid nodules in the lungs appear slightly larger compared to previous exam. See full report -Follows with Dr. Vargas as an outpatient 3. Acute kidney injury, resolving -Patient with history of right sided hydronephrosis -Renal US revealed stable right-sided hydronephrosis -Bladder scan revealed no post-void residual volume -Urology consulted and patient was taken for stent placement this morning -Nephrology following - Dr. Leung 4. DM type 2 -Fingersticks ACHS -Insulin sliding scale 5. Hypertension -Continue with clonidine, lisinopril and aldactone 6. GI/DVT Prophylaxis -Protonix/heparin SC Patient was seen and case discussed with attending, Dr. Vargas - Date & Time Date: 06/27/17 Time: 10:52
--- NOTE | 2017-06-27 11:35 | CP.PCM.CON ---
<Aletha Panda - Last Filed: 06/27/17 11:34> History of Present Illness - History of Present Illness History of Present Illness: Seen and examined at the bedside earlier today, the chart was reviewed. Request for GI consult is for abdominal pain/ileus. 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 The patient was found to have persistent dilated small and large bowel loops,the patient has been experiencing nausea and abdominal discomfort mostly to site of hernia. The patient unable to tolerate clear liquids. Patient has been moving his bowels. The patient also has recurrent ascites and has this. Catheter with multiple drainage of fluid on this admission. The patient in the ER refuses NG tube. He took oral contrast by mouth but was not able to tolerate the full amount. The CT scan of abdomen and pelvis report was reviewed and findings were consistent with ileus , partial small bowel obstruction, thickening in the esophagus, abdominal and esophageal varices. The patient also had a right ureteral stent which is also noted. The patient this morning denies nausea, no vomiting. He is currently nothing by mouth. He had bowel movement 2 no reports of any bleeding. Past medical history: Hypertension, diabetes mellitus, stage IV metastatic colon cancer with carcinomatosis, GERD Surgical history: Bilateral cataract surgery, right chest port, previous history of Aspira Catheter Allergies: No known drug allergies Family history: Noncontributory at this time Social history: Denies smoking, EtOH or substance abuse. Medications: Reviewed as per MAR ROS: Systems reviewed with positive findings see HPI Past Patient History - Infectious Disease Hx of Infectious Diseases: None - Tetanus Immunizations Tetanus Immunization: Unknown - Past Social History Smoking Status: Former Smoker - CARDIAC Hx Cardiac Disorders: Yes Hx Hypercholesterolemia: Yes Hx Hypertension: Yes - PULMONARY Hx Respiratory Disorders: No - NEUROLOGICAL Hx Neurological Disorder: No - HEENT Hx HEENT Problems: Yes Hx Cataracts: Yes - RENAL Hx Chronic Kidney Disease: Yes (right ureteral stent) Hx Renal Failure: Yes (right kidney hydronephrosis) - ENDOCRINE/METABOLIC Hx Endocrine Disorders: Yes Hx Diabetes Mellitus Type 2: Yes - HEMATOLOGICAL/ONCOLOGICAL Hx Blood Disorders: Yes 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) Hx Chemotherapy: Yes (fulfox) - INTEGUMENTARY Hx Dermatological Problems: No - MUSCULOSKELETAL/RHEUMATOLOGICAL Hx Falls: No - GASTROINTESTINAL Hx Gastrointestinal Disorders: Yes Hx Gall Bladder Disease: Yes Hx Gastroesophageal Reflux: Yes - GENITOURINARY/GYNECOLOGICAL Hx Genitourinary Disorders: No - PSYCHIATRIC Hx Psychophysiologic Disorder: No - SURGICAL HISTORY Hx Surgeries: Yes (aspira cath, ureterl stent, port placement) - ANESTHESIA Hx Anesthesia Reactions: No Hx Malignant Hyperthermia: No Meds Allergies/Adverse Reactions: Allergies Allergy/AdvReac Type Severity Reaction Status Date / Time No Known Allergies Allergy Verified 06/26/17 13:08 - Medications Medications: Current Medications Famotidine (Pepcid) 20 mg IVP DAILY [facility] Last Admin: 06/27/17 09:26 Dose: 20 mg Sodium Chloride (Sodium Chloride 0.9%) 2,000 mls @ 60 mls/hr IV .Q24H [facility] Lactated Ringer's (Lactated Ringer's) 1,000 mls @ 100 mls/hr IV .Q10H [facility] Piperacillin Sod/Tazobactam Sod (Zosyn 3.375 In Ns 100ml) 100 mls @ 200 mls/hr IVPB Q6 [facility] PRN Reason: Protocol Stop: 07/04/17 00:01 Last Admin: 06/27/17 05:09 Dose: 200 mls/hr Potassium Chloride (Potassium Chloride 10 Meq/100 Ml) 10 meq in 100 mls @ 100 mls/hr IVPB Q2H [facility] Stop: 06/27/17 11:44 Last Admin: 06/27/17 11:09 Dose: 100 mls/hr Insulin Human Regular (Humulin R Med) 0 units SC ACHS [facility] PRN Reason: Protocol Ketorolac Tromethamine (Toradol) 15 mg IVP Q4 PRN PRN Reason: Pain, moderate (4-7) Physical Exam - Constitutional Appears: No Acute Distress, Cachectic - Head Exam Head Exam: NORMOCEPHALIC - Eye Exam Eye Exam: Normal appearance - ENT Exam ENT Exam: Mucous Membranes Moist - Neck Exam Neck exam: Positive for: Normal Inspection - Respiratory Exam Respiratory Exam: Decreased Breath Sounds, NORMAL BREATHING PATTERN. absent: Rales, Wheezes, Respiratory Distress - Cardiovascular Exam Cardiovascular Exam: +S1, +S2 - GI/Abdominal Exam GI & Abdominal Exam: Distended, Hernia, Hypoactive Bowel Sounds, Soft, Tenderness. absent: Guarding, Rebound Additional comments: positive ventral hernia, that is reducible, with some mild tenderness no rebound or guarding - Extremities Exam Extremities exam: Positive for: pedal edema (mild), pedal pulses present. Negative for: calf tenderness - Neurological Exam Neurological exam: Alert, Oriented x3 - Skin Skin Exam: Dry, Warm Results - Vital Signs Recent Vital Signs: Last Vital Signs Temp 98.0 F 06/27/17 06:00 Pulse 100 H 06/27/17 06:00 Resp 18 06/27/17 06:00 BP 165/93 H 06/27/17 06:00 Pulse Ox 97 06/27/17 06:00 - Labs Result Diagrams: 06/27/17 06:52 06/27/17 06:52 Labs: Laboratory Results - last 24 hr 06/27/17 06/27/17 06/27/17 06:52 06:52 07:50 WBC 10.2 RBC 3.36 L Hgb 10.3 L Hct 31.2 L MCV 92.9 MCH 30.7 MCHC 33.0 RDW 15.5 H Plt Count 273 MPV 10.2 Gran % 68.7 H Lymph % (Auto) 12.8 L [place] % (Auto) 9.8 H Eos % (Auto) 7.8 H Baso % (Auto) 0.9 Gran # 7.01 H Lymph # 1.3 [place] # 1.0 H Eos # 0.8 H Baso # 0.09 Sodium 143 Potassium 3.5 L Chloride 111 H Carbon Dioxide 23 Anion Gap 13 BUN 45 H Creatinine 1.0 Est GFR ( Amer) > 60 Est GFR (Non-Af Amer) > 60 POC Glucose (mg/dL) 205 H Random Glucose 210 H Calcium 7.9 L Phosphorus Magnesium Total Bilirubin 0.6 AST 26 ALT 44 Alkaline Phosphatase 576 H D Total Protein 5.3 L Albumin 2.3 L Globulin 2.9 Albumin/Globulin Ratio 0.8 L 06/27/17 08:49 WBC RBC Hgb Hct MCV MCH MCHC RDW Plt Count MPV Gran % Lymph % (Auto) [place] % (Auto) Eos % (Auto) Baso % (Auto) Gran # Lymph # [place] # Eos # Baso # Sodium Potassium Chloride Carbon Dioxide Anion Gap BUN Creatinine Est GFR ( Amer) Est GFR (Non-Af Amer) POC Glucose (mg/dL) Random Glucose Calcium Phosphorus 3.5 Magnesium 1.3 L Total Bilirubin AST ALT Alkaline Phosphatase Total Protein Albumin Globulin Albumin/Globulin Ratio Assessment & Plan - Assessment and Plan (Free Text) Assessment: Assessment: Partial small bowel obstruction/ileus Stage IV metastatic adenocarcinoma of the colon with carcinomatosis Recurrent ascites status post aspira catheter, s/p drain Ureteral stent for hydroureternephrosis h/O Constipation HTN PLAN: on PPN w/ lipids monitor electrolytes continue PPI DVT prophylaxsis Surgical team following pt refusing NG tube NPO Thank you for this consult and for allowing us to participate in your patient's care, further recommendations based upon clinical course. Seen and discussed w/ Dr. House. <Kai House V - Last Filed: 06/27/17 21:41> Meds - Medications Medications: Current Medications Famotidine (Pepcid) 20 mg IVP DAILY [facility] Last Admin: 06/27/17 09:26 Dose: 20 mg Piperacillin Sod/Tazobactam Sod (Zosyn 3.375 In Ns 100ml) 100 mls @ 200 mls/hr IVPB Q6 [facility] PRN Reason: Protocol Stop: 07/04/17 00:01 Last Admin: 06/27/17 17:47 Dose: 200 mls/hr Multivitamins/Vitamin C 10 ml/Chromium/Copper/Manganese/Zinc 1 ml/ Insulin Human Regular 30 units/ Amino Acids 2,011.3 mls @ 83 mls/hr IV .Q24H [facility] Stop: 06/30/17 17:59 Last Admin: 06/27/17 17:41 Dose: 83 mls/hr Insulin Human Regular (Humulin R Med) 0 units SC ACHS [facility] PRN Reason: Protocol Last Admin: 06/27/17 17:39 Dose: Not Given Ketorolac Tromethamine (Toradol) 15 mg IVP Q4 PRN PRN Reason: Pain, moderate (4-7) Mupirocin (Bactroban Ointment) 0 gm TOP DAILY [facility] Results - Vital Signs Recent Vital Signs: Last Vital Signs Temp 100.0 F H 06/27/17 16:00 Pulse 95 H 06/27/17 16:00 Resp 19 06/27/17 16:00 BP 163/93 H 06/27/17 16:00 Pulse Ox 97 06/27/17 16:00 - Labs Result Diagrams: 06/27/17 06:52 06/27/17 06:52 Labs: Laboratory Results - last 24 hr 06/27/17 06/27/17 06/27/17 06:52 06:52 07:50 WBC 10.2 RBC 3.36 L Hgb 10.3 L Hct 31.2 L MCV 92.9 MCH 30.7 MCHC 33.0 RDW 15.5 H Plt Count 273 MPV 10.2 Gran % 68.7 H Lymph % (Auto) 12.8 L [place] % (Auto) 9.8 H Eos % (Auto) 7.8 H Baso % (Auto) 0.9 Gran # 7.01 H Lymph # 1.3 [place] # 1.0 H Eos # 0.8 H Baso # 0.09 Sodium 143 Potassium 3.5 L Chloride 111 H Carbon Dioxide 23 Anion Gap 13 BUN 45 H Creatinine 1.0 Est GFR ( Amer) > 60 Est GFR (Non-Af Amer) > 60 POC Glucose (mg/dL) 205 H Random Glucose 210 H Calcium 7.9 L Phosphorus Magnesium Total Bilirubin 0.6 AST 26 ALT 44 Alkaline Phosphatase 576 H D Total Protein 5.3 L Albumin 2.3 L Globulin 2.9 Albumin/Globulin Ratio 0.8 L 06/27/17 06/27/17 06/27/17 08:49 11:32 16:33 WBC RBC Hgb Hct MCV MCH MCHC RDW Plt Count MPV Gran % Lymph % (Auto) [place] % (Auto) Eos % (Auto) Baso % (Auto) Gran # Lymph # [place] # Eos # Baso # Sodium Potassium Chloride Carbon Dioxide Anion Gap BUN Creatinine Est GFR ( Amer) Est GFR (Non-Af Amer) POC Glucose (mg/dL) 216 H 187 H Random Glucose Calcium Phosphorus 3.5 Magnesium 1.3 L Total Bilirubin AST ALT Alkaline Phosphatase Total Protein Albumin Globulin Albumin/Globulin Ratio Attending/Attestation - Attestation I have personally seen and examined this patient.: Yes I have fully participated in the care of the patient.: Yes I have reviewed all pertinent clinical information: Yes Notes (Text): p 06/27/17 21:41
[2017-06-27] MEDS: Insulin Reg-MEDIUM-Coverage SC SCH ×2 (12:00→17:39)
[2017-06-27] MEDS ORDERED: Bacitracin Ointment 30 GM TUBE TOP SCH (13:45)
[2017-06-27] MEDS ORDERED: Magnesium Sulfate 1 gm in D5W 1 GM/100 ML BAG IVPB ONE (15:21)
--- NOTE | 2017-06-27 16:22 | RAD ---
HISTORY: sbo COMPARISON: 06/23/2017 FINDINGS: BOWEL: There is slight improvement in the degree of small bowel obstruction. There is some persistent mild dilatation of the colon BONES: Normal. OTHER FINDINGS: None. IMPRESSION: There is slight improvement in the degree of small bowel obstruction. There is some persistent mild dilatation of the colon
[2017-06-27] MEDS: [UNRECOGNIZED DRUG - NUTRITION] IV SCH (17:41)
--- NOTE | 2017-06-27 18:52 | CON ---
DATE: 06/27/2017 LOCATION: The patient seen in 375, bed 2. CHIEF COMPLAINT: Abdominal pain times several days. HISTORY OF PRESENT ILLNESS: This is a 71-year-old male with past medical history of adenocarcinoma of the colon with peritoneal carcinomatosis, diabetes mellitus, coronary artery disease with history of hypertension and arthritis, cataract, renal disease and right renal hydronephrosis, who was admitted with the abdominal pain. The patient has no fevers, no chills. He has some nausea, but no vomiting at this time. PAST MEDICAL HISTORY: Significant for hypertension, diabetes, coronary artery disease, cataract, right kidney hydronephrosis and adenocarcinoma of colon with metastases and peritoneal carcinomatosis. PAST SURGICAL HISTORY: Significant for right kidney stent. The patient also had a Port-A-Cath and bilateral lens implants. ALLERGIES: THE PATIENT HAS NO KNOWN ALLERGIES. MEDICATIONS AT HOME: Reviewed and medications here, the patient started on Zosyn and the patient is on insulin and other medications reviewed. PHYSICAL EXAMINATION: VITAL SIGNS: Temperature is 98, heart rate of 99, blood pressure is 130/70, respiratory rate of 20. HEENT: Unremarkable. NECK: Supple. LUNGS: Have decreased breath sounds. HEART: Normal S1, S2. ABDOMEN: Soft, nontender. No rebound. No guarding. LABORATORY EXAMINATION: Reveals a white count of 11,500, hemoglobin of 11.6, platelets of 307 and 75% granulocytosis. Coagulation is noted. Chemistries reveals a BUN of 51, creatinine of 1.2, glucose is 230, alk phos of 799. Lipase is 346. Microbiology is reviewed. The patient did have Corynebacterium from an ascitic fluid earlier this month and staph aureus from the rectum. The patient had a CT scan of the abdomen and pelvis which showed an ileus and possible partial small bowel obstruction and laboratory is reviewed. ASSESSMENT AND PLAN: This is a 71-year-old male with adenocarcinoma of the colon metastases with peritoneal carcinomatosis, diabetes mellitus, hypertension, coronary artery disease and admitted with an ileus and small bowel obstruction and with a leukocytosis of 11,500, which is corrected. We will continue with the Zosyn as cultures and a white count continued to improve. We will discontinue the antibiotics next 24-48 hours. Overall prognosis is quite poor. Niraj Melton MD [facility] # [id number]
--- NOTE | 2017-06-28 00:18 | CON ---
DATE: 06/27/2017 REASON FOR CONSULTATION: Severe malnutrition, nausea, vomiting, abdominal pain, poor p.o. intake, need for PPN. HISTORY OF PRESENT ILLNESS: A 71-year-old male with history of stage IV colon cancer with intraperitoneal carcinomatosis, severe abdominal pain, intractable nausea and vomiting, poor p.o. intake, malnutrition. He is seen lying in bed. He reports he is unable to tolerate anything p.o. He is having a lot of pain. He is also having nausea and vomiting. He is found to have hyponatremia, hypokalemia, severe hypocalcemia, hypomagnesemia, hypophosphatemia. Albumin is only 2.3. PAST MEDICAL AND SURGICAL HISTORY: Stage IV metastatic adeno CA of the colon, NIDDM, hypertension, CAD, PR, malnutrition, multiple electrolyte abnormalities. FAMILY HISTORY: Noncontributory. SOCIAL HISTORY: No smoking, no alcohol use, no IV drug abuse. ALLERGIES: NO KNOWN DRUG ALLERGIES. MEDICATIONS: Mupirocin, insulin, Ringer lactate at 100, PPN at 83, Pepcid, sodium chloride, and Zosyn. REVIEW OF SYSTEMS: All systems are reviewed, pertinent positives as mentioned in history of presenting illness, rest unremarkable. PHYSICAL EXAMINATION GENERAL: Elderly male lying in bed, in moderate distress. VITAL SIGNS: Blood pressure 165/93, heart rate 100, respiratory rate 18, temperature 98. HEENT: Normocephalic, atraumatic, positive pallor. NECK: Supple, no JVD. LUNGS: Bilateral equal air entry, bilateral poor inspiratory effort, no rales. CARDIAC: S1 and S2. Regular rate and rhythm. No murmur, no rub. ABDOMEN: Distended, soft, positive tenderness in the abdomen, bowel sounds present. EXTREMITIES: No lower extremity edema. INTAKE AND OUTPUT: Not charted. LABORATORY DATA: WBC 10, hemoglobin 10.3, hematocrit 31, and platelets 273. Sodium 143, potassium 3.5, chloride 111, CO2 of 23, BUN 45, creatinine 1.0, glucose 210, calcium 7.9, phosphorus 3.5, magnesium 1.3, albumin 2.3, corrected calcium is 8.9, and lipase 346. CT of the abdomen dilated small enlarged bowel loops are identified consistent with ileus, significant wall thickening of the distal esophagus. Varices are noted in the upper abdomen. Right ureteral stent is identified. Contagious with mid pole right kidney and adjacent there is a 3.8 x 3.5 cm mass. ASSESSMENT: 1. Small bowel obstruction, ileus. 2. Esophagitis. 3. History of right hydronephrosis with right ureteral stent. 4. Hypokalemia. 5. Hypomagnesemia. 6. Hypoalbuminemia. 7. Metastatic colon cancer. PLAN: 1. Restart hyperal. 2. Increase potassium in the hyperal. 3. Increase phosphorus in the hyperal. 4. Potassium phosphate IV piggyback x1 dose. 5. GI followup. Thank you for the courtesy of this consultation. We will follow this patient closely with you. Gemini Leung MD
[2017-06-28] MEDS: Piperacillin/Tazobact 3.375 gm 100 ML IVPB SCH ×5 (05:57→23:41)
[2017-06-28 06:18] LABS: BASO # 0.05 K/mm3 (0.0-2.0); BASO % 0.5 % (0.0-3.0); EOS # 0.6 (0.0-0.7); EOS % 6.7 % (1.5-5.0); GRAN # 6.77 (1.4-6.5); GRAN % 71.4 % (50.0-68.0); HEMATOCRIT 31.3 % (42.0-52.0); LYMPH # 0.9 (1.2-3.4); LYMPH % 9.1 % (22.0-35.0); MEAN CELL VOLUME 92.9 fl (80.0-105.0); MEAN CORPUSCULAR HEMOGLOBIN 31.2 pg (25.0-35.0); MEAN CORPUSCULAR HGB CONC 33.5 g/dl (31.0-37.0); MEAN PLATELET VOLUME 10.4 fl (7.0-11.0); MONO # 1.2 (0.1-0.6); MONO % 12.3 % (1.0-6.0); RED CELL DISTRIBUTION WIDTH 15.1 % (11.5-14.5); WHITE BLOOD COUNT 9.5 10^3/ul (4.5-11.0)
[2017-06-28 06:27] LABS: ALB/GLOB RATIO 0.7 (1.1-1.8); ALKALINE PHOSPHATASE 473 U/L (38-126); ALT/SGPT 34 U/L (7-56); AST/SGOT 25 U/L (17-59); BILIRUBIN,TOTAL 0.6 mg/dL (0.2-1.3); BLOOD UREA NITROGEN 37 mg/dL (7-21); CALCIUM 7.9 mg/dL (8.4-10.5); CARBON DIOXIDE 24 mmol/L (21-33); CHLORIDE 113 mmol/L (98-107); GFR AFRICAN-AMERICAN > 60; GLUCOSE,RANDOM 268 mg/dL (70-110); POTASSIUM 3.3 mmol/L (3.6-5.0); SODIUM 144 mmol/L (132-148); TOTAL PROTEIN 5.4 g/dL (5.8-8.3)
[2017-06-28] MEDS ORDERED: Potassium Chl 20mEq & D5W 1,000 ML IV SCH (06:45)
[2017-06-28] MEDS ORDERED: Potassium Chloride 40 mEq/30 ml LIQ UD PO ONE (08:32)
[2017-06-28] MEDS: Insulin Reg-MEDIUM-Coverage SC SCH ×4 (08:41→23:29)
--- NOTE | 2017-06-28 08:50 | CP.PCM.PN ---
Subjective - Date & Time of Evaluation Date of Evaluation: 06/28/17 Time of Evaluation: 08:44 - Subjective Subjective: General Surgery - Dr. Lee (covering for Dr. Alaniz) Pt S&E. DANIAL. Pt. denies any complaints other than thirst. He states his abdominal pain is improved. 1L ascites drained yesterday per nursing. He has had several bowel movements which he states have been liquidy. No further nausea/vomiting, denies any fevers/chills, sob/chest pain. Objective - Vital Signs/Intake and Output Vital Signs (last 24 hours): Temp Pulse Resp BP Pulse Ox 100.0 F H 95 H 19 163/93 H 97 06/27/17 16:00 06/27/17 16:00 06/27/17 16:00 06/27/17 16:00 06/27/17 16:00 - Medications Medications: Current Medications Famotidine (Pepcid) 20 mg IVP DAILY [facility] Last Admin: 06/27/17 09:26 Dose: 20 mg Piperacillin Sod/Tazobactam Sod (Zosyn 3.375 In Ns 100ml) 100 mls @ 200 mls/hr IVPB Q6 [facility] PRN Reason: Protocol Stop: 07/04/17 00:01 Last Admin: 06/28/17 05:57 Dose: 200 mls/hr Multivitamins/Vitamin C 10 ml/Chromium/Copper/Manganese/Zinc 1 ml/ Insulin Human Regular 30 units/ Amino Acids 2,011.3 mls @ 83 mls/hr IV .Q24H [facility] Stop: 06/30/17 17:59 Last Admin: 06/27/17 17:41 Dose: 83 mls/hr Potassium Chloride/Dextrose (Potassium Chl 20 Meq In D5w) 1,000 mls @ 100 mls/ hr IV .Q10H [facility] Insulin Human Regular (Humulin R Med) 0 units SC ACHS [facility] PRN Reason: Protocol Last Admin: 06/27/17 17:39 Dose: Not Given Ketorolac Tromethamine (Toradol) 15 mg IVP Q4 PRN PRN Reason: Pain, moderate (4-7) Mupirocin (Bactroban Ointment) 0 gm TOP DAILY [facility] - Labs Labs: 06/28/17 06:05 06/28/17 06:05 PT 12.5 SECONDS (9.4-12.5) 06/26/17 14:45 INR 1.14 (0.93-1.08) H 06/26/17 14:45 APTT 32.8 Seconds (25.1-36.5) 06/26/17 14:45 - Constitutional Appears: No Acute Distress - Head Exam Head Exam: ATRAUMATIC, NORMAL INSPECTION, NORMOCEPHALIC - Eye Exam Eye Exam: Normal appearance - Respiratory Exam Respiratory Exam: NORMAL BREATHING PATTERN. absent: Respiratory Distress - GI/Abdominal Exam GI & Abdominal Exam: Distended (mild, greatly improved from prior), Soft, Tenderness (mild ttp diffusely), Hernia (ventral hernias x2, easily reducible), Normal Bowel Sounds. absent: Guarding, Rigid Additional comments: peritoneal catheter in rlq - Neurological Exam Neurological Exam: Alert, Oriented x3 - Psychiatric Exam Psychiatric exam: Normal Affect, Normal Mood - Skin Skin Exam: Dry, Intact Assessment and Plan - Assessment and Plan (Free Text) Assessment: 71 yo M w/ stage IV colon ca, carcinomatosis, with partial SBO -Clear liquid diet and advance as tolerated -Monitor bowel function -Encourage OOB/PT -Care as per primary team YADIRA Lee (covering for Dr. Alaniz) Markos PGY3
[2017-06-28 09:14] LABS: MAGNESIUM 1.4 mg/dL (1.7-2.2); PHOSPHOROUS 3.3 mg/dL (2.5-4.5)
--- NOTE | 2017-06-28 10:20 | PN ---
SUBJECTIVE: The patient is currently seen on 3R. He is status post removal of 1000 mL of fluid via his Aspira catheter yesterday. He is tolerating hyperalimentation. Potassium level is low today, and the patient has received potassium supplements. He has started clear liquids and appears to be tolerating the diet without difficulty. MEDICATIONS: Medication list reviewed. The patient is currently on Bactroban, sliding scale insulin, hyperalimentation, Pepcid, Toradol p.r.n. and Zosyn. OBJECTIVE: INTAKE AND OUTPUT: Intake 1000 mL in, output 1000 mL of ascitic fluid via his Aspira catheter. Urine output is not charted. VITAL SIGNS: Blood pressure 163/93, previously 131/73. Temperature 100 degrees. Pulse 95. Respiratory rate of 19. HEENT EXAM: Shows him to be normocephalic and atraumatic. Conjunctivae are pink. Sclera nonicteric. NECK: Supple. No neck vein distention. CHEST: Clear to auscultation and percussion. No rales, no rhonchi, no wheezing. He has got a port in the right upper chest wall. CARDIOVASCULAR: Shows a regular rate and rhythm without murmurs, rubs or gallops noted. ABDOMEN: Soft. Mild ascites. Reducible umbilical hernia. The patient has an indwelling Aspira catheter in right lower quadrant. EXTREMITIES: Show no lower extremity cyanosis, clubbing or edema. LABORATORY DATA AND IMAGING STUDIES: White blood cell count today 9.5; hemoglobin 10.5; platelet count is 272,000. Chemistries show a sodium of 144; potassium is low at 3.3 today, down from 3.5 yesterday; BUN 37 with creatinine of 1.0; chloride and CO2 levels are acceptable. Glucose last checked was 268, repeat 312. Calcium is 7.9. Last phosphorus level 3.5 with magnesium level of 1.3. Elevated alkaline phosphatase. Bilirubin level was normal. Liver enzymes otherwise is normal. Albumin is low at 2.3. ASSESSMENT: 1. Mild prerenal azotemia. The patient continues to have improvement in his BUN and creatinine, BUN is down from 70 to 37. Baseline BUN is less than 20. Creatinine is down from 3.2 to 1.0, at baseline levels. The patient will continue receiving hydration from hyperalimentation. He has also started clear liquids, which will likely help resolve his prerenal azotemia. 2. History of hypertension. The patient's blood pressure remains borderline controlled, presently off medication. The patient had been on a clonidine patch. On an as-needed basis, blood pressure medication can be restarted. 3. History of stage IV malignant colon cancer with malignant ascites, pulmonary nodules and intraperitoneal carcinomatosis. The patient has ascites and has via his Aspira catheter ascitic fluid drainage approximately 3 times a week. 4. History of right-sided hydronephrosis. Renal ultrasound done on 06/19 showed mild stable right hydronephrosis. In light of his creatinine of 1.0, no intervention. 5. History of wwd-iukddhn-pugrhoxlv diabetes mellitus. Sugar control has been acceptable on hyperalimentation. He continues on sliding scale insulin along with insulin in the hyperalimentation. 6. History of hyperlipidemia. 7. History of gastroesophageal reflux disease, currently stable on IV Pepcid therapy. 8. Mild hypokalemia, status post mild hypomagnesemia. The patient remains on both potassium and magnesium on hyperalimentation. I will check magnesium level today, and if necessary give him mag rider. The patient has already received oral potassium supplements. PLAN: 1. Continue to encourage p.o. fluid intake. The patient is on a clear liquid diet. 2. Continue to monitor sugar levels closely. 3. Until p.o. intake is adequate continue hyperalimentation with daily monitoring of laboratory work and correction of electrolytes as necessary. 4. Case discussed with staff on 3R. Thomas Mcgowan MD MTDD
--- NOTE | 2017-06-28 12:44 | PN ---
DATE: 06/28/2017 SUBJECTIVE: The patient is seen early this morning in no acute distress. PHYSICAL EXAMINATION: VITAL SIGNS: With a temperature of 100 and blood pressure is 160/90, respiratory rate of 19, and heart rate of 95. HEENT: Examination of HEENT is unremarkable. NECK: Supple. LUNGS: Have decreased breath sounds. HEART: Normal S1 and S2. GASTROINTESTINAL: Abdominal examination is soft and nontender. LABORATORY DATA: Examination reveals a white count of 9.5, hemoglobin of 10, and platelets of 272. Chemistries are noted. BUN of 37, and creatinine of 1.0. Microbiology reveals the blood cultures are no growth. REVIEW OF ORDERS: The patient is on Zosyn and progress note from today is reviewed. Dr. Leung's consultation is reviewed from yesterday. The patient also had an abdominal x-ray yesterday which revealed slight improvement degree of small bowel obstruction. ASSESSMENT AND PLAN: This is a 71-year-old male with adenocarcinoma of colon metastases, peritoneal carcinomatosis, diabetes mellitus, hypertension, coronary artery disease, admitted with ileus and small bowel obstruction with leukocytosis of 11,000. Currently on Zosyn and we will follow with you. Niraj Melton MD
[2017-06-28] MEDS ORDERED: Magnesium Sulfate 1 gm in D5W 1 GM/100 ML BAG IVPB ONE (14:14)
[2017-06-28] MEDS: [UNRECOGNIZED DRUG - NUTRITION] IV SCH (17:31)
--- NOTE | 2017-06-29 00:48 | PN ---
DATE: 06/28/2017 SUBJECTIVE: This patient was seen and evaluated earlier today. The patient is still not able to eat well. He is taking only minimal amount of liquid diet. PHYSICAL EXAMINATION: VITAL SIGNS: On examination, temperature is 98.3, blood pressure is 143/86, pulse 99, respirations 18 and O2 saturation is 98%. HEENT: Atraumatic. Anicteric. NECK: Supple. HEART: S1 and S2 heard. LUNGS: Bilateral air entry present. ABDOMEN: Softly distended, mild tenderness present. EXTREMITIES: No edema. No cyanosis. LABORATORY DATA: Hemoglobin 10.5, hematocrit 31.3, WBC is 9.5 and platelets 272. Chemistry shows alkaline phosphatase of 473, total protein 5.4. IMPRESSION: A 71-year-old patient with metastatic colon carcinoma, has partial small-bowel obstruction; positive ventral hernia, reducible; positive carcinomatosis, not able to tolerate liquid diet. The patient had multiple CT done that all show partial obstruction only, the patient is moving his bowels. PLAN: The present plan is slowly advance the diet. We will discuss with the surgical team again regarding this patient. I did speak with Dr. Brock and Dr. Vargas earlier. Followup x-ray done yesterday did not show any contrast in the bowel. The ureteric stent was seen. The plan is to slowly increase the diet if the patient can tolerate it. Thank you very much for allowing us to participate in the care of the patient. Kai House MD
[2017-06-29] MEDS: Piperacillin/Tazobact 3.375 gm 100 ML IVPB SCH ×4 (05:17→22:59)
[2017-06-29 06:24] LABS: BASO # 0.06 K/mm3 (0.0-2.0); BASO % 0.6 % (0.0-3.0); EOS # 0.7 (0.0-0.7); EOS % 6.9 % (1.5-5.0); GRAN # 7.3 (1.4-6.5); GRAN % 70.1 % (50.0-68.0); LYMPH # 1.1 (1.2-3.4); LYMPH % 10.5 % (22.0-35.0); MEAN CORPUSCULAR HEMOGLOBIN 31.4 pg (25.0-35.0); MEAN CORPUSCULAR HGB CONC 33.8 g/dl (31.0-37.0); MEAN PLATELET VOLUME 10.6 fl (7.0-11.0); MONO # 1.2 (0.1-0.6); MONO % 11.9 % (1.0-6.0); RED CELL DISTRIBUTION WIDTH 15.1 % (11.5-14.5); WHITE BLOOD COUNT 10.4 10^3/ul (4.5-11.0)
[2017-06-29 06:31] LABS: ALB/GLOB RATIO 0.8 (1.1-1.8); ALKALINE PHOSPHATASE 541 U/L (38-126); ALT/SGPT 36 U/L (7-56); AST/SGOT 30 U/L (17-59); BILIRUBIN,TOTAL 0.6 mg/dL (0.2-1.3); BLOOD UREA NITROGEN 31 mg/dL (7-21); CALCIUM 7.7 mg/dL (8.4-10.5); CARBON DIOXIDE 23 mmol/L (21-33); CHLORIDE 110 mmol/L (98-107); GFR AFRICAN-AMERICAN > 60; MAGNESIUM 1.5 mg/dL (1.7-2.2); PHOSPHOROUS 2.9 mg/dL (2.5-4.5); POTASSIUM 3.3 mmol/L (3.6-5.0); SODIUM 141 mmol/L (132-148); TOTAL PROTEIN 5.5 g/dL (5.8-8.3)
[2017-06-29 06:53] LABS: GLUCOSE,RANDOM 343 mg/dL (70-110)
[2017-06-29] MEDS ORDERED: Magnesium Sulfate 1 gm in D5W 1 GM/100 ML BAG IVPB ONE (07:13)
[2017-06-29] MEDS: Insulin Reg-MEDIUM-Coverage SC SCH ×4 (08:29→21:33)
--- NOTE | 2017-06-29 09:58 | CP.PCM.PN ---
Subjective - Date & Time of Evaluation Date of Evaluation: 06/29/17 Time of Evaluation: 09:52 - Subjective Subjective: General Surgery - Dr. Alaniz (Dr. Lee covering thru 07/01) Pt S&E. DANIAL. Pt states his abdominal discomfort is about the same, no episodes of Nausea/vomiting. He is tolerating small amounts of clear liquid diet but doesn't feel ready to advance the diet. He is having liquidy BMs, no black stool or blood in stool. Objective - Vital Signs/Intake and Output Vital Signs (last 24 hours): Temp Pulse Resp BP Pulse Ox 97.8 F 89 20 160/90 H 98 06/29/17 08:23 06/29/17 08:23 06/29/17 08:23 06/29/17 08:23 06/29/17 08:23 Intake and Output: 06/29/17 06/29/17 06:59 18:59 Intake Total 240 Output Total 150 200 Balance -150 40 - Medications Medications: Current Medications Famotidine (Pepcid) 20 mg IVP DAILY [facility] Last Admin: 06/29/17 09:00 Dose: 20 mg Piperacillin Sod/Tazobactam Sod (Zosyn 3.375 In Ns 100ml) 100 mls @ 200 mls/hr IVPB Q6 [facility] PRN Reason: Protocol Stop: 07/04/17 00:01 Last Admin: 06/29/17 05:17 Dose: 200 mls/hr Multivitamins/Vitamin C 10 ml/Chromium/Copper/Manganese/Zinc 1 ml/ Insulin Human Regular 30 units/ Amino Acids 2,011.3 mls @ 83 mls/hr IV .Q24H [facility] Stop: 06/30/17 17:59 Last Admin: 06/28/17 17:31 Dose: 83 mls/hr Potassium Chloride (Potassium Chloride 20 Meq/100 Ml) 20 meq in 100 mls @ 50 mls/hr IVPB Q2H [facility] Stop: 06/29/17 11:14 Last Admin: 06/29/17 09:14 Dose: 50 mls/hr Insulin Human Regular (Humulin R Med) 0 units SC ACHS [facility] PRN Reason: Protocol Last Admin: 06/29/17 08:29 Dose: 7 units Ketorolac Tromethamine (Toradol) 15 mg IVP Q4 PRN PRN Reason: Pain, moderate (4-7) Mupirocin (Bactroban Ointment) 0 gm TOP DAILY [facility] Last Admin: 06/29/17 09:01 Dose: 1 applic - Labs Labs: 06/29/17 06:15 06/29/17 06:15 PT 12.5 SECONDS (9.4-12.5) 06/26/17 14:45 INR 1.14 (0.93-1.08) H 06/26/17 14:45 APTT 32.8 Seconds (25.1-36.5) 06/26/17 14:45 - Constitutional Appears: No Acute Distress - Head Exam Head Exam: ATRAUMATIC, NORMAL INSPECTION, NORMOCEPHALIC - Eye Exam Eye Exam: Normal appearance - Respiratory Exam Respiratory Exam: NORMAL BREATHING PATTERN. absent: Respiratory Distress - GI/Abdominal Exam GI & Abdominal Exam: Distended (mild), Soft, Hernia (ventral hernia, easily reducible). absent: Firm, Guarding, Rigid, Tenderness - Neurological Exam Neurological Exam: Alert, Oriented x3 - Psychiatric Exam Psychiatric exam: Normal Affect, Normal Mood - Skin Skin Exam: Dry, Intact Assessment and Plan - Assessment and Plan (Free Text) Assessment: 71 yo M w/ stage IV colon ca, carcinomatosis, with partial SBO -Continue Clear liquids for now, will monitor and advance once pt. feels ready -Encourage OOB/PT -Care as per primary team DW Dr. Lee (covering for Dr. Alaniz) Markos PGY3
[2017-06-29] MEDS ORDERED: Potassium Chloride 20 mEq ER Tab PO ONE (13:00)
--- NOTE | 2017-06-29 13:02 | PN ---
DATE: 06/29/2017 SUBJECTIVE: The patient is in bed, in no acute distress, nontoxic. PHYSICAL EXAMINATION: VITAL SIGNS: Temperature is 97, blood pressure is 160/90, respiratory rate of 20, heart rate of 89. HEENT: Unremarkable. NECK: Supple. LUNGS: Have decreased breath. HEART: Normal S1, S2. ABDOMEN: Soft, nontender. LABORATORY DATA: Reveals a white count of 10,000, hemoglobin of 10, platelets of 259. Chemistries are noted. BUN of 31, creatinine of 1.0. Microbiology reveals the blood cultures are no growth. ASSESSMENT AND PLAN: This is a 71-year-old male with adenocarcinoma of colon with metastasis, peritoneal carcinomatosis and diabetes mellitus, hypertension, coronary artery diseases, admitted with ileus small bowel obstruction, leukocytosis, currently on Zosyn with negative cultures. We will follow closely with you. Niraj Melton MD
[2017-06-29] MEDS: [UNRECOGNIZED DRUG - NUTRITION] IV SCH (18:13)
--- NOTE | 2017-06-29 20:00 | CP.PCM.PCO ---
Physician Communication Note - Physician Communication Note Physician Communication Note: Still cramping-not really taking much liquids
--- NOTE | 2017-06-30 00:35 | PN ---
DATE: SUBJECTIVE: Patient is currently seen lying comfortable in bed. He continues on hyperalimentation. He states no nausea or vomiting today. He is not complaining of any abdominal pain. He appears to be tolerating clear liquids. His potassium, magnesium level were low on the a.m. blood work and these were supplemented by the house staff. MEDICATIONS: Medication list reviewed. Patient is on mupirocin, sliding scale insulin, hyperalimentation, Pepcid, K-rider, mag rider, Toradol, and Zosyn. OBJECTIVE: INTAKE/OUTPUT: Intake 600, output 550. VITAL SIGNS: Blood pressure 160/90, temperature 97.8, respiratory rate is 20, oxygen saturation 98%. HEENT: Normocephalic, atraumatic. Conjunctivae are pink. Sclerae are nonicteric. NECK: Supple. No neck vein distention. CHEST: Clear to auscultation and percussion. No rales, no rhonchi, no wheezing. He has a port in the right upper chest wall. CARDIOVASCULAR: Shows a regular rate and rhythm without audible murmurs, rubs, or gallops. ABDOMEN: Soft. Mild ascites. Reducible umbilical hernia. Positive indwelling Aspira catheter right lower quadrant which is capped off. No rebound, no guarding, no masses. EXTREMITIES: Show no lower extremity cyanosis, clubbing, or edema. LABORATORY DATA AND IMAGING: CBC; white blood cell count today 10.4, hemoglobin 10.8, platelet count is 259,000. Chemistries today show sodium 141, potassium 3.3, chloride 110, CO2 of 23, BUN 31 with a creatinine of 1.0. Glucose is 343. Calcium is 7.7 with an albumin of 2.4, so the calcium corrects to normal. Phosphorus 2.9, magnesium 1.5. Liver enzymes are normal with the exception of an alkaline phosphatase of 541. ASSESSMENT: 1. Mild prerenal azotemia, on hyperalimentation. Expect the BUN to be mildly elevated. Creatinine is stable at 1.0. These numbers have improved. BUN is down from 70-30. Creatinine is down from 3.2 to 1. 2. History of hypertension. Blood pressure remains marginal. Patient in the past had received p.r.n. clonidine. I can place the patient on low-dose calcium channel jessica therapy to help maintain the blood pressure in a normal range and if necessary, this medicine can be discontinued. 3. History of stage IV malignant colon cancer with malignant ascites, pulmonary nodules, and intraperitoneal carcinomatosis. Patient has an Aspira catheter in place and ascitic fluid is removed 2-3 times a week, pending abdominal distention. 4. History of mild right-sided hydronephrosis. This is stable with a creatinine of 1.0. No intervention. 5. History of ncj-arptmvi-wjaiiattw diabetes mellitus. Sugar control has been more difficult on hyperalimentation. He is up to 324 today, yesterday was in the mid 170s to low 200 range. The patient continues on sliding scale insulin with insulin and hyperalimentation. 6. History of hyperlipidemia. 7. History of gastroesophageal reflux disease, currently stable on Pepcid therapy. 8. Mild hypokalemia, mild hypomagnesemia. Patient received riders earlier this morning. If necessary, we can increase the magnesium and potassium content of hyperal; however, it would be easier to give him p.r.n. riders, but of course if the potassium and magnesium level high, the hyperalimentation will need to be discontinued and he will remain off hyperalimentation until a new bag comes up. PLAN: 1. Continue to encourage p.o. fluid intake. He remains on a clear liquid diet, tolerating well. 2. Continue to monitor sugars closely. 3. Agree with magnesium and potassium riders. 4. Case discussed with staff on 3R. Thomas Mcgowan MD
--- NOTE | 2017-06-30 01:58 | PN ---
DATE: 06/29/2017 SUBJECTIVE: This patient was seen and evaluated earlier. The patient's family was at bedside. The patient is still reluctant to take p.o., has been having episodes of loose bowel movements. PHYSICAL EXAMINATION: VITAL SIGNS: On examination, temperature is 98.7, pulse 97, and blood pressure 133/84. HEENT: Atraumatic. Anicteric. NECK: Supple. HEART: S1 and S2 heard. LUNGS: Bilateral air entry present. ABDOMEN: Softly distended. Reducible ventral hernia present. EXTREMITIES: Trace edema present. NEUROLOGIC: Alert and oriented. Moves all the extremities. LABORATORY DATA: Hemoglobin 10.8, hematocrit 32, WBC is 10.4 and platelets 259. Sodium 141, potassium 3.3, BUN 31, and creatinine 1.0. Alkaline phosphatase is 541. Magnesium 1.9. IMPRESSION: This is a 71-year-old patient with metastatic colon carcinoma, carcinomatosis, has partial small bowel obstruction versus ileus, small bowel obstruction. Radiologically appears to be improving. I did look at the abdominal x-ray done postcontrast, follow up of the CT scan shows no contrast *------* showing that it is not completely obstructed and also the hernia is easily reducible. PLAN: I had a detailed discussion with the patient and also family. The patient's diet should be advanced to pureed diet. The patient does not like hospital food and the patient was advised to take food what he likes, but at the pureed consistency at the present time to see whether he can tolerate the diet. Supplement potassium and magnesium levels. Thank you very much for allowing us to participate in the care of the patient. Kai House MD
[2017-06-30] MEDS: Piperacillin/Tazobact 3.375 gm 100 ML IVPB SCH ×3 (05:10→18:47)
[2017-06-30 06:35] LABS: BASO # 0.07 K/mm3 (0.0-2.0); BASO % 0.7 % (0.0-3.0); EOS # 0.9 (0.0-0.7); EOS % 8.9 % (1.5-5.0); GRAN # 6.24 (1.4-6.5); GRAN % 63.9 % (50.0-68.0); HEMATOCRIT 31.1 % (42.0-52.0); LYMPH # 1.2 (1.2-3.4); LYMPH % 12.1 % (22.0-35.0); MEAN CELL VOLUME 92.6 fl (80.0-105.0); MEAN CORPUSCULAR HEMOGLOBIN 30.7 pg (25.0-35.0); MEAN CORPUSCULAR HGB CONC 33.1 g/dl (31.0-37.0); MEAN PLATELET VOLUME 10.7 fl (7.0-11.0); MONO # 1.4 (0.1-0.6); MONO % 14.4 % (1.0-6.0); RED CELL DISTRIBUTION WIDTH 15.3 % (11.5-14.5); WHITE BLOOD COUNT 9.8 10^3/ul (4.5-11.0)
[2017-06-30 07:19] LABS: ALB/GLOB RATIO 0.8 (1.1-1.8); ALKALINE PHOSPHATASE 527 U/L (38-126); ALT/SGPT 55 U/L (7-56); AST/SGOT 45 U/L (17-59); BILIRUBIN,TOTAL 0.7 mg/dL (0.2-1.3); BLOOD UREA NITROGEN 27 mg/dL (7-21); CALCIUM 7.4 mg/dL (8.4-10.5); CARBON DIOXIDE 24 mmol/L (21-33); CHLORIDE 110 mmol/L (95-110); GFR AFRICAN-AMERICAN > 60; GLUCOSE,RANDOM 279 mg/dL (70-110); MAGNESIUM 1.5 mg/dL (1.7-2.2); PHOSPHOROUS 2.9 mg/dL (2.5-4.5); POTASSIUM 3.3 mmol/L (3.6-5.0); SODIUM 140 mmol/L (132-148); TOTAL PROTEIN 5.3 g/dL (5.8-8.3)
--- NOTE | 2017-06-30 08:23 | CP.PCM.PN ---
Subjective - Date & Time of Evaluation Date of Evaluation: 06/30/17 Time of Evaluation: 07:15 - Subjective Subjective: General Surgery Note for Dr. Alaniz (Dr. Lee covering) Patient see and examined at bedside. No acute event overnight. Patient states abdominal pain and nausea/vomiting has improved. He is tolerating clear liquid diet and will advance to full liquid diet this morning. Patient report having BMs and flatus. Patient has no complaints at this time. Objective - Vital Signs/Intake and Output Vital Signs (last 24 hours): Temp Pulse Resp BP Pulse Ox 98.7 F 97 H 19 133/84 99 06/29/17 17:40 06/29/17 17:40 06/29/17 17:40 06/29/17 17:40 06/29/17 17:40 Intake and Output: 06/30/17 06/30/17 06:59 18:59 Intake Total 1728 Output Total 350 Balance 1378 - Medications Medications: Current Medications Amlodipine Besylate (Norvasc) 2.5 mg PO DAILY [facility] Last Admin: 06/29/17 12:24 Dose: 2.5 mg Famotidine (Pepcid) 20 mg IVP DAILY [facility] Last Admin: 06/29/17 09:00 Dose: 20 mg Piperacillin Sod/Tazobactam Sod (Zosyn 3.375 In Ns 100ml) 100 mls @ 200 mls/hr IVPB Q6 [facility] PRN Reason: Protocol Stop: 07/04/17 00:01 Last Admin: 06/30/17 05:10 Dose: 200 mls/hr Multivitamins/Vitamin C 10 ml/Chromium/Copper/Manganese/Zinc 1 ml/ Insulin Human Regular 30 units/ Amino Acids 2,011.3 mls @ 83 mls/hr IV .Q24H [facility] Stop: 06/30/17 17:59 Last Admin: 06/29/17 18:13 Dose: 83 mls/hr Insulin Human Regular (Humulin R Med) 0 units SC ACHS [facility] PRN Reason: Protocol Last Admin: 06/29/17 21:33 Dose: Not Given Ketorolac Tromethamine (Toradol) 15 mg IVP Q4 PRN PRN Reason: Pain, moderate (4-7) Mupirocin (Bactroban Ointment) 0 gm TOP DAILY [facility] Last Admin: 06/29/17 09:01 Dose: 1 applic Ondansetron HCl (Zofran Inj) 4 mg IVP Q6H PRN PRN Reason: Nausea/Vomiting Last Admin: 06/29/17 19:56 Dose: 4 mg - Labs Labs: 06/30/17 06:26 06/30/17 06:26 PT 12.5 SECONDS (9.4-12.5) 06/26/17 14:45 INR 1.14 (0.93-1.08) H 06/26/17 14:45 APTT 32.8 Seconds (25.1-36.5) 06/26/17 14:45 - Constitutional Appears: No Acute Distress - Head Exam Head Exam: ATRAUMATIC, NORMOCEPHALIC - Eye Exam Eye Exam: Normal appearance - ENT Exam ENT Exam: Mucous Membranes Moist - Respiratory Exam Respiratory Exam: NORMAL BREATHING PATTERN - Cardiovascular Exam Cardiovascular Exam: REGULAR RHYTHM - GI/Abdominal Exam GI & Abdominal Exam: Distended (mild), Soft, Hernia (reducible ventral hernia). absent: Firm, Guarding, Tenderness, Rebound - Extremities Exam Extremities Exam: Normal Capillary Refill - Neurological Exam Neurological Exam: Alert, Awake - Psychiatric Exam Psychiatric exam: Normal Affect, Normal Mood - Skin Skin Exam: Dry, Intact, Warm Assessment and Plan - Assessment and Plan (Free Text) Plan: 71 M with PMH of stage IV colon ca and carcinomatosis with partial SBO -FLD -Analgesics/Anti-emetics PRN -OOB and Physical therapy -Management as per primary -Discussed with Dr. Lee (covering for Dr. Alaniz) Cornell Helton PGY1
[2017-06-30] MEDS ORDERED: Magnesium Sulfate 1 gm in D5W 1 GM/100 ML BAG IVPB ONE (09:01)
[2017-06-30] MEDS: Insulin Reg-MEDIUM-Coverage SC SCH ×5 (10:18→22:27)
--- NOTE | 2017-06-30 13:42 | PN ---
DATE: 06/30/2017 LOCATION: The patient is in 375, bed 2. SUBJECTIVE: The patient is currently lying comfortably in bed. His visitors visiting him. Continues to be on alimentation. He states he had no nausea or vomiting. Did not like the Ensure Clear, but has sips of apple juice today and clear liquids. Denies any history of significant abdominal pain. Potassium and magnesium levels are low and these were supplemented intravenously along with IV magnesium. MEDICATIONS: Reviewed. The patient is on , sliding scale insulin, hyperalimentation, Pepcid, K-rider, Mag-rider, Toradol, and Zosyn. PHYSICAL EXAMINATION: GENERAL: The patient is examined in bed. VITAL SIGNS: Stable. Blood pressure is 160/90, T-max is 98.4, respirations are 20, and O2 sat is 98%. HEENT: Reveals head to be normocephalic and atraumatic. Conjunctivae pale. Sclerae anicteric. Pupils are equally reactive to light and accommodation. Exam of the oropharynx reveals no oropharyngeal lesions. NECK: Supple. There is no adenopathy. No jugular venous distention noted. LUNGS: Clear to percussion and auscultation without any adventitious sounds. There is a port in the right upper chest wall. CARDIOVASCULAR: Reveals S1 and S2 to be normal. No gallops or murmurs heard. ABDOMEN: Soft. The patient had ascites with reducible umbilical hernia. There is tenderness at the site of the Aspira catheter, which is capped off without any rebound, rigidity, or tenderness elsewhere. looks clean. The patient has dressing on. EXTREMITIES: Reveal no significant cyanosis, clubbing, or edema. LABORATORY DATA: Reveals a white count of 10.4, hemoglobin 10.8, and platelet count 259,000. Chemistries revealed sodium of 141, K 3.3, chloride 110, CO2 of 23, BUN 31, creatinine of 1, glucose 343, calcium 7.7, albumin of 2.4, K is 2.9, and magnesium of 1.5. ASSESSMENT AND PLAN: Mild azotemia, on hyperalimentation except BUN and creatinine to be stable at this level or slightly lower as the patient has the stent put in on the right side for the right hydronephrosis. Hypertension is being controlled. History of stage IV metastatic colon carcinoma with retroperitoneal and abdominal carcinomatosis, has malignant ascites for which he catheter and the fluid is being drained intermittently. Non-insulin diabetes mellitus for which sugar control has been attempted while on hyperal, which has been difficult. He is on Pepcid for his gastroesophageal reflux disease, mild hyperkalemia and hypermagnesemia which has been planned. Continue to encourage oral intake. He remains on clear liquids. Continue to monitor his sugars. Replace magnesium and potassium riders. We will continue to monitor the patient and see how the patient does over the weekend, therefore we planned on advancing his diet. The patient is very picky on what he wants to eat, though I had showed him with the last x-ray done on 06/27/2017, which showed bowel obstruction is improving. We can do another x-ray in the a.m. to know which direction we are going. Routine post-exam instructions have been given to the patient. Hung Vargas MD
--- NOTE | 2017-06-30 14:49 | CP.PCM.CON ---
History of Present Illness - History of Present Illness History of Present Illness: Palliative consult requested by Dr Hemant Vargas Reason: Advance care planning 71 year old male with history of metastatic colon cancer, peritoneal carcinomatosis who presented with abdominal pain and vomiting. Admitted with small bowel obstruction PMHx: HTN, DM,CAD, cataracts, R kidney nephrosis s/p stent, colon cancer with metastasis and peritoneal carcinomatosis, ascites , Aspira catheter. Social History:Former smoker,no alcohol or drug use. Single, lives with POA. Family History:Non contributory Advance care planning:The patient does not have an Advanced Directive. His POA is Neyda Bautista [phone] Review of Systems - Constitutional Constitutional: Anorexia, Weakness - EENT Additional comments: absent - Cardiovascular Cardiovascular: Dyspnea on Exertion - Respiratory Respiratory: Dyspnea - Gastrointestinal Gastrointestinal: Abdominal Pain, Bloating, Constipation Additional comments: distention - Genitourinary Additional comments: absent - Musculoskeletal Additional comments: absent - Integumentary Additional comments: absent - Neurological Neurological: Numbness, Tingling - Psychiatric Additional comments: absent - Hematologic/Lymphatic Additional comments: absent Past Patient History - Infectious Disease Hx of Infectious Diseases: None - Tetanus Immunizations Tetanus Immunization: Unknown - Past Social History Smoking Status: Former Smoker - CARDIAC Hx Hypertension: Yes - PULMONARY Hx Respiratory Disorders: No - NEUROLOGICAL Hx Neurological Disorder: No - HEENT Hx HEENT Problems: Yes Hx Cataracts: Yes - RENAL Hx Chronic Kidney Disease: Yes (right ureteral stent) Hx Renal Failure: Yes (right kidney hydronephrosis) - ENDOCRINE/METABOLIC Hx Diabetes Mellitus Type 2: Yes - HEMATOLOGICAL/ONCOLOGICAL Hx Blood Disorders: Yes 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) Hx Chemotherapy: Yes (fulfox) - INTEGUMENTARY Hx Dermatological Problems: No - MUSCULOSKELETAL/RHEUMATOLOGICAL Hx Falls: No - GASTROINTESTINAL Hx Gastrointestinal Disorders: Yes Hx Gall Bladder Disease: Yes Hx Gastroesophageal Reflux: Yes - GENITOURINARY/GYNECOLOGICAL Hx Genitourinary Disorders: No - PSYCHIATRIC Hx Psychophysiologic Disorder: No - SURGICAL HISTORY Hx Surgeries: Yes (aspira cath, ureterl stent, port placement) - ANESTHESIA Hx Anesthesia Reactions: No Hx Malignant Hyperthermia: No Meds Allergies/Adverse Reactions: Allergies Allergy/AdvReac Type Severity Reaction Status Date / Time No Known Allergies Allergy Verified 06/26/17 13:08 - Medications Medications: Current Medications Amlodipine Besylate (Norvasc) 2.5 mg PO DAILY [facility] Last Admin: 06/30/17 10:19 Dose: 2.5 mg Famotidine (Pepcid) 20 mg IVP DAILY [facility] Last Admin: 06/30/17 10:19 Dose: 20 mg Piperacillin Sod/Tazobactam Sod (Zosyn 3.375 In Ns 100ml) 100 mls @ 200 mls/hr IVPB Q6 [facility] PRN Reason: Protocol Stop: 07/04/17 00:01 Last Admin: 06/30/17 13:44 Dose: 200 mls/hr Multivitamins/Vitamin C 10 ml/Chromium/Copper/Manganese/Zinc 1 ml/ Insulin Human Regular 30 units/ Amino Acids 2,011.3 mls @ 83 mls/hr IV .Q24H [facility] Stop: 06/30/17 17:59 Last Admin: 06/29/17 18:13 Dose: 83 mls/hr Insulin Human Regular (Humulin R Med) 0 units SC ACHS [facility] PRN Reason: Protocol Last Admin: 06/30/17 13:43 Dose: 1 units Ketorolac Tromethamine (Toradol) 15 mg IVP Q4 PRN PRN Reason: Pain, moderate (4-7) Mupirocin (Bactroban Ointment) 0 gm TOP DAILY [facility] Last Admin: 06/30/17 10:21 Dose: 1 applic Ondansetron HCl (Zofran Inj) 4 mg IVP Q6H PRN PRN Reason: Nausea/Vomiting Last Admin: 06/30/17 10:20 Dose: 4 mg Physical Exam - Constitutional Appears: Cachectic, Chronically Ill - Head Exam Head Exam: NORMAL INSPECTION - Eye Exam Eye Exam: Normal appearance, PERRL - ENT Exam ENT Exam: Mucous Membranes Moist, Normal Oropharynx - Neck Exam Neck exam: Positive for: Normal Inspection - Respiratory Exam Respiratory Exam: Decreased Breath Sounds, NORMAL BREATHING PATTERN - Cardiovascular Exam Cardiovascular Exam: REGULAR RHYTHM, +S1, +S2 - GI/Abdominal Exam GI & Abdominal Exam: Distended, Normal Bowel Sounds, Soft Additional comments: Aspira cath. RLQ - Extremities Exam Extremities exam: Positive for: pedal edema, pedal pulses present - Back Exam Back exam: NORMAL INSPECTION - Neurological Exam Neurological exam: Alert, Oriented x3 - Skin Skin Exam: Dry, Warm - Additional Findings Additional findings: Palliative performance scale rating 40 % Results - Vital Signs Recent Vital Signs: Last Vital Signs Temp 98.2 F 06/30/17 08:50 Pulse 84 06/30/17 08:50 Resp 20 06/30/17 08:50 BP 150/80 06/30/17 10:19 Pulse Ox 100 06/30/17 08:50 - Labs Result Diagrams: 06/30/17 06:26 06/30/17 06:26 Labs: Laboratory Results - last 24 hr 06/29/17 06/29/17 06/29/17 17:06 21:32 22:01 WBC RBC Hgb Hct MCV MCH MCHC RDW Plt Count MPV Gran % Lymph % (Auto) [place] % (Auto) Eos % (Auto) Baso % (Auto) Gran # Lymph # [place] # Eos # Baso # Sodium Potassium Chloride Carbon Dioxide Anion Gap BUN Creatinine Est GFR ( Amer) Est GFR (Non-Af Amer) POC Glucose (mg/dL) 97 294 H 293 H Random Glucose Calcium Phosphorus Magnesium Total Bilirubin AST ALT Alkaline Phosphatase Total Protein Albumin Globulin Albumin/Globulin Ratio 06/30/17 06/30/17 06/30/17 06:26 06:26 07:27 WBC 9.8 RBC 3.36 L Hgb 10.3 L Hct 31.1 L MCV 92.6 MCH 30.7 MCHC 33.1 RDW 15.3 H Plt Count 256 MPV 10.7 Gran % 63.9 Lymph % (Auto) 12.1 L [place] % (Auto) 14.4 H Eos % (Auto) 8.9 H Baso % (Auto) 0.7 Gran # 6.24 Lymph # 1.2 [place] # 1.4 H Eos # 0.9 H Baso # 0.07 Sodium 140 Potassium 3.3 L Chloride 110 Carbon Dioxide 24 Anion Gap 9 L BUN 27 H Creatinine 1.0 Est GFR ( Amer) > 60 Est GFR (Non-Af Amer) > 60 POC Glucose (mg/dL) 292 H Random Glucose 279 H Calcium 7.4 L Phosphorus 2.9 Magnesium 1.5 L Total Bilirubin 0.7 AST 45 ALT 55 Alkaline Phosphatase 527 H Total Protein 5.3 L Albumin 2.3 L Globulin 3.0 Albumin/Globulin Ratio 0.8 L 06/30/17 11:07 WBC RBC Hgb Hct MCV MCH MCHC RDW Plt Count MPV Gran % Lymph % (Auto) [place] % (Auto) Eos % (Auto) Baso % (Auto) Gran # Lymph # [place] # Eos # Baso # Sodium Potassium Chloride Carbon Dioxide Anion Gap BUN Creatinine Est GFR ( Amer) Est GFR (Non-Af Amer) POC Glucose (mg/dL) 300 H Random Glucose Calcium Phosphorus Magnesium Total Bilirubin AST ALT Alkaline Phosphatase Total Protein Albumin Globulin Albumin/Globulin Ratio Assessment & Plan - Assessment and Plan (Free Text) Assessment: 71 year old male wit history of metastatic colon cancer, ascites, hydronephrosis admitted with vomiting,abdominal pain, resolving small bowel obstruction. The patient is alert and oriented. He denies pain at present. He has asked to speak with palliative services regarding advance care planning. The patient's POANeyda is at bedside. The patient is aware of his diagnosis. The patient states that he does not want to be resuscitated with CPR /intubation nor does he want a permanent feeding tube if his condition worsens. POLST directive explained. Questions answered. POLST completed the patients is DNR/ DNI. The patient's POA Neyda has been designated as health care surrogate. Time spent in gaols of care discussion and advance care planning, 30 minutes Plan: Advance care planning POLST: DNR/DNI
--- NOTE | 2017-06-30 16:46 | CP.PCM.PN ---
<Aletha Panda - Last Filed: 06/30/17 16:43> Subjective - Date & Time of Evaluation Date of Evaluation: 06/30/17 Time of Evaluation: 10:15 - Subjective Subjective: S&E at bedside earlier today, chart reviewed. Patient denies sob,cp, N/V or abdominal pain. Remains with poor appetite, has Snapple ice tea in hand. Appears weak but easily arousable. Had loose stool earlier this am, no reports of overt GI is a bleeding. Objective - Vital Signs/Intake and Output Vital Signs (last 24 hours): Temp Pulse Resp BP Pulse Ox 98.2 F 84 20 150/80 100 06/30/17 08:50 06/30/17 08:50 06/30/17 08:50 06/30/17 10:19 06/30/17 08:50 Intake and Output: 06/30/17 06/30/17 06:59 18:59 Intake Total 1728 Output Total 350 Balance 1378 - Medications Medications: Current Medications Amlodipine Besylate (Norvasc) 2.5 mg PO DAILY [facility] Last Admin: 06/30/17 10:19 Dose: 2.5 mg Famotidine (Pepcid) 20 mg IVP DAILY [facility] Last Admin: 06/30/17 10:19 Dose: 20 mg Piperacillin Sod/Tazobactam Sod (Zosyn 3.375 In Ns 100ml) 100 mls @ 200 mls/hr IVPB Q6 [facility] PRN Reason: Protocol Stop: 07/04/17 00:01 Last Admin: 06/30/17 13:44 Dose: 200 mls/hr Multivitamins/Vitamin C 10 ml/Chromium/Copper/Manganese/Zinc 1 ml/ Insulin Human Regular 30 units/ Amino Acids 2,011.3 mls @ 83 mls/hr IV .Q24H [facility] Insulin Human Regular (Humulin R Med) 0 units SC ACHS [facility] PRN Reason: Protocol Last Admin: 06/30/17 13:43 Dose: 1 units Ketorolac Tromethamine (Toradol) 15 mg IVP Q4 PRN PRN Reason: Pain, moderate (4-7) Mupirocin (Bactroban Ointment) 0 gm TOP DAILY [facility] Last Admin: 06/30/17 10:21 Dose: 1 applic Ondansetron HCl (Zofran Inj) 4 mg IVP Q6H PRN PRN Reason: Nausea/Vomiting Last Admin: 06/30/17 10:20 Dose: 4 mg - Labs Labs: 06/30/17 06:26 06/30/17 06:26 PT 12.5 SECONDS (9.4-12.5) 06/26/17 14:45 INR 1.14 (0.93-1.08) H 06/26/17 14:45 APTT 32.8 Seconds (25.1-36.5) 06/26/17 14:45 - Constitutional Appears: Chronically Ill - Eye Exam Eye Exam: absent: Scleral icterus - ENT Exam ENT Exam: Mucous Membranes Moist - Neck Exam Neck Exam: Normal Inspection - Respiratory Exam Respiratory Exam: NORMAL BREATHING PATTERN. absent: Respiratory Distress - Cardiovascular Exam Cardiovascular Exam: +S1, +S2 - GI/Abdominal Exam GI & Abdominal Exam: Distended, Soft, Hernia, Normal Bowel Sounds. absent: Guarding, Tenderness, Rebound - Extremities Exam Extremities Exam: Pedal Edema. 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 House. <Kai House V - Last Filed: 06/30/17 23:55> Objective - Vital Signs/Intake and Output Vital Signs (last 24 hours): Temp Pulse Resp BP Pulse Ox 98.0 F 115 H 20 144/93 H 98 06/30/17 16:00 06/30/17 16:00 06/30/17 16:00 06/30/17 16:00 06/30/17 16:00 Intake and Output: 06/30/17 07/01/17 18:59 06:59 Intake Total 120 Output Total 1000 200 Balance -1000 -80 - Medications Medications: Current Medications Amlodipine Besylate (Norvasc) 2.5 mg PO DAILY [facility] Last Admin: 06/30/17 10:19 Dose: 2.5 mg Famotidine (Pepcid) 20 mg IVP DAILY [facility] Last Admin: 06/30/17 10:19 Dose: 20 mg Multivitamins/Vitamin C 10 ml/Chromium/Copper/Manganese/Zinc 1 ml/ Insulin Human Regular 30 units/ Amino Acids 2,011.3 mls @ 83 mls/hr IV .Q24H [facility] Last Admin: 06/30/17 18:46 Dose: 83 mls/hr Insulin Human Regular (Humulin R Med) 0 units SC ACHS [facility] PRN Reason: Protocol Last Admin: 06/30/17 22:27 Dose: Not Given Ketorolac Tromethamine (Toradol) 15 mg IVP Q4 PRN PRN Reason: Pain, moderate (4-7) Mupirocin (Bactroban Ointment) 0 gm TOP DAILY [facility] Last Admin: 06/30/17 10:21 Dose: 1 applic Ondansetron HCl (Zofran Inj) 4 mg IVP Q6H PRN PRN Reason: Nausea/Vomiting Last Admin: 06/30/17 10:20 Dose: 4 mg - Labs Labs: 06/30/17 06:26 06/30/17 06:26 PT 12.5 SECONDS (9.4-12.5) 06/26/17 14:45 INR 1.14 (0.93-1.08) H 06/26/17 14:45 APTT 32.8 Seconds (25.1-36.5) 06/26/17 14:45 Attending/Attestation - Attestation I have personally seen and examined this patient.: Yes I have fully participated in the care of the patient.: Yes I have reviewed all pertinent clinical information, including history, physical exam and plan: Yes Notes (Text): This is an addendum to GI progress report dictated by Aletha Pnada APN.The patient was seen and examined earlier. Medical records, lab studies, imagings were reviewed. Last 24 hours events reviewed. Agreed with the above treatment plan as outlined in Aletha Panda APN's notes the with the addition of the following Still the by mouth intake remains poor Episodes of loose bowel movements I had Detailed discussion with the patient's family before 06/30/17 23:51
[2017-06-30] MEDS ORDERED: [UNRECOGNIZED DRUG - NUTRITION] IV SCH (18:00)
--- NOTE | 2017-06-30 19:32 | CP.PCM.PN ---
Subjective - Date & Time of Evaluation Date of Evaluation: 06/30/17 Time of Evaluation: 17:30 - Subjective Subjective: Still feels weak, no nausea or vomiting, no abdominal pain currently, not in distress, no fevers. Objective - Vital Signs/Intake and Output Vital Signs (last 24 hours): Temp Pulse Resp BP Pulse Ox 98.0 F 115 H 20 144/93 H 98 06/30/17 16:00 06/30/17 16:00 06/30/17 16:00 06/30/17 16:00 06/30/17 16:00 Intake and Output: 06/30/17 06/30/17 06:59 18:59 Intake Total 1728 Output Total 350 Balance 1378 - Medications Medications: Current Medications Amlodipine Besylate (Norvasc) 2.5 mg PO DAILY [facility] Last Admin: 06/30/17 10:19 Dose: 2.5 mg Famotidine (Pepcid) 20 mg IVP DAILY [facility] Last Admin: 06/30/17 10:19 Dose: 20 mg Piperacillin Sod/Tazobactam Sod (Zosyn 3.375 In Ns 100ml) 100 mls @ 200 mls/hr IVPB Q6 [facility] PRN Reason: Protocol Stop: 07/04/17 00:01 Last Admin: 06/30/17 13:44 Dose: 200 mls/hr Multivitamins/Vitamin C 10 ml/Chromium/Copper/Manganese/Zinc 1 ml/ Insulin Human Regular 30 units/ Amino Acids 2,011.3 mls @ 83 mls/hr IV .Q24H [facility] Insulin Human Regular (Humulin R Med) 0 units SC ACHS [facility] PRN Reason: Protocol Last Admin: 06/30/17 13:43 Dose: 1 units Ketorolac Tromethamine (Toradol) 15 mg IVP Q4 PRN PRN Reason: Pain, moderate (4-7) Mupirocin (Bactroban Ointment) 0 gm TOP DAILY [facility] Last Admin: 06/30/17 10:21 Dose: 1 applic Ondansetron HCl (Zofran Inj) 4 mg IVP Q6H PRN PRN Reason: Nausea/Vomiting Last Admin: 06/30/17 10:20 Dose: 4 mg - Labs Labs: 06/30/17 06:26 06/30/17 06:26 PT 12.5 SECONDS (9.4-12.5) 06/26/17 14:45 INR 1.14 (0.93-1.08) H 06/26/17 14:45 APTT 32.8 Seconds (25.1-36.5) 06/26/17 14:45 - Constitutional Appears: Chronically Ill - Head Exam Head Exam: NORMAL INSPECTION - Neck Exam Neck Exam: absent: Meningismus - Respiratory Exam Respiratory Exam: Decreased Breath Sounds - Cardiovascular Exam Cardiovascular Exam: +S1, +S2 - GI/Abdominal Exam GI & Abdominal Exam: Soft. absent: Tenderness Additional comments: abdominal drain in place Assessment and Plan - Assessment and Plan (Free Text) Plan: Assessment S/P Systemic Inflammatory Response Syndrome, R/O due to malignancy and acute small bowel obstruction with ileus increased Alk phos probably related to colon cancer R/O skin / skin structure infection with MSSA of surrounding area of abdominal catheter - S/P treatment with antibiotics colon cancer with peritoneal carcinomatosis DM CAD S/P port-a-cath placement bilateral lens implants Plan currently on Zosyn - will d/c antibiotics and observe overall prognosis is poor
--- NOTE | 2017-06-30 20:32 | PN ---
DATE: 06/30/2017 SUBJECTIVE: The patient is seen lying in bed. He is awake and he is alert. He reports no nausea or vomiting today. He denies any diarrhea. He reports that abdominal pain is under control. PHYSICAL EXAMINATION GENERAL: Elderly male lying in bed. VITAL SIGNS: Blood pressure 144/93, heart rate 115, respiratory rate 20 and temperature 98. HEENT: Normocephalic, atraumatic, positive pallor. NECK: Supple, no JVD. LUNGS: Bilateral equal air entry, equal expansion, no rales. CARDIAC: S1 and S2, regular rate and rhythm, no murmur, no rub. ABDOMEN: Obese, distended, soft, nontender, bowel sounds present. EXTREMITIES: No lower extremity edema. INTAKE AND OUTPUT: 2688/550. LABORATORY DATA: WBC 9.8, hemoglobin 10, hematocrit 31 and platelets 256. Sodium 140, potassium 3.3, chloride 110, CO2 of 24, BUN 27, creatinine 1.0, glucose 279, calcium 7.4, phosphorus 2.9 magnesium 1.5 and albumin 2.3. ASSESSMENT: 1. Severe malnutrition. 2. Hypokalemia. 3. Hypocalcemia, corrected calcium is 8.5. 4. Hypomagnesemia. 5. Metastatic colon cancer with intraperitoneal carcinomatosis. 6. Right hydronephrosis, status post stent. PLAN: 1. Increase potassium and magnesium in hyperalimentation. 2. Push p.o. intake. 3. Pain management. 4. Oncology management as per Dr. Vargas. Gemini Leung MD
[2017-07-01 06:24] LABS: HEMATOCRIT 31.3 % (42.0-52.0); MEAN CELL VOLUME 92.3 fl (80.0-105.0); MEAN CORPUSCULAR HEMOGLOBIN 30.7 pg (25.0-35.0); MEAN CORPUSCULAR HGB CONC 33.2 g/dl (31.0-37.0); MEAN PLATELET VOLUME 11.4 fl (7.0-11.0); WHITE BLOOD COUNT 10.3 10^3/ul (4.5-11.0)
[2017-07-01 06:59] LABS: ALB/GLOB RATIO 0.8 (1.1-1.8); ALKALINE PHOSPHATASE 528 U/L (38-126); ALT/SGPT 47 U/L (7-56); AST/SGOT 31 U/L (17-59); BILIRUBIN,TOTAL 0.6 mg/dL (0.2-1.3); BLOOD UREA NITROGEN 26 mg/dL (7-21); CALCIUM 7.5 mg/dL (8.4-10.5); CARBON DIOXIDE 23 mmol/L (21-33); CHLORIDE 109 mmol/L (95-110); GFR AFRICAN-AMERICAN > 60; GLUCOSE,RANDOM 222 mg/dL (70-110); MAGNESIUM 1.6 mg/dL (1.7-2.2); POTASSIUM 3.1 mmol/L (3.6-5.0); SODIUM 140 mmol/L (132-148); TOTAL PROTEIN 5.4 g/dL (5.8-8.3)
[2017-07-01] MEDS ORDERED: Magnesium Sulfate 1 gm in D5W 1 GM/100 ML BAG IVPB ONE (07:16)
--- NOTE | 2017-07-01 07:49 | CP.PCM.PN ---
Subjective - Date & Time of Evaluation Date of Evaluation: 07/01/17 Time of Evaluation: 08:17 - Subjective Subjective: General Surgery Note for Dr. Alaniz (Dr. Lee covering) Patient seen and examined at bedside. No acute event overnight. Patient denies abdominal pain and nausea/vomiting. Patient reports having BMs and flatus. Patient has no complaints at this time. He is tolerating diet. Objective - Vital Signs/Intake and Output Vital Signs (last 24 hours): Temp Pulse Resp BP Pulse Ox 98.0 F 115 H 20 144/93 H 98 06/30/17 16:00 06/30/17 16:00 06/30/17 16:00 06/30/17 16:00 06/30/17 16:00 Intake and Output: 07/01/17 07/01/17 06:59 18:59 Intake Total 1116 240 Output Total 200 Balance 916 240 - Medications Medications: Current Medications Amlodipine Besylate (Norvasc) 2.5 mg PO DAILY [facility] Last Admin: 06/30/17 10:19 Dose: 2.5 mg Famotidine (Pepcid) 20 mg IVP DAILY [facility] Last Admin: 06/30/17 10:19 Dose: 20 mg Magnesium Sulfate/Dextrose (Magnesium Sulfate 1 Gm/100 Ml D5w) 1 gm in 100 mls @ 100 mls/hr IVPB ONCE ONE Stop: 07/01/17 08:15 Potassium Chloride (Potassium Chloride 20 Meq/100 Ml) 20 meq in 100 mls @ 50 mls/hr IVPB ONCE ONE Stop: 07/01/17 09:15 Multivitamins/Vitamin C 10 ml/Chromium/Copper/Manganese/Zinc 1 ml/ Insulin Human Regular 35 units/ Amino Acids 2,011.35 mls @ 83 mls/hr IV .Q24H [facility] Insulin Human Regular (Humulin R Med) 0 units SC ACHS [facility] PRN Reason: Protocol Last Admin: 06/30/17 22:27 Dose: Not Given Ketorolac Tromethamine (Toradol) 15 mg IVP Q4 PRN PRN Reason: Pain, moderate (4-7) Mupirocin (Bactroban Ointment) 0 gm TOP DAILY [facility] Last Admin: 06/30/17 10:21 Dose: 1 applic Ondansetron HCl (Zofran Inj) 4 mg IVP Q6H PRN PRN Reason: Nausea/Vomiting Last Admin: 06/30/17 10:20 Dose: 4 mg - Labs Labs: 07/01/17 06:00 07/01/17 06:00 PT 12.5 SECONDS (9.4-12.5) 06/26/17 14:45 INR 1.14 (0.93-1.08) H 06/26/17 14:45 APTT 32.8 Seconds (25.1-36.5) 06/26/17 14:45 - Constitutional Appears: No Acute Distress - Head Exam Head Exam: ATRAUMATIC, NORMOCEPHALIC - Eye Exam Eye Exam: Normal appearance Pupil Exam: PERRL - ENT Exam ENT Exam: Mucous Membranes Moist - Respiratory Exam Respiratory Exam: NORMAL BREATHING PATTERN - Cardiovascular Exam Cardiovascular Exam: REGULAR RHYTHM - GI/Abdominal Exam GI & Abdominal Exam: Soft, Hernia (reducible ventral hernia). absent: Firm, Guarding, Rigid, Tenderness, Rebound - Extremities Exam Extremities Exam: Normal Capillary Refill - Neurological Exam Neurological Exam: Alert, Awake - Psychiatric Exam Psychiatric exam: Normal Affect, Normal Mood - Skin Skin Exam: Dry, Normal Color, Warm Assessment and Plan - Assessment and Plan (Free Text) Plan: 71 M with PMH of stage IV colon ca and carcinomatosis with partial SBO -Soft diet, ADAT -OOB and Physical therapy -Management as per primary -No surgical intervention needed at this time -Surgery will sign off, please consult PRN -Discussed with Dr. Lee (covering for Dr. Alaniz) Cornell Helton PGY1
[2017-07-01] MEDS: Insulin Reg-MEDIUM-Coverage SC SCH ×4 (09:59→21:28)
[2017-07-01] MEDS ORDERED: Bismuth Subsalicylate 262 mg/15 ml Sus (240 ml) PO PRN (11:13)
--- NOTE | 2017-07-01 13:00 | CP.PCM.PN ---
Subjective - Date & Time of Evaluation Date of Evaluation: 07/01/17 Time of Evaluation: 12:57 - Subjective Subjective: Progress Note for Mario Morales PGY2 Patient seen and examined at bedside. As per nursing, there were no acute overnight events. Patient reports his diarrhea has decreased overnight, but complains of poor appetite. He denies abdominal pain, chest pain, shortness of breath, nausea/vomiting, fever/chills, numbness/tingling. Patient was able to tolerate lunch without any complaints. Objective - Vital Signs/Intake and Output Vital Signs (last 24 hours): Temp Pulse Resp BP Pulse Ox 98.6 F 85 20 150/80 100 07/01/17 08:20 07/01/17 08:20 07/01/17 08:20 07/01/17 10:00 07/01/17 08:20 Intake and Output: 07/01/17 07/01/17 06:59 18:59 Intake Total 1116 240 Output Total 200 Balance 916 240 - Medications Medications: Current Medications Amlodipine Besylate (Norvasc) 5 mg PO DAILY [facility] Famotidine (Pepcid) 20 mg IVP DAILY [facility] Last Admin: 07/01/17 10:10 Dose: 20 mg Multivitamins/Vitamin C 10 ml/Chromium/Copper/Manganese/Zinc 1 ml/ Insulin Human Regular 35 units/ Amino Acids 2,011.35 mls @ 83 mls/hr IV .Q24H [facility] Insulin Human Regular (Humulin R Med) 0 units SC ACHS [facility] PRN Reason: Protocol Last Admin: 07/01/17 09:59 Dose: 5 units Ketorolac Tromethamine (Toradol) 15 mg IVP Q4 PRN PRN Reason: Pain, moderate (4-7) Last Admin: 07/01/17 10:09 Dose: 15 mg Mupirocin (Bactroban Ointment) 0 gm TOP DAILY [facility] Last Admin: 07/01/17 10:11 Dose: 1 applic Ondansetron HCl (Zofran Inj) 4 mg IVP Q6H PRN PRN Reason: Nausea/Vomiting Last Admin: 06/30/17 10:20 Dose: 4 mg - Labs Labs: 07/01/17 06:00 07/01/17 06:00 PT 12.5 SECONDS (9.4-12.5) 06/26/17 14:45 INR 1.14 (0.93-1.08) H 06/26/17 14:45 APTT 32.8 Seconds (25.1-36.5) 06/26/17 14:45 - Constitutional Appears: No Acute Distress - Head Exam Head Exam: ATRAUMATIC, NORMAL INSPECTION, NORMOCEPHALIC - Eye Exam Eye Exam: Normal appearance, PERRL Pupil Exam: NORMAL ACCOMODATION, PERRL - ENT Exam ENT Exam: Mucous Membranes Moist - Neck Exam Neck Exam: Full ROM - Respiratory Exam Respiratory Exam: Clear to Ausculation Bilateral, NORMAL BREATHING PATTERN. absent: Rales, Rhonchi, Wheezes - Cardiovascular Exam Cardiovascular Exam: REGULAR RHYTHM, +S1, +S2. absent: Gallop, Rubs, Murmur - GI/Abdominal Exam GI & Abdominal Exam: Soft, Hernia, Normal Bowel Sounds. absent: Guarding, Rigid , Tenderness, Mass, Rebound - Extremities Exam Extremities Exam: Normal Inspection. 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 Plan: 1. Partial SBO - Secondary to intra-abdominal carcinomatosis - Patient on TPN, but is starting to tolerate solid food - Will advance diet as tolerated - Patient is not a candidate for peg tube because of carcinomatosis - GI consulted- recs appreciated - Surgery consulted- recommended no surgical intervention at this time - If patient unable to tolerate diet- may need home TPN - Zofran prn nausea 2. Hypokalemia/Hypomagnesia - Secondary to malnutrition - Nephro Consulted- recs appreciated - Continue to monitor electrolytes and replace as needed 3. Colon adenocarcinoma- Stage IV with metastasis - Intra-abdominal carcinomatosis treated with Vectibix and FOLFIRI - Continue to monitor and follow up with Dr. Vargas as outpatient - Upon d/c patient can have outpatient chemotherapy 4. Acute Kidney injury- Resolved - Continue to monitor kidney function - Nephro consulted- recs appreciated. 5. DM - Insulin sliding scale - Maintain euglycemia 6. HTN - Continue Norvasc GI ppx: Pepcid DVT ppx: SCDs Dispo: Patient is refusing [facility] and TCU. If patient tolerating diet, will discharge home for outpatient follow up and chemotherapy. If patient does not tolerate diet, will try to discharge home with TPN. Case seen, discussed and reviewed with Dr. Vargas. Mario Veras PGY2
--- NOTE | 2017-07-01 14:23 | PN ---
SUBJECTIVE: The patient is currently seen lying in bed. He appears to be comfortable. He is requesting toast and cheese for lunch. He states that his appetite is improving and he hopes he could keep food down without nausea or vomiting. He is not complaining of any abdominal pain. He continues on hyperalimentation. Magnesium and potassium levels continue to run low and there are adjustments being made daily and his hyperalimentation prescription. He is also receiving riders of magnesium and potassium. MEDICATIONS: Medication list reviewed. The patient is currently on the mupirocin, Humulin, hyperalimentation, Norvasc, Pepcid, Toradol p.r.n. and Zofran p.r.n. OBJECTIVE: INTAKE/OUTPUT: Intake 1116 plus output 1200. This includes 1000 mL drain from the abdomen via the Aspira catheter. VITAL SIGNS: Blood pressure 150/80, temperature 98.6, respiratory rate 20 with a pulse of 85. HEENT: Normocephalic, atraumatic. Conjunctivae are pink. Sclerae nonicteric. NECK: Supple. No neck vein distention. CHEST: Clear to auscultation and percussion. Rales, no rhonchi or wheezing. He has a port in a right upper chest wall. CARDIOVASCULAR: Regular rate and rhythm without audible murmurs, rubs or gallops. ABDOMEN: Soft. Mild ascites. Reducible umbilical hernia. Positive indwelling Aspira catheter in the right lower quadrant. No rebound. No guarding. No masses. EXTREMITIES: No lower extremity cyanosis, clubbing or edema. LABORATORY DATA AND IMAGING STUDIES: Today's CBC, white blood cell count 10.3, hemoglobin 10.4, platelet count is 263,000. Chemistries: Sodium 140, potassium low at 3.1 down from 3.3 yesterday. The patient received potassium riders and will receive a higher content of potassium in his hyperalimentation. Chloride 109 with CO2 of 23, BUN 26 with creatinine of 1.0. This is down from a BUN of 51 and a creatinine of 1.2. Glucose 222. Calcium 7.5, albumin 2.4, corrected calcium is normal. Phosphorus 3.0, magnesium slightly improved to 1.6 from 1.5. The patient receives both magnesium in hyperalimentation and does receive magnesium riders. Microbiology: All cultures are negative at 4 days. ASSESSMENT: 1. Mild prerenal azotemia secondary to hyperalimentation of no consequence. Creatinine remains stable at 1.0. BUN and creatinine have fallen from the high levels. 2. History of hypertension. Blood pressure control remains marginal at best. No lower extremity edema. I will increase the Norvasc to 5 mg a day from 2.5 mg a day. 3. History of stage IV malignant colon cancer with malignant ascites, pulmonary nodules and intraperitoneal carcinomatosis. The patient continues to have periodic drainage of his malignant ascitic fluid via Aspira catheter three times a week, removing approximately 1000 mL with each procedure. 4. History of mild right-sided hydronephrosis with a creatinine of 1.0. No intervention. 5. History of noninsulin-dependent diabetes mellitus. Sugar control has been more difficult on hyperalimentation. He receives insulin intravenously by the hyperalimentation. The patient is also on sliding scale insulin. 6. History of hyperlipidemia. 7. History of gastroesophageal reflux disease currently stable on IV Pepcid therapy. 8. Mild hypokalemia, mild hypomagnesemia. Continue riders and continue with just hyperalimentation to correct his electrolyte problems. PLAN: 1. Hoping that the patient's oral intake continues to improve and his need for hyperalimentation will decrease. 2. We will make adjustment in blood pressure medication in light of his borderline elevated blood pressure readings. We will increase Norvasc 5 mg a day. 3. Continue to monitor sugars closely, adjust insulin in the hyperalimentation and continue sliding scale insulin. 4. Encouraged the patient to try and increase p.o. intake. Thomas Mcgowan MD
[2017-07-01] MEDS: [UNRECOGNIZED DRUG - NUTRITION] IV SCH (18:14)
--- NOTE | 2017-07-01 19:38 | CP.PCM.PN ---
Subjective - Date & Time of Evaluation Date of Evaluation: 07/01/17 Time of Evaluation: 11:00 - Subjective Subjective: Seen and examined at the bedside earlier today, the chart was reviewed. Patient with POA at bedside. Patient denies nausea, vomiting, or abdominal pain. Diarrhea better. He had a liter of fluid removed yesterday from abdominal catheter. He is requesting for toast and a slice of [place] cheese. No reports of overt GI bleed. Objective - Vital Signs/Intake and Output Vital Signs (last 24 hours): Temp Pulse Resp BP Pulse Ox 99.3 F 105 H 20 152/94 H 99 07/01/17 17:21 07/01/17 17:21 07/01/17 17:21 07/01/17 17:21 07/01/17 17:21 Intake and Output: 07/01/17 07/02/17 18:59 06:59 Intake Total 640 Output Total 700 Balance -60 - Medications Medications: Current Medications Amlodipine Besylate (Norvasc) 5 mg PO DAILY [facility] Famotidine (Pepcid) 20 mg IVP DAILY [facility] Last Admin: 07/01/17 10:10 Dose: 20 mg Multivitamins/Vitamin C 10 ml/Chromium/Copper/Manganese/Zinc 1 ml/ Insulin Human Regular 35 units/ Amino Acids 2,011.35 mls @ 83 mls/hr IV .Q24H [facility] Last Admin: 07/01/17 18:14 Dose: 83 mls/hr Insulin Human Regular (Humulin R Med) 0 units SC ACHS [facility] PRN Reason: Protocol Last Admin: 07/01/17 18:14 Dose: 5 units Ketorolac Tromethamine (Toradol) 15 mg IVP Q4 PRN PRN Reason: Pain, moderate (4-7) Last Admin: 07/01/17 10:09 Dose: 15 mg Mupirocin (Bactroban Ointment) 0 gm TOP DAILY [facility] Last Admin: 07/01/17 10:11 Dose: 1 applic Ondansetron HCl (Zofran Inj) 4 mg IVP Q6H PRN PRN Reason: Nausea/Vomiting Last Admin: 06/30/17 10:20 Dose: 4 mg - Labs Labs: 07/01/17 06:00 07/01/17 06:00 PT 12.5 SECONDS (9.4-12.5) 06/26/17 14:45 INR 1.14 (0.93-1.08) H 06/26/17 14:45 APTT 32.8 Seconds (25.1-36.5) 06/26/17 14:45 - Constitutional Appears: No Acute Distress - Eye Exam Eye Exam: Normal appearance - ENT Exam ENT Exam: Mucous Membranes Moist - Neck Exam Neck Exam: Normal Inspection - Cardiovascular Exam Cardiovascular Exam: +S1, +S2 - GI/Abdominal Exam GI & Abdominal Exam: Distended, Soft, Hernia, Normal Bowel Sounds. absent: Guarding, Tenderness, Rebound - Extremities Exam Extremities Exam: Normal Capillary Refill, Pedal Edema (mild). 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 House.
[2017-07-02 06:27] LABS: MEAN CELL VOLUME 91.7 fl (80.0-105.0); MEAN CORPUSCULAR HEMOGLOBIN 31.2 pg (25.0-35.0); MEAN CORPUSCULAR HGB CONC 34.1 g/dl (31.0-37.0); RED CELL DISTRIBUTION WIDTH 14.9 % (11.5-14.5); WHITE BLOOD COUNT 9.7 10^3/ul (4.5-11.0)
[2017-07-02 06:39] LABS: ALB/GLOB RATIO 0.7 (1.1-1.8); ALKALINE PHOSPHATASE 545 U/L (38-126); ALT/SGPT 46 U/L (7-56); AST/SGOT 37 U/L (17-59); BILIRUBIN,TOTAL 0.6 mg/dL (0.2-1.3); BLOOD UREA NITROGEN 28 mg/dL (7-21); CALCIUM 7.8 mg/dL (8.4-10.5); CARBON DIOXIDE 26 mmol/L (21-33); CHLORIDE 107 mmol/L (98-107); GFR AFRICAN-AMERICAN > 60; GLUCOSE,RANDOM 241 mg/dL (70-110); MAGNESIUM 1.6 mg/dL (1.7-2.2); PHOSPHOROUS 3.3 mg/dL (2.5-4.5); SODIUM 139 mmol/L (132-148); TOTAL PROTEIN 5.8 g/dL (5.8-8.3)
[2017-07-02] MEDS ORDERED: Magnesium Sulfate 1 gm in D5W 1 GM/100 ML BAG IVPB ONE (07:58)
--- NOTE | 2017-07-02 08:05 | CP.PCM.PCO ---
Physician Communication Note - Physician Communication Note Physician Communication Note: Still symptomatic PSBO-cont present regimen
[2017-07-02] MEDS: Insulin Reg-MEDIUM-Coverage SC SCH ×4 (08:34→21:16)
--- NOTE | 2017-07-02 09:38 | CP.PCM.PN ---
Subjective - Date & Time of Evaluation Date of Evaluation: 07/02/17 Time of Evaluation: 09:34 - Subjective Subjective: Progress Note for Mario Morales PGY2 Patient seen and examined at bedside. As per nursing, there were no acute overnight events, but patient did have 2 loose BM overnight. The BM was described as watery with a brown/greenish color, but no blood. Patient was also nauseous this AM. He reports he has abdominal pain in the same area (LLQ/ umbilical region), but has not been new. He was able to eat toast for lunch yesterday, but did not have an appetite for dinner. Patient denies chest pain, shortness of breath, numbness/tingling, fever/chills, dysuria or hematuria. Objective - Vital Signs/Intake and Output Vital Signs (last 24 hours): Temp Pulse Resp BP Pulse Ox 99 F 90 18 158/82 H 98 07/02/17 06:00 07/02/17 06:00 07/02/17 06:00 07/02/17 09:27 07/02/17 06:00 Intake and Output: 07/02/17 07/02/17 06:59 18:59 Intake Total 2112 120 Output Total 100 250 Balance 2011 -130 - Medications Medications: Current Medications Amlodipine Besylate (Norvasc) 5 mg PO DAILY [facility] Last Admin: 07/02/17 09:27 Dose: 5 mg Famotidine (Pepcid) 20 mg IVP DAILY [facility] Last Admin: 07/02/17 09:23 Dose: 20 mg Multivitamins/Vitamin C 10 ml/Chromium/Copper/Manganese/Zinc 1 ml/ Insulin Human Regular 35 units/ Amino Acids 2,011.35 mls @ 83 mls/hr IV .Q24H [facility] Last Admin: 07/01/17 18:14 Dose: 83 mls/hr Potassium Chloride (Potassium Chloride 20 Meq/100 Ml) 20 meq in 100 mls @ 50 mls/hr IVPB ONCE ONE Stop: 07/02/17 09:57 Last Admin: 07/02/17 08:34 Dose: 50 mls/hr Insulin Human Regular (Humulin R Med) 0 units SC ACHS [facility] PRN Reason: Protocol Last Admin: 07/02/17 08:34 Dose: 3 units Ketorolac Tromethamine (Toradol) 15 mg IVP Q4 PRN PRN Reason: Pain, moderate (4-7) Last Admin: 07/01/17 19:45 Dose: 15 mg Mupirocin (Bactroban Ointment) 0 gm TOP DAILY [facility] Last Admin: 07/01/17 10:11 Dose: 1 applic Ondansetron HCl (Zofran Inj) 4 mg IVP Q6H PRN PRN Reason: Nausea/Vomiting Last Admin: 07/02/17 06:45 Dose: 4 mg - Labs Labs: 07/02/17 06:00 07/02/17 06:00 PT 12.5 SECONDS (9.4-12.5) 06/26/17 14:45 INR 1.14 (0.93-1.08) H 06/26/17 14:45 APTT 32.8 Seconds (25.1-36.5) 06/26/17 14:45 - Constitutional Appears: No Acute Distress - Head Exam Head Exam: ATRAUMATIC, NORMAL INSPECTION, NORMOCEPHALIC - Eye Exam Eye Exam: PERRL Pupil Exam: PERRL - ENT Exam ENT Exam: Mucous Membranes Dry - Neck Exam Neck Exam: Full ROM - Respiratory Exam Respiratory Exam: Clear to Ausculation Bilateral, NORMAL BREATHING PATTERN. absent: Rales, Rhonchi, Wheezes - Cardiovascular Exam Cardiovascular Exam: REGULAR RHYTHM, +S1, +S2. absent: Gallop, Rubs, Murmur - GI/Abdominal Exam GI & Abdominal Exam: Soft, Tenderness (LLQ and umbilical region), Hernia, Normal Bowel Sounds. absent: Mass, Rebound - Extremities Exam Extremities Exam: Normal Inspection. 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 Plan: 1. Partial SBO - Secondary to intra-abdominal carcinomatosis - Patient on TPN - Patient was able to eat yesterday once, but not today - If patient unable to tolerate diet- may need home TPN - Patient is not a candidate for peg tube because of carcinomatosis - GI consulted- recs appreciated - Surgery consulted- recommended no surgical intervention at this time - Zofran prn nausea 2. Hypokalemia/Hypomagnesia - Secondary to malnutrition - Nephro Consulted- recs appreciated - Continue to monitor electrolytes and replace as needed 3. Colon adenocarcinoma- Stage IV with metastasis - Intra-abdominal carcinomatosis treated with Vectibix and FOLFIRI - Continue to monitor and follow up with Dr. Vargas as outpatient - Upon d/c patient can have outpatient chemotherapy 4. Acute Kidney injury- Resolved - Continue to monitor kidney function - Nephro consulted- recs appreciated. 5. DM - Continue to monitor blood sugar - Insulin sliding scale - Maintain euglycemia 6. HTN - Continue Norvasc GI ppx: Pepcid DVT ppx: SCDs Dispo: Patient is refusing [facility] and TCU. Once stable, will discharge home for outpatient follow up and chemotherapy. If patient does not tolerate diet, will try to discharge home with TPN. Case seen, discussed and reviewed with Dr. Vargas. Mario Veras PGY2
[2017-07-02] MEDS ORDERED: Potassium Chloride 20 mEq/15 ml LIQ UD PO STA (11:23)
--- NOTE | 2017-07-02 12:12 | CP.PCM.PN ---
Subjective - Date & Time of Evaluation Date of Evaluation: 07/02/17 Time of Evaluation: 11:05 - Subjective Subjective: Still with occasional nausea, but currently comfortable in bed. No fevers overnight. Objective - Vital Signs/Intake and Output Vital Signs (last 24 hours): Temp Pulse Resp BP Pulse Ox 99 F 90 18 158/82 H 98 07/02/17 06:00 07/02/17 06:00 07/02/17 06:00 07/02/17 09:27 07/02/17 06:00 Intake and Output: 07/02/17 07/02/17 06:59 18:59 Intake Total 2112 120 Output Total 100 250 Balance 2011 - - Medications Medications: Current Medications Amlodipine Besylate (Norvasc) 5 mg PO DAILY [facility] Last Admin: 07/02/17 09:27 Dose: 5 mg Famotidine (Pepcid) 20 mg IVP DAILY [facility] Last Admin: 07/02/17 09:23 Dose: 20 mg Multivitamins/Vitamin C 10 ml/Chromium/Copper/Manganese/Zinc 1 ml/ Insulin Human Regular 35 units/ Amino Acids 2,011.35 mls @ 83 mls/hr IV .Q24H [facility] Last Admin: 07/01/17 18:14 Dose: 83 mls/hr Insulin Human Regular (Humulin R Med) 0 units SC ACHS [facility] PRN Reason: Protocol Last Admin: 07/02/17 08:34 Dose: 3 units Ketorolac Tromethamine (Toradol) 15 mg IVP Q4 PRN PRN Reason: Pain, moderate (4-7) Last Admin: 07/01/17 19:45 Dose: 15 mg Mupirocin (Bactroban Ointment) 0 gm TOP DAILY [facility] Last Admin: 07/01/17 10:11 Dose: 1 applic Ondansetron HCl (Zofran Inj) 4 mg IVP Q6H PRN PRN Reason: Nausea/Vomiting Last Admin: 07/02/17 06:45 Dose: 4 mg - Labs Labs: 07/02/17 06:00 07/02/17 06:00 PT 12.5 SECONDS (9.4-12.5) 06/26/17 14:45 INR 1.14 (0.93-1.08) H 06/26/17 14:45 APTT 32.8 Seconds (25.1-36.5) 06/26/17 14:45 - Constitutional Appears: Non-toxic, Chronically Ill - Head Exam Head Exam: NORMAL INSPECTION - Neck Exam Neck Exam: absent: Meningismus - Respiratory Exam Respiratory Exam: Decreased Breath Sounds - Cardiovascular Exam Cardiovascular Exam: +S1, +S2 - GI/Abdominal Exam GI & Abdominal Exam: Soft. absent: Tenderness Assessment and Plan - Assessment and Plan (Free Text) Plan: Assessment S/P Systemic Inflammatory Response Syndrome, R/O due to malignancy and acute partial small bowel obstruction with ileus increased Alk phos probably related to colon cancer R/O skin / skin structure infection with MSSA of surrounding area of abdominal catheter - S/P treatment with antibiotics colon cancer with peritoneal carcinomatosis DM CAD S/P port-a-cath placement bilateral lens implants Plan will continue to monitor off antibiotics since he is at risk for nosocomial infections overall prognosis is poor
--- NOTE | 2017-07-02 15:27 | PN ---
DATE: 07/02/2017 SUBJECTIVE: The patient is seen lying in bed. He is awake. He is alert. He reports that he ate some food earlier. He denies any pain. He denies any shortness of breath. PHYSICAL EXAMINATION: GENERAL: Elderly male lying in bed. VITAL SIGNS: Blood pressure 158/82, heart rate 90, respiratory rate 18, temperature 99, and T-max is 99.3. HEENT: Normocephalic, atraumatic. NECK: Supple, no JVD. LUNGS: Bilateral equal entry, poor air entry at bases. CARDIAC: S1 and S2. Regular rate and rhythm, no murmur, no rub. ABDOMEN: Distended, soft, bowel sounds present. EXTREMITIES: No lower extremity edema. INTAKE AND OUTPUT: 2752/800. LABORATORY DATA: WBC 9.7, hemoglobin 10.9, hematocrit 32, and platelets 270. Sodium 139, potassium 3.0, chloride 107, CO2 26, BUN 28, creatinine 0.8, glucose 241, calcium 7.8, phosphorus 3.3, magnesium 1.6, albumin 2.4, and corrected calcium is 8.8. CURRENT MEDICATIONS: Bactroban, insulin, amlodipine, Pepcid, Toradol, Zofran, magnesium sulfate 1 g given earlier, and potassium 20 mEq given earlier. ASSESSMENT: 1. Stage IV metastatic colon cancer with intraperitoneal carcinomatosis. 2. Malnutrition. 3. Multiple electrolyte abnormalities. 4. Noninsulin dependent diabetes mellitus. 5. Hypertension. PLAN 1. KCl 20 mEq . 2. Continue Hyperal. 3. Advance diet as tolerated. 4. Continue fingerstick monitoring. 5. Continue insulin coverage. Gemini Leung MD
--- NOTE | 2017-07-02 16:42 | CP.PCM.PN ---
<Aletha Panda - Last Filed: 07/02/17 16:38> Subjective - Date & Time of Evaluation Date of Evaluation: 07/02/17 Time of Evaluation: 10:30 - Subjective Subjective: Seen and examined at the bedside earlier today, the patient only tolerated juice for breakfast. Yesterday for lunch he ate toast and cheese. Had nausea this am, no vomiting. He still reported to have some loose stool, no reports of overt GI bleed. Patient denies abdominal pain. Objective - Vital Signs/Intake and Output Vital Signs (last 24 hours): Temp Pulse Resp BP Pulse Ox 99 F 90 18 158/82 H 98 07/02/17 06:00 07/02/17 06:00 07/02/17 06:00 07/02/17 09:27 07/02/17 06:00 Intake and Output: 07/02/17 07/02/17 06:59 18:59 Intake Total 2112 360 Output Total 100 700 Balance 2012 -340 - Medications Medications: Current Medications Amlodipine Besylate (Norvasc) 5 mg PO DAILY [facility] Last Admin: 07/02/17 09:27 Dose: 5 mg Famotidine (Pepcid) 20 mg IVP DAILY [facility] Last Admin: 07/02/17 09:23 Dose: 20 mg Multivitamins/Vitamin C 10 ml/Chromium/Copper/Manganese/Zinc 1 ml/ Insulin Human Regular 35 units/ Amino Acids 2,011.35 mls @ 83 mls/hr IV .Q24H [facility] Last Admin: 07/01/17 18:14 Dose: 83 mls/hr Potassium Chloride (Potassium Chloride 20 Meq/100 Ml) 20 meq in 100 mls @ 50 mls/hr IVPB Q2H [facility] Stop: 07/02/17 17:29 Last Admin: 07/02/17 16:08 Dose: 50 mls/hr Insulin Human Regular (Humulin R Med) 0 units SC ACHS [facility] PRN Reason: Protocol Last Admin: 07/02/17 12:24 Dose: 5 units Ketorolac Tromethamine (Toradol) 15 mg IVP Q4 PRN PRN Reason: Pain, moderate (4-7) Last Admin: 07/01/17 19:45 Dose: 15 mg Mupirocin (Bactroban Ointment) 0 gm TOP DAILY [facility] Last Admin: 07/02/17 11:04 Dose: 1 applic Ondansetron HCl (Zofran Inj) 4 mg IVP Q6H PRN PRN Reason: Nausea/Vomiting Last Admin: 07/02/17 06:45 Dose: 4 mg - Labs Labs: 07/02/17 06:00 07/02/17 06:00 PT 12.5 SECONDS (9.4-12.5) 06/26/17 14:45 INR 1.14 (0.93-1.08) H 06/26/17 14:45 APTT 32.8 Seconds (25.1-36.5) 06/26/17 14:45 - Constitutional Appears: No Acute Distress - Head Exam Head Exam: NORMOCEPHALIC - Eye Exam Eye Exam: Normal appearance. absent: Scleral icterus - ENT Exam ENT Exam: Mucous Membranes Moist - Neck Exam Neck Exam: Normal Inspection - Respiratory Exam Respiratory Exam: NORMAL BREATHING PATTERN. absent: Respiratory Distress - Cardiovascular Exam Cardiovascular Exam: +S1, +S2 - GI/Abdominal Exam GI & Abdominal Exam: Distended, Soft, Tenderness (some tenderness on palpation pateint denies but facial grimicing is noted), Diminished Bowel Sounds, Hernia, Normal Bowel Sounds. absent: Guarding, Rebound - Extremities Exam Extremities Exam: Pedal Edema. absent: Calf Tenderness - Neurological Exam Neurological Exam: Alert, Awake, Oriented x3 Assessment and Plan - Assessment and Plan (Free Text) Assessment: Assessment: Partial small bowel obstruction/ileus Stage IV metastatic adenocarcinoma of the colon with carcinomatosis Recurrent ascites status post aspira catheter, s/p multiple draining Hypokalemia Ureteral stent for hydroureternephrosis Electrolyte imbalance h/O Constipation HTN PLAN: on PPN w/ lipids monitor electrolytes, repelace as necessary continue Pepcid DVT prophylaxsis on regular diet, rec soft foods As per oncology/renal Seen and discussed w/ Dr. House. <Kai House V - Last Filed: 07/03/17 00:02> Objective - Vital Signs/Intake and Output Vital Signs (last 24 hours): Temp Pulse Resp BP Pulse Ox 98.8 F 92 H 19 142/85 98 07/02/17 16:00 07/02/17 16:00 07/02/17 16:00 07/02/17 16:00 07/02/17 16:00 Intake and Output: 07/02/17 07/03/17 18:59 06:59 Intake Total 360 120 Output Total 700 100 Balance -340 20 - Medications Medications: Current Medications Amlodipine Besylate (Norvasc) 5 mg PO DAILY [facility] Last Admin: 07/02/17 09:27 Dose: 5 mg Famotidine (Pepcid) 20 mg IVP DAILY [facility] Last Admin: 07/02/17 09:23 Dose: 20 mg Multivitamins/Vitamin C 10 ml/Chromium/Copper/Manganese/Zinc 1 ml/ Insulin Human Regular 35 units/ Amino Acids 2,011.35 mls @ 83 mls/hr IV .Q24H [facility] Last Admin: 07/02/17 18:31 Dose: 83 mls/hr Insulin Human Regular (Humulin R Med) 0 units SC ACHS [facility] PRN Reason: Protocol Last Admin: 07/02/17 21:16 Dose: Not Given Ketorolac Tromethamine (Toradol) 15 mg IVP Q4 PRN PRN Reason: Pain, moderate (4-7) Last Admin: 07/01/17 19:45 Dose: 15 mg Mupirocin (Bactroban Ointment) 0 gm TOP DAILY [facility] Last Admin: 07/02/17 11:04 Dose: 1 applic Ondansetron HCl (Zofran Inj) 4 mg IVP Q6H PRN PRN Reason: Nausea/Vomiting Last Admin: 07/02/17 19:58 Dose: 4 mg - Labs Labs: 07/02/17 06:00 07/02/17 06:00 PT 12.5 SECONDS (9.4-12.5) 06/26/17 14:45 INR 1.14 (0.93-1.08) H 06/26/17 14:45 APTT 32.8 Seconds (25.1-36.5) 06/26/17 14:45 Attending/Attestation - Attestation I have personally seen and examined this patient.: Yes I have fully participated in the care of the patient.: Yes I have reviewed all pertinent clinical information, including history, physical exam and plan: Yes Notes (Text): today patient is not doing that well still has abdominal bloating discomfort on examination abdomen soft and mild tenderness present visible ventral hernia Metastatic colon cancer probable carcinomatosis history of small bowel obstruction improving. Concern is a lack of appetite I'll discuss Dr Vargas regarding this patient 07/03/17 00:00
[2017-07-02] MEDS: [UNRECOGNIZED DRUG - NUTRITION] IV SCH (18:31)
[2017-07-03 07:00] LABS: HEMATOCRIT 31.9 % (42.0-52.0); MEAN CELL VOLUME 91.9 fl (80.0-105.0); MEAN CORPUSCULAR HEMOGLOBIN 30.3 pg (25.0-35.0); MEAN CORPUSCULAR HGB CONC 32.9 g/dl (31.0-37.0); MEAN PLATELET VOLUME 10.8 fl (7.0-11.0); WHITE BLOOD COUNT 8.7 10^3/ul (4.5-11.0)
[2017-07-03 07:18] LABS: ALB/GLOB RATIO 0.7 (1.1-1.8); ALKALINE PHOSPHATASE 510 U/L (38-126); ALT/SGPT 40 U/L (7-56); AST/SGOT 37 U/L (17-59); BILIRUBIN,TOTAL 0.6 mg/dL (0.2-1.3); BLOOD UREA NITROGEN 28 mg/dL (7-21); CALCIUM 7.5 mg/dL (8.4-10.5); CARBON DIOXIDE 27 mmol/L (21-33); CHLORIDE 106 mmol/L (98-107); GFR AFRICAN-AMERICAN > 60; GLUCOSE,RANDOM 272 mg/dL (70-110); MAGNESIUM 1.7 mg/dL (1.7-2.2); PHOSPHOROUS 3.7 mg/dL (2.5-4.5); POTASSIUM 3.2 mmol/L (3.6-5.0); SODIUM 140 mmol/L (132-148); TOTAL PROTEIN 5.6 g/dL (5.8-8.3)
[2017-07-03 09:31] VITALS: RESP 20
[2017-07-03] MEDS: Insulin Reg-MEDIUM-Coverage SC SCH ×4 (09:40→21:28)
--- NOTE | 2017-07-03 10:15 | CP.PCM.PN ---
Subjective - Date & Time of Evaluation Date of Evaluation: 07/03/17 Time of Evaluation: 10:12 - Subjective Subjective: Progress Note for Mario Morales PGY2 Patient seen and examined at bedside. There were no acute overnight events as per nursing. Patient did have one loose, watery BM last night that was brown in color. He was only able to tolerate liquids PO and reports having no appetite. He reports he has abdominal pain, but denies chest pain, shortness of breath, numbness/tingling, fever/chills, nausea or vomiting. Objective - Vital Signs/Intake and Output Vital Signs (last 24 hours): Temp Pulse Resp BP Pulse Ox 98.7 F 91 H 20 159/91 H 97 07/03/17 09:30 07/03/17 09:30 07/03/17 09:30 07/03/17 09:30 07/03/17 09:30 Intake and Output: 07/03/17 07/03/17 06:59 18:59 Intake Total 2112 0 Output Total 100 250 Balance 2011 -250 - Medications Medications: Current Medications Amlodipine Besylate (Norvasc) 5 mg PO DAILY [facility] Last Admin: 07/02/17 09:27 Dose: 5 mg Famotidine (Pepcid) 20 mg IVP DAILY [facility] Last Admin: 07/02/17 09:23 Dose: 20 mg Multivitamins/Vitamin C 10 ml/Chromium/Copper/Manganese/Zinc 1 ml/ Insulin Human Regular 35 units/ Amino Acids 2,011.35 mls @ 83 mls/hr IV .Q24H [facility] Last Admin: 07/02/17 18:31 Dose: 83 mls/hr Insulin Human Regular (Humulin R Med) 0 units SC ACHS [facility] PRN Reason: Protocol Last Admin: 07/02/17 21:16 Dose: Not Given Ketorolac Tromethamine (Toradol) 15 mg IVP Q4 PRN PRN Reason: Pain, moderate (4-7) Last Admin: 07/01/17 19:45 Dose: 15 mg Mupirocin (Bactroban Ointment) 0 gm TOP DAILY [facility] Last Admin: 07/02/17 11:04 Dose: 1 applic Ondansetron HCl (Zofran Inj) 4 mg IVP Q6H PRN PRN Reason: Nausea/Vomiting Last Admin: 07/02/17 19:58 Dose: 4 mg - Labs Labs: 07/03/17 06:30 07/03/17 06:30 PT 12.5 SECONDS (9.4-12.5) 06/26/17 14:45 INR 1.14 (0.93-1.08) H 06/26/17 14:45 APTT 32.8 Seconds (25.1-36.5) 06/26/17 14:45 - Constitutional Appears: No Acute Distress, Chronically Ill - Head Exam Head Exam: ATRAUMATIC, NORMAL INSPECTION, NORMOCEPHALIC - Eye Exam Eye Exam: Normal appearance, PERRL Pupil Exam: NORMAL ACCOMODATION, PERRL - ENT Exam ENT Exam: Mucous Membranes Dry - Neck Exam Neck Exam: Full ROM - Respiratory Exam Respiratory Exam: Clear to Ausculation Bilateral, NORMAL BREATHING PATTERN. absent: Rales, Rhonchi, Wheezes - Cardiovascular Exam Cardiovascular Exam: REGULAR RHYTHM, +S1, +S2. absent: Gallop, Rubs - GI/Abdominal Exam GI & Abdominal Exam: Distended, Soft, Tenderness (diffuse- but increased in LLQ/ umbilicus ), Hernia, Normal Bowel Sounds - Extremities Exam Extremities Exam: Normal Inspection. 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 Plan: 1. Partial SBO - Secondary to intra-abdominal carcinomatosis - Continue TPN - GI consulted- recs appreciated - Will advance diet as tolerated - Patient is not a candidate for peg tube because of carcinomatosis - Surgery consulted- recommended no surgical intervention at this time - Zofran prn nausea 2. Hypokalemia - Secondary to malnutrition - Nephro Consulted- recs appreciated - Continue to monitor electrolytes and replace as needed 3. Colon adenocarcinoma- Stage IV with metastasis - Intra-abdominal carcinomatosis treated with Vectibix and FOLFIRI - Continue to monitor and follow up with Dr. Vargas as outpatient - Upon d/c patient can have outpatient chemotherapy - Will drain 1500cc from Aspira catheter and give him one dose of Albumin to decrease fluid shifts 4. Acute Kidney injury- Resolved - Nephro consulted- recs appreciated. - Monitor Cr/BUN 5. DM - Maintain euglycemia - ISS 6. HTN - Norvasc GI ppx: Pepcid DVT ppx: SCDs Dispo: Patient is refusing [facility] and TCU. Patient will be d/c home tomorrow with outpatient TPN and will follow up with Dr. Vargas as outpatient for continuation of chemotherapy. Case seen, discussed and reviewed with Dr. Vargas. Mario Veras PGY2
[2017-07-03] MEDS ORDERED: Albumin Human 25% (12.5 gm/50 ml) IV ONE (10:28)
--- NOTE | 2017-07-03 13:55 | CP.PCM.PN ---
<Aletha Panda - Last Filed: 07/03/17 13:55> Subjective - Date & Time of Evaluation Date of Evaluation: 07/03/17 Time of Evaluation: 10:50 - Subjective Subjective: Seen and examined at the bedside earlier today, the patient has only been tolerating liquids, patient is currently denying nausea, vomiting, or abdominal pain. Patient reported to have loose stools, no reports of overt GI bleed. Objective - Vital Signs/Intake and Output Vital Signs (last 24 hours): Temp Pulse Resp BP Pulse Ox 98.7 F 91 H 20 159/91 H 97 07/03/17 09:30 07/03/17 09:30 07/03/17 09:30 07/03/17 09:53 07/03/17 09:30 Intake and Output: 07/03/17 07/03/17 06:59 18:59 Intake Total 2112 0 Output Total 100 250 Balance 2012 -250 - Medications Medications: Current Medications Amlodipine Besylate (Norvasc) 5 mg PO DAILY [facility] Last Admin: 07/03/17 09:53 Dose: 5 mg Famotidine (Pepcid) 20 mg IVP DAILY [facility] Last Admin: 07/03/17 09:41 Dose: 20 mg Multivitamins/Vitamin C 10 ml/Chromium/Copper/Manganese/Zinc 1 ml/ Insulin Human Regular 35 units/ Amino Acids 2,011.35 mls @ 83 mls/hr IV .Q24H [facility] Last Admin: 07/02/17 18:31 Dose: 83 mls/hr Potassium Chloride (Potassium Chloride 20 Meq/100 Ml) 20 meq in 100 mls @ 50 mls/hr IVPB Q2H [facility] Stop: 07/03/17 15:59 Last Admin: 07/03/17 13:07 Dose: 50 mls/hr Insulin Human Regular (Humulin R Med) 0 units SC ACHS [facility] PRN Reason: Protocol Last Admin: 07/03/17 13:07 Dose: 5 units Ketorolac Tromethamine (Toradol) 15 mg IVP Q4 PRN PRN Reason: Pain, moderate (4-7) Last Admin: 07/01/17 19:45 Dose: 15 mg Mupirocin (Bactroban Ointment) 0 gm TOP DAILY [facility] Last Admin: 07/03/17 13:08 Dose: 1 applic Ondansetron HCl (Zofran Inj) 4 mg IVP Q6H PRN PRN Reason: Nausea/Vomiting Last Admin: 07/02/17 19:58 Dose: 4 mg - Labs Labs: 07/03/17 06:30 07/03/17 06:30 PT 12.5 SECONDS (9.4-12.5) 06/26/17 14:45 INR 1.14 (0.93-1.08) H 06/26/17 14:45 APTT 32.8 Seconds (25.1-36.5) 06/26/17 14:45 - Constitutional Appears: No Acute Distress - Eye Exam Eye Exam: Normal appearance. absent: Scleral icterus - ENT Exam ENT Exam: Mucous Membranes Moist - Respiratory Exam Respiratory Exam: NORMAL BREATHING PATTERN. absent: Respiratory Distress - Cardiovascular Exam Cardiovascular Exam: +S1, +S2 - GI/Abdominal Exam GI & Abdominal Exam: Distended, Soft, Hernia, Normal Bowel Sounds. absent: Guarding, Tenderness, Rebound - Neurological Exam Neurological Exam: Alert, Awake, Oriented x3 - Skin Skin Exam: Dry, Warm Assessment and Plan - Assessment and Plan (Free Text) Assessment: Assessment: Partial small bowel obstruction/ileus Stage IV metastatic adenocarcinoma of the colon with carcinomatosis Recurrent ascites status post aspira catheter, s/p multiple draining Hypokalemia Ureteral stent for hydroureternephrosis Electrolyte imbalance h/O Constipation HTN PLAN: on PPN w/ lipids monitor electrolytes, replace as necessary continue Pepcid DVT prophylaxsis on regular diet, rec soft foods As per oncology/renal plan is for patient to be DC'd home tomorrow on TPN Fluid to be removed via abdominal catheter by nursing staff today Seen and discussed w/ Dr. House. <Kai House V - Last Filed: 07/03/17 23:56> Objective - Vital Signs/Intake and Output Vital Signs (last 24 hours): Temp Pulse Resp BP Pulse Ox 98.2 F 91 H 20 147/82 99 07/03/17 16:00 07/03/17 16:00 07/03/17 16:00 07/03/17 16:00 07/03/17 16:00 Intake and Output: 07/03/17 07/04/17 18:59 06:59 Intake Total 120 120 Output Total 2049 100 Balance -1930 20 - Medications Medications: Current Medications Amlodipine Besylate (Norvasc) 5 mg PO DAILY [facility] Last Admin: 07/03/17 09:53 Dose: 5 mg Famotidine (Pepcid) 20 mg IVP DAILY [facility] Last Admin: 07/03/17 09:41 Dose: 20 mg Multivitamins/Vitamin C 10 ml/Chromium/Copper/Manganese/Zinc 1 ml/ Insulin Human Regular 35 units/ Amino Acids 2,011.35 mls @ 83 mls/hr IV .Q24H [facility] Last Admin: 07/03/17 18:28 Dose: 83 mls/hr Insulin Human Regular (Humulin R Med) 0 units SC ACHS [facility] PRN Reason: Protocol Last Admin: 07/03/17 21:28 Dose: Not Given Ketorolac Tromethamine (Toradol) 15 mg IVP Q4 PRN PRN Reason: Pain, moderate (4-7) Last Admin: 07/01/17 19:45 Dose: 15 mg Mupirocin (Bactroban Ointment) 0 gm TOP DAILY [facility] Last Admin: 07/03/17 13:08 Dose: 1 applic Ondansetron HCl (Zofran Inj) 4 mg IVP Q6H PRN PRN Reason: Nausea/Vomiting Last Admin: 07/02/17 19:58 Dose: 4 mg - Labs Labs: 07/03/17 06:30 07/03/17 06:30 PT 12.5 SECONDS (9.4-12.5) 06/26/17 14:45 INR 1.14 (0.93-1.08) H 06/26/17 14:45 APTT 32.8 Seconds (25.1-36.5) 06/26/17 14:45 Attending/Attestation - Attestation I have personally seen and examined this patient.: Yes I have fully participated in the care of the patient.: Yes I have reviewed all pertinent clinical information, including history, physical exam and plan: Yes Notes (Text): This is an addendum to GI progress report dictated by Aletha Panda APN.The patient was seen and examined earlier. Medical records, lab studies, imagings were reviewed. Last 24 hours events reviewed. Agreed with the above treatment plan as outlined in Aletha Panda APN's notes the with the addition of the following Abdomen softly distended with visible ventral hernia po intake remains still low 07/03/17 23:54
--- NOTE | 2017-07-03 16:51 | PN ---
DATE: 07/03/2017 SUBJECTIVE: The patient is seen, lying in bed. He is awake, he is alert. Care given his at bedside. Appetite remains poor. P.o. intake remains extremely poor. PHYSICAL EXAMINATION: GENERAL: Elderly male, lying in bed. VITAL SIGNS: Blood pressure 169/91, heart rate 91, respiratory rate 20, temperature 98.7. HEENT: Normocephalic, atraumatic. NECK: Supple. No JVD. LUNGS: Bilateral equal entry, no rales. CARDIAC: S1 and S2, regular rate and rhythm, no murmur, no rub. ABDOMEN: Distended, soft, tenderness in the upper quadrants, bowel sounds present. EXTREMITIES: No lower extremity edema. INTAKE AND OUTPUT: 2472/800. LABORATORY DATA: WBC 8.7, hemoglobin 10.5, hematocrit 32, platelets 277. Sodium 140, potassium 3.2, chloride 106, CO2 of 27, BUN 28, creatinine 0.9, glucose 272, calcium 7.5, phosphorus 3.7 magnesium 1.7, albumin 2.3. CURRENT MEDICATIONS: List reviewed. ASSESSMENT: 1. Metastatic colon cancer with intraperitoneal carcinomatosis. 2. Malnutrition. 3. Status post acute kidney injury, right hydronephrosis, right ureteral stent placement. 4. Severe hypokalemia. 5. Noninsulin-dependent diabetes mellitus. 6. Hypertension. PLAN: 1. The patient is scheduled for discharge tomorrow, we will write orders for a outpatient hyperal. 2. Increase potassium and hyperal. 3. Increase insulin and hyperal. 4. Close outpatient followup. Gemini Leung MD
[2017-07-03] MEDS: [UNRECOGNIZED DRUG - NUTRITION] IV SCH (18:28)
[2017-07-04] MEDS: Insulin Reg-MEDIUM-Coverage SC SCH ×2 (09:07→12:56)
[2017-07-04 09:09] LABS: MEAN CELL VOLUME 92.5 fl (80.0-105.0); MEAN CORPUSCULAR HEMOGLOBIN 30.7 pg (25.0-35.0); MEAN CORPUSCULAR HGB CONC 33.2 g/dl (31.0-37.0); MEAN PLATELET VOLUME 11.5 fl (7.0-11.0); RED CELL DISTRIBUTION WIDTH 14.9 % (11.5-14.5); WHITE BLOOD COUNT 8.5 10^3/ul (4.5-11.0)
[2017-07-04 09:10] VITALS: BP 160/80
[2017-07-04 09:19] LABS: ALB/GLOB RATIO 0.7 (1.1-1.8); ALKALINE PHOSPHATASE 488 U/L (38-126); ALT/SGPT 46 U/L (7-56); AST/SGOT 38 U/L (17-59); BILIRUBIN,TOTAL 0.6 mg/dL (0.2-1.3); BLOOD UREA NITROGEN 30 mg/dL (7-21); CALCIUM 7.8 mg/dL (8.4-10.5); CARBON DIOXIDE 27 mmol/L (21-33); CHLORIDE 107 mmol/L (98-107); GFR AFRICAN-AMERICAN > 60; GLUCOSE,RANDOM 265 mg/dL (70-110); POTASSIUM 3.3 mmol/L (3.6-5.0); SODIUM 141 mmol/L (132-148); TOTAL PROTEIN 5.8 g/dL (5.8-8.3)
[2017-07-04 09:20] VITALS: PULSE 86; TEMP 98.6; O2SAT 100
--- NOTE | 2017-07-04 09:49 | CP.PCM.DIS ---
Provider - Provider Date of Admission: 06/26/17 21:05 Attending physician: Parminder Julien MD Primary care physician: Dr. Vargas Consults: GI: Dr. House Surgery: Dr. Alaniz ID: Palliative: Jannette Paramvitaliye Nephro: Dr. Leung Time Spent in preparation of Discharge (in minutes): 35 Hospital Course - Lab Results Lab Results: Micro Results 06/27/17 07:27 Blood-Venous Blood Culture - Final NO GROWTH AFTER 5 DAYS 06/27/17 07:27 Blood-Venous Gram Stain - Final TEST NOT PERFORMED 06/27/17 06:52 Blood-Thru Central Line Blood Culture - Final NO GROWTH AFTER 5 DAYS 06/27/17 06:52 Blood-Thru Central Line Gram Stain - Final TEST NOT PERFORMED Most Recent Lab Values WBC 8.5 10^3/ul (4.5-11.0) 07/04/17 06:58 RBC 3.35 10^6/uL (3.5-6.1) L 07/04/17 06:58 Hgb 10.3 g/dL (14.0-18.0) L 07/04/17 06:58 Hct 31.0 % (42.0-52.0) L 07/04/17 06:58 MCV 92.5 fl (80.0-105.0) 07/04/17 06:58 MCH 30.7 pg (25.0-35.0) 07/04/17 06:58 MCHC 33.2 g/dl (31.0-37.0) 07/04/17 06:58 RDW 14.9 % (11.5-14.5) H 07/04/17 06:58 Plt Count 287 10^3/uL (120.0-450.0) 07/04/17 06:58 MPV 11.5 fl (7.0-11.0) H 07/04/17 06:58 Gran % 63.9 % (50.0-68.0) 06/30/17 06:26 Lymph % (Auto) 12.1 % (22.0-35.0) L 06/30/17 06:26 Douglas % (Auto) 14.4 % (1.0-6.0) H 06/30/17 06:26 Eos % (Auto) 8.9 % (1.5-5.0) H 06/30/17 06:26 Baso % (Auto) 0.7 % (0.0-3.0) 06/30/17 06:26 Gran # 6.24 (1.4-6.5) 06/30/17 06:26 Lymph # 1.2 (1.2-3.4) 06/30/17 06:26 Douglas # 1.4 (0.1-0.6) H 06/30/17 06:26 Eos # 0.9 (0.0-0.7) H 06/30/17 06:26 Baso # 0.07 K/mm3 (0.0-2.0) 06/30/17 06:26 PT 12.5 SECONDS (9.4-12.5) 06/26/17 14:45 INR 1.14 (0.93-1.08) H 06/26/17 14:45 APTT 32.8 Seconds (25.1-36.5) 06/26/17 14:45 Sodium 141 mmol/L (132-148) 07/04/17 06:58 Potassium 3.3 mmol/L (3.6-5.0) L 07/04/17 06:58 Chloride 107 mmol/L (98-107) 07/04/17 06:58 Carbon Dioxide 27 mmol/L (21-33) 07/04/17 06:58 Anion Gap 10 (10-20) 07/04/17 06:58 BUN 30 mg/dL (7-21) H 07/04/17 06:58 Creatinine 0.8 mg/dL (0.8-1.5) 07/04/17 06:58 Est GFR ( Amer) > 60 07/04/17 06:58 Est GFR (Non-Af Amer) > 60 07/04/17 06:58 POC Glucose (mg/dL) 214 mg/dL (65-110) H 07/03/17 21:26 Random Glucose 265 mg/dL (70-110) H 07/04/17 06:58 Calcium 7.8 mg/dL (8.4-10.5) L 07/04/17 06:58 Phosphorus 3.7 mg/dL (2.5-4.5) 07/03/17 06:30 Magnesium 1.7 mg/dL (1.7-2.2) 07/03/17 06:30 Total Bilirubin 0.6 mg/dL (0.2-1.3) 07/04/17 06:58 AST 38 U/L (17-59) 07/04/17 06:58 ALT 46 U/L (7-56) 07/04/17 06:58 Alkaline Phosphatase 488 U/L (38-126) H 07/04/17 06:58 Total Protein 5.8 g/dL (5.8-8.3) 07/04/17 06:58 Albumin 2.4 g/dL (3.0-4.8) L 07/04/17 06:58 Globulin 3.4 gm/dL 07/04/17 06:58 Albumin/Globulin Ratio 0.7 (1.1-1.8) L 07/04/17 06:58 Lipase 346 U/L (23-300) H 06/26/17 14:45 Blood Type B POSITIVE 06/26/17 14:45 Antibody Screen Negative 06/26/17 14:45 BBK History Checked Patient has bt 06/26/17 14:45 - Hospital Course Hospital Course: This is a 71yo M with past medical history of HTN, DM, CAD, 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 Patient was transferred to ED and was found to have partial small bowel obstruction seen on CT as well as ascites, esophageal varices, and esophageal thickening (please see full report for more details). Patient was also noted to have SIRS and was placed on Zosyn as per ID. All cultures came back negative and antibiotics were discontinued. Surgery was consulted. Patient refused NG tube at the time. He was treated conservatively without surgical intervention indicated at this time. GI was consulted and also recommended conservative treatment as well. An abdominal Xray was done on 06/29/17 which showed improvement of SBO. Throughout stay, patient had non-bloody diarrhea which is thought to be secondary to the chemotherapy. He had this prior to this admission. He was also found to have LEATHA which resolved. Patient did not tolerate diet and was only able to tolerate liquids. Nephro was consulted and recommended TPN. His electrolytes were monitored and replaced as needed. He will continue TPN at home and work on advancing his diet. He reports having poor appetite and nausea, but would like to go home. He refused [facility] and TCU. He will continue his home medications except K-dur 20meq because will be on Aldactone as well as receiving potassium through the TPN. His Apsira catheter will have 1 Liter drained every Friday and Friday. Palliative care was consulted and patient completed a POLST form and requests to be DNR/DNI. Patient will follow up with Dr. Vargas as outpatient. He will not continue his chemotherapy at this time until he can increase his PO intake. He will follow up with Dr. House as outpatient as well. Discussed discharge plan with patient who understands and agrees with the plan. Patient will be discharged with: * Ergocalciferol 50,000 IU PO Bi-weekly * Protonix 40mg PO daily * Magnesium Oxide 400mg PO BID * Metformin 500mg PO BID * Aldactone 50mg PO daily * Lisinopril 10mg PO daily * Atorvastatin 10mg PO Daily * Zofran ODT 4mg q6h prn nausea * Marinol 2.5 mg take before each meal * Amphogel 30ml after each loose bowel movement - Date & Time of H&P Date of H&P: 06/27/17 Time of H&P: 10:00 Discharge Exam - Head Exam Head Exam: ATRAUMATIC, NORMAL INSPECTION, NORMOCEPHALIC - Eye Exam Eye Exam: Normal appearance, PERRL Pupil Exam: NORMAL ACCOMODATION, PERRL - Respiratory Exam Respiratory Exam: Clear to PA & Lateral, NORMAL BREATHING PATTERN, UNREMARKABLE. absent: Wheezes, Respiratory Distress - Cardiovascular Exam Cardiovascular Exam: REGULAR RHYTHM, +S1, +S2. absent: Gallop, Rubs, Systolic Murmur - GI/Abdominal Exam GI & Abdominal Exam: Hernia, Normal Bowel Sounds, Soft, Tenderness (diffuse tenderness- but greater in umbilicus/LLQ). absent: Rigid - Extremities Exam Extremities exam: normal inspection - Neurological Exam Neurological exam: Alert, CN II-XII Intact, Oriented x3 - Psychiatric Exam Psychiatric exam: Normal Affect, Normal Mood - Skin Skin Exam: Dry, Warm Discharge Plan - Discharge Medications Prescriptions: Aluminum Hydroxide Gel [Amphogel] 30 ml PO PRN PRN #300 ml PRN Reason: Diarrhea Atorvastatin [Lipitor] 10 mg PO DIN #30 tab Dronabinol [Marinol] 2.5 mg PO TID #90 cap Ergocalciferol (Vitamin D2) [Vitamin D2] 50,000 unit PO 2XW #24 capsule Lisinopril [Zestril] 10 mg PO DAILY #30 tablet Magnesium Oxide [Mag-Ox] 400 mg PO BID #60 tab metFORMIN [glucOPHAGE] 500 mg PO BID #60 tab Ondansetron ODT [Zofran ODT] 4 mg PO Q6H PRN #90 odt PRN Reason: Nausea/Vomiting Pantoprazole Sodium [Protonix] 40 mg PO DAILY #30 tablet. Spironolactone [Aldactone] 50 mg PO DAILY #30 tab - Follow Up Plan Condition: FAIR Disposition: HOME/ ROUTINE Additional Instructions: 1. Follow up with Dr. Vargas next week as outpatient 2. Continue medications as prescribed 3. Drain Aspira catheter 1000ml on Friday and Friday Referrals: Hung Vargas MD [Family Provider] - Kai House MD [Medical Doctor] - Clinical Quality Measures - Date & Time of Discharge Summary Date of Discharge Summary: 07/04/17 Time of Discharge Summary: 09:49
--- NOTE | 2017-07-04 10:05 | CP.PCM.PN ---
Subjective - Date & Time of Evaluation Date of Evaluation: 07/04/17 Time of Evaluation: 08:10 - Subjective Subjective: Seen and examined at the bedside earlier this morning, the patient states he is not able to tolerate solid food, has just been drinking liquids. remains w/ poor appetite. Patient does report some nausea but no reports of vomiting, reported to have loose stool no reports of bleeding. Denies abdominal pain. No acute overnight events reported. Aspira cath drain yesterday 1600ml. Objective - Vital Signs/Intake and Output Vital Signs (last 24 hours): Temp Pulse Resp BP Pulse Ox 98.6 F 86 20 160/80 H 100 07/04/17 09:20 07/04/17 09:20 07/04/17 09:20 07/04/17 09:20 07/04/17 09:20 Intake and Output: 07/04/17 07/04/17 06:59 18:59 Intake Total 2232 Output Total 550 Balance 1682 - Medications Medications: Current Medications Amlodipine Besylate (Norvasc) 5 mg PO DAILY PENDING SALE TO [facility] Last Admin: 07/04/17 09:08 Dose: 5 mg Famotidine (Pepcid) 20 mg IVP DAILY PENDING SALE TO [facility] Last Admin: 07/04/17 09:07 Dose: 20 mg Multivitamins/Vitamin C 10 ml/Chromium/Copper/Manganese/Zinc 1 ml/ Insulin Human Regular 35 units/ Amino Acids 2,011.35 mls @ 83 mls/hr IV .Q24H PENDING SALE TO [facility] Last Admin: 07/03/17 18:28 Dose: 83 mls/hr Potassium Chloride (Potassium Chloride 20 Meq/100 Ml) 20 meq in 100 mls @ 50 mls/hr IVPB ONCE ONE Stop: 07/04/17 11:39 Insulin Human Regular (Humulin R Med) 0 units SC ACHS PENDING SALE TO [facility] PRN Reason: Protocol Last Admin: 07/04/17 09:07 Dose: 5 units Ketorolac Tromethamine (Toradol) 15 mg IVP Q4 PRN PRN Reason: Pain, moderate (4-7) Last Admin: 07/01/17 19:45 Dose: 15 mg Mupirocin (Bactroban Ointment) 0 gm TOP DAILY PENDING SALE TO [facility] Last Admin: 07/04/17 09:08 Dose: 1 applic Ondansetron HCl (Zofran Inj) 4 mg IVP Q6H PRN PRN Reason: Nausea/Vomiting Last Admin: 07/02/17 19:58 Dose: 4 mg - Labs Labs: 07/04/17 06:58 07/04/17 06:58 PT 12.5 SECONDS (9.4-12.5) 06/26/17 14:45 INR 1.14 (0.93-1.08) H 06/26/17 14:45 APTT 32.8 Seconds (25.1-36.5) 06/26/17 14:45 - Constitutional Appears: Cachectic - Eye Exam Eye Exam: Normal appearance. absent: Scleral icterus - Neck Exam Neck Exam: Normal Inspection - Respiratory Exam Respiratory Exam: NORMAL BREATHING PATTERN. absent: Respiratory Distress - Cardiovascular Exam Cardiovascular Exam: +S1, +S2 - GI/Abdominal Exam GI & Abdominal Exam: Distended, Soft, Tenderness (mid abdomen no rebound or guarding), Hernia, Normal Bowel Sounds. absent: Guarding, Rebound - Extremities Exam Extremities Exam: absent: Calf Tenderness - Neurological Exam Neurological Exam: Awake, Oriented x3 - Skin Skin Exam: Dry, Warm Assessment and Plan - Assessment and Plan (Free Text) Assessment: Assessment: Partial small bowel obstruction/ileus Stage IV metastatic adenocarcinoma of the colon with carcinomatosis Recurrent ascites status post aspira catheter, s/p multiple draining Hypokalemia Ureteral stent for hydroureternephrorosis Electrolyte imbalance h/O Constipation HTN PLAN: on PPN w/ lipids monitor electrolytes, replace as necessary continue Pepcid DVT prophylaxsis on regular diet, rec soft foods As per oncology/renal To be discharged home today on TPN at home Seen and discussed w/ Dr. Harp.
--- NOTE | 2017-07-05 12:26 | PN ---
DATE: 07/04/2017 SUBJECTIVE: The patient is seen lying in bed. He is awake, he is alert, he is comfortable. He denies any pain. He denies any shortness of breath. PHYSICAL EXAMINATION: GENERAL: Elderly male lying in bed. VITAL SIGNS: Blood pressure 160/80, heart rate 86, respiratory rate 20, temperature 98.6. HEENT: Normocephalic, atraumatic. NECK: Supple, no JVD. LUNGS: Bilateral equal air entry. No rales. CARDIAC: S1 and S2, regular rate and rhythm. No murmur, no rub. ABDOMEN: Distended, soft, tenderness in the upper quadrant, bowel sounds present. EXTREMITIES: No lower extremity edema. INTAKE AND OUTPUT: 2352/2600. LABORATORY DATA: WBC 8.5, hemoglobin 10.3, hematocrit 31, platelets 287. Sodium 141, potassium 3.3, chloride 107, CO2 of 27, BUN 30, creatinine 0.8, glucose 265, calcium 7.8, AST 38, ALT 46, and albumin 2.4. MEDICATIONS: List reviewed. ASSESSMENT: 1. Metastatic colon cancer with intraperitoneal metastases. 2. Hypokalemia. 3. Malnutrition. 4. Persistent nausea, abdominal pain. PLAN: 1. Increase potassium and hyperal. 2. The patient to get hyperal as outpatient. 3. Follow up with Oncology. 4. Monitor fingersticks. 5. Continue to increase insulin and hyperal. Gemini Leung MD
== END 2017-07-04 14:04 | disposition home or self-care (01) | DRG 388 ==
LOC: ED 13:02 → ERH 21:05 → 3RSO 22:37
PROVIDERS: ADMIT Family Medicine; ATTEND Family Medicine
PROC: 3E0336Z Introduction of Nutritional Substance into Peripheral Vein, Percutaneous Approach (ICD-10-PCS; principal; 2017-06-27)
DX: K56.600 Partial intestinal obstruction, unspecified as to cause (principal); K56.7 Ileus, unspecified; E43 Unspecified severe protein-calorie malnutrition; R18.0 Malignant ascites; C78.6 Secondary malignant neoplasm of retroperitoneum and peritoneum; C18.9 Malignant neoplasm of colon, unspecified; N17.9 Acute kidney failure, unspecified; I85.00 Esophageal varices without bleeding; R65.10 Systemic inflammatory response syndrome (SIRS) of non-infectious origin without acute organ dysfunction; K52.1 Toxic gastroenteritis and colitis; E87.1 Hypo-osmolality and hyponatremia; N13.30 Unspecified hydronephrosis; E83.42 Hypomagnesemia; E83.39 Other disorders of phosphorus metabolism; E83.51 Hypocalcemia; I10 Essential (primary) hypertension; E11.9 Type 2 diabetes mellitus without complications; I25.10 Atherosclerotic heart disease of native coronary artery without angina pectoris; E87.6 Hypokalemia; K59.00 Constipation, unspecified; T45.1X5A Adverse effect of antineoplastic and immunosuppressive drugs, initial encounter; E78.00 Pure hypercholesterolemia, unspecified; K21.0 Gastro-esophageal reflux disease with esophagitis; Z66 Do not resuscitate; K43.9 Ventral hernia without obstruction or gangrene; Z79.84 Long term (current) use of oral hypoglycemic drugs; Z87.891 Personal history of nicotine dependence; Z96.1 Presence of intraocular lens